=== PATIENT | female | born 1950 | race Caucasian/White ===

== ENCOUNTER 2016-09-07 07:38 | Inpatient (IN) | payer MEDICARE ==
[2016-09-07 08:01] LABS: Hematocrit 31 % (35-47); Hemoglobin 9.2 g/dl (12.0-16.0); Mean Corpuscular HGB Conc 30 g/dl (31-36); Mean Corpuscular Hemoglobin 20 pg (27-31); Mean Corpuscular Volume 66 fL (80-97); Mean Platelet Volume 9 um3 (7.4-10.4); Red Blood Count 4.67 10^6/ul (4.0-5.4); Red Cell Distribution Width 21 % (10.5-15); White Blood Count 12.1 10^3/ul (3.5-10.8)
[2016-09-07 08:08] LABS: Add Diff/Slide Review? Slide Review Added; Comments Flag Yes
[2016-09-07] MEDS: nitroGLYCERIN DRIP* 25,000 MCG in PREMIX* 0 ML IV ONE ×3 (08:18→09:23)
[2016-09-07 08:26] LABS: Albumin 3.4 g/dL (3.2-5.2); BUN/Creatinine Ratio 28.9 (8-20); Calcium 9.7 mg/dL (8.6-10.3); EGFR African American 98.5 (>60); EGFR Non-African American 76.6 (>60); Globulin 3.6 g/dL (2-4); Potassium 4.4 mmol/L (3.5-5.0); Total Bilirubin 0.3 mg/dL (0.2-1.0)
[2016-09-07 08:27] LABS: Troponin I 0.01 ng/mL (<0.04)
[2016-09-07 08:39] LABS: Add Path Review? YES
[2016-09-07 08:40] LABS: Hypochromasia 2+; Macrocytosis 1+; Microcytosis 3+; Polychromasia 1+
--- NOTE | 2016-09-07 09:11 | RAD ---
INDICATION: Chest pain COMPARISON: Chest x-ray dated June 14, 2012 TECHNIQUE: Single AP portable view of the chest was obtained. FINDINGS: Image quality is compromised due to the relative inferiority of a portable chest x-ray. There is mild cardiomegaly progressed since the previous chest x-ray. The pulmonary vasculature is indistinct and mildly engorged. There is bibasilar costophrenic angle blunting. A pleural-based horizontal line at the lateral aspect of the right middle lung likely represents fluid in the fissure. There is no definite lobar consolidation of the lung. Visualized bones are normal for the patient's age. IMPRESSION: In the correct clinical setting this constellation of findings are most consistent with cardiogenic pulmonary edema with small bibasilar pleural effusions.
--- NOTE | 2016-09-07 11:58 | ED ---
brando Rodriguez Timothy, scribed for Real Miranda MD on 09/07/16 at 0755 . Influenza-Like Illness - HPI Summary HPI Summary: Isaura Cabrera is a 65 yo female BIBA presenting to [facility] with nausea, vomiting , SOB, fever, and 2/10 epigstric pain beginning 09/05/16. She states when her Sx began she believed they were due to indigestion, and self-medicated with Tums with no relief. In the ambulance she claimed 2/10 CP, but now realizes the pain is more epigastric. The pain has been steadily increasing with time. Her SOB is a new Sx as of this morning. She denies any urinary Sx. Her Hx includes CAD, angina, PVD, cardiac catheterization, hypercholesterolemia, HTN, and DM. She also has a Hx of tobacco use for the past 47 years. Her PCP is Dr. Myrick. - History of Current Complaint Time Seen by Provider: 09/07/16 07:51 Hx Obtained From: Patient Onset/Duration: Gradual Onset, Lasting Days, Still Present, Worse Since - now Severity: Moderate Associated Signs & Symptoms: Fever, Vomiting - Allergy/Home Medications Allergies/Adverse Reactions: Allergies Allergy/AdvReac Type Severity Reaction Status Date / Time Perfume AdvReac Severe Sneezing Verified 01/11/15 10:06 Home Medications: Home Medications Amlodipine Besylate [Norvasc-] 10 mg PO DAILY 09/07/16 [History Confirmed ] Aspirin [Tomeka Advanced Aspirin Re] 325 mg PO QAM 09/07/16 [History Confirmed ] Bumetanide [Bumex] 3 mg PO BID 09/07/16 [History Confirmed 09/07/16] Gabapentin CAP(*) [Neurontin 300 CAP(*)] 300 mg PO TID 09/07/16 [History Confirmed 09/07/16] Glipizide [Glucotrol] 10 mg PO BID 09/07/16 [History Confirmed 09/07/16] Lancets [Lancets 26G Twist Top] 1 box .ROUTE BID 09/07/16 [History Confirmed 07/12] Lisinopril [Lisinopril 40 MG-] 40 mg PO DAILY 09/07/16 [History Confirmed ] Nitroglycerin TAB 0.4 MG* 0.4 mg SL Q5M PRN 09/07/16 [History Confirmed 09/07/16 ] PMH/Surg Hx/FS Hx/Imm Hx Endocrine/Hematology History: Reports: Hx Diabetes, Hx Thyroid Disease - thyroiditis Cardiovascular History: Reports: Hx Angina, Hx Coronary Artery Disease, Hx Hypercholesterolemia, Hx Hypertension - ON MEDICATION FOR, Hx Myocardial Infarction, Hx Peripheral Vascular Disease, Other Cardiovascular Problems/ Disorders - HX DVT'S-ON COUMADIN FOR-LAST TIME 2009 Respiratory History: Denies: Hx Asthma, Hx Chronic Obstructive Pulmonary Disease (COPD) Musculoskeletal History: Reports: Hx Tendonitis Denies: Hx Arthritis Sensory History: Reports: Hx Contacts or Glasses Denies: Hx Hearing Aid Opthamlomology History: Reports: Hx Contacts or Glasses Neurological History: Denies: Hx Seizures, Hx Transient Ischemic Attacks (TIA) - Surgical History Surgery Procedure, Year, and Place: 1998-SURGERY FOR BLOOD CLOT IN THE LEFT LEG Hx Anesthesia Reactions: No - Family History Known Family History: Positive: Cardiac Disease - unsure, Hypertension, Diabetes - Social History Alcohol Use: None Substance Use Type: Reports: None Smoking Status (MU): Current Every Day Smoker Type: Cigarettes Amount Used/How Often: 1 PACK PER WEEK X 45 YEARS Have You Smoked in the Last Year: Yes Review of Systems Positive: Fever Eyes: Negative ENT: Negative Positive: Chest Pain - later stated epigastric pain Positive: Abdominal Pain, Vomiting, Nausea Genitourinary: Negative Musculoskeletal: Negative Skin: Negative Neurological: Negative Psychological: Normal All Other Systems Reviewed And Are Negative: Yes Physical Exam Triage Information Reviewed: Yes Vital Signs On Initial Exam: Initial Vital Signs Temp 97.9 F 09/07/16 07:50 Pulse 85 09/07/16 07:50 Resp 18 09/07/16 07:50 BP 177/70 09/07/16 07:50 Pulse Ox 93 09/07/16 07:50 Vital Signs Reviewed: Yes Appearance: Positive: No Pain Distress, Well-Nourished, Ill-Appearing Skin: Positive: Warm, Skin Color Reflects Adequate Perfusion, Dry Head/Face: Positive: Normal Head/Face Inspection Eyes: Positive: Normal ENT: Positive: Normal ENT inspection Neck: Positive: Supple, Nontender, Other: - JVD, HJI Respiratory/Lung Sounds: Positive: Clear to Auscultation, Breath Sounds Present , Other - crackles intermediate up bilaterally Cardiovascular: Negative: RRR - tachypnic on arrival Abdomen Description: Positive: Nontender, Soft Bowel Sounds: Positive: Present Musculoskeletal: Positive: Normal, Other - peripheral edema +/++, left leg has been amputated. Neurological: Positive: Normal Psychiatric: Positive: Normal Diagnostics - Vital Signs Vital Signs Temp Pulse Resp BP Pulse Ox 09/07/16 11:30 92 19 172/64 94 09/07/16 11:20 85 21 156/92 94 09/07/16 11:18 87 21 184/65 90 09/07/16 11:10 86 20 69/51 93 09/07/16 11:00 77 26 149/67 92 09/07/16 10:50 71 24 168/74 91 09/07/16 10:40 80 22 174/61 92 09/07/16 10:30 81 21 161/59 93 09/07/16 10:20 72 16 137/65 92 09/07/16 10:10 85 22 156/52 92 09/07/16 10:00 87 24 185/58 94 09/07/16 09:50 70 23 177/92 92 09/07/16 09:40 75 16 166/113 93 09/07/16 09:30 70 18 190/68 92 09/07/16 09:20 76 19 202/80 91 09/07/16 09:10 78 22 190/70 93 09/07/16 09:00 80 21 185/69 92 09/07/16 08:50 86 28 175/105 93 09/07/16 08:40 78 24 161/123 97 09/07/16 08:30 77 24 184/70 95 09/07/16 08:24 77 20 190/68 93 09/07/16 08:22 79 20 189/68 94 09/07/16 08:16 79 23 97 09/07/16 08:14 186/90 09/07/16 07:50 97.9 F 85 18 177/70 93 - Laboratory Lab Results: Lab Results 09/07/16 09/07/16 09/07/16 Range/Units 07:50 07:50 07:50 WBC 12.1 H (3.5-10.8) 10^3/ul RBC 4.67 (4.0-5.4) 10^6/ul Hgb 9.2 L (12.0-16.0) g/dl Hct 31 L (35-47) % MCV 66 L (80-97) fL MCH 20 L (27-31) pg MCHC 30 L (31-36) g/dl RDW 21 H (10.5-15) % Plt Count 425 (150-450) 10^3/ul MPV 9 (7.4-10.4) um3 Neut % (Auto) 76.3 (38-83) % Lymph % (Auto) 14.3 L (25-47) % [place] % (Auto) 7.3 (1-9) % Eos % (Auto) 1.3 (0-6) % Baso % (Auto) 0.8 (0-2) % Absolute Neuts (auto) 9.3 H (1.5-7.7) 10^3/ul Absolute Lymphs (auto) 1.7 (1.0-4.8) 10^3/ul Absolute Monos (auto) 0.9 H (0-0.8) 10^3/ul Absolute Eos (auto) 0.2 (0-0.6) 10^3/ul Absolute Basos (auto) 0.1 (0-0.2) 10^3/ul Absolute Nucleated RBC 0 10^3/ul Nucleated RBC % 0 Normal RBC Morphology Not Reportable Polychromasia 1+ Hypochromasia 2+ Microcytosis 3+ Macrocytosis 1+ Hem Pathologist Commnt Pending Sodium 135 (133-145) mmol/L Potassium 4.4 (3.5-5.0) mmol/L Chloride 104 (101-111) mmol/L Carbon Dioxide 24 (22-32) mmol/L Anion Gap 7 (2-11) mmol/L BUN 22 (6-24) mg/dL Creatinine 0.76 (0.51-0.95) mg/dL Est GFR ( Amer) 98.5 (>60) Est GFR (Non-Af Amer) 76.6 (>60) BUN/Creatinine Ratio 28.9 H (8-20) Glucose 358 H (70-100) mg/dL Lactic Acid 1.4 (0.5-2.0) mmol/L Calcium 9.7 (8.6-10.3) mg/dL Total Bilirubin 0.30 (0.2-1.0) mg/dL AST 9 L (13-39) U/L ALT 10 (7-52) U/L Alkaline Phosphatase 130 H (34-104) U/L Troponin I 0.01 (<0.04) ng/mL B-Natriuretic Peptide ( - 100) pg/mL Total Protein 7.0 (6.4-8.9) g/dL Albumin 3.4 (3.2-5.2) g/dL Globulin 3.6 (2-4) g/dL Albumin/Globulin Ratio 0.9 L (1-3) 09/07/16 09/07/16 Range/Units 07:50 11:10 WBC (3.5-10.8) 10^3/ul RBC (4.0-5.4) 10^6/ul Hgb (12.0-16.0) g/dl Hct (35-47) % MCV (80-97) fL MCH (27-31) pg MCHC (31-36) g/dl RDW (10.5-15) % Plt Count (150-450) 10^3/ul MPV (7.4-10.4) um3 Neut % (Auto) (38-83) % Lymph % (Auto) (25-47) % [place] % (Auto) (1-9) % Eos % (Auto) (0-6) % Baso % (Auto) (0-2) % Absolute Neuts (auto) (1.5-7.7) 10^3/ul Absolute Lymphs (auto) (1.0-4.8) 10^3/ul Absolute Monos (auto) (0-0.8) 10^3/ul Absolute Eos (auto) (0-0.6) 10^3/ul Absolute Basos (auto) (0-0.2) 10^3/ul Absolute Nucleated RBC 10^3/ul Nucleated RBC % Normal RBC Morphology Polychromasia Hypochromasia Microcytosis Macrocytosis Hem Pathologist Commnt Sodium (133-145) mmol/L Potassium (3.5-5.0) mmol/L Chloride (101-111) mmol/L Carbon Dioxide (22-32) mmol/L Anion Gap (2-11) mmol/L BUN (6-24) mg/dL Creatinine (0.51-0.95) mg/dL Est GFR ( Amer) (>60) Est GFR (Non-Af Amer) (>60) BUN/Creatinine Ratio (8-20) Glucose (70-100) mg/dL Lactic Acid (0.5-2.0) mmol/L Calcium (8.6-10.3) mg/dL Total Bilirubin (0.2-1.0) mg/dL AST (13-39) U/L ALT (7-52) U/L Alkaline Phosphatase (34-104) U/L Troponin I 0.01 (<0.04) ng/mL B-Natriuretic Peptide 788 H ( - 100) pg/mL Total Protein (6.4-8.9) g/dL Albumin (3.2-5.2) g/dL Globulin (2-4) g/dL Albumin/Globulin Ratio (1-3) Result Diagrams: 09/07/16 07:50 09/07/16 07:50 Lab Statement: Any lab studies that have been ordered have been reviewed, and results considered in the medical decision making process. - Radiology CXR Xray Interpretation: Positive (See Comments) - IMPRESSION: In the correct clinical setting this constellation of findings are most consistent with cardiogenic pulmonary edema with small bibasilar pleural effusions. Radiology Interpretation Completed By: Radiologist - EKG 0737 Cardiac Rate: NL - 85 BPM EKG Rhythm: Sinus Rhythm EKG Interpretation: NSR@85BPM, nonspeciic ST,T wave changes intralaterally, PVC' s. same 02/09/14 EKG Comparison: No Significant Change Re-Evaluation - Re-Evaluation First Eval Re-Evaluation Time: 08:37 Change: Improved Comment: Pt conition has improved slightly, will increase nitro drip Flu Symptom Course/Dx - Course Assessment/Plan: Isauar Cabrera is a 65 yo female presenting to [facility] with N/V, fevr, and SOB. Clinically, she appeared to be in CHF and she was treated with a NTG drip to decrease both pre and afterload and subjectively improved significantly. After review of her Hx, CXR, lab studies, and discussion with Dr. Peralta, she will be admitted to [facility]. - Diagnoses Provider Diagnoses: CHF (congestive heart failure) - Physician Notifications Discussed Care Of Patient With: 0847 - Dr. Peralta (hospitalist) - Discussed Pt condition, will admit Pt. Critical Care Time: 30-74 min Discharge - Discharge Plan Condition: Stable Disposition: ADMITTED TO [facility] Referrals: Dylon Myrick MD [Primary Care Provider] - The documentation as recorded by the brando be Timothy accurately reflects the service I personally performed and the decisions made by me, Real Miranda MD.
[2016-09-07] MEDS ORDERED: Furosemide IV* 10 MG/ML 10 ML VIAL (100 MG) IV ONE (12:29)
[2016-09-07] MEDS ORDERED: Morphine INJ* 2 MG/ML 1 ML CARPUJECT IV PRN (13:08)
[2016-09-07] MEDS: Enoxaparin(*) 40 MG/0.4 ML SYR SUBCUT SCH (13:49)
[2016-09-07] MEDS: Lisinopril TAB* 10 MG PO SCH (13:50)
[2016-09-07] MEDS: Atorvastatin* 40 MG TAB PO SCH (13:50)
[2016-09-07] MEDS: Clopidogrel TAB* 75 MG PO SCH (13:50)
[2016-09-07] MEDS: amLODIPine TAB* 5 MG PO SCH (13:50)
[2016-09-07] MEDS: Gabapentin CAP(*) 300 MG PO SCH ×2 (13:50→21:38)
[2016-09-07] MEDS: Metoprolol Tartrate TAB* 50 mg PO SCH ×2 (13:50→21:38)
[2016-09-07] MEDS ORDERED: nitroGLYCERIN DRIP* 25,000 MCG in PREMIX* 0 ML IV SCH (14:00)
[2016-09-07 14:12] LABS: Ferritin 10.6 ng/mL (11-307)
[2016-09-07 14:15] LABS: Folate 18.05 ng/mL (>3.99)
[2016-09-07] MEDS ORDERED: Furosemide IV* 10 MG/ML 10 ML VIAL (100 MG) IV SCH (17:00)
--- NOTE | 2016-09-07 17:11 | PN ---
Hospitalist Progress Note HOSPITALIST ADDENDUM Case reviewed and d/w Benjamin ALVARES. Mrs. Cabrera is a 65yo F with PMH of CAD who presented to ED with c/o recurrent chest pain, requiring NTG drip. Labs and EKG reviewed. Agree with current management.
[2016-09-07] MEDS ORDERED: Dextrose 50% Syringe 50 ML* 25 GM/50 ML SYRINGE IV PUSH PRN (19:15)
[2016-09-07] MEDS ORDERED: Insulin LISPRO* 1 UNITS UNIT SUBCUT ONE (19:46)
[2016-09-07] MEDS: Insulin LISPRO* 1 UNITS UNIT SUBCUT SCH (19:48)
--- NOTE | 2016-09-07 19:59 | HP ---
ADMISSION HISTORY AND PHYSICAL: DATE OF ADMISSION: 09/07/16 PRIMARY CARE PROVIDER: Dr. Myrick. ADMITTING PROVIDER: DIA Sullivan. SUPERVISING PHYSICIAN: Lily Torres MD. * (DICTATED BY DIA SULLIVAN) CHIEF COMPLAINT: Severe epigastric and chest pain. HISTORY OF PRESENT ILLNESS: This is a 65-year-old female with a history of poorly controlled wti-ysriqsi-[id number] diabetes, history of significant peripheral vascular disease and coronary artery disease, status post inferior wall KS in 2013 and additional PPI in 2014 as well as hyperlipidemia and hypertension. The patient has been having intermittent symptoms of what she calls "indigestion" which she describes as epigastric discomfort over the last few days. She has been using Tums quite frequently with some improvement but this morning, she began to have severe epigastric discomfort that radiated into her chest. EMS was called. The patient received nitroglycerin and aspirin with EMS. Some improvement in her chest pain with that. The patient denied associated shortness of breath or nausea. No recent diarrhea. When the patient reached the emergency department, she was noted to be severely hypertensive with a blood pressure of greater than 200 systolic and nitro drip was initiated for blood pressure control. When the patient is evaluated now, she states that her abdominal pain and chest pain have resolved and she is otherwise asymptomatic. She and her have significant social disadvantages and has been having difficulty affording her medications. She reports that her diabetes is poorly controlled with her current oral regimen of metformin and glipizide, but they are unable to afford insulin therapy. She missed a few days of some of her medications last week including her Bumex. She was waiting for her next check to arrive in the mail. She has since resumed all of her typical medications including her Bumex for the last 4 days. The patient is unable to comment on any significant weight gain over the last several days. She denies any increase in lower extremity edema. No increased shortness of breath. No recent illness or other acute symptoms apart from this feeling of indigestion. In regards to the patient's cardiac history, the patient had an inferior wall KS in 2013, at which point she received 5 drug-eluting stents to the RCA. The patient is under the care of Dr. Cason since that time. She developed symptoms consistent with unstable angina about a year after her KS and underwent repeat catheterization with Dr. Cason. She had evidence of restenosis of one of her RCA stents as well as severe stenosis of the distal LAD as well as the circumflex. The patient was subsequently transferred for CABG, but the patient states that the director of sustainability that she saw at [facility] did not feel that a bypass was necessary and instead placed new stents. She believes that two were placed at that time. That report is not available for review. Her last echocardiogram was completed, January 2014, and at that time , she had normal EF without significant valvular disease. Also, of note, in addition to having difficulty filling her prescriptions, the patient has also been having difficulty making her various medical appointments. She unfortunately required an above-knee amputation in March of this last year and since then, transportation has become a major barrier and she has not made several of her appointments including Cardiology and primary care followup. PAST MEDICAL HISTORY: 1. Coronary artery disease, status post inferior wall KS in 2013 and additional PCI in 2014. 2. Hyperlipidemia. 3. Peripheral vascular disease, status post above-knee amputation. 4. Poorly controlled vkx-uxwfuhu-kxqvvziql diabetes. 5. Hypertension. 6. PCI in 2013 and 2014. 7. Above-knee amputation, March 2016. HOME MEDICATIONS: 1. Amlodipine 10 mg p.o. daily. 2. Aspirin 325 mg p.o. daily. 3. Lipitor 40 mg p.o. daily. 4. Bumex 3 mg p.o. b.i.d. 5. Plavix 75 mg p.o. daily. 6. Neurontin 300 mg p.o. t.i.d. 7. Glipizide 10 mg p.o. b.i.d. 8. Lisinopril 40 mg p.o. daily. 9. Metoprolol tartrate 50 mg p.o. b.i.d. 10. Nitroglycerin 0.4 mg sublingual q.5 minutes as needed for chest pain. 11. Metformin 1000 mg p.o. b.i.d. SOCIAL HISTORY: The patient lives at home with her . She has a greater than 09-ppay-gnui smoking history and is working to quit and just occasionally uses cigarettes during times of anxiety per her report. She denies any regular alcohol consumption. REVIEW OF SYSTEMS: As noted above in the HPI. PHYSICAL EXAMINATION GENERAL: This is a pleasant 65-year-old female who appears older than her stated age and accompanied by her , in no acute distress. INITIAL VITAL SIGNS: Temperature 97.9 degrees Fahrenheit, pulse 85 beats per minute, respiratory rate 18 per minute, oxygen saturation 93% on a nonrebreather , and blood pressure 177/70 mmHg. HEENT: Head is normocephalic, atraumatic. Mucous membranes are pink and moist. RESPIRATORY: Few crackles appreciated. Otherwise, clear to auscultation without rhonchi or wheezing. CARDIOVASCULAR: Heart has a regular rate and rhythm without murmurs, rubs, or gallops. ABDOMEN: Slightly distended but soft and nontender to palpation. EXTREMITIES: The patient has a left above-knee amputation. Right lower extremity shows trace edema. SKIN: Limited exam shows no concerning rashes or lesions. PSYCH: The patient is alert and appropriately oriented. LABORATORY EVALUATION: CBC shows a white blood cell count of 12,100, hemoglobin 9.2 g/dL with rather significant microcytosis with an MCV of 66. Platelet count is normal at 425,000. Comprehensive metabolic panel is essentially normal apart from her glucose. She has a sodium of 135 mmol/L, potassium 4.4 mmol/L, serum bicarb of 24, BUN of 22, creatinine 0.76, estimated GFR of 76. Random glucose is 358 mg/dL. Lactic acid normal at 1.4. Transaminases and total bilirubin are within normal limits. Troponin x2 is 0.01. BNP is mildly elevated at 788. IMAGING: EKG shows a sinus rhythm with inverted T waves and mild depression in 2, 3, and aVF. When compared to old EKG, this appears to be improved. Chest x-ray shows cardiomegaly and pulmonary edema with small bilateral effusions. ASSESSMENT AND PLAN: This is a 65-year-old female with extensive vascular history including inferior wall myocardial infarction, above-knee amputation for severe peripheral vascular disease and poorly controlled diabetes along with hypertension and hyperlipidemia who presents with a history painting a picture of unstable angina. No EKG changes or elevated troponin at this time. 1. Unstable angina - the patient does not demonstrate any EKG changes or elevated troponin. Additional troponin is pending at this time. She is chest pain free at the moment on a nitro drip mostly for blood pressure control. Contacted director of sustainability on-call, Dr. Causey, who will refer this consult to Dr. Cason tomorrow as he is quite familiar with her. Discussed whether repeat Lexiscan versus cardiac catheterization would be appropriate to Dr. Causey, I will leave this determination up to Dr. Cason. We will leave her n.p.o. after midnight for either procedure. We will not plan to anticoagulate her at this time, but continue her home cardiac medications including her statin, dual antiplatelet therapy, and beta maureen. 2. Hypertension - the patient is now asymptomatic on a nitroglycerin drip. Last blood pressure showed systolic pressures still about 170 to 180 mmHg. She is no longer having chest pain; however, and she has not taken her home antihypertensives this morning. We will continue her nitroglycerin drip, but give her typical home medications including amlodipine, lisinopril, and metoprolol. Hopefully with these medications, her nitroglycerin drip can be titrated off. 3. Acute congestive heart failure - chest x-ray and exam findings are consistent with acute heart failure, perhaps secondary to severe hypertension. She is now chest pain free on the nitro drip. We will diurese her with IV Lasix. She gives a history that she missed several doses of her diuretic last week, but has since resumed. We will plan to repeat an echocardiogram as her last one from 3 years ago showed normal left ventricular function. 4. Microcytic anemia - we will check iron studies and a stool for occult blood. She is on dual antiplatelet therapy and there would be a concern for an occult GI bleed. 5. Poorly controlled diabetes - we will check hemoglobin A1c. We will monitor glucose during her hospital stay. We will initiate Lantus just to 10 units daily and sliding scale with meals and titrate up as necessary. 6. Peripheral vascular disease, status post above-knee amputation - we will continue antiplatelet therapy and statin. 7. Hyperlipidemia - continue statin. 8. Social concerns - asked for a social work consult as there seems to be significant difficulty with transportation and payment for medications that are certainly interfering with her medical care at this time. 9. Code status - the patient is full code. 10. Healthcare proxy is her . 11. DVT prophylaxis - we will start Lovenox at 40 mg subcu daily. DISPOSITION: The patient is being admitted to inpatient currently to the ICU. Anticipated length of stay approximately 3 days. Pending consultation with Dr. Cason for tomorrow morning. DIA SULLIVAN CC: Dr. Myrick; Dr. Cason* [id number]/CPS #: [id number] MTDD
[2016-09-07] MEDS: Insulin GLARGINE(*) 1 UNITS UNIT SUBCUT SCH (21:37)
--- NOTE | 2016-09-07 22:03 | PN ---
Hospitalist Progress Note Patient remains hypertensive sBP ~140-160 throughout the day. Remains CP free. Nitro drip still running at a rate of 40, will plan to continue at this time. Glucose noted to be >350mg/dl this evening. Initiated Lantus, HgbA1c pending. No additional coverage orders given as she is not eating at this time , symptomatic or acidotic. Continue with meal time glucose checks and SS Lispro coverage, can titrate up.
[2016-09-08 06:07] LABS: Hematocrit 25 % (35-47); Hemoglobin 7.7 g/dl (12.0-16.0); Mean Corpuscular HGB Conc 31 g/dl (31-36); Mean Corpuscular Hemoglobin 20 pg (27-31); Mean Platelet Volume 9 um3 (7.4-10.4); Red Blood Count 3.84 10^6/ul (4.0-5.4); Red Cell Distribution Width 21 % (10.5-15)
[2016-09-08 06:12] LABS: Comments Flag Yes; Mean Corpuscular Volume 65 fL (80-97)
[2016-09-08 06:20] LABS: BUN/Creatinine Ratio 29.2 (8-20); Calcium 8.8 mg/dL (8.6-10.3); EGFR African American 82.1 (>60); EGFR Non-African American 63.9 (>60); HDL Cholesterol 28.4 mg/dL; Potassium 4.2 mmol/L (3.5-5.0)
--- NOTE | 2016-09-08 08:15 | PN ---
Subjective Date of Service: 09/08/16 Interval History: No more chest pain. No SOB, cough. Patient states her says she snores at home. Objective Active Medications: Amlodipine Besylate (Norvasc Tab*) 10 mg PO DAILY [facility] Last Admin: 09/07/16 13:50 Dose: 10 mg Aspirin (Aspirin Tab*) 325 mg PO QAM [facility] Atorvastatin Calcium (Lipitor*) 40 mg PO DAILY [facility] Last Admin: 09/07/16 13:50 Dose: 40 mg Bumetanide (Bumex Tab*) 3 mg PO BID [facility] Clopidogrel Bisulfate (Plavix Tab*) 75 mg PO DAILY [facility] Last Admin: 09/07/16 13:50 Dose: 75 mg Dextrose (D50w Syringe 50 Ml*) 12.5 gm IV PUSH .FOR FS < 60 - SS PRN PRN Reason: FS < 60 Enoxaparin Sodium (Lovenox(*)) 40 mg SUBCUT Q24H [facility] Last Admin: 09/07/16 13:49 Dose: 40 mg Ferrous Sulfate (Ferrous Sulfate Tab*) 325 mg PO DAILY [facility] Gabapentin (Neurontin Cap(*)) 300 mg PO TID [facility] Last Admin: 09/07/16 21:38 Dose: 300 mg Glipizide (Glucotrol Tab*) 10 mg PO 0800,1700 [facility] Insulin Glargine (Lantus(*)) 20 units SUBCUT BEDTIME [facility] Last Admin: 09/07/16 21:37 Dose: 20 unit Insulin Human Lispro (Humalog*) 0 - 15 units SUBCUT AC [facility] PRN Reason: Protocol Last Admin: 09/07/16 19:48 Dose: 15 units Isosorbide Mononitrate (Imdur Er Tab*) 30 mg PO DAILY [facility] Lisinopril (Prinivil Tab*) 40 mg PO DAILY [facility] Last Admin: 09/07/16 13:50 Dose: 40 mg Metoprolol Tartrate (Lopressor Tab*) 50 mg PO BID [facility] Last Admin: 09/07/16 21:38 Dose: 50 mg Morphine Sulfate (Morphine Inj (Syringe)*) 2 mg IV Q4H PRN PRN Reason: PAIN Last Admin: 09/07/16 21:49 Dose: 2 mg Vital Signs 09/07/16 09/07/16 09/07/16 09:00 09:10 09:20 Temperature Pulse Rate 80 78 76 Respiratory 21 22 19 Rate Blood Pressure 185/69 190/70 202/80 (mmHg) O2 Sat by Pulse 92 93 91 Oximetry 09/07/16 09/07/16 09/07/16 09:30 09:40 09:50 Temperature Pulse Rate 70 75 70 Respiratory 18 16 23 Rate Blood Pressure 190/68 166/113 177/92 (mmHg) O2 Sat by Pulse 92 93 92 Oximetry 09/07/16 09/07/16 09/07/16 10:00 10:10 10:20 Temperature Pulse Rate 87 85 72 Respiratory 24 22 16 Rate Blood Pressure 185/58 156/52 137/65 (mmHg) O2 Sat by Pulse 94 92 92 Oximetry 09/07/16 09/07/16 09/07/16 10:30 10:40 10:50 Temperature Pulse Rate 81 80 71 Respiratory 21 22 24 Rate Blood Pressure 161/59 174/61 168/74 (mmHg) O2 Sat by Pulse 93 92 91 Oximetry 09/07/16 09/07/16 09/07/16 11:00 11:10 11:18 Temperature Pulse Rate 77 86 87 Respiratory 26 20 21 Rate Blood Pressure 149/67 69/51 184/65 (mmHg) O2 Sat by Pulse 92 93 90 Oximetry 09/07/16 09/07/16 09/07/16 11:20 11:30 12:30 Temperature Pulse Rate 85 92 87 Respiratory 21 19 27 Rate Blood Pressure 156/92 172/64 166/85 (mmHg) O2 Sat by Pulse 94 94 95 Oximetry 09/07/16 09/07/16 09/07/16 12:50 13:00 13:10 Temperature Pulse Rate 88 89 80 Respiratory Rate Blood Pressure 182/78 185/66 179/71 (mmHg) O2 Sat by Pulse 97 94 94 Oximetry 09/07/16 09/07/16 09/07/16 13:20 13:30 13:40 Temperature Pulse Rate 79 87 77 Respiratory Rate Blood Pressure 175/63 166/60 160/65 (mmHg) O2 Sat by Pulse 90 94 94 Oximetry 09/07/16 09/07/16 09/07/16 13:50 14:00 14:35 Temperature 98.9 F Pulse Rate 77 74 Respiratory 23 Rate Blood Pressure 172/72 170/59 154/54 (mmHg) O2 Sat by Pulse 93 93 Oximetry 09/07/16 09/07/16 09/07/16 14:50 15:04 15:15 Temperature 98.9 F Pulse Rate 72 79 Respiratory 24 13 21 Rate Blood Pressure 169/59 154/54 161/58 (mmHg) O2 Sat by Pulse 95 94 Oximetry 09/07/16 09/07/16 09/07/16 15:30 15:45 16:00 Temperature 98.9 F 98.9 F 99.1 F Pulse Rate 78 78 79 Respiratory 21 18 19 Rate Blood Pressure 152/127 142/55 139/39 (mmHg) O2 Sat by Pulse 94 97 98 Oximetry 09/07/16 09/07/16 09/07/16 16:15 16:30 16:45 Temperature 99.2 F 99.1 F 99.0 F Pulse Rate 80 72 73 Respiratory 22 18 21 Rate Blood Pressure 144/60 145/48 149/61 (mmHg) O2 Sat by Pulse 96 95 92 Oximetry 09/07/16 09/07/16 09/07/16 17:00 17:15 17:30 Temperature 99.0 F 99.0 F 99.1 F Pulse Rate 75 74 74 Respiratory 20 21 21 Rate Blood Pressure 155/63 141/37 142/58 (mmHg) O2 Sat by Pulse 94 93 93 Oximetry 09/07/16 09/07/16 09/07/16 17:45 18:00 18:15 Temperature 99.1 F 99.1 F 99.3 F Pulse Rate 77 87 84 Respiratory 17 21 21 Rate Blood Pressure 118/77 134/72 140/75 (mmHg) O2 Sat by Pulse 92 91 94 Oximetry 09/07/16 09/07/16 09/07/16 18:30 18:45 19:00 Temperature 99.3 F 99.2 F 99.2 F Pulse Rate 84 86 80 Respiratory 22 25 25 Rate Blood Pressure 150/107 140/112 145/90 (mmHg) O2 Sat by Pulse 96 93 94 Oximetry 09/07/16 09/07/16 09/07/16 19:15 19:30 19:45 Temperature 99.0 F 98.9 F 98.9 F Pulse Rate 69 68 83 Respiratory 19 22 20 Rate Blood Pressure 150/64 158/57 135/46 (mmHg) O2 Sat by Pulse 93 94 93 Oximetry 09/07/16 09/07/16 09/07/16 20:00 20:15 20:30 Temperature 98.9 F 98.8 F 98.7 F Pulse Rate 72 76 87 Respiratory 18 17 20 Rate Blood Pressure 131/51 136/49 137/46 (mmHg) O2 Sat by Pulse 91 91 92 Oximetry 09/07/16 09/07/16 09/07/16 20:45 21:00 21:15 Temperature 98.8 F 98.8 F 98.9 F Pulse Rate 78 79 83 Respiratory 20 20 20 Rate Blood Pressure 140/49 139/55 155/52 (mmHg) O2 Sat by Pulse 92 93 93 Oximetry 09/07/16 09/07/16 09/07/16 21:30 21:45 21:49 Temperature 99.0 F 99.1 F Pulse Rate 82 86 Respiratory 21 20 18 Rate Blood Pressure 153/49 171/80 (mmHg) O2 Sat by Pulse 95 92 Oximetry 09/07/16 09/07/16 09/07/16 21:59 22:00 22:15 Temperature 99.2 F 99.2 F 99.1 F Pulse Rate 77 79 74 Respiratory 20 21 20 Rate Blood Pressure 153/52 141/63 127/48 (mmHg) O2 Sat by Pulse 94 93 92 Oximetry 09/07/16 09/07/16 09/07/16 22:30 22:45 23:00 Temperature 99.1 F 99.1 F 99.1 F Pulse Rate 77 78 80 Respiratory 21 22 22 Rate Blood Pressure 143/52 137/57 140/61 (mmHg) O2 Sat by Pulse 92 91 93 Oximetry 09/07/16 09/07/16 09/07/16 23:15 23:30 23:45 Temperature 99.1 F 99.2 F 99.2 F Pulse Rate 80 81 77 Respiratory 23 19 19 Rate Blood Pressure 111/90 132/50 (mmHg) O2 Sat by Pulse 92 95 95 Oximetry 09/07/16 09/07/16 09/08/16 23:51 23:57 00:00 Temperature 99.2 F 99.2 F Pulse Rate 75 70 Respiratory 18 19 21 Rate Blood Pressure (mmHg) O2 Sat by Pulse 95 89 Oximetry 09/08/16 09/08/16 09/08/16 00:01 00:15 00:30 Temperature 99.2 F 99.1 F 98.9 F Pulse Rate 80 65 70 Respiratory 23 21 20 Rate Blood Pressure 124/44 130/46 130/37 (mmHg) O2 Sat by Pulse 91 93 93 Oximetry 09/08/16 09/08/16 09/08/16 00:45 01:00 01:15 Temperature 98.8 F 98.8 F 98.7 F Pulse Rate 69 72 65 Respiratory 21 19 17 Rate Blood Pressure 113/51 110/36 139/57 (mmHg) O2 Sat by Pulse 94 94 93 Oximetry 09/08/16 09/08/16 09/08/16 01:30 01:45 02:00 Temperature 98.6 F 98.5 F 98.5 F Pulse Rate 65 57 65 Respiratory 25 20 18 Rate Blood Pressure 146/54 131/41 144/49 (mmHg) O2 Sat by Pulse 93 91 91 Oximetry 09/08/16 09/08/16 09/08/16 02:15 02:25 02:30 Temperature 98.5 F 98.5 F Pulse Rate 70 69 Respiratory 20 22 21 Rate Blood Pressure 151/57 160/55 (mmHg) O2 Sat by Pulse 92 92 Oximetry 09/08/16 09/08/16 09/08/16 02:45 03:00 03:15 Temperature 98.4 F 98.3 F 98.3 F Pulse Rate 77 76 72 Respiratory 17 17 18 Rate Blood Pressure 157/96 142/68 147/50 (mmHg) O2 Sat by Pulse 92 92 94 Oximetry 09/08/16 09/08/16 09/08/16 03:30 03:45 04:00 Temperature 98.2 F 98.2 F 98.3 F Pulse Rate 73 72 67 Respiratory 18 18 20 Rate Blood Pressure 147/76 157/84 152/58 (mmHg) O2 Sat by Pulse 94 92 92 Oximetry 09/08/16 09/08/16 09/08/16 04:15 04:30 04:45 Temperature 98.4 F 98.4 F Pulse Rate 67 71 Respiratory 20 18 Rate Blood Pressure 161/54 142/53 150/56 (mmHg) O2 Sat by Pulse 94 90 Oximetry 09/08/16 09/08/16 09/08/16 05:00 05:15 05:42 Temperature 98.2 F Pulse Rate 66 Respiratory 24 17 Rate Blood Pressure 148/57 125/48 (mmHg) O2 Sat by Pulse 91 Oximetry 09/08/16 09/08/16 09/08/16 05:46 06:00 06:15 Temperature 98.1 F 98.2 F 98.2 F Pulse Rate 58 65 80 Respiratory 16 19 18 Rate Blood Pressure 142/47 151/60 138/53 (mmHg) O2 Sat by Pulse 95 90 91 Oximetry 09/08/16 06:27 Temperature Pulse Rate Respiratory 17 Rate Blood Pressure (mmHg) O2 Sat by Pulse Oximetry Oxygen Devices in Use Now: Nasal Cannula Appearance: Alert supine in bed. In good spirits. Looks comfortable. Eyes: No Scleral Icterus Ears/Nose/Mouth/Throat: Clear Oropharnyx, Mucous Membranes Moist Neck: NL Appearance and Movements; NL JVP, No Thyroid Enlargement, Masses Respiratory: Symmetrical Chest Expansion and Respiratory Effort, Clear to Auscultation, Clear to Percussion Cardiovascular: NL Sounds; No Murmurs; No JVD, RRR, No Edema, - Extremities: No Edema, No Clubbing, Cyanosis, - - L AKA Skin: No Rash or Ulcers, No Nodules or Sclerosis, - - Pallor. Neurological: Alert and Oriented x 3, NL Sensation Result Diagrams: 09/08/16 05:55 09/08/16 05:55 Additional Lab and Data: Lab Results 09/07/16 09/07/16 09/07/16 Range/Units 07:50 07:50 07:50 WBC 12.1 H (3.5-10.8) 10^3/ul RBC 4.67 (4.0-5.4) 10^6/ul Hgb 9.2 L (12.0-16.0) g/dl Hct 31 L (35-47) % MCV 66 L (80-97) fL MCH 20 L (27-31) pg MCHC 30 L (31-36) g/dl RDW 21 H (10.5-15) % Plt Count 425 (150-450) 10^3/ul MPV 9 (7.4-10.4) um3 Neut % (Auto) 76.3 (38-83) % Lymph % (Auto) 14.3 L (25-47) % [place] % (Auto) 7.3 (1-9) % Eos % (Auto) 1.3 (0-6) % Baso % (Auto) 0.8 (0-2) % Absolute Neuts (auto) 9.3 H (1.5-7.7) 10^3/ul Absolute Lymphs (auto) 1.7 (1.0-4.8) 10^3/ul Absolute Monos (auto) 0.9 H (0-0.8) 10^3/ul Absolute Eos (auto) 0.2 (0-0.6) 10^3/ul Absolute Basos (auto) 0.1 (0-0.2) 10^3/ul Absolute Nucleated RBC 0 10^3/ul Nucleated RBC % 0 Normal RBC Morphology Not Reportable Polychromasia 1+ Hypochromasia 2+ Microcytosis 3+ Macrocytosis 1+ Hem Pathologist Commnt Pending Sodium 135 (133-145) mmol/L Potassium 4.4 (3.5-5.0) mmol/L Chloride 104 (101-111) mmol/L Carbon Dioxide 24 (22-32) mmol/L Anion Gap 7 (2-11) mmol/L BUN 22 (6-24) mg/dL Creatinine 0.76 (0.51-0.95) mg/dL Est GFR ( Amer) 98.5 (>60) Est GFR (Non-Af Amer) 76.6 (>60) BUN/Creatinine Ratio 28.9 H (8-20) Glucose 358 H (70-100) mg/dL Lactic Acid 1.4 (0.5-2.0) mmol/L Calcium 9.7 (8.6-10.3) mg/dL Total Bilirubin 0.30 (0.2-1.0) mg/dL AST 9 L (13-39) U/L ALT 10 (7-52) U/L Alkaline Phosphatase 130 H (34-104) U/L Troponin I 0.01 (<0.04) ng/mL B-Natriuretic Peptide ( - 100) pg/mL Total Protein 7.0 (6.4-8.9) g/dL Albumin 3.4 (3.2-5.2) g/dL Globulin 3.6 (2-4) g/dL Albumin/Globulin Ratio 0.9 L (1-3) 09/07/16 09/07/16 Range/Units 07:50 11:10 WBC (3.5-10.8) 10^3/ul RBC (4.0-5.4) 10^6/ul Hgb (12.0-16.0) g/dl Hct (35-47) % MCV (80-97) fL MCH (27-31) pg MCHC (31-36) g/dl RDW (10.5-15) % Plt Count (150-450) 10^3/ul MPV (7.4-10.4) um3 Neut % (Auto) (38-83) % Lymph % (Auto) (25-47) % [place] % (Auto) (1-9) % Eos % (Auto) (0-6) % Baso % (Auto) (0-2) % Absolute Neuts (auto) (1.5-7.7) 10^3/ul Absolute Lymphs (auto) (1.0-4.8) 10^3/ul Absolute Monos (auto) (0-0.8) 10^3/ul Absolute Eos (auto) (0-0.6) 10^3/ul Absolute Basos (auto) (0-0.2) 10^3/ul Absolute Nucleated RBC 10^3/ul Nucleated RBC % Normal RBC Morphology Polychromasia Hypochromasia Microcytosis Macrocytosis Hem Pathologist Commnt Sodium (133-145) mmol/L Potassium (3.5-5.0) mmol/L Chloride (101-111) mmol/L Carbon Dioxide (22-32) mmol/L Anion Gap (2-11) mmol/L BUN (6-24) mg/dL Creatinine (0.51-0.95) mg/dL Est GFR ( Amer) (>60) Est GFR (Non-Af Amer) (>60) BUN/Creatinine Ratio (8-20) Glucose (70-100) mg/dL Lactic Acid (0.5-2.0) mmol/L Calcium (8.6-10.3) mg/dL Total Bilirubin (0.2-1.0) mg/dL AST (13-39) U/L ALT (7-52) U/L Alkaline Phosphatase (34-104) U/L Troponin I 0.01 (<0.04) ng/mL B-Natriuretic Peptide 788 H ( - 100) pg/mL Total Protein (6.4-8.9) g/dL Albumin (3.2-5.2) g/dL Globulin (2-4) g/dL Albumin/Globulin Ratio (1-3) Microbiology and Other Data: Microbiology 09/08/16 06:00 Nasal Screen MRSA (PCR)(EBONY) - Final Nasal Mrsa Negative Assess/Plan/Problems-Billing Assessment: - Patient Problems (1) Chest pain Current Visit: Yes Status: Acute Code(s): R07.9 - CHEST PAIN, UNSPECIFIED SNOMED Code(s): 57531228 Comment: Patient has no NTG at home, is not sure if this was indigestion. Sedentary, uses a WC. Stress test ordered. Isosorbide mononitrate ordered. Note high BNP and also urine output 3000 ml yesterday. Chest pain may have been precipitated by her anemia. 2 U PRBC ordered. H&H 4 PM. (2) Iron (Fe) deficiency anemia Current Visit: Yes Status: Acute Code(s): D50.9 - IRON DEFICIENCY ANEMIA, UNSPECIFIED SNOMED Code(s): 31218986 Comment: Pantoprazole drip ordered. Dr. Morelos to consult. 2 U PRBC's ordered. H&H 1600 hrs today, CBC 09/09. Stop clopidogrel; discussed with Dr. Cason. (3) Diabetes Current Visit: Yes Status: Acute Code(s): E11.9 - TYPE 2 DIABETES MELLITUS WITHOUT COMPLICATIONS SNOMED Code(s): 38041156 Comment: Patient states the copay for insulin makes it unaffordable for her. She states her FS is often over 200 at home. She checks it twice daily. Resume glipizide, hold metoformin, continue Lantus and Lispro by SS. (4) Bradycardia Current Visit: Yes Status: Acute Code(s): R00.1 - BRADYCARDIA, UNSPECIFIED SNOMED Code(s): 06025376 Comment: Pause about 2.6 sec at 1:30 AM 09/08, HR 37 around that time briefly. I recommended to her that she get a sleep lab study as an outpt. She has never had one. (5) CHF (congestive heart failure) Current Visit: Yes Status: Acute Code(s): I50.9 - HEART FAILURE, UNSPECIFIED SNOMED Code(s): 52617516 Comment: Suspect acute diastolic CHF. Echo pending. Clinically resolved after diuresis 09/07. Resume her usual (large) dose of oral bumetanide bid. (6) PVD (peripheral vascular disease) Current Visit: Yes Status: Acute Code(s): I73.9 - PERIPHERAL VASCULAR DISEASE, UNSPECIFIED SNOMED Code(s): 622298491 Comment: I will ask SW to look into her getting both a prosthesis and a ramp.
[2016-09-08] MEDS ORDERED: Pantoprazole IV* 40 MG IV ONE (08:21)
[2016-09-08] MEDS: Insulin LISPRO* 1 UNITS UNIT SUBCUT SCH ×3 (08:41→18:33)
[2016-09-08] MEDS: Clopidogrel TAB* 75 MG PO SCH (08:42)
[2016-09-08] MEDS: Aspirin TAB* 325 MG PO SCH (08:42)
[2016-09-08] MEDS: Atorvastatin* 40 MG TAB PO SCH (08:42)
[2016-09-08] MEDS: Isosorbide Mononitrate ER TAB* 30 MG PO SCH (08:42)
[2016-09-08] MEDS: amLODIPine TAB* 5 MG PO SCH (08:43)
[2016-09-08] MEDS: glipiZIDE TAB* 5 MG PO SCH ×2 (08:43→18:34)
[2016-09-08] MEDS: Gabapentin CAP(*) 300 MG PO SCH ×3 (08:44→22:35)
[2016-09-08] MEDS: Lisinopril TAB* 10 MG PO SCH (08:44)
[2016-09-08] MEDS: Bumetanide TAB* 2 MG PO SCH ×2 (08:44→22:34)
[2016-09-08] MEDS: Metoprolol Tartrate TAB* 50 mg PO SCH ×2 (08:45→22:36)
[2016-09-08] MEDS ORDERED: Ferrous Sulfate TAB* 325 MG PO SCH (09:00)
[2016-09-08] MEDS: Pantoprazole IV* 80 MG in NS 0.9% 250 ML* 250 ML IVPB SCH ×2 (09:12→20:19)
--- NOTE | 2016-09-08 11:25 | ECHO ---
Patient: TRISHA PROCTOR [facility] Rec#: [id number] : 1950 Date: 09/08/2016 Age: 65y Height: 160.02 cm / 63.0 in Weight: 96.16 kg / 211.9 lbs Sex: F BSA: 1.98 Room#: [facility] Admit Date#: 09/07/2016 Type: Inpatient Referring: Lily Rincon MD Reading: Marty Berry MD Revenue Stamp Cutter: Jacquelyn Carroll KWAN Revenue Stamp Cutter: Catrina Simmons CC: Dylon Myrick MD Transthoracic Echocardiogram Indication: Chest Pain, CHF BP: 138/53 HR: 77 Rhythm: NSR Findings History: HTN, HLD, DM, PVD, CAD, PCI, IWMI 2013. Technical Comments: The study is technically limited due to patient body habitus. Completed at 1048. Left Ventricle: The left ventricular chamber size is normal. Severe concentric left ventricular hypertrophy is observed. Global left ventricular wall motion and contractility are within normal limits. The left ventricle appears hyperdynamic. The estimated ejection fraction is 55-60%. Abnormal left ventricular diastolic function is observed. Left Atrium: The left atrium is moderately dilated. Right Ventricle: The right ventricular cavity size is normal. The right ventricular global systolic function is normal. Right Atrium: The right atrial cavity size is normal. Aortic Valve: The aortic valve is trileaflet. The aortic valve leaflets are mildly thickened. There is no evidence of aortic regurgitation. There is no evidence of aortic stenosis. Mitral Valve: The mitral valve leaflets are moderately thickened. There is mild to moderate mitral regurgitation. There is no evidence of mitral stenosis. Tricuspid Valve: The tricuspid valve leaflets are normal. There is trace to mild tricuspid regurgitation. Unable to estimate the right ventricular systolic pressure. There is no tricuspid stenosis. Pulmonic Valve: The pulmonic valve appears normal. There is a trace pulmonic regurgitation. There is no pulmonic stenosis. Pericardium: A trivial pericardial effusion is visualized. There are no signs of significant hemodynamic compromise. Aorta: There is no dilatation of the ascending aorta. There is no dilatation of the aortic arch. There is no dilation of the aortic root. Pulmonary Artery: The main pulmonary artery appears normal. Venous: The inferior vena cava appears normal in size. There is an approximate 50% respiratory change in the inferior vena cava dimension. Summary: There are no significant changes when compared to the previous study done on 02/21/14 Conclusions Severe concentric left ventricular hypertrophy is observed. The estimated ejection fraction is 55-60%. Global left ventricular wall motion and contractility are within normal limits. The left atrium is moderately dilated. The right ventricular cavity size is normal. The aortic valve leaflets are mildly thickened. There is no evidence of aortic regurgitation. There is mild to moderate mitral regurgitation. There is trace to mild tricuspid regurgitation. Unable to estimate the right ventricular systolic pressure. There is no dilatation of the ascending aorta. There are no significant changes when compared to the previous study done on 02/21/14 Measurements Name Value Normal Range RVIDd (AP) 2D 2.9 cm (0.9 - 2.6) RVDdMajor (2D) 4.1 cm (2.2 - 4.4) RAd ISD 4CH 4.7 cm (3.4 - 4.9) RA (A4C)W 4 cm (2.9 - 4.6) IVSd (2D) 1.8 cm (0.6 - 1) LVPWd (2D) 1.8 cm (0.6 - 1) LVIDd (2D) 4.3 cm (3.6 - 5.4) LVIDs (2D) 3.3 cm - LV FS (2D) 23 % (25 - 45) Aortic Annulus 1.9 cm (1.4 - 2.6) Ao root diameter (2D) 2.8 cm (2.1 - 3.5) Ascending Ao 3.2 cm (2.1 - 3.4) Aortic arch 1.9 cm (1.8 - 3.4) LA dimension (AP) 2D 4.9 cm (2.3 - 3.8) LAd ISD 4CH 5.9 cm (2.9 - 5.3) LA ISD 4CH W 4.8 cm (2.5 - 4.5) Name Value Normal Range LA ESV SP 4CH (A/L) 78 ml - LA ESV SP 2CH (A/L) 68 ml - LA ESV BP (A/L) 75 ml - LA ESV BP (A/L) index 37.85 ml/m2 - LA ESV SP 4CH (MOD) 73 ml - LA ESV SP 2CH (MOD) 67 ml - Name Value Normal Range MV E-wave Vmax 1.5 m/sec - MV deceleration time 170 msec - MV A-wave Vmax 0.8 m/sec - MV E:A ratio 1.78 ratio - LV septal e' Vmax 0.03 m/sec - LV lateral e' Vmax 0.06 m/sec - LV E:e' septal ratio 50 ratio - LV E:e' lateral ratio 25 ratio - Name Value Normal Range AV Vmax 1.3 m/sec - AV VTI 31.9 cm - AV peak gradient 7.05 mmHg - AV mean gradient 3.85 mmHg - LVOT Vmax 1 m/sec - LVOT VTI 21.2 cm - LVOT peak gradient 3.94 mmHg - LVOT mean gradient 2 mmHg - Name Value Normal Range TR Vmax 1.9 m/sec - TR peak gradient 15 mmHg - RAP 8 mmHg - RVSP 23 mmHg - IVC diameter 1.6 cm - Name Value Normal Range PV Vmax 1 m/sec - PV peak gradient 4 mmHg -
[2016-09-08 11:43] LABS: Hematocrit 26 % (35-47); Hemoglobin 7.9 g/dl (12.0-16.0)
[2016-09-08 11:48] LABS: Comments Flag Yes
[2016-09-08] MEDS: Enoxaparin(*) 40 MG/0.4 ML SYR SUBCUT SCH (14:50)
[2016-09-08] MEDS ORDERED: Furosemide IV* 10 MG/ML VIAL (40 MG) IV ONE (17:10)
--- NOTE | 2016-09-08 19:01 | CONS ---
CARDIOLOGY CONSULTATION: DATE OF CONSULT: 09/07/16 REASON FOR CONSULT: The patient presents with epigastric discomfort with a known history of coronary artery disease to assess cardiac status for possible unstable angina. HISTORY OF PRESENT ILLNESS: The patient is a pleasant 65-year-old female known to me from her extensive prior cardiac history. She now states that she was in her usual state of health without significant symptoms until Thursday morning, while lying in bed she developed a mid epigastric toward upper epigastric discomfort that felt like an indigestion. She thought if she sat up, it felt a little better. She got up and walked around, had the symptom on and off. It was still present, but not as severe. At lunch she had a bowl of soup and a peanut butter sandwich. Late afternoon while sitting and watching TV, she again got it in the mid abdominal area to the upper abdomen area. On neither one of these times was there any radiation into the chest or up toward the throat. There was no jaw or arm radiation. These symptoms were not accompanied by nausea, vomiting, diaphoresis, or shortness of breath. She felt in the afternoon that the symptoms were constantly there for a couple of hours. She would take Tums and sometimes she would get some more relief, but it did not really go away. She went to bed and woke up at 2 in the morning and went to the bathroom and did not notice any symptoms at that time. She did have trouble when she was lying down, turning in bed and trying to get comfortable before she had fallen asleep. On Thursday, she woke up at 7 a.m. and noted having this symptom present, she got up and was walking around somewhat and she did not think walking made this symptom worse. Because of the symptom becoming more prominent, her called the ambulance and they presented to the emergency room at 7:38 a.m. While en route, EKGs were performed by the [facility] ambulance they revealed there was motion artifact, but there appeared to be mild downsloping ST segments in the inferior leads and subtly in V5 and V6. There was minimal ST segment depression in lead 1. She stated that when they laid her flat in the ambulance, she then noticed a sharp discomfort to go up to her upper chest area not into the throat or jaw or the arms, it lasted for a little over a minute. They had given her a nitroglycerin at that time. She stated that it was gone within 2 minutes. In the emergency room, the patient had an EKG reportedly timed at 7:37 on 09/07/16 showed T-wave inversion in III, downsloping and T wave inversion in aVF, mild ST segment depression in II, also aVL and V1, mildly in V5 and V6. At that time in the emergency room, she was found to be hypertensive at 177/70 and 186/90. Over the course of sequential blood tests q.3 hours, her troponins have been negative x3 with values of 0.01. Her B-natriuretic peptide was 788. Her glucose was 358. She had a chest x-ray that suggested mild cardiomegaly and the pulmonary vasculature was indistinct with mild gorging suggesting perhaps mild pulmonary congestion with pulmonary edema. She has not had any more symptoms since being in the hospital. Her laboratory results revealed normal BUN and creatinine, but interestingly her hemoglobin on admission was 9.2 and 31 and decreased to 7.7 and 25. She was diuresed extensively and last night put out 2.5 L. When I see her, she denies any specific symptomatology. Her cardiac history is extensive in nature. She presented with an acute ST segment elevation inferior wall myocardial infarction on 02/09/14, she was noted and underwent cardiac catheterization and had a 99 plus % proximal right coronary artery with a 100% PDA, 75% to 80% mid right coronary artery lesion, and 75% to 80% proximal to mid LAD followed by 65% to 70% mid LAD. She underwent extensive placement with essentially lining the right coronary artery with a 2.25 x 24 mm Promus PREMIER drug-eluting stent in the posterior descending artery proximally, she had a 3.0 x 16 mm long Promus PREMIER in the mid right coronary artery, a 3.5 x 38 and a 3.5 x 16 mm Promus PREMIER drug- eluting stent in the mid to ostial right coronary artery. Echocardiogram done the next day had shown preserved LV function at 55% to 60%. She presented in the office in December 2014 with unstable symptoms and a diagnostic cardiac catheterization was performed by Dr. Lopez from the right radial artery and it revealed severe triple vessel disease with in-stent restenosis critically in the proximal to ostial right coronary artery as well as with progression of disease in the circumflex and in the LAD. She was sent to [facility] for a recommendation of open heart surgery, but the surgeons felt she was too high risk for open heart with her vascular disease and she underwent stenting of the right coronary artery and also stenting of the LAD. She did not have stents placed into her circumflex artery, which had diffuse disease as well but was also small in caliber. Since that time to now, she has had no significant recurrence of symptoms. PAST MEDICAL HISTORY: Significant for: 1. Coronary artery disease as mentioned. 2. Hyperlipidemia. 3. Peripheral vascular disease, she has bilateral carotid bruits as well. 4. Status post left [id number] amputation by Dr. Negrete. 5. She has poorly controlled diabetes. 6. Essential hypertension. PAST SURGICAL HISTORY: Includes all of the percutaneous coronary interventions and the [id number] amputation in March 2016, which she apparently tolerated without significant problems. CURRENT MEDICATIONS: At home included: 1. Amlodipine 10 mg once a day. 2. Aspirin 325 a day. 3. Lipitor 40 mg a day. 4. Bumex 3 mg twice a day. 5. Plavix 75 mg a day. 6. Neurontin 300 mg t.i.d. 7. Glipizide 10 mg b.i.d. 8. Lisinopril 40 mg a day. 9. Metoprolol tartrate 50 mg twice a day. 10. Sublingual nitroglycerin. 11. Metformin 1000 mg twice a day. Medications now in the hospital include: 1. Amlodipine 10 mg a day. 2. Aspirin 325 a day. 3. Lipitor 40 mg a day. 4. Bumex tabs 3 mg twice a day. 5. Lovenox 40 mg subcu daily. 6. Ferrous sulfate 325 mg daily. 7. Gabapentin 300 mg t.i.d. 8. Glipizide 10 mg twice a day. 9. Insulin Lantus subcu as 20 units at bedtime and Humalog subcu a.c. by schedule. 10. Imdur 30 mg once a day. 11. Lisinopril 40 mg a day. 12. Metoprolol tartrate 50 mg twice a day. 13. Pantoprazole intravenously. SOCIAL HISTORY: She lives at home with her . She has not stopped smoking and has a greater than 45-[id number]-bjdi smoking history. She is trying to quit and is down to using it occasionally during times of anxiety. She denies any alcohol abuse or illicit drug usage. REVIEW OF SYSTEMS: As per the H and P with no additional changes. PHYSICAL EXAM: When I see her now reveals blood pressure 161/65 with a pulse of 60, O2 saturation 96%, respirations 18. Neck is supple. I cannot appreciate significant increased JVP. Carotids have mild decreased upstroke and volume. I appreciate bilateral bruits. Conjunctivae are pale. Sclerae clear. Lungs reveal no accessory muscle usage. There is poor to fair excursion. There are marked decreased breath sounds bilaterally with minimal crackles at the left base. Heart reveals a regular rate and rhythm. There is S4 gallop. There is no significant systolic or diastolic murmur appreciated. Abdomen is obese, soft and nontender. Extremities: Reveal a left above-the- knee amputation. The right lower extremity has poor distal pulses. The right femoral pulse is present. There appears to be a bruit. Left femoral pulse is not palpable to my exam. Neuro: The patient is alert and oriented with normal mentation. Musculoskeletal: The patient moves all extremities appropriate. Psychological: The patient with normal affect. DIAGNOSTIC STUDIES/LAB DATA: Laboratory results revealed on admission, hemoglobin and hematocrit of 9.2 and 31, on repeat this morning 7.7 and 25, repeat is pending as well. Platelet count 425,000 yesterday, 361,000 today. White count was 12,100 yesterday and 12,000 today. Yesterday BUN and creatinine 22 and 0.7, lactic acid 1.4, sodium 135, potassium 4.4, chloride 104 , bicarb 24, iron is 19, TIBC is 451, percent saturation is 4, ferritin is 10, SGOT 9, SGPT 10, alk phos 130. BNP is 788. Troponin as mentioned earlier was 0.1 x3 samples. Repeat BUN and creatinine this morning is 26 and 0.8 and potassium is 4.2, triglycerides 164, total cholesterol 133, LDL 72, HDL 28. OVERALL ASSESSMENT: Isaura presents now with symptoms that are difficult to tease out in that lot of it sounds very atypical, almost GI and that she focused all of her symptoms from Thursday and even into Thursday to the mid abdominal area to the upper abdominal area with nothing in the chest occurring till she laid flat in the ambulance and that lasted only some 2 minutes. The cardiac enzymes despite all of these symptoms the day before and on Thursday did not reveal any abnormality on 3 separate sets. Her EKG does have subtle ST segment changes that may speak; however, for ischemia and we know her to have significant multivessel disease. She does have significant anemia on the most recent blood test and that is being repeated to corroborate that. If it is indeed present, I believe the starting point would be to control her blood pressure and get blood on board to get her hemoglobin to at least 10. We will then have to decide whether or not we would first do a Lexiscan stress test to look for ischemia and the extent of it before subjecting her to an increased risk of cardiac catheterization given her vascular disease. We will get the echocardiogram to look at her LV function and this will be helpful in trying to evaluate her as far as whether or not she has new wall motion abnormalities. Of note, the last time she had LV function analysis was on Dr. Lopez' catheterization back in December 2014 and at that time her left ventriculogram showed inferobasilar hypokinesis. Overall EF was still preserved at about 50% with 2+ mitral regurgitation. Thank you very much as always for allowing me to participate in your care. With regard to blood pressure control, most likely advancing her Imdur as tolerated would be helpful. CC: Dylon Myrick MD; Dr. Julian Negrete, [facility], [place]* [id number]/[facility] #: [id number] MTDRandy
[2016-09-08] MEDS ORDERED: Furosemide IV* 10 MG/ML VIAL (40 MG) ONE (22:23)
[2016-09-08] MEDS: Insulin GLARGINE(*) 1 UNITS UNIT SUBCUT SCH (22:39)
[2016-09-08 23:39] LABS: Hematocrit 35 % (35-47); Hemoglobin 10.7 g/dl (12.0-16.0)
[2016-09-08 23:46] LABS: Comments Flag Yes
[2016-09-09 05:11] LABS: Hematocrit 33 % (35-47); Hemoglobin 10.2 g/dl (12.0-16.0); Mean Corpuscular HGB Conc 31 g/dl (31-36); Mean Corpuscular Hemoglobin 22 pg (27-31); Mean Corpuscular Volume 69 fL (80-97); Mean Platelet Volume 9 um3 (7.4-10.4); Red Blood Count 4.72 10^6/ul (4.0-5.4); Red Cell Distribution Width 24 % (10.5-15); White Blood Count 10.3 10^3/ul (3.5-10.8)
[2016-09-09 05:12] LABS: Comments Flag Yes
[2016-09-09 05:13] LABS: Add Diff/Slide Review? Slide Review Added
[2016-09-09 05:22] LABS: BUN/Creatinine Ratio 23.5 (8-20); Calcium 9.1 mg/dL (8.6-10.3); EGFR African American 91.6 (>60); EGFR Non-African American 71.2 (>60); Potassium 3.7 mmol/L (3.5-5.0)
[2016-09-09 05:37] LABS: Add Path Review? YES; Microcytosis 2+; Polychromasia 1+; RBC Morphology Normal (Normal)
[2016-09-09] MEDS: Pantoprazole IV* 80 MG in NS 0.9% 250 ML* 250 ML IVPB SCH ×2 (07:25→16:40)
[2016-09-09] MEDS: Insulin LISPRO* 1 UNITS UNIT SUBCUT SCH ×3 (07:29→17:25)
--- NOTE | 2016-09-09 07:36 | PN ---
Subjective Date of Service: 09/09/16 Interval History: No cough, SOB, chest pain. No BM yet. No nausea. No new c/o. Objective Active Medications: Amlodipine Besylate (Norvasc Tab*) 10 mg PO DAILY [facility] Last Admin: 09/08/16 08:43 Dose: 10 mg Aspirin (Aspirin Tab*) 325 mg PO QAM [facility] Last Admin: 09/08/16 08:42 Dose: 325 mg Atorvastatin Calcium (Lipitor*) 40 mg PO DAILY [facility] Last Admin: 09/08/16 08:42 Dose: 40 mg Bumetanide (Bumex Tab*) 3 mg PO BID [facility] Last Admin: 09/08/16 22:34 Dose: 3 mg Dextrose (D50w Syringe 50 Ml*) 12.5 gm IV PUSH .FOR FS < 60 - SS PRN PRN Reason: FS < 60 Enoxaparin Sodium (Lovenox(*)) 40 mg SUBCUT Q24H [facility] Last Admin: 09/08/16 14:50 Dose: 40 mg Ferrous Sulfate (Ferrous Sulfate Tab*) 325 mg PO DAILY [facility] Last Admin: 09/08/16 08:44 Dose: 325 mg Gabapentin (Neurontin Cap(*)) 300 mg PO TID [facility] Last Admin: 09/08/16 22:35 Dose: 300 mg Glipizide (Glucotrol Tab*) 10 mg PO 0800,1700 [facility] Last Admin: 09/08/16 18:34 Dose: 10 mg Pantoprazole Sodium 80 mg/ (Sodium Chloride) 250 mls @ 25 mls/hr IVPB Q10H [facility] Last Admin: 09/08/16 20:19 Dose: 25 mls/hr Influenza Virus Vaccine (Fluarix *Quad* 2015-*) 0.5 ml IM .ONCE ONE Stop: 09/09/16 09:01 Insulin Glargine (Lantus(*)) 20 units SUBCUT BEDTIME [facility] Last Admin: 09/08/16 22:39 Dose: 20 unit Insulin Human Lispro (Humalog*) 0 - 15 units SUBCUT AC [facility] PRN Reason: Protocol Last Admin: 09/08/16 18:33 Dose: 3 units Isosorbide Mononitrate (Imdur Er Tab*) 30 mg PO DAILY [facility] Last Admin: 09/08/16 08:42 Dose: 30 mg Lisinopril (Prinivil Tab*) 40 mg PO DAILY [facility] Last Admin: 09/08/16 08:44 Dose: 40 mg Metoprolol Tartrate (Lopressor Tab*) 50 mg PO BID [facility] Last Admin: 09/08/16 22:36 Dose: 50 mg Morphine Sulfate (Morphine Inj (Syringe)*) 2 mg IV Q4H PRN PRN Reason: PAIN Last Admin: 09/07/16 21:49 Dose: 2 mg Vital Signs 09/08/16 09/08/16 09/08/16 07:30 08:00 08:30 Temperature 98.0 F 98.0 F 98.2 F Pulse Rate 76 66 71 Respiratory 17 16 24 Rate Blood Pressure 147/62 165/57 170/52 (mmHg) O2 Sat by Pulse 91 92 92 Oximetry 09/08/16 09/08/16 09/08/16 09:00 09:30 10:00 Temperature 98.2 F 98.4 F 98.3 F Pulse Rate 61 71 60 Respiratory 18 19 18 Rate Blood Pressure 173/59 164/57 157/59 (mmHg) O2 Sat by Pulse 90 91 93 Oximetry 09/08/16 09/08/16 09/08/16 11:00 12:00 13:00 Temperature 98.5 F 98.5 F Pulse Rate 65 69 67 Respiratory 22 15 16 Rate Blood Pressure 161/65 160/67 154/51 (mmHg) O2 Sat by Pulse 93 97 88 Oximetry 09/08/16 09/08/16 09/08/16 14:00 14:22 15:00 Temperature Pulse Rate 66 63 65 Respiratory 18 16 12 Rate Blood Pressure 151/54 154/44 (mmHg) O2 Sat by Pulse 91 91 89 Oximetry 09/08/16 09/08/16 09/08/16 15:06 17:45 20:00 Temperature 99.5 F Pulse Rate 65 72 Respiratory 20 20 20 Rate Blood Pressure 164/55 173/62 (mmHg) O2 Sat by Pulse 89 92 Oximetry 09/08/16 09/08/16 09/09/16 22:35 23:37 00:35 Temperature 97.7 F Pulse Rate 65 Respiratory 20 20 20 Rate Blood Pressure 183/74 (mmHg) O2 Sat by Pulse 96 Oximetry 09/09/16 03:22 Temperature 97.2 F Pulse Rate 58 Respiratory 16 Rate Blood Pressure 130/47 (mmHg) O2 Sat by Pulse 92 Oximetry Oxygen Devices in Use Now: Nasal Cannula Appearance: Alert, supine in bed. In good spirits. Looks comfortable. Eyes: No Scleral Icterus Ears/Nose/Mouth/Throat: Clear Oropharnyx, Mucous Membranes Moist Neck: NL Appearance and Movements; NL JVP, No Thyroid Enlargement, Masses Respiratory: Symmetrical Chest Expansion and Respiratory Effort, Clear to Auscultation, Clear to Percussion Cardiovascular: NL Sounds; No Murmurs; No JVD, RRR, No Edema, - Extremities: No Edema, No Clubbing, Cyanosis, - - L AKA Skin: No Rash or Ulcers, No Nodules or Sclerosis, - Neurological: Alert and Oriented x 3, NL Sensation Result Diagrams: 09/09/16 04:27 09/09/16 04:27 Additional Lab and Data: Lab Results 09/07/16 09/07/16 09/07/16 Range/Units 07:50 07:50 07:50 WBC 12.1 H (3.5-10.8) 10^3/ul RBC 4.67 (4.0-5.4) 10^6/ul Hgb 9.2 L (12.0-16.0) g/dl Hct 31 L (35-47) % MCV 66 L (80-97) fL MCH 20 L (27-31) pg MCHC 30 L (31-36) g/dl RDW 21 H (10.5-15) % Plt Count 425 (150-450) 10^3/ul MPV 9 (7.4-10.4) um3 Neut % (Auto) 76.3 (38-83) % Lymph % (Auto) 14.3 L (25-47) % [place] % (Auto) 7.3 (1-9) % Eos % (Auto) 1.3 (0-6) % Baso % (Auto) 0.8 (0-2) % Absolute Neuts (auto) 9.3 H (1.5-7.7) 10^3/ul Absolute Lymphs (auto) 1.7 (1.0-4.8) 10^3/ul Absolute Monos (auto) 0.9 H (0-0.8) 10^3/ul Absolute Eos (auto) 0.2 (0-0.6) 10^3/ul Absolute Basos (auto) 0.1 (0-0.2) 10^3/ul Absolute Nucleated RBC 0 10^3/ul Nucleated RBC % 0 Normal RBC Morphology Not Reportable Polychromasia 1+ Hypochromasia 2+ Microcytosis 3+ Macrocytosis 1+ Hem Pathologist Commnt Pending Sodium 135 (133-145) mmol/L Potassium 4.4 (3.5-5.0) mmol/L Chloride 104 (101-111) mmol/L Carbon Dioxide 24 (22-32) mmol/L Anion Gap 7 (2-11) mmol/L BUN 22 (6-24) mg/dL Creatinine 0.76 (0.51-0.95) mg/dL Est GFR ( Amer) 98.5 (>60) Est GFR (Non-Af Amer) 76.6 (>60) BUN/Creatinine Ratio 28.9 H (8-20) Glucose 358 H (70-100) mg/dL Lactic Acid 1.4 (0.5-2.0) mmol/L Calcium 9.7 (8.6-10.3) mg/dL Total Bilirubin 0.30 (0.2-1.0) mg/dL AST 9 L (13-39) U/L ALT 10 (7-52) U/L Alkaline Phosphatase 130 H (34-104) U/L Troponin I 0.01 (<0.04) ng/mL B-Natriuretic Peptide ( - 100) pg/mL Total Protein 7.0 (6.4-8.9) g/dL Albumin 3.4 (3.2-5.2) g/dL Globulin 3.6 (2-4) g/dL Albumin/Globulin Ratio 0.9 L (1-3) 09/07/16 09/07/16 Range/Units 07:50 11:10 WBC (3.5-10.8) 10^3/ul RBC (4.0-5.4) 10^6/ul Hgb (12.0-16.0) g/dl Hct (35-47) % MCV (80-97) fL MCH (27-31) pg MCHC (31-36) g/dl RDW (10.5-15) % Plt Count (150-450) 10^3/ul MPV (7.4-10.4) um3 Neut % (Auto) (38-83) % Lymph % (Auto) (25-47) % [place] % (Auto) (1-9) % Eos % (Auto) (0-6) % Baso % (Auto) (0-2) % Absolute Neuts (auto) (1.5-7.7) 10^3/ul Absolute Lymphs (auto) (1.0-4.8) 10^3/ul Absolute Monos (auto) (0-0.8) 10^3/ul Absolute Eos (auto) (0-0.6) 10^3/ul Absolute Basos (auto) (0-0.2) 10^3/ul Absolute Nucleated RBC 10^3/ul Nucleated RBC % Normal RBC Morphology Polychromasia Hypochromasia Microcytosis Macrocytosis Hem Pathologist Commnt Sodium (133-145) mmol/L Potassium (3.5-5.0) mmol/L Chloride (101-111) mmol/L Carbon Dioxide (22-32) mmol/L Anion Gap (2-11) mmol/L BUN (6-24) mg/dL Creatinine (0.51-0.95) mg/dL Est GFR ( Amer) (>60) Est GFR (Non-Af Amer) (>60) BUN/Creatinine Ratio (8-20) Glucose (70-100) mg/dL Lactic Acid (0.5-2.0) mmol/L Calcium (8.6-10.3) mg/dL Total Bilirubin (0.2-1.0) mg/dL AST (13-39) U/L ALT (7-52) U/L Alkaline Phosphatase (34-104) U/L Troponin I 0.01 (<0.04) ng/mL B-Natriuretic Peptide 788 H ( - 100) pg/mL Total Protein (6.4-8.9) g/dL Albumin (3.2-5.2) g/dL Globulin (2-4) g/dL Albumin/Globulin Ratio (1-3) Microbiology and Other Data: Microbiology 09/08/16 06:00 Nasal Screen MRSA (PCR)(EBONY) - Final Nasal Mrsa Negative Assess/Plan/Problems-Billing Assessment: - Patient Problems (1) Chest pain Current Visit: Yes Status: Acute Code(s): R07.9 - CHEST PAIN, UNSPECIFIED SNOMED Code(s): 33948673 Comment: Patient has no NTG at home, is not sure if this was indigestion. Sedentary, uses a WC. Isosorbide mononitrate started. Urine output 2280 ml 09/08. Chest pain may have been precipitated by her anemia. 2 U PRBC given. (2) Iron (Fe) deficiency anemia Current Visit: Yes Status: Acute Code(s): D50.9 - IRON DEFICIENCY ANEMIA, UNSPECIFIED SNOMED Code(s): 37830180 Comment: Pantoprazole drip ordered. Discussed with Dr. Morelos 09/08. 2 U PRBC's given. Stop Clopidogrel on hold. (3) Diabetes Current Visit: Yes Status: Acute Code(s): E11.9 - TYPE 2 DIABETES MELLITUS WITHOUT COMPLICATIONS SNOMED Code(s): 73074040 Comment: Patient states the copay for insulin makes it unaffordable for her. She states her FS is often over 200 at home. She checks it twice daily. Resume glipizide, hold metoformin, continue Lantus and Lispro by SS. (4) Bradycardia Current Visit: Yes Status: Acute Code(s): R00.1 - BRADYCARDIA, UNSPECIFIED SNOMED Code(s): 45525600 Comment: Pause about 2.6 sec at 1:30 AM 09/08, HR 37 around that time briefly. I recommended to her that she get a sleep lab study as an outpt. She has never had one. (5) CHF (congestive heart failure) Current Visit: Yes Status: Acute Code(s): I50.9 - HEART FAILURE, UNSPECIFIED SNOMED Code(s): 98504779 Comment: Suspect acute diastolic CHF. Echo pending. Clinically resolved after diuresis 09/07. Resume her usual (large) dose of oral bumetanide bid. (6) PVD (peripheral vascular disease) Current Visit: Yes Status: Acute Code(s): I73.9 - PERIPHERAL VASCULAR DISEASE, UNSPECIFIED SNOMED Code(s): 564503596 Comment: I will ask SW to look into her getting both a prosthesis and a ramp.
[2016-09-09] MEDS ORDERED: Influenza VAC *QUAD* 2016-17* 0.5 ML SYRINGE IM ONE (09:00)
[2016-09-09] MEDS: glipiZIDE TAB* 5 MG PO SCH ×2 (10:18→17:26)
[2016-09-09] MEDS: Aspirin TAB* 325 MG PO SCH (10:19)
[2016-09-09] MEDS: Atorvastatin* 40 MG TAB PO SCH (10:19)
[2016-09-09] MEDS: amLODIPine TAB* 5 MG PO SCH (10:19)
[2016-09-09] MEDS: Bumetanide TAB* 2 MG PO SCH ×2 (10:20→21:42)
[2016-09-09] MEDS: Gabapentin CAP(*) 300 MG PO SCH ×3 (10:21→21:43)
[2016-09-09] MEDS: Isosorbide Mononitrate ER TAB* 30 MG PO SCH (10:22)
[2016-09-09] MEDS: Metoprolol Tartrate TAB* 50 mg PO SCH ×2 (10:23→21:43)
[2016-09-09] MEDS: Lisinopril TAB* 10 MG PO SCH (10:23)
[2016-09-09] MEDS ORDERED: Midazolam* 1 MG/ML 10 ML VIAL (10 MG) ONE (14:44)
[2016-09-09] MEDS: Enoxaparin(*) 40 MG/0.4 ML SYR SUBCUT SCH (16:58)
[2016-09-09 20:27] LABS: BUN/Creatinine Ratio 17.5 (8-20); EGFR African American 61.7 (>60); Magnesium 1.9 mg/dL (1.9-2.7); Potassium 4.7 mmol/L (3.5-5.0)
[2016-09-09] MEDS ORDERED: Atorvastatin* 40 MG TAB PO SCH (21:00)
[2016-09-09] MEDS ORDERED: Magnesium Sulfate 2 GM IV* 2 GM/50 ML BAG IVPB ONE (21:20)
[2016-09-09] MEDS: Insulin GLARGINE(*) 1 UNITS UNIT SUBCUT SCH (21:43)
[2016-09-10 08:49] LABS: Hematocrit 34 % (35-47); Hemoglobin 10.8 g/dl (12.0-16.0); Mean Corpuscular HGB Conc 31 g/dl (31-36); Mean Corpuscular Hemoglobin 22 pg (27-31); Mean Platelet Volume 9 um3 (7.4-10.4); Red Blood Count 4.95 10^6/ul (4.0-5.4); White Blood Count 8.9 10^3/ul (3.5-10.8)
[2016-09-10 08:50] LABS: Comments Flag Yes; Mean Corpuscular Volume 69 fL (80-97)
[2016-09-10 08:51] LABS: Red Cell Distribution Width 24 % (10.5-15)
[2016-09-10] MEDS: Insulin LISPRO* 1 UNITS UNIT SUBCUT SCH ×2 (08:53→13:01)
[2016-09-10] MEDS: Bumetanide TAB* 2 MG PO SCH (08:54)
[2016-09-10] MEDS: Gabapentin CAP(*) 300 MG PO SCH ×2 (08:54→13:00)
[2016-09-10] MEDS: amLODIPine TAB* 5 MG PO SCH (08:54)
[2016-09-10] MEDS: glipiZIDE TAB* 5 MG PO SCH (08:54)
[2016-09-10] MEDS: Lisinopril TAB* 10 MG PO SCH (08:55)
[2016-09-10] MEDS: Aspirin TAB* 325 MG PO SCH (08:56)
[2016-09-10] MEDS: Metoprolol Tartrate TAB* 50 mg PO SCH (08:56)
[2016-09-10] MEDS ORDERED: Isosorbide Mononitrate ER TAB* 30 MG PO SCH (09:00)
[2016-09-10 09:05] LABS: BUN/Creatinine Ratio 22.5 (8-20); EGFR African American 70.2 (>60); EGFR Non-African American 54.6 (>60); Potassium 4.3 mmol/L (3.5-5.0)
--- NOTE | 2016-09-10 11:34 | DCNOTE ---
Subjective Date of Service: 09/10/16 Interval History: No chest pain even while using WC around the block. No SOB No new c/o. Anxiouxs to go home. Objective Active Medications: Amlodipine Besylate (Norvasc Tab*) 10 mg PO DAILY [facility] Last Admin: 09/10/16 08:54 Dose: 10 mg Aspirin (Aspirin Tab*) 325 mg PO QAM [facility] Last Admin: 09/10/16 08:56 Dose: 325 mg Atorvastatin Calcium (Lipitor*) 40 mg PO BEDTIME [facility] Last Admin: 09/09/16 21:43 Dose: 40 mg Bumetanide (Bumex Tab*) 3 mg PO BID [facility] Last Admin: 09/10/16 08:54 Dose: 3 mg Dextrose (D50w Syringe 50 Ml*) 12.5 gm IV PUSH .FOR FS < 60 - SS PRN PRN Reason: FS < 60 Enoxaparin Sodium (Lovenox(*)) 40 mg SUBCUT Q24H [facility] Last Admin: 09/09/16 16:58 Dose: 40 mg Gabapentin (Neurontin Cap(*)) 300 mg PO TID [facility] Last Admin: 09/10/16 08:54 Dose: 300 mg Glipizide (Glucotrol Tab*) 10 mg PO 0800,1700 [facility] Last Admin: 09/10/16 08:54 Dose: 10 mg Insulin Glargine (Lantus(*)) 20 units SUBCUT BEDTIME [facility] Last Admin: 09/09/16 21:43 Dose: 20 unit Insulin Human Lispro (Humalog*) 0 - 15 units SUBCUT AC [facility] PRN Reason: Protocol Last Admin: 09/10/16 08:53 Dose: 6 units Isosorbide Mononitrate (Imdur Er Tab*) 60 mg PO DAILY [facility] Last Admin: 09/10/16 08:55 Dose: 60 mg Lisinopril (Prinivil Tab*) 40 mg PO DAILY [facility] Last Admin: 09/10/16 08:55 Dose: 40 mg Metoprolol Tartrate (Lopressor Tab*) 50 mg PO BID [facility] Last Admin: 09/10/16 08:56 Dose: 50 mg Morphine Sulfate (Morphine Inj (Syringe)*) 2 mg IV Q4H PRN PRN Reason: PAIN Last Admin: 09/07/16 21:49 Dose: 2 mg Vital Signs 09/09/16 09/09/16 09/09/16 15:56 16:57 19:36 Temperature 97.2 F 97.8 F Pulse Rate 59 58 Respiratory 20 20 17 Rate Blood Pressure 142/50 137/47 (mmHg) O2 Sat by Pulse 99 98 Oximetry 09/09/16 09/09/16 09/09/16 20:00 21:43 23:26 Temperature 98.5 F Pulse Rate 56 Respiratory 16 18 16 Rate Blood Pressure 119/37 (mmHg) O2 Sat by Pulse 99 Oximetry 09/09/16 09/10/16 09/10/16 23:31 03:40 07:28 Temperature 98.5 F 98.3 F Pulse Rate 66 65 Respiratory 16 20 20 Rate Blood Pressure 152/54 151/51 (mmHg) O2 Sat by Pulse 92 95 Oximetry 09/10/16 09/10/16 07:51 08:54 Temperature Pulse Rate Respiratory 20 16 Rate Blood Pressure (mmHg) O2 Sat by Pulse Oximetry Oxygen Devices in Use Now: None Appearance: Alert, partly up in bed. In good spirits, looks comfortable. Eyes: No Scleral Icterus Neck: NL Appearance and Movements; NL JVP, No Thyroid Enlargement, Masses Respiratory: Symmetrical Chest Expansion and Respiratory Effort, Clear to Auscultation, Clear to Percussion Cardiovascular: NL Sounds; No Murmurs; No JVD, RRR, No Edema, - Extremities: No Edema, No Clubbing, Cyanosis, - Skin: No Rash or Ulcers, No Nodules or Sclerosis, - Neurological: Alert and Oriented x 3, NL Sensation Result Diagrams: 09/10/16 08:38 09/10/16 08:38 Additional Lab and Data: Lab Results 09/07/16 09/07/16 09/07/16 Range/Units 07:50 07:50 07:50 WBC 12.1 H (3.5-10.8) 10^3/ul RBC 4.67 (4.0-5.4) 10^6/ul Hgb 9.2 L (12.0-16.0) g/dl Hct 31 L (35-47) % MCV 66 L (80-97) fL MCH 20 L (27-31) pg MCHC 30 L (31-36) g/dl RDW 21 H (10.5-15) % Plt Count 425 (150-450) 10^3/ul MPV 9 (7.4-10.4) um3 Neut % (Auto) 76.3 (38-83) % Lymph % (Auto) 14.3 L (25-47) % [place] % (Auto) 7.3 (1-9) % Eos % (Auto) 1.3 (0-6) % Baso % (Auto) 0.8 (0-2) % Absolute Neuts (auto) 9.3 H (1.5-7.7) 10^3/ul Absolute Lymphs (auto) 1.7 (1.0-4.8) 10^3/ul Absolute Monos (auto) 0.9 H (0-0.8) 10^3/ul Absolute Eos (auto) 0.2 (0-0.6) 10^3/ul Absolute Basos (auto) 0.1 (0-0.2) 10^3/ul Absolute Nucleated RBC 0 10^3/ul Nucleated RBC % 0 Normal RBC Morphology Not Reportable Polychromasia 1+ Hypochromasia 2+ Microcytosis 3+ Macrocytosis 1+ Hem Pathologist Commnt Pending Sodium 135 (133-145) mmol/L Potassium 4.4 (3.5-5.0) mmol/L Chloride 104 (101-111) mmol/L Carbon Dioxide 24 (22-32) mmol/L Anion Gap 7 (2-11) mmol/L BUN 22 (6-24) mg/dL Creatinine 0.76 (0.51-0.95) mg/dL Est GFR ( Amer) 98.5 (>60) Est GFR (Non-Af Amer) 76.6 (>60) BUN/Creatinine Ratio 28.9 H (8-20) Glucose 358 H (70-100) mg/dL Lactic Acid 1.4 (0.5-2.0) mmol/L Calcium 9.7 (8.6-10.3) mg/dL Total Bilirubin 0.30 (0.2-1.0) mg/dL AST 9 L (13-39) U/L ALT 10 (7-52) U/L Alkaline Phosphatase 130 H (34-104) U/L Troponin I 0.01 (<0.04) ng/mL B-Natriuretic Peptide ( - 100) pg/mL Total Protein 7.0 (6.4-8.9) g/dL Albumin 3.4 (3.2-5.2) g/dL Globulin 3.6 (2-4) g/dL Albumin/Globulin Ratio 0.9 L (1-3) 09/07/16 09/07/16 Range/Units 07:50 11:10 WBC (3.5-10.8) 10^3/ul RBC (4.0-5.4) 10^6/ul Hgb (12.0-16.0) g/dl Hct (35-47) % MCV (80-97) fL MCH (27-31) pg MCHC (31-36) g/dl RDW (10.5-15) % Plt Count (150-450) 10^3/ul MPV (7.4-10.4) um3 Neut % (Auto) (38-83) % Lymph % (Auto) (25-47) % [place] % (Auto) (1-9) % Eos % (Auto) (0-6) % Baso % (Auto) (0-2) % Absolute Neuts (auto) (1.5-7.7) 10^3/ul Absolute Lymphs (auto) (1.0-4.8) 10^3/ul Absolute Monos (auto) (0-0.8) 10^3/ul Absolute Eos (auto) (0-0.6) 10^3/ul Absolute Basos (auto) (0-0.2) 10^3/ul Absolute Nucleated RBC 10^3/ul Nucleated RBC % Normal RBC Morphology Polychromasia Hypochromasia Microcytosis Macrocytosis Hem Pathologist Commnt Sodium (133-145) mmol/L Potassium (3.5-5.0) mmol/L Chloride (101-111) mmol/L Carbon Dioxide (22-32) mmol/L Anion Gap (2-11) mmol/L BUN (6-24) mg/dL Creatinine (0.51-0.95) mg/dL Est GFR ( Amer) (>60) Est GFR (Non-Af Amer) (>60) BUN/Creatinine Ratio (8-20) Glucose (70-100) mg/dL Lactic Acid (0.5-2.0) mmol/L Calcium (8.6-10.3) mg/dL Total Bilirubin (0.2-1.0) mg/dL AST (13-39) U/L ALT (7-52) U/L Alkaline Phosphatase (34-104) U/L Troponin I 0.01 (<0.04) ng/mL B-Natriuretic Peptide 788 H ( - 100) pg/mL Total Protein (6.4-8.9) g/dL Albumin (3.2-5.2) g/dL Globulin (2-4) g/dL Albumin/Globulin Ratio (1-3) Microbiology and Other Data: Microbiology 09/08/16 06:00 Nasal Screen MRSA (PCR)(EBONY) - Final Nasal Mrsa Negative Assess/Plan/Problems-Billing Assessment: - Patient Problems (1) Chest pain Current Visit: Yes Status: Acute Code(s): R07.9 - CHEST PAIN, UNSPECIFIED SNOMED Code(s): 02417816 Comment: Patient has no NTG at home, is not sure if this was indigestion. Sedentary, uses a WC. Isosorbide mononitrate increased to 60 mg daily. Urine output 2280 ml 09/08. Chest pain may have been precipitated by her anemia. 2 U PRBC given. (2) Iron (Fe) deficiency anemia Current Visit: Yes Status: Acute Code(s): D50.9 - IRON DEFICIENCY ANEMIA, UNSPECIFIED SNOMED Code(s): 91853256 Comment: Discussed with Dr. Kerr 09/10--he will arrange outpt capsule study , probably next week. 2 U PRBC's given. Clopidogrel on hold until question of GI bleeding resolved. (3) Diabetes Current Visit: Yes Status: Acute Code(s): E11.9 - TYPE 2 DIABETES MELLITUS WITHOUT COMPLICATIONS SNOMED Code(s): 97033313 Comment: Patient states the copay for insulin makes it unaffordable for her. She states her FS is often over 200 at home. She checks it twice daily. Resume glipizide, metoformin at her usual home doses. (4) Bradycardia Current Visit: Yes Status: Acute Code(s): R00.1 - BRADYCARDIA, UNSPECIFIED SNOMED Code(s): 49616675 Comment: Pause about 2.6 sec at 1:30 AM 09/08, HR 37 around that time briefly. I recommended to her that she get a sleep lab study as an outpt. She has never had one. (5) CHF (congestive heart failure) Current Visit: Yes Status: Acute Code(s): I50.9 - HEART FAILURE, UNSPECIFIED SNOMED Code(s): 07323267 Comment: Suspect acute diastolic CHF. Echo pending. Clinically resolved after diuresis 09/07. Resume her usual (large) dose of oral bumetanide bid. (6) PVD (peripheral vascular disease) Current Visit: Yes Status: Acute Code(s): I73.9 - PERIPHERAL VASCULAR DISEASE, UNSPECIFIED SNOMED Code(s): 296368051 Comment: I will ask SW to look into her getting both a prosthesis and a ramp. Status and Disposition: Discharge now. Fup Ramez Hunt, Jethro.
--- NOTE | 2016-09-10 11:59 | PN ---
Progress Note - Progress Note Note: Time spent ondischarge 55 minutes.
[2016-09-10 12:08] VITALS: BP 150/53
--- NOTE | 2016-09-10 21:20 | CONS ---
CONSULTATION REPORT: DATE OF CONSULTATION: 09/08/16 REQUESTING PHYSICIAN: DIA Whaley INDICATION: Anemia. NARRATIVE: Ms. Cabrera is a 65-year-old female with a history of severe peripheral vascular disease resulting in [id number] amputation, coronary artery disease, hypertension, hyperlipidemia, and severe diabetes who presents to the emergency room with chest pain and indigestion. In the emergency room, she was found to have an iron-deficiency anemia. She was admitted to the hospital with numerous complaints including chest pain. The patient states that she routinely has substernal chest pain with nausea. No vomiting. No change in her bowel habits. She denies any blood in her stool. She does have burning in the middle of her chest. She had a colonoscopy in December of 2013, which revealed severe hemorrhoids. No other abnormalities were seen. She was recommended to have a followup colonoscopy in 2023. PAST MEDICAL HISTORY: Significant for coronary artery disease, hyperlipidemia, peripheral vascular disease, and diabetes. PAST SURGICAL HISTORY: Include pihhx-[id number]-[id number] amputation in March 2016, numerous cardiac stents. MEDICATIONS: At home include: 1. Metformin. 2. Metoprolol. 3. Glipizide. 4. Lisinopril. 5. Neurontin. 6. Bumex. 7. Plavix. 8. Lipitor. 9. Aspirin. 10. Amlodipine. SOCIAL HISTORY: She lives at home. She continues to smoke. No alcohol use. REVIEW OF SYSTEMS: 12 systems were reviewed, other than mentioned in the HPI were unremarkable. PHYSICAL EXAMINATION: Temperature is 99.5, blood pressure is 173/62, pulse is 72. General: Chronically ill-appearing female, in no apparent distress. Alert , oriented, pleasant, fluent, lying flat in bed. HEENT: Dentition is poor. Mucous membranes are moist. Heart: Regular rate and rhythm. Lungs: Diffuse breath sounds bilaterally. Abdomen: Obese, positive bowel sounds, soft, nontender, and nondistended. No hepatosplenomegaly, masses, rebound, or guarding. Skin: Warm and dry. Esigc-qzx-lmdi amputation for lower extremities. LABORATORY DATA: Of note, white count is 12, hemoglobin went from 9.2 to 7.7, platelets of 361. Her BUN is 19 with a creatinine of 0.81. ASSESSMENT AND PLAN: Mrs. Cabrera is a pleasant female with an iron-deficiency anemia. She had a colonoscopy in December [address] Kerr that was unremarkable. She is on aspirin and Plavix. She likely wound benefit from an upper endoscopy to evaluate for any peptic ulcer disease. I will make arrangements for tomorrow. She should continue on her PPI. If the EGD is unremarkable, likely she would benefit from a small bowel capsular endoscopy. CC: Dr. Myrick* [id number]/[facility] #: [id number] MTDD
--- NOTE | 2016-09-10 21:28 | PRO ---
DATE OF PROCEDURE: 09/09/16 - ROOM #433 REFERRING PHYSICIAN: Lily Torres MD PROCEDURE: EGD. INDICATION: Anemia. MEDICATIONS GIVEN: No Demerol, 3 mg of IV Versed. DESCRIPTION OF PROCEDURE: After the EGD procedure including the risks, benefits , and alternatives not limited to perforation, surgery and/or were explained to Ms. Cabrera, written consent was then obtained, IV medication was given and a bite block was placed between the teeth. An Olympus gastroscope was then inserted into the patient's mouth, advanced down the esophagus, into the stomach, and into the distal duodenum. I did use the pediatric gastroscope. In the esophagus at the GE junction, Z-line was intact. No erosive esophagitis, stricture or ring was seen. The scope was advanced through a widely patent GE junction into the body of the stomach. Retroflex view was unremarkable. Forward view also was unremarkable. H. pylori biopsy was obtained. The scope was advanced through a widely patent pylorus into the duodenal bulb, into the jejunum. No abnormalities were seen. No blood was seen. She had bile throughout. A very careful and thorough evaluation of both the entirety of the duodenum and stomach did not reveal any potential causes for her anemia. The scope was then withdrawn from the patient. She tolerated the procedure well and was returned to the recovery room in stable condition. IMPRESSION: 1. Complete upper endoscopy into the jejunum with biopsies. 2. Biopsy for H. pylori. 3. No etiology was seen for her anemia. She did have a normal colonoscopy in [address] Kerr[address] I would recommend outpatient followup with him to discuss the capsule endoscopy. CC: Lily Torres MD; Jame Kerr MD * [id number]/[facility] #: [id number] [facility]
--- NOTE | 2016-09-11 09:16 | DS ---
DISCHARGE SUMMARY: DATE OF ADMISSION: 09/07/16 DATE OF DISCHARGE: 09/10/16 HISTORY OF PRESENT ILLNESS: This 65-year-old woman presented with epigastric and chest pain. History is detailed in the admission note. She has known coronary artery disease and had had a stenting, but has some residual stenosis in small vessels that could not be stented during her last intervention. The patient was admitted to the intensive care unit. She was found to have severe iron-deficiency anemia. She was given two units of packed cells. She was seen in consultation by Dr. Cason and Dr. Morelos. She had three troponin levels, all of which were within normal limits. Her pain resolved. She was in good clinical condition. In part for blood pressure control and for anginal control, Dr. Cason started her on isosorbide mononitrate. She did well, moving around the unit in a wheelchair without any discomfort, chest pain or shortness of breath. She underwent an endoscopy, which did not show any lesions. She has had a colonoscopy in 2013, it was felt that this is not to be repeated. Dr. Morelos recommended an outpatient capsule study. Dr. Kerr is going to schedule that probably next week. In the meantime she should not take iron supplements for one week before the capsule study, but they could certainly be started immediately after the capsule study. Her clopidogrel was stopped on admission and she was advised not to take it until further notice. She will continue on her aspirin therapy. DISCHARGE DIAGNOSES: 1. Chest pain, unclear whether cardiac, gastrointestinal or other. 2. Coronary artery disease. 3. Acute diastolic heart failure. 4. Iron-deficiency anemia. 5. Diabetes. 6. Bradycardia, sleep study might be indicated. 7. Peripheral vascular disease. DISCHARGE MEDICATIONS: 1. Isosorbide mononitrate 60 mg daily. 2. Metformin 2 tablets b.i.d. 3. Metoprolol 1 tablet b.i.d. 4. Atorvastatin 40 mg daily. 5. Nitroglycerin 0.4 mg every 5 minutes sublingual p.r.n. 6. Bumetanide 3 mg b.i.d. 7. Aspirin 325 mg daily. 8. Amlodipine 10 mg daily. 9. Lisinopril 40 mg daily. 10. Gabapentin 300 mg t.i.d. 11. Glipizide 10 mg b.i.d. CC: Dr. Myrick; Dr. Cason; Dr. Morelos. * [id number]/[facility] #: [id number] [facility]
== END 2016-09-10 15:37 | disposition home or self-care (01) | DRG 313 ==
LOC: ED 07:38 → ICU 08:54 → MEDTELE 09-08 17:30
PROVIDERS: ADMIT Internal Medicine; ATTEND Internal Medicine
PROC: 30233N1 Transfusion of Nonautologous Red Blood Cells into Peripheral Vein, Percutaneous Approach (ICD-10-PCS; 2016-09-08)
PROC: 0DB68ZX Excision of Stomach, Via Natural or Artificial Opening Endoscopic, Diagnostic (ICD-10-PCS; principal; 2016-09-09)
DX: R07.89 Other chest pain (principal); I25.10 Atherosclerotic heart disease of native coronary artery without angina pectoris; I50.31 Acute diastolic (congestive) heart failure; E11.51 Type 2 diabetes mellitus with diabetic peripheral angiopathy without gangrene; I49.5 Sick sinus syndrome; E11.65 Type 2 diabetes mellitus with hyperglycemia; F17.210 Nicotine dependence, cigarettes, uncomplicated; D50.9 Iron deficiency anemia, unspecified; Z89.612 Acquired absence of left leg above knee; R07.2 Precordial pain; I34.0 Nonrheumatic mitral (valve) insufficiency; I11.0 Hypertensive heart disease with heart failure; Z79.82 Long term (current) use of aspirin; E78.5 Hyperlipidemia, unspecified; Z86.718 Personal history of other venous thrombosis and embolism; Z83.3 Family history of diabetes mellitus; Z82.49 Family history of ischemic heart disease and other diseases of the circulatory system; Z95.5 Presence of coronary angioplasty implant and graft
CPT/HCPCS: 36415; 71010; 80048; 80053; 80061; 82607; 82728; 82746; 82947; 83036; 83540; 83550; 83605; 83735; 83880; 84484; 85014; 85018; 85025; 85060; 86850; 86870; 86880; 86900; 86901; 86922; 87077; 87641; 90686; 93005; 93306; 94760; A9270-GY; J1650; J1940; J2250; J2270; J3475; P9016; P9040

== ENCOUNTER 2018-10-21 23:16 | Inpatient (IN) | payer MEDICARE ==
[2018-10-21] MEDS ORDERED: Diltiazem IV* 5 MG/ML 5 ML VIAL (for loading dose/IV Push) (25 MG) IV SLOW PU ONE (23:39)
[2018-10-21] MEDS ORDERED: Diltiazem IV VIAL* 125 MG in NS 0.9% 100 ML* 100 ML IVPB ONE (23:40)
[2018-10-21] MEDS ORDERED: NS 0.9% 1000 ML** 1,000 ML IV ONE (23:48)
[2018-10-21] MEDS ORDERED: Ondansetron INJ* 2 MG/ML VIAL IV ONE (23:48)
[2018-10-21] MEDS ORDERED: Morphine 10 MG/ML VIAL (1 ml) IV ONE (23:48)
--- NOTE | 2018-10-21 23:54 | ED ---
Abdominal Pain/Female - HPI Summary HPI Summary: Patient complains of abdominal pain with diarrhea 3 days. Per EMS patient also has O2 sats in the 80s, SBP ranging from 85-120, new onset A. fib per EKG, and a "high" BGL reading. Patient states abdominal pain is 10/10, upper abdomen bilaterally, intermittent, random onset.. Denies fever, cough, sore throat, CP, SOB, N/V, change in urine, vaginal symptoms. Medical history is DM , HTN, CHF, NE 2, stents 5, left leg BTK amputation, unofficial diagnosis of COPD, hypothyroid. No anti-coag. No home O2. - History of Current Complaint Chief Complaint: EDAbdPain Stated Complaint: ABD PAIN PER EMS Time Seen by Provider: 10/21/18 23:22 Hx Obtained From: Patient, Family/[employer] Onset/Duration: Gradual Onset, Lasting Days Timing: Intermittent Episode Lasting Severity Initially: Severe Severity Currently: Severe Pain Intensity: 10 Pain Scale Used: 0-10 Numeric Location: Discrete At: RUQ, Discrete At: LUQ, Epigastric Radiates: No Character: Sharp Aggravating Factor(s): Nothing Alleviating Factor(s): Nothing Associated Signs and Symptoms: Positive: Decreased Appetite, Diarrhea Allergies/Adverse Reactions: Allergies Allergy/AdvReac Type Severity Reaction Status Date / Time Perfume AdvReac Severe Sneezing Verified 10/19/18 13:52 PMH/Surg Hx/FS Hx/Imm Hx Endocrine/Hematology History: Reports: Hx Diabetes, Hx Thyroid Disease - thyroiditis Denies: Hx Anemia Cardiovascular History: Reports: Hx Angina, Hx Angioplasty, Hx Congestive Heart Failure, Hx Coronary Artery Disease, Hx Hypercholesterolemia, Hx Hypertension - ON MEDICATION FOR, Hx Myocardial Infarction, Hx Peripheral Vascular Disease, Other Cardiovascular Problems/Disorders - HX DVT'S-ON COUMADIN FOR-LAST TIME 2009 Denies: Hx Aneurysm Respiratory History: Denies: Hx Asthma, Hx Chronic Obstructive Pulmonary Disease (COPD) History: Denies: Hx Dialysis Musculoskeletal History: Reports: Hx Tendonitis Denies: Hx Arthritis Sensory History: Reports: Hx Contacts or Glasses Denies: Hx Hearing Aid Opthamlomology History: Reports: Hx Contacts or Glasses EENT History: Denies: Hx Deafness Neurological History: Denies: Hx Seizures, Hx Transient Ischemic Attacks (TIA) Psychiatric History: Denies: Hx Autism - Surgical History Surgery Procedure, Year, and Place: 1998-SURGERY FOR BLOOD CLOT IN THE LEFT LEG Hx Anesthesia Reactions: No Infectious Disease History: No Infectious Disease History: Denies: Hx of Known/Suspected MRSA, Traveled Outside the [place] in Last 30 Days - Family History Known Family History: Positive: Cardiac Disease - unsure, Hypertension, Diabetes - Social History Alcohol Use: Occasionally Hx Substance Use: No Substance Use Type: Reports: None Smoking Status (MU): Current Every Day Smoker Type: Cigarettes Amount Used/How Often: 1 PACK PER WEEK X 45 YEARS Have You Smoked in the Last Year: Yes Review of Systems Constitutional: Negative Eyes: Negative ENT: Negative Cardiovascular: Negative Respiratory: Negative Positive: Abdominal Pain, Diarrhea Genitourinary: Negative Musculoskeletal: Negative Skin: Negative Neurological: Negative Psychological: Normal All Other Systems Reviewed And Are Negative: Yes Physical Exam - Summary Physical Exam Summary: Patient tender to palpation abdomen diffusely, worse in left upper quadrant, epigastrium and right upper quadrant. BTK amputation left leg. Lung sounds clear to auscultation bilaterally. Irregular cardiac rate and rhythm. Triage Information Reviewed: Yes Vital Signs On Initial Exam: Initial Vitals Temp Pulse Resp BP Pulse Ox 97.5 F 128 26 139/104 0 10/21/18 23:20 10/21/18 23:20 10/21/18 23:20 10/21/18 23:20 10/21/18 23:20 Vital Signs Reviewed: Yes Appearance: Positive: Well-Appearing Skin: Positive: Warm Head/Face: Positive: Normal Head/Face Inspection Eyes: Positive: Normal Neck: Positive: Supple Respiratory/Lung Sounds: Positive: Clear to Auscultation Cardiovascular: Positive: IRR, Tachycardia Abdomen Description: Positive: Other: - Patient tender to palpation abdomen diffusely, worse in left upper quadrant, epigastrium and right upper quadrant. Musculoskeletal: Positive: Normal Neurological: Positive: Normal Psychiatric: Positive: Normal AVPU Assessment: Alert - [place] Coma Scale Best Eye Response: 4 - Spontaneous Best Motor Response: 6 - Obeys Commands Best Verbal Response: 5 - Oriented Coma Scale Total: 15 Diagnostics - Vital Signs Vital Signs Temp Pulse Resp BP Pulse Ox 10/21/18 23:20 97.5 F 128 26 139/104 0 - Laboratory Result Diagrams: 10/22/18 00:32 10/22/18 00:32 Lab Statement: Any lab studies that have been ordered have been reviewed, and results considered in the medical decision making process. Abdominal Pain Fem Course/Dx - Course Course Of Treatment: Patient complains of abdominal pain with diarrhea 3 days. Per EMS patient also has O2 sats in the 80s, SBP ranging from 85-120, new onset A. fib per EKG, and a "high" BGL reading. Patient states abdominal pain is 10/10, upper abdomen bilaterally, intermittent, random onset.. Denies fever , cough, sore throat, CP, SOB, N/V, change in urine, vaginal symptoms. Medical history is DM, HTN, CHF, NE 2, stents 5, left leg BTK amputation, unofficial diagnosis of COPD, hypothyroid. No anti-coag. No home O2. Patient tender to palpation abdomen diffusely, worse in left upper quadrant, epigastrium and right upper quadrant. Physcial exam: BTK amputation left leg. Lung sounds clear to auscultation bilaterally. Irregular cardiac rate and rhythm. Heart rate 90-140 with irregular rhythm of A. fib. EKG A. fib. O2 sats continue to drop into the 80s intermittently when off oxygen. Stable on 3 L. Afebrile. WBC 33.3. Hgb 6.9. PH 7.28. BGL 605. Lactic 6.5. CRP 49.9. BNP greater than 1300. CR 1.3. CT chest positive for emphysema, bilateral atelectasis, cardiomegaly with coronary artery calcification, small hiatal hernia. CT abdomen positive for 1.9 cm solid mass in the lower pole of the right kidney, mucosal thickening of the stomach and small bowel which is nonspecific and may be seen gastroenteritis. Will be admitted to hospitalist. Patient started on levophed 8 mcg/min per request of the hospitalist Dr. Peralta as indicated by lactic of 6.9. Patient signed out to Dr. Thorpe. - Diagnoses Provider Diagnoses: Atrial fibrillation with RVR, DKA (diabetic ketoacidoses), Anemia, Pulmonary edema - Critical Care Time Critical Care Time: 30-74 min Discharge - Sign-Out/Discharge Documenting (check all that apply): Sign-Out Patient Signing out patient TO: Real Roman Patient Received Moderate/Deep Sedation with Procedure: No - Discharge Plan Condition: Fair Disposition: ADMITTED TO [facility] Referrals: Dylon Myrick MD [Primary Care Provider] - - Billing Disposition and Condition Condition: FAIR Disposition: Admitted to [facility]
[2018-10-22 01:15] LABS: ALT 8 U/L (7-52); AST 7 U/L (13-39); Albumin 3.2 g/dL (3.2-5.2); Albumin/Globulin Ratio 1.1 (1-3); Alkaline Phosphatase 114 U/L (34-104); Anion Gap 15 mmol/L (2-11); BUN/Creatinine Ratio 27.7 (8-20); Blood Urea Nitrogen 36 mg/dL (6-24); CO2 Carbon Dioxide 20 mmol/L (22-32); Calcium 8.8 mg/dL (8.6-10.3); Chloride 99 mmol/L (101-111); EGFR African American 49.6 (>60); Potassium 3.9 mmol/L (3.5-5.0); Sodium 134 mmol/L (135-145); Total Protein 6.2 g/dL (6.4-8.9)
[2018-10-22 01:16] LABS: Hematocrit 25 % (33-41); Hemoglobin 6.9 g/dL (12.0-16.0); Mean Corpuscular HGB Conc 27 g/dL (31-36); Mean Corpuscular Hemoglobin 16 pg (27-31); Mean Corpuscular Volume 60 fL (80-97); Mean Platelet Volume 9.6 fL (7.4-10.4); Platelet Count 624 10^3/uL (150-450); Red Blood Count 4.19 10^6 /uL (3.70-4.87); Red Cell Distribution Width 20 % (10.5-15); White Blood Count 33.3 10^3/uL (3.5-10.8)
[2018-10-22 01:17] LABS: Glucose 605 mg/dL (70-100)
[2018-10-22] MEDS ORDERED: Insulin REGULAR(*) 1 UNITS UNIT IV PUSH ONE (01:25)
[2018-10-22] MEDS ORDERED: Insulin IVPB 100 units/100 ml 100 UNITS/100 ML UNIT IVPB ONE ×2 (01:25→04:06)
[2018-10-22 01:47] LABS: ABS Basophils 0.1 10^3/ul (0-0.2); ABS Eosinophils 0 10^3/ul (0-0.6); ABS Lymphocytes 0.4 10^3/ul (1.0-4.8); ABS Monocytes 1.2 10^3/ul (0-0.8); ABS Neutrophils 31.6 10^3/ul (1.5-7.7); ABS Nucleated RBC 0 10^3/ul; Eosinophil % 0.1 %; Lymphocyte % 1.2 %; Microcytosis 2+; Nucleated Red Blood Cells % 0.1
[2018-10-22] MEDS ORDERED: Iodixanol* (CONTRAST) 320 MG/ML 100 ML SDV IV ONE (01:49)
[2018-10-22] MEDS ORDERED: Piperacillin/Tazobac ADVAN(*) 3.375 GM in NS 0.9% 100 ML* 100 ML IVPB ONE ×2 (02:25→04:04)
[2018-10-22] MEDS ORDERED: NS 0.9% 1000 ML** 2,000 ML IV ONE (03:51)
[2018-10-22] MEDS ORDERED: Norepinephrine 16MCG/ML IVPRE* 4,000 MCG/250 ML BAG IV SCH (04:00)
[2018-10-22] MEDS ORDERED: Nitroglycerin TAB 0.4 MG* 0.4 MG TAB SL PRN (04:02)
[2018-10-22] MEDS ORDERED: Lactated Ringers 1000 ML Bag* 1,000 ML IV.FLUID IV ONE (04:04)
[2018-10-22 04:27] LABS: Phosphorus 4.4 mg/dL (2.5-5.0)
[2018-10-22 04:42] LABS: Troponin I 0.07 ng/mL (<0.04)
[2018-10-22] MEDS ORDERED: Zosyn per Pharmacy* NOTE FOLLOW UP SCH (05:00)
[2018-10-22 05:16] LABS: ALT 9 U/L (7-52); AST 13 U/L (13-39); Albumin 3.2 g/dL (3.2-5.2); Albumin/Globulin Ratio 1.1 (1-3); Alkaline Phosphatase 107 U/L (34-104); Anion Gap 15 mmol/L (2-11); BUN/Creatinine Ratio 29.8 (8-20); Blood Urea Nitrogen 37 mg/dL (6-24); CO2 Carbon Dioxide 19 mmol/L (22-32); Calcium 8.1 mg/dL (8.6-10.3); Chloride 102 mmol/L (101-111); EGFR African American 52.4 (>60); EGFR Non-African American 43.3 (>60); Globulin 2.8 g/dL (2-4); Potassium 3.5 mmol/L (3.5-5.0); Sodium 136 mmol/L (135-145)
[2018-10-22 05:21] LABS: Glucose 578 mg/dL (70-100); Troponin I 0.11 ng/mL (<0.04)
[2018-10-22 05:47] LABS: Urine Appearance Clear; Urine Bacteria Absent (Absent); Urine Bilirubin Negative (Negative); Urine Blood 1+ (Negative); Urine Color Yellow; Urine Glucose 3+(>=500 mg/dL) (Negative); Urine Ketones Negative (Negative); Urine Nitrite Negative (Negative); Urine Protein Negative (Negative); Urine Red Blood Cell Trace(0-2/hpf) (Absent); Urine Specific Gravity 1.016 (1.010-1.030); Urine Squamous Epithelial Cell Present (Absent); Urine Urobilinogen Negative (Negative); Urine White Blood Cell Absent (Absent)
[2018-10-22] MEDS: Pantoprazole IV* 40 MG IV SCH ×2 (06:25→17:43)
[2018-10-22] MEDS ORDERED: Lactated Ringers 1000 ML Bag* 1,000 ML IV SCH (07:00)
--- NOTE | 2018-10-22 07:06 | PN ---
Hospitalist Progress Note Date of Service: 10/22/18 HOSPITALIST ADDENDUM Case discussed and s/o to Dr Montano. Awaiting repeat labs, including repeat LA. Selected Entries 10/22/18 06:31 Temperature 99.3 F Heart Rate 91 Respiratory 23 Rate Blood Pressure 107/66 (mmHg) O2 Sat by Pulse 92 Oximetry BP is 107/66 off Levophed. Surgery consult requested with Dr Guzman. Continue current management.
[2018-10-22] MEDS: Acyclovir* 200 MG CAP PO SCH ×4 (07:53→17:44)
--- NOTE | 2018-10-22 08:24 | HP ---
CC: Dr. Myrick* HISTORY AND PHYSICAL: DATE OF ADMISSION: 10/22/18 TIME OF EVALUATION: 03:30 a.m. PRIMARY CARE PROVIDER: Dr. Myrick. CHIEF COMPLAINT: Abdominal pain. HISTORY OF PRESENT ILLNESS: Mrs. Cabrera is a 67-year-old female with a past medical history of coronary artery disease, hyperlipidemia, peripheral vascular disease, status post left AKA, type 2 diabetes, hypertension, who presented to the emergency room with complaints of abdominal pain. Most of the history is obtained from her daughter at bedside. About a week ago, the patient started to complain of sore throat and malaise. She was seen by her primary care provider and was told that her symptoms were secondary to the "virus that is going around." She went home but her symptoms persisted and were followed by nausea and diarrhea. At that point, she went to [facility] on 10/20/18 and was started on acyclovir for possible oral herpes. The patient states that her symptoms persisted with more abdominal pain that she describes as epigastric in nature and the diarrhea also continued , reason why she came to the emergency room today. She had no fever, but complained of some chills. She denies vomiting, fever, shortness of breath, or urinary complaints. PAST MEDICAL HISTORY: 1. Coronary artery disease, status post inferior wall AK in 2013 with additional PCI in 2014. 2. Hyperlipidemia. 3. Peripheral vascular disease, status post left lower extremity amputation. 4. Type 2 diabetes. 5. Hypertension. MEDICATIONS: 1. Acyclovir 200 mg p.o. 5 times a day. 2. Amlodipine 10 mg p.o. daily. 3. Aspirin 325 mg p.o. daily. 4. Atorvastatin 40 mg p.o. daily. 5. Furosemide 80 mg p.o. b.i.d. 6. Glipizide 10 mg p.o. b.i.d. 7. Imdur 60 mg p.o. daily. 8. Levocetirizine 5 mg p.o. daily as needed for allergies. 9. Lisinopril 40 mg p.o. daily. 10. Magic mouthwash 5 mL swish and spit q.i.d. 11. Metformin 1000 mg p.o. b.i.d. 12. Metoprolol tartrate 75 mg p.o. daily. 13. Nitroglycerin 0.4 mg sublingual q.5 minutes p.r.n. chest pain. ALLERGIES: No drug allergy. FAMILY HISTORY: Positive for hypertension and diabetes. SOCIAL HISTORY: She is a smoker, greater than 40-pack year smoking. No history of alcohol abuse or drug use. Surrogate decision maker is her , Duane Cabrera, phone number is [phone]. REVIEW OF SYSTEMS: A 14-point review of systems was performed. All the pertinent negative and positive findings are in the HPI. PHYSICAL EXAMINATION GENERAL: The patient is an elderly lady who appears older than her stated age, lying in the ED stretcher, in no acute distress. VITAL SIGNS: Temperature 97.5, heart rate is 90, respiratory rate is 25, oxygen saturation is 100% on 2 L of nasal canula, blood pressure is 142/53. HEENT: Pupils are equal. Pale dry mucous membranes. CHEST: Breath sounds are bilaterally diminished with no added sounds. CVS: Normal S1 and S2. Irregularly irregular. ABDOMEN: Obese, soft with epigastric tenderness. No guarding, no rebound. Bowel sounds are present. EXTREMITIES: There is no edema. The patient is status post left lower extremity amputation. NEUROLOGIC: She is alert and oriented x3. Able to move all 4 extremities. PERIANAL AREA: The patient has external hemorrhoids but not actively bleeding, and there is significant erythema in the perianal area. LABORATORY AND IMAGING DATA: The patient had a CBC that showed WBC of 33.3, hemoglobin of 6.9, hematocrit of 25, platelets of 624 with 95% neutrophils. Her VBG showed a pH of 7.2, pCO2 of 39, pO2 of 29, bicarb of 17. Chemistry showed a sodium of 134, potassium of 3.9, chloride of 99, bicarb of 20, anion gap of 15, BUN of 36, creatinine of 1.3, glucose of 605, lactic acid of 6.9, calcium of 8.8. LFTs were normal except for alk phos of 114. CRP is 49.9. BNP is greater than 1300. Stool for occult blood was positive. Gallbladder ultrasound shows no evidence of cholelithiasis or acute cholecystitis. There is hepatomegaly with hepatic steatosis and incidental finding of a 2.7 x 1.9 x 2.6 cm soft tissue mass superior to the right kidney, which may be adrenal in origin. CT of the chest, abdomen, and pelvis showed mild centrilobular and paraseptal emphysema with bilateral dependent atelectasis, cardiomegaly with coronary artery classification, and a small hiatal hernia. Small right kidney with surgical clips in the upper pole, 1.9 cm solid mass in the lower pole of the right kidney. Further evaluation with dedicated renal imaging is recommended. 0.6 cm hypodense lesions in the medial aspect of the right kidney as well as midpole of the left kidney. Multiple small calcific densities in the bilateral kidneys, which may represent vascular calcification versus nonobstructing stones , no hydronephrosis. Mild right perinephric stranding which is nonspecific; however, may be seen infectious versus inflammatory process. Small hiatal hernia, mucosal thickening of the stomach and small bowel which is nonspecific; however, may be seen in gastroenteritis. No evidence of high-grade bowel obstruction. There is hepatomegaly. A 2.1 x 3.3 right adrenal mass and a 1.1 x 1.3 cm left adrenal nodule. Further evaluation with dedicated renal imaging is recommended. Chest x-ray was not yet officially read, but to my reading it shows no acute pulmonary disease. EKG done on 10/21/18 at 11:33 p.m. shows atrial fibrillation at 136 beats per minute and this is new when compared to her prior EKG from August 2016. ASSESSMENT AND PLAN: Mrs. Cabrera is a 67-year-old lady with a past medical history of coronary artery disease, hyperlipidemia, peripheral vascular disease , type 2 diabetes, hypertension, who presented to the emergency room with complaints of abdominal pain, found to have severe sepsis likely secondary to gastroenteritis and also diabetic ketoacidosis. 1. Severe sepsis. The patient meets sepsis criteria with tachycardia and leukocytosis. She has had nausea and diarrhea for about a week and her CT suggests gastroenteritis. So, I believe this is the source of her sepsis. She will receive IV fluids and should be started empirically on Zosyn at this time. 2. Lactic acidosis secondary to diabetic ketoacidosis and severe sepsis. The patient is responding to IV fluids. She received Levophed briefly in the emergency room, but her blood pressure is improved and this was discontinued. We are going to trend her lactic acid. 3. Diabetic ketoacidosis. The patient was started on an insulin drip and we are going to follow her glucose, anion gap, CO2, and adjust her drip accordingly. 4. Anemia. The patient has a hemoglobin of 6.9 from a hemoglobin of 10.8 in 2017 with significant macrocytosis and hypochromia. Her stool is positive for blood. At this point, I am going to change the dose of her aspirin to 81 mg p.o. daily, but with her history of coronary artery disease and peripheral vascular disease, I am hesitant about stopping aspirin completely. She is not actively bleeding at this time, but I believe she probably has had slow ooze for some time. She will receive 1 PRBC and we are going to send anemia workup. She will receive 1 PRBC and we will try to maintain her hemoglobin closer to 8 , but as described above, I believe this is a very chronic anemia as she has hypochromasia, anisocytosis, microcytosis, stomatocytes, and elliptocytes on her smear. It is possible that she may have an upper gastrointestinal bleed as her BUN is elevated, so I am going to start her on a PPI IV twice a day and we will consult GI. 5. Atrial fibrillation. The patient received Cardizem in the emergency room and she seems to be back in sinus at this time. The atrial fibrillation is likely associated with her severe sepsis. She has a CHADS2-VASc score of 5, but at this point with her anemia and possible bleed, anticoagulation is contraindicated. I will repeat her EKG to confirm that she is back in sinus rhythm and take it from there. 6. DVT prophylaxis: The patient has a score of 3 on the DVT prophylaxis risk assessment guide and pharmacological prophylaxis contraindicated in the setting of possible gastrointestinal bleed. We will have SCD to her right lower extremity. 7. Code status is full. TIME SPENT: Approximately 60 minutes of critical care time was spent to complete this admission. [id number]/[facility] #: [id number] JOON
[2018-10-22] MEDS ORDERED: Aspirin TAB* 325 MG PO SCH ×2 (09:00)
[2018-10-22 09:25] LABS: Troponin I 0.18 ng/mL (<0.04)
--- NOTE | 2018-10-22 09:33 | PN ---
Date of Service: 10/22/18 Critical Care Services: 67 y/o female admitted with DKA - also has a high lactate (higher than expected with DKA, and I am concerned about bowel ischemia (has abdominal pain and bloody stools). Has been covered for sepsis of bowel origin with zosyn. Most current blood glucose is 219 and repeat lactate is pending - has received abut 4 liters of fluid so far, and is not on pressors. Vital Signs: Temp Pulse Resp BP SpO2 FiO2 97.3 F 121 23 114/51 97 Physical Exam: Gen:Awake and oriented HEENT:No facial asymmetry Lungs:Clear Cardiac: Reg rhythm Abdomen:Mild tenderness to palpation throughout, without guarding or rebound. Extremities:No cyanosis or edema. Limbs cool. Fluid Balance (Past 24 Hours): 10/22/18 06:59 Intake Total 582.4 Output Total 400 Balance 182.4 Weight 175 lb 4.28 oz Intake: IV Fluids 574 LR 574 Medicated IV 8.4 CC - Insulin 8.4 Output: Landis 400 Other: Date of Last Bowel Movement # Bowel Movements Estimated Stool Amount NOTE: Has received about 4 liters of fluid since presenting to ED. Labs: Laboratory Results - last 24 hr 10/22/18 10/22/18 10/22/18 00:31 00:32 00:32 WBC 33.3 H RBC 4.19 Hgb 6.9 L Hct 25 L MCV 60 L MCH 16 L MCHC 27 L RDW 20 H Plt Count 624 H MPV 9.6 Neut % (Auto) 95.0 Lymph % (Auto) 1.2 Ponce % (Auto) 3.5 Eos % (Auto) 0.1 Baso % (Auto) 0.2 Absolute Neuts (auto) 31.6 H Absolute Lymphs (auto) 0.4 L Absolute Monos (auto) 1.2 H Absolute Eos (auto) 0 Absolute Basos (auto) 0.1 Absolute Nucleated RBC 0 Nucleated RBC % 0.1 Hypochromasia 2+ Anisocytosis 2+ Microcytosis 2+ Stomatocytes 1+ Elliptocytes 1+ VBG pH VBG pCO2 VBG pO2 VBG HCO3 VBG O2 Saturation VBG Base Excess Sodium 134 L Potassium 3.9 Chloride 99 L Carbon Dioxide 20 L Anion Gap 15 H BUN 36 H Creatinine 1.30 H Est GFR ( Amer) 49.6 Est GFR (Non-Af Amer) 41.0 BUN/Creatinine Ratio 27.7 H Glucose 605 H* POC Glucose (mg/dL) Glucose Meter Confirm Lactic Acid Calcium 8.8 Phosphorus 4.4 Total Bilirubin 0.60 AST 7 L ALT 8 Alkaline Phosphatase 114 H Troponin I 0.07 H* C-Reactive Protein 49.90 H B-Natriuretic Peptide Total Protein 6.2 L Albumin 3.2 Globulin 3.0 Albumin/Globulin Ratio 1.1 Lipase 50 Urine Color Urine Appearance Urine pH Ur Specific [place] Urine Protein Urine Ketones Urine Blood Urine Nitrate Urine Bilirubin Urine Urobilinogen Ur Leukocyte Esterase Urine WBC (Auto) Urine RBC (Auto) Ur Squamous Epith Cells Urine Bacteria Urine Glucose Blood Type A Positive Antibody Screen Negative Crossmatch See Detail 10/22/18 10/22/18 10/22/18 00:32 00:33 00:33 WBC RBC Hgb Hct MCV MCH MCHC RDW Plt Count MPV Neut % (Auto) Lymph % (Auto) Ponce % (Auto) Eos % (Auto) Baso % (Auto) Absolute Neuts (auto) Absolute Lymphs (auto) Absolute Monos (auto) Absolute Eos (auto) Absolute Basos (auto) Absolute Nucleated RBC Nucleated RBC % Hypochromasia Anisocytosis Microcytosis Stomatocytes Elliptocytes VBG pH 7.28 L VBG pCO2 39 L VBG pO2 29.0 L VBG HCO3 17.2 L VBG O2 Saturation 42.8 L VBG Base Excess -7.9 L Sodium Potassium Chloride Carbon Dioxide Anion Gap BUN Creatinine Est GFR ( Amer) Est GFR (Non-Af Amer) BUN/Creatinine Ratio Glucose POC Glucose (mg/dL) Glucose Meter Confirm Lactic Acid 6.9 H* Calcium Phosphorus Total Bilirubin AST ALT Alkaline Phosphatase Troponin I C-Reactive Protein B-Natriuretic Peptide > 1300 H Total Protein Albumin Globulin Albumin/Globulin Ratio Lipase Urine Color Urine Appearance Urine pH Ur Specific [place] Urine Protein Urine Ketones Urine Blood Urine Nitrate Urine Bilirubin Urine Urobilinogen Ur Leukocyte Esterase Urine WBC (Auto) Urine RBC (Auto) Ur Squamous Epith Cells Urine Bacteria Urine Glucose Blood Type Antibody Screen Crossmatch 10/22/18 10/22/18 10/22/18 04:40 04:41 05:30 WBC RBC Hgb Hct MCV MCH MCHC RDW Plt Count MPV Neut % (Auto) Lymph % (Auto) Ponce % (Auto) Eos % (Auto) Baso % (Auto) Absolute Neuts (auto) Absolute Lymphs (auto) Absolute Monos (auto) Absolute Eos (auto) Absolute Basos (auto) Absolute Nucleated RBC Nucleated RBC % Hypochromasia Anisocytosis Microcytosis Stomatocytes Elliptocytes VBG pH VBG pCO2 VBG pO2 VBG HCO3 VBG O2 Saturation VBG Base Excess Sodium 136 Potassium 3.5 Chloride 102 Carbon Dioxide 19 L Anion Gap 15 H BUN 37 H Creatinine 1.24 H Est GFR ( Amer) 52.4 Est GFR (Non-Af Amer) 43.3 BUN/Creatinine Ratio 29.8 H Glucose 578 H* POC Glucose (mg/dL) > 444 H* Glucose Meter Confirm Lactic Acid Calcium 8.1 L Phosphorus Total Bilirubin 0.60 AST 13 ALT 9 Alkaline Phosphatase 107 H Troponin I 0.11 H* C-Reactive Protein B-Natriuretic Peptide Total Protein 6.0 L Albumin 3.2 Globulin 2.8 Albumin/Globulin Ratio 1.1 Lipase Urine Color Yellow Urine Appearance Clear Urine pH 5.0 Ur Specific [place] 1.016 Urine Protein Negative Urine Ketones Negative Urine Blood 1+ A Urine Nitrate Negative Urine Bilirubin Negative Urine Urobilinogen Negative Ur Leukocyte Esterase Negative Urine WBC (Auto) Absent Urine RBC (Auto) Trace(0-2/hpf) Ur Squamous Epith Cells Present A Urine Bacteria Absent Urine Glucose 3+(>=500 mg/dl) A Blood Type Antibody Screen Crossmatch 10/22/18 10/22/18 10/22/18 06:12 06:30 08:12 WBC RBC Hgb Hct MCV MCH MCHC RDW Plt Count MPV Neut % (Auto) Lymph % (Auto) Ponce % (Auto) Eos % (Auto) Baso % (Auto) Absolute Neuts (auto) Absolute Lymphs (auto) Absolute Monos (auto) Absolute Eos (auto) Absolute Basos (auto) Absolute Nucleated RBC Nucleated RBC % Hypochromasia Anisocytosis Microcytosis Stomatocytes Elliptocytes VBG pH VBG pCO2 VBG pO2 VBG HCO3 VBG O2 Saturation VBG Base Excess Sodium Potassium Chloride Carbon Dioxide Anion Gap BUN Creatinine Est GFR ( Amer) Est GFR (Non-Af Amer) BUN/Creatinine Ratio Glucose POC Glucose (mg/dL) > 444 H* 269 H Glucose Meter Confirm 388 H Lactic Acid Calcium Phosphorus Total Bilirubin AST ALT Alkaline Phosphatase Troponin I C-Reactive Protein B-Natriuretic Peptide Total Protein Albumin Globulin Albumin/Globulin Ratio Lipase Urine Color Urine Appearance Urine pH Ur Specific [place] Urine Protein Urine Ketones Urine Blood Urine Nitrate Urine Bilirubin Urine Urobilinogen Ur Leukocyte Esterase Urine WBC (Auto) Urine RBC (Auto) Ur Squamous Epith Cells Urine Bacteria Urine Glucose Blood Type Antibody Screen Crossmatch 10/22/18 08:59 WBC RBC Hgb Hct MCV MCH MCHC RDW Plt Count MPV Neut % (Auto) Lymph % (Auto) Ponce % (Auto) Eos % (Auto) Baso % (Auto) Absolute Neuts (auto) Absolute Lymphs (auto) Absolute Monos (auto) Absolute Eos (auto) Absolute Basos (auto) Absolute Nucleated RBC Nucleated RBC % Hypochromasia Anisocytosis Microcytosis Stomatocytes Elliptocytes VBG pH VBG pCO2 VBG pO2 VBG HCO3 VBG O2 Saturation VBG Base Excess Sodium Potassium Chloride Carbon Dioxide Anion Gap BUN Creatinine Est GFR ( Amer) Est GFR (Non-Af Amer) BUN/Creatinine Ratio Glucose POC Glucose (mg/dL) 219 H Glucose Meter Confirm Lactic Acid Calcium Phosphorus Total Bilirubin AST ALT Alkaline Phosphatase Troponin I C-Reactive Protein B-Natriuretic Peptide Total Protein Albumin Globulin Albumin/Globulin Ratio Lipase Urine Color Urine Appearance Urine pH Ur Specific [place] Urine Protein Urine Ketones Urine Blood Urine Nitrate Urine Bilirubin Urine Urobilinogen Ur Leukocyte Esterase Urine WBC (Auto) Urine RBC (Auto) Ur Squamous Epith Cells Urine Bacteria Urine Glucose Blood Type Antibody Screen Crossmatch Studies: Stool is grossly bloody Nutrition: NPO for now Impression: 1. DKA 2. Lactic acidosis - may be unrelated to DKA 3. GI bleeding with microcytic anemia (probably chronic blood loss) 4. ? sepsis of bowel origin Is hemodynamically stable at the present time. Plan: 1. Insulin and fluids for DKA 2. Blood as needed (to keep Hb > 7 g/dL), and check ferritin levels (for probable iron-deficiency anemia) 3. Surgery consult to evaluate for bowel ischemia 4. GI consult to evaluate GO bleeding 5. Zosyn for empiric coverage of possible abdominal sepsis 6. Monitor serum lactate, and try to achieve normal levels within 6-24 hours. Critical Care Time: 45 minutes
[2018-10-22 09:39] LABS: Total Iron Binding Capacity 381 mcg/dL (250-450); Transferrin 272 mg/dL (203-362)
[2018-10-22 09:43] LABS: % Iron Saturation 4 % (15-55); Iron < 17 ug/dL (50-212)
[2018-10-22] MEDS: Isosorbide Mononitrate ER TAB* 60 MG PO SCH (09:55)
[2018-10-22] MEDS: Metoprolol Tartrate TAB* 50 mg PO SCH (09:55)
[2018-10-22 09:57] LABS: Ferritin 18.2 ng/mL (11-307)
[2018-10-22] MEDS ORDERED: D5LR 1000 ML BAG* 1,000 ML IV SCH (10:00)
[2018-10-22 10:03] LABS: Folate 8.18 ng/mL (>3.99)
[2018-10-22] MEDS: Atorvastatin* 40 MG TAB PO SCH (10:20)
[2018-10-22] MEDS: ZOSYN 3.375 GM Q8H per EXTENDED INFUSION IVPB SCH ×4 (10:21→17:43)
[2018-10-22] MEDS: Insulin LISPRO* 1 UNITS UNIT SUBCUT SCH ×3 (10:21→21:32)
[2018-10-22] MEDS ORDERED: Ondansetron INJ* 2 MG/ML VIAL ONE (10:37)
[2018-10-22] MEDS ORDERED: Ondansetron INJ* 2 MG/ML VIAL IV ONE (11:00)
--- NOTE | 2018-10-22 11:22 | CONS ---
CC: [facility]; Dr. Dylon Myrick* CONSULTATION REPORT: DATE OF CONSULT: 10/22/18 REFERRING PROVIDER: Dr. Lily Torres, hospitalist as well as Dr. Sai Montano , feather duster winder. REASON FOR CONSULTATION: Abdominal pain with diarrhea. HISTORY OF PRESENT ILLNESS: Ms. Isaura Cabrera is a 67-year-old woman with a history of coronary artery disease, hyperlipidemia, type 2 diabetes, hypertension, and obesity, who presents to the emergency room in the middle of the night with complaints of 3 to 4 days of diarrhea with upper abdominal discomfort. She states about a week ago that she started complaining of some sore throat and a slight cough and malaise. She was seen by her primary care provider and was felt that she had a viral-type illness and was given some respiratory medications. This was followed by further nausea and subsequent development of diarrhea. She was seen in the [facility] on 10/20/18, was started on acyclovir for possible oral herpes. Her symptoms persisted with more abdominal pain. She said she had some small amount of blood in her bowel movements. She felt this was secondary to hemorrhoids. She has had no fever. She has complained of some chills, but she has not had any rigors. She complains of no productive cough. She has had no back or lower back discomfort. She has complained of no shortness of breath and she has had no urinary complaints. In the emergency room, she was noted to be afebrile, and mildly tachycardia initially with a heart rate in the 120s, which with fluid resuscitation dropped down into the 80s and 90s. She was somewhat hypotensive prior to fluid resuscitation. She was noted to have a white blood cell count of 30,000. Also, noted was a hemoglobin of 6.9 with an MCV of 60, platelet count of 624,000. Her initial electrolyte panel showed a minimally elevated BUN and creatinine of 37 and 1.24 with a glucose of 578. Also noted was a lactic acid of 6.9; a repeat of this is pending. Her BNP was greater than 1300 with a lipase of 50. She underwent a CT scan of the abdomen and pelvis. I did review these images. This was done with IV contrast only. This shows some chronic change in the kidney, most likely cysts and some mild right perinephric stranding. There was a mucosal thickening in the stomach and small bowel, which was nonspecific but may be consistent with enteritis, but there was no evidence of free abdominal fluid, free air, or obstructive pattern. Gallbladder appeared to be unremarkable. An ultrasound of her gallbladder also was performed, which was unremarkable. She has been admitted to the intensive care unit and surgical consultation was obtained. PAST MEDICAL HISTORY: 1. Coronary artery disease with history of inferior wall [place] in 2013 with stent intervention in 2015. 2. Hyperlipidemia. 3. Obesity. 4. Peripheral vascular disease, status post left lower extremity amputation. 5. Type 2 diabetes. 6. Hypertension. PAST SURGICAL HISTORY: 1. She has had no abdominal surgery before. 2. She has had a left AKA. MEDICATIONS: Medicines include: 1. Acyclovir. 2. Amlodipine. 3. Aspirin. 4. Atorvastatin. 5. Lasix. 6. Glipizide. 7. Imdur. 8. Lisinopril. 9. Metformin. 10. Metoprolol. 11. Nitroglycerin p.r.n. ALLERGIES: She has no known drug allergies. SOCIAL HISTORY: She is a smoker, greater than 40-year pack history of smoking. She has been trying to quit recently. She does not use alcohol or illicit drugs. Surrogate decision maker is her who she lives with, Duane Cabrera. REVIEW OF SYSTEMS: A 14-point review of systems was performed as per above. PHYSICAL EXAM: Temperature 99.1, pulse of 105, blood pressure 114/51. In general, she is an elderly pale-appearing woman, who is awake, alert; however, she appears to be somewhat weak. She is very pleasant, appears to be in no apparent distress. Her oral mucosa is quite dry. Her trachea was midline. Her lungs were clear to auscultation with diminished breath sounds at the bases, but no rhonchi or wheezes. Heart was regular rate and rhythm. Her abdomen is soft and nondistended. She had diminished bowel sounds throughout. There were no prior surgical incisions or hernias. She has some mild tenderness in the upper quadrants of the abdomen on deeper palpation, but nowhere does she have peritoneal irritation, rebound, guarding, or rigidity. Psychiatric: She is awake, alert, and oriented x3. She appears to have normal judgment and insight. IMPRESSION: Sepsis with significant leukocytosis and what appears to be a chronic anemia. She has had diarrhea for the last 3 to 4 days with some nausea , but no fevers. She has an elevated lactic acid, which is quite concerning. Her blood sugars are also markedly elevated consistent with diabetic ketoacidosis. She has some upper abdominal discomfort, but no physical signs of an acute abdomen with peritonitis. CT scan as per above and I did review these images. PLAN: At this point, I recommend we continue with the fluid resuscitation and management of her sepsis as well as her elevated blood sugars. She will be kept n.p.o. She has been started on antibiotics including piperacillin empirically. Her blood sugars will be controlled. I do not believe that she has an acute surgical abdomen which prompts emergent trip to the operating room. At this point, however, we will follow her very closely and watch for correction of the lactic acidosis as well as the tachycardia. She may need a blood transfusion as this appears to be somewhat chronic and the source or the reason for her more chronic-appearing anemia at present is unknown. She has only been on antibiotics recently in the past week or so and no longer-term use of antibiotics to suggest Clostridium difficile colitis; however, this should be included in the differential diagnosis and stool culture should be sent. I discussed the above care with Dr. Montano. For now, we will watch her closely and if there is worsening of the lactic acidosis and persistent or worsening abdominal pain, she will require a diagnostic laparoscopy, possible exploratory laparotomy today. I discussed all of this with her as well at the bedside. Thank you very much for the consultation. [id number]/[facility] #: [id number] JOON
--- NOTE | 2018-10-22 14:21 | PN ---
Progress Note - Progress Note Date of Service: 10/22/18 SOAP: Subjective: Pt initially seen at 0815-see dictated consultation Follow up visit now She is on her left side resting comfortably She has had several loose BM's Abdominal discomfort mainly upper abdomen, no different from this morning Objective: Temp Pulse Resp BP Pulse Ox 99.9 F 100 25 118/49 97 10/22/18 13:15 10/22/18 13:15 10/22/18 13:15 10/22/18 13:15 10/22/18 13:15 PEX: Comfortable, awake and alert Abd is soft and non-distended. Few bowel sounds present, not high pitched or tinkling. There is tenderness in the upper quadrants without rebound or guarding, no peritoneal irritation. She has no tenderness in the lower quadrants. labs noted--Lactic acid decreasing, blood sugars improved and she is off insulin drip Plan: Sepsis with diarrhea and abdominal pain. Significant elevated WBC and lactic acid that is improving. Exam shows no peritoneal irritation or rigidity and is not distended. I recommend continued present care-she seems to be improving and her exam is rather benign and I would not recommend proceeding to OR for laparoscopy/ laparotomy at this time. Will continue to follow. Above all discussed with Dr. Montano
[2018-10-22 14:33] LABS: Hematocrit 25 % (33-41); Hemoglobin 7.2 g/dL (12.0-16.0); Mean Corpuscular HGB Conc 29 g/dL (31-36); Mean Corpuscular Hemoglobin 18 pg (27-31); Mean Corpuscular Volume 62 fL (80-97); Platelet Count 465 10^3/uL (150-450); Red Blood Count 4.03 10^6 /uL (3.70-4.87); Red Cell Distribution Width 24 % (10.5-15)
--- NOTE | 2018-10-22 15:25 | CONS ---
CONSULTATION REPORT: DATE OF CONSULT: 10/22/18 REQUESTING PHYSICIAN: Dr. Montano. INDICATION: Hemorrhage of rectum and anus. NARRATIVE: Ms. Cabrera is a very pleasant 67-year-old female who has multiple medical issues. She has coronary artery disease, peripheral vascular disease, diabetes, she is status post left-sided ohczk-[id number]-[id number] amputation, hyperlipidemia, hypertension, who presented to the emergency room approximately 12 hours ago with abdominal pain. The patient states that her pain began about a week ago, it was located all throughout her abdomen, it seems to be worse now in her upper abdomen. She does take aspirin every day; however, she denies any other nonsteroidals. She had nausea throughout the past week and then developed diarrhea. She was having bright red blood in her stools; however, she states she normally has this as she has a history of hemorrhoids and she thought it was secondary to her hemorrhoids. The patient was admitted overnight for her abdominal pain. She did have the surgical team see her. This morning, she developed more bright red blood per rectum. She states that she is not having any rectal pain. She denies any current vomiting. She denies any fevers or chest pain. Of note, I did perform an upper endoscopy on her back in August 2016. At that time, the endoscopy was unremarkable. I was able to get down into her jejunum. Additionally in 2013, she had a colonoscopy with Dr. Kerr that was normal, no diverticulosis was seen. Early this morning, she did have a CT of her chest, abdomen and pelvis, which revealed small hiatal hernia and mucosal thickening of the stomach and small bowel, which is nonspecific, however, may be seen in gastroenteritis. MEDICATIONS: Medications upon admission include: 1. Lasix. 2. Atorvastatin. 3. Aspirin. 4. Amlodipine. 5. Acyclovir. 6. Glipizide. 7. Imdur. 8. Lisinopril. 9. Metformin. 10. Metoprolol. 11. Nitroglycerin. ALLERGIES: None. FAMILY HISTORY: Hypertension and diabetes. SOCIAL HISTORY: She continues to smoke. No alcohol use. REVIEW OF SYSTEMS: Twelve systems were reviewed, other than that mentioned in the HPI were unremarkable. PHYSICAL EXAMINATION: Blood pressure is 134/58, pulse is of 105, O2 sat is 96% , temperature is 99.9 with a T-max of 100. General: Chronically ill-appearing female, lying flat in bed. Alert, oriented, pleasant, fluent. HEENT: Mucous membranes are dry without lesions, ulcers, or exudate. Neck is supple. Trachea is midline. Heart: Regular rate and rhythm, tachy. Lungs: Distant breath sounds bilaterally. No wheezes, rales, or rhonchi. Abdomen is obese. Positive bowel sounds. Soft, tender to palpation throughout. No rebound, no guarding. Skin is warm and dry. DIAGNOSTIC STUDIES/LAB DATA: Labs of note, her white count is 33.3, hemoglobin is 6.9, platelet count of 624. Sodium is 134. Her BUN is 37, creatinine is 1.24. Glucose is 578. Lactic acid down to 3.1. Troponin is 0.18. Radiology data: Please see the HPI. ASSESSMENT AND PLAN: This is a pleasant 67-year-old female admitted with diarrhea, abdominal pain and now bright red blood per rectum. She does have a history of known internal and external hemorrhoids. Given her generalized abdominal pain and elevated white count, I do wonder if she could have an infectious colitis; this also could be ischemic colitis given her peripheral vascular disease. Additionally, given the high white count of 33, I do wonder about Clostridium difficile. I would recommend that we check her for Clostridium difficile. Her vital signs are stable right now, thus I do not think that this is an upper gastrointestinal bleed; this appears to be more of a lower gastrointestinal source. If she continues to pass a large amount of blood or becomes hypotensive, likely the next step would be to get a tagged RBC scan. If she develops any vomiting of blood, we will need to perform an upper endoscopy. She already is on IV Protonix. She is on antibiotics. We will continue to follow along very closely. [id number]/[facility] #: [id number] JOON
[2018-10-22 15:39] LABS: Microcytosis 3+; Polychromasia 1+
[2018-10-22 15:41] LABS: ABS Basophils 0 10^3/ul (0-0.2); ABS Eosinophils 0 10^3/ul (0-0.6); ABS Lymphocytes 0.6 10^3/ul (1.0-4.8); ABS Monocytes 3.1 10^3/ul (0-0.8); ABS Neutrophils 35.4 10^3/ul (1.5-7.7); ABS Nucleated RBC 0 10^3/ul; Eosinophil % 0 %; Lymphocyte % 1.4 %; Nucleated Red Blood Cells % 0
[2018-10-22] MEDS: Lactated Ringers 1000 ML Bag* 1,000 ML IV SCH (17:18)
[2018-10-22] MEDS ORDERED: cefTRIAXone(*) 1 GM in NS 0.9% 50 ML* 50 ML IVPB SCH (18:00)
[2018-10-22 18:16] LABS: Hematocrit 29 % (33-41); Hemoglobin 8.7 g/dL (12.0-16.0); Mean Corpuscular HGB Conc 30 g/dL (31-36); Mean Corpuscular Hemoglobin 19 pg (27-31); Mean Corpuscular Volume 64 fL (80-97); Mean Platelet Volume 8.7 fL (7.4-10.4); Platelet Count 474 10^3/uL (150-450); Red Blood Count 4.48 10^6 /uL (3.70-4.87); Red Cell Distribution Width 28 % (10.5-15); White Blood Count 35.4 10^3/uL (3.5-10.8)
[2018-10-22 18:32] LABS: Anion Gap 11 mmol/L (2-11); BUN/Creatinine Ratio 27.7 (8-20); Blood Urea Nitrogen 28 mg/dL (6-24); CO2 Carbon Dioxide 21 mmol/L (22-32); Calcium 8.2 mg/dL (8.6-10.3); Chloride 111 mmol/L (101-111); EGFR African American 66.4 (>60); EGFR Non-African American 54.8 (>60); Glucose 209 mg/dL (70-100); Potassium 2.8 mmol/L (3.5-5.0); Sodium 143 mmol/L (135-145)
[2018-10-22 18:33] LABS: Troponin I 0.27 ng/mL (<0.04)
[2018-10-22 18:53] LABS: ABS Basophils 0 10^3/ul (0-0.2); ABS Eosinophils 0 10^3/ul (0-0.6); ABS Lymphocytes 0.4 10^3/ul (1.0-4.8); ABS Monocytes 2.9 10^3/ul (0-0.8); ABS Neutrophils 31.9 10^3/ul (1.5-7.7); ABS Nucleated RBC 0 10^3/ul; Immature Granulocytes 18 % (0-9); Lymphocytes % 1 %; Microcytosis 1+; Monocytes % 5 %; Neutrophil % 76 %; Nucleated Red Blood Cells % 0
[2018-10-22 18:56] LABS: ABS Neutrophils 33.2 10^3/ul (1.5-7.7)
[2018-10-22 19:19] LABS: Eosinophil % 0 %; Lymphocyte % 1.2 %
[2018-10-22] MEDS ORDERED: Diltiazem IV VIAL* 125 MG in NS 0.9% 100 ML* 100 ML IVPB ONE (20:30)
[2018-10-22] MEDS ORDERED: Digoxin IV* 0.5 MG/2 ML AMP (0.25 MG/ML) IV SLOW PU ONE ×2 (21:07→23:58)
[2018-10-22 21:30] LABS: Magnesium 1.6 mg/dL (1.9-2.7)
[2018-10-22] MEDS: KCL 20 MEQ/100 ML IVPREMIX* 20 MEQ/100 ML BAG IV SCH (21:33)
[2018-10-22] MEDS ORDERED: Amiodarone 360 MG IVPREMIX* 360 MG/200 ML BAG IV ONE (23:48)
[2018-10-22] MEDS ORDERED: Amiodarone 150 MG IVPREMIX* 150 MG/100 ML BAG IV ONE (23:48)
--- NOTE | 2018-10-22 23:52 | PN ---
Hospitalist Progress Note Date of Service: 10/22/18 HOSPITALIST ADDENDUM Patient in Afib RVR, did not respond to Cardizem drip and Digoxin IV. Received potassium repletion. As BP is on the lower side, will start Amiodarone and monitor.
[2018-10-22] MEDS ORDERED: Acetaminophen SUPP* 650 MG SUPP PR PRN (23:59)
[2018-10-23] MEDS: KCL 20 MEQ/100 ML IVPREMIX* 20 MEQ/100 ML BAG IV SCH (00:27)
[2018-10-23] MEDS ORDERED: Acetaminophen ADULT LIQ* 650 MG/20.3 ML UDC PO PRN (00:33)
[2018-10-23] MEDS: Acyclovir* 200 MG CAP PO SCH ×6 (00:52→21:53)
[2018-10-23] MEDS: Insulin LISPRO* 1 UNITS UNIT SUBCUT SCH ×6 (01:25→19:05)
[2018-10-23] MEDS ORDERED: Amiodarone 150 MG IVPREMIX* 150 MG/100 ML BAG IV ONE (02:13)
[2018-10-23] MEDS ORDERED: Amiodarone 360 MG IVPREMIX* 360 MG/200 ML BAG IV ONE (02:13)
[2018-10-23] MEDS: ZOSYN 3.375 GM Q8H per EXTENDED INFUSION IVPB SCH ×6 (05:01→19:04)
[2018-10-23] MEDS: Pantoprazole IV* 40 MG IV SCH ×2 (05:09→15:21)
[2018-10-23 05:10] LABS: Hematocrit 27 % (33-41); Hemoglobin 8.2 g/dL (12.0-16.0); Mean Corpuscular HGB Conc 30 g/dL (31-36); Mean Corpuscular Hemoglobin 19 pg (27-31); Mean Corpuscular Volume 64 fL (80-97); Platelet Count 398 10^3/uL (150-450); Red Blood Count 4.25 10^6 /uL (3.70-4.87); Red Cell Distribution Width 27 % (10.5-15); White Blood Count 30.1 10^3/uL (3.5-10.8)
[2018-10-23 05:22] LABS: Troponin I 0.32 ng/mL (<0.04)
[2018-10-23] MEDS ORDERED: Amiodarone 360 MG IVPREMIX* 360 MG/200 ML BAG IV SCH (06:00)
[2018-10-23 07:12] LABS: BUN/Creatinine Ratio 24.8 (8-20); Blood Urea Nitrogen 28 mg/dL (6-24); CO2 Carbon Dioxide 20 mmol/L (22-32); Calcium 8.2 mg/dL (8.6-10.3); EGFR African American 58.3 (>60); EGFR Non-African American 48.2 (>60); Glucose 178 mg/dL (70-100); Potassium 3.4 mmol/L (3.5-5.0); Sodium 142 mmol/L (135-145)
[2018-10-23 07:13] LABS: Anion Gap 10 mmol/L (2-11); Chloride 112 mmol/L (101-111)
[2018-10-23] MEDS: Metoprolol Tartrate TAB* 50 mg PO SCH (09:56)
[2018-10-23] MEDS: Lactated Ringers 1000 ML Bag* 1,000 ML IV SCH (09:57)
[2018-10-23] MEDS: Isosorbide Mononitrate ER TAB* 60 MG PO SCH (09:57)
--- NOTE | 2018-10-23 09:58 | PN ---
Progress Note - Progress Note Date of Service: 10/23/18 SOAP: Subjective: Having large amounts of watery green diarrhea, no blood or melena Her abdomen feels better-no pain and she would like something to drink. Main complaint is humberto-anal irritation from diarrhea Objective: Temp Pulse Resp BP Pulse Ox 100.6 F 127 26 109/68 83 10/23/18 06:46 10/23/18 06:46 10/23/18 06:46 10/23/18 06:46 10/23/18 06:46 Intake & Output 10/21/18 10/22/18 10/23/18 10/24/18 06:59 06:59 06:59 06:59 Intake Total 582.4 4635 Output Total 400 1075 50 Balance 182.4 3560 -50 Weight 175 lb 4.28 oz 189 lb 9.561 oz Intake: IV Fluids 574 4140 D5LR 439 LR 574 3426 PRBC 275 IVPB 181 Zosyn 181 Medicated IV 8.4 14 CC - Insulin 8.4 14 Oral 300 Output: Landis 400 1075 50 Other: Date of Last Bowel 10/22/18 Movement # Bowel Movements 1 Estimated Stool Amount Large PEX: Awake and alert-oriented Abd is soft and non-distended. Bowel sounds are present but are hypoactive. Mild tenderness lower quadrants-no rebound, guarding, or peritoneal signs. Laboratory Results - last 24 hr 10/22/18 10/22/18 10/22/18 00:31 08:50 10:12 WBC RBC Hgb Hct MCV MCH MCHC RDW Plt Count MPV Neut % (Auto) Lymph % (Auto) Grayson % (Auto) Eos % (Auto) Baso % (Auto) Absolute Neuts (auto) Absolute Lymphs (auto) Absolute Monos (auto) Absolute Eos (auto) Absolute Basos (auto) Absolute Nucleated RBC Immature Gran % Neutrophils % Band Neutrophils % Lymphocytes % Monocytes % Nucleated RBC % Abs Neuts (Manual) Abs Lymphs (Manual) Abs Monocytes (Manual) Normal RBC Morphology Polychromasia Hypochromasia Anisocytosis Microcytosis Macrocytosis Sodium Potassium Chloride Carbon Dioxide Anion Gap BUN Creatinine Est GFR ( Amer) Est GFR (Non-Af Amer) BUN/Creatinine Ratio Glucose POC Glucose (mg/dL) 206 H Lactic Acid Calcium Magnesium Ferritin 18.2 Troponin I Vitamin B12 247 Folate 8.18 Blood Type A Positive Antibody Screen Negative Crossmatch See Detail 10/22/18 10/22/18 10/22/18 13:42 13:42 13:58 WBC 39.0 H RBC 4.03 Hgb 7.2 L Hct 25 L MCV 62 L MCH 18 L MCHC 29 L RDW 24 H Plt Count 465 H D MPV 9.0 Neut % (Auto) 90.8 Lymph % (Auto) 1.4 Grayson % (Auto) 7.8 Eos % (Auto) 0 Baso % (Auto) 0 Absolute Neuts (auto) 35.4 H Absolute Lymphs (auto) 0.6 L Absolute Monos (auto) 3.1 H Absolute Eos (auto) 0 Absolute Basos (auto) 0 Absolute Nucleated RBC 0 Immature Gran % Neutrophils % Band Neutrophils % Lymphocytes % Monocytes % Nucleated RBC % 0 Abs Neuts (Manual) Abs Lymphs (Manual) Abs Monocytes (Manual) Normal RBC Morphology Polychromasia 1+ Hypochromasia Anisocytosis 2+ Microcytosis 3+ Macrocytosis Sodium Potassium Chloride Carbon Dioxide Anion Gap BUN Creatinine Est GFR ( Amer) Est GFR (Non-Af Amer) BUN/Creatinine Ratio Glucose POC Glucose (mg/dL) 307 H Lactic Acid 2.5 H* Calcium Magnesium Ferritin Troponin I Vitamin B12 Folate Blood Type Antibody Screen Crossmatch 10/22/18 10/22/18 10/22/18 17:55 17:55 20:23 WBC 35.4 H RBC 4.48 Hgb 8.7 L Hct 29 L MCV 64 L MCH 19 L MCHC 30 L RDW 28 H Plt Count 474 H MPV 8.7 Neut % (Auto) 90.4 Lymph % (Auto) 1.2 Grayson % (Auto) 8.3 Eos % (Auto) 0 Baso % (Auto) 0.1 Absolute Neuts (auto) 31.9 H Absolute Lymphs (auto) 0.4 L Absolute Monos (auto) 2.9 H Absolute Eos (auto) 0 Absolute Basos (auto) 0 Absolute Nucleated RBC 0 Immature Gran % 18 H Neutrophils % 76 Band Neutrophils % 18 H Lymphocytes % 1 Monocytes % 5 Nucleated RBC % 0 Abs Neuts (Manual) 33.2 H Abs Lymphs (Manual) 0.4 L Abs Monocytes (Manual) 1.8 H Normal RBC Morphology Not Reportable Polychromasia Hypochromasia 1+ Anisocytosis Microcytosis 1+ Macrocytosis 1+ Sodium 143 Potassium 2.8 L Chloride 111 Carbon Dioxide 21 L Anion Gap 11 BUN 28 H Creatinine 1.01 H Est GFR ( Amer) 66.4 Est GFR (Non-Af Amer) 54.8 BUN/Creatinine Ratio 27.7 H Glucose 209 H POC Glucose (mg/dL) 212 H Lactic Acid Calcium 8.2 L Magnesium 1.6 L Ferritin Troponin I 0.27 H* Vitamin B12 Folate Blood Type Antibody Screen Crossmatch 10/23/18 10/23/18 10/23/18 01:24 04:40 04:50 WBC RBC Hgb Hct MCV MCH MCHC RDW Plt Count MPV Neut % (Auto) Lymph % (Auto) Grayson % (Auto) Eos % (Auto) Baso % (Auto) Absolute Neuts (auto) Absolute Lymphs (auto) Absolute Monos (auto) Absolute Eos (auto) Absolute Basos (auto) Absolute Nucleated RBC Immature Gran % Neutrophils % Band Neutrophils % Lymphocytes % Monocytes % Nucleated RBC % Abs Neuts (Manual) Abs Lymphs (Manual) Abs Monocytes (Manual) Normal RBC Morphology Polychromasia Hypochromasia Anisocytosis Microcytosis Macrocytosis Sodium 142 Potassium 3.4 L Chloride 112 H Carbon Dioxide 20 L Anion Gap 10 BUN 28 H Creatinine 1.13 H Est GFR ( Amer) 58.3 Est GFR (Non-Af Amer) 48.2 BUN/Creatinine Ratio 24.8 H Glucose 178 H POC Glucose (mg/dL) 208 H 203 H Lactic Acid Calcium 8.2 L Magnesium Ferritin Troponin I 0.32 H* Vitamin B12 Folate Blood Type Antibody Screen Crossmatch 10/23/18 10/23/18 04:50 07:49 WBC 30.1 H RBC 4.25 Hgb 8.2 L Hct 27 L MCV 64 L MCH 19 L MCHC 30 L RDW 27 H Plt Count 398 MPV 9.0 Neut % (Auto) Not Reportable Lymph % (Auto) Not Reportable Grayson % (Auto) Not Reportable Eos % (Auto) Not Reportable Baso % (Auto) Not Reportable Absolute Neuts (auto) Not Reportable Absolute Lymphs (auto) Not Reportable Absolute Monos (auto) Not Reportable Absolute Eos (auto) Not Reportable Absolute Basos (auto) Not Reportable Absolute Nucleated RBC Not Reportable Immature Gran % Neutrophils % Band Neutrophils % Lymphocytes % Monocytes % Nucleated RBC % Not Reportable Abs Neuts (Manual) Abs Lymphs (Manual) Abs Monocytes (Manual) Normal RBC Morphology Polychromasia Hypochromasia Anisocytosis Microcytosis Macrocytosis Sodium Potassium Chloride Carbon Dioxide Anion Gap BUN Creatinine Est GFR ( Amer) Est GFR (Non-Af Amer) BUN/Creatinine Ratio Glucose POC Glucose (mg/dL) 193 H Lactic Acid Calcium Magnesium Ferritin Troponin I Vitamin B12 Folate Blood Type Antibody Screen Crossmatch Assessment: Sepsis/diarrhea--now watery green, WBC decreased, fever overnight Abdominal exam improved from yesterday-no pain or tenderness on exam, no peritonitis. I do not believe she has acute surgical abdomen (ischemia/necrosis, perforation ) with clinical course and exam as present. Diarrhea has now turned bilious and is copius. Suspect infectious etiology. C. Diff negative, remaining stool cultures pending. Plan: Contine IV Zosyn Await stool cultures Clear liquids po Follow exam Discussed with Dr. Montano-if worsens consider laparoscopy.
[2018-10-23] MEDS: Atorvastatin* 40 MG TAB PO SCH (10:05)
[2018-10-23] MEDS: Amiodarone 360 MG IVPREMIX* 360 MG/200 ML BAG IV SCH ×2 (10:08→20:52)
[2018-10-23] MEDS ORDERED: LORazepam INJ* 2 MG/ML 1 ML VIAL ONE (11:22)
[2018-10-23] MEDS ORDERED: Nystatin CREAM* 15 GM TUBE TOPICAL ONE (11:30)
[2018-10-23] MEDS: LORazepam INJ* 2 MG/ML 1 ML VIAL IV PUSH PRN (11:53)
[2018-10-23] MEDS: Metoprolol Tartrate IV* 1 MG/ML 5 ML VIAL IV PRN ×3 (13:10→23:41)
[2018-10-23] MEDS: Hemorrhoidal OINT TOPICAL PRN (13:10)
[2018-10-23] MEDS: Hydrocortisone 1% CREAM* 30 GM TUBE TOPICAL PRN (13:10)
--- NOTE | 2018-10-23 18:39 | PN ---
Date of Service: 10/23/18 Critical Care Services: Continues with diarrhea but it is no longer bloody. Having one liquid BM per hour and stool appears bilious.. Also has developed AFib with rapid ventricuar response, Rx with amiodarone and beta blockers. Vital Signs: Temp Pulse Resp BP SpO2 FiO2 99.9 F 135 28 109/55 90 Physical Exam: Gen:Awake but agitated. HEENT:No JVD Lungs:Clear Cardiac: Irreg rhythm Abdomen:Not distended. No tenderness. Extremities:Cool. No cyanosis or edema. Fluid Balance (Past 24 Hours): 10/23/18 06:59 Intake Total 4635 Output Total 1075 Balance 3560 Weight 189 lb Intake: IV Fluids 4140 D5LR 439 LR 3426 PRBC 275 kvo IVPB 181 Zosyn 181 Medicated IV 14 Amiodarone CC - Insulin 14 Oral 300 Output: Landis 1075 Liquid Stool Other: Date of Last Bowel 10/22/18 Movement # Bowel Movements 1 Estimated Stool Amount Large Labs: Laboratory Results - last 24 hr 10/22/18 10/22/18 10/22/18 00:31 17:55 17:55 WBC 35.4 H RBC 4.48 Hgb 8.7 L Hct 29 L MCV 64 L MCH 19 L MCHC 30 L RDW 28 H Immature Gran % 18 H Band Neutrophils % 18 H Sodium 143 Potassium 2.8 L Chloride 111 Carbon Dioxide 21 L Anion Gap 11 BUN 28 H Creatinine 1.01 H Est GFR ( Amer) 66.4 Est GFR (Non-Af Amer) 54.8 BUN/Creatinine Ratio 27.7 H Glucose 209 H POC Glucose (mg/dL) Glucose Meter Confirm Calcium 8.2 L Magnesium 1.6 L Troponin I 0.27 H* Crossmatch See Detail 10/23/18 10/23/18 10/23/18 04:50 04:50 07:49 WBC 30.1 H RBC 4.25 Hgb 8.2 L Hct 27 L MCV 64 L MCH 19 L MCHC 30 L RDW 27 H Plt Count 398 MPV 9.0 Immature Gran % Neutrophils % Band Neutrophils % Lymphocytes % Monocytes % Nucleated RBC % Not Reportable Abs Neuts (Manual) Abs Lymphs (Manual) Abs Monocytes (Manual) Normal RBC Morphology Hypochromasia Microcytosis Macrocytosis Sodium 142 Potassium 3.4 L Chloride 112 H Carbon Dioxide 20 L Anion Gap 10 BUN 28 H Creatinine 1.13 H Est GFR ( Amer) 58.3 Est GFR (Non-Af Amer) 48.2 BUN/Creatinine Ratio 24.8 H Glucose 178 H POC Glucose (mg/dL) 193 H Glucose Meter Confirm Calcium 8.2 L Magnesium Troponin I 0.32 H* Crossmatch Studies: None today Nutrition: Patient has been NPO Impression: 1. Clinical course most consistent with an infectious enteritis. We have sent cultures for Salmonella, Shigella, etc., and Rx with PIP/TAZO should cover most of the treatable pathogens. Plan: I will try cholestyramine to bind bile acids in an attempt to resolve the diarrhea. Treatment of AFib will continue to be amiodarone and beta blockers ( digitalis should not be used with amiodarone). Critical Care Time: 50 minutes
[2018-10-23] MEDS ORDERED: Magnesium Sulfate 2 GM IV* 2 GM/50 ML BAG IVPB ONE (18:52)
[2018-10-23] MEDS: Cholestyramine Resin* 4 GM POWDER PO SCH (21:54)
[2018-10-24] MEDS: Insulin LISPRO* 1 UNITS UNIT SUBCUT SCH ×6 (00:01→20:45)
[2018-10-24] MEDS: Lactated Ringers 1000 ML Bag* 1,000 ML IV SCH (01:44)
[2018-10-24] MEDS: ZOSYN 3.375 GM Q8H per EXTENDED INFUSION IVPB SCH ×6 (02:38→17:27)
[2018-10-24] MEDS ORDERED: Furosemide IV* 10 MG/ML VIAL (40 MG) IV ONE (03:19)
[2018-10-24] MEDS ORDERED: Furosemide IV* 10 MG/ML 2 ML VIAL (20 MG) ONE (03:19)
[2018-10-24] MEDS: Albuterol/Ipratropium NEB.SOL* Albuterol 2.5 MG/Ipratropium 0.5 MG 3 ML INH SCH ×4 (03:45→19:34)
[2018-10-24] MEDS ORDERED: Succinylcholine* 20 MG/ML 10 ML VIAL ONE (03:57)
[2018-10-24] MEDS ORDERED: Propofol* 100 ML ONE (04:02)
[2018-10-24] MEDS ORDERED: Etomidate* 2 MG/ML 20 ML VIAL (40 MG) ONE (04:06)
[2018-10-24 05:18] LABS: Hematocrit 26 % (33-41); Hemoglobin 7.8 g/dL (12.0-16.0); Mean Corpuscular HGB Conc 30 g/dL (31-36); Mean Corpuscular Hemoglobin 19 pg (27-31); Mean Corpuscular Volume 65 fL (80-97); Mean Platelet Volume 8.8 fL (7.4-10.4); Platelet Count 390 10^3/uL (150-450); Red Cell Distribution Width 26 % (10.5-15); White Blood Count 25.9 10^3/uL (3.5-10.8)
[2018-10-24] MEDS: Pantoprazole IV* 40 MG IV SCH ×2 (05:22→17:02)
[2018-10-24 05:33] LABS: BUN/Creatinine Ratio 23.2 (8-20); Calcium 7.9 mg/dL (8.6-10.3); EGFR African American 51.9 (>60); EGFR Non-African American 42.9 (>60); Magnesium 2.1 mg/dL (1.9-2.7)
[2018-10-24] MEDS: Metoprolol Tartrate IV* 1 MG/ML 5 ML VIAL IV PRN ×3 (05:54→19:40)
[2018-10-24] MEDS: Chlorhexidine MOUTHWASH 0.12%* 15 ML UDC TOPICAL SCH ×5 (05:54→20:36)
[2018-10-24] MEDS ORDERED: Norepinephrine 16MCG/ML IVPRE* 4,000 MCG/250 ML BAG IV SCH (06:00)
[2018-10-24] MEDS: Acyclovir* 200 MG CAP PO SCH (06:48)
--- NOTE | 2018-10-24 07:23 | PN ---
Hospitalist Progress Note Date of Service: 10/24/18 67 yo F with PMH CAD, HLD, PVD, s/p L AKA, T2DM, HTN who presented on 10/22/18 to the ER for abdominal pain and diarrhea found to have severe sepsis with CTAP showing gastroenteritis along with incidental R adrenal mass, L adrenal nodule. Also with DKA, A fib in RVR, anemia, admitted to the ICU Plan included: Cards: --AFib-Loaded on Amio, and on gtt, pressures didn't tolerate rate control --CAD: Remains on Nitro home med GI: --Concern for infectious gastroenteritis, placed on bile acids for diarrhea, on Zosyn for intrabdominal path, placed on LR for volume repletion --Concern for GIB, on PPI Endo --DKA: Gap closed with tx Heme: --Anemia: No need for transfusion, appeared acute on chronic with possible acute GI contribution Overnight pt increasingly hypoxic, needing max nasal flow, then graduating to High Flow nasal cannula eventually at 100% and 40L. Pt remained hypoxic at 85-88 % Pt examined, sleepy woman who can follow commands but otherwise not interactive, PEERLA, rhonchourus breath sounds blt, mild E wheeze, diminshed at bases, poor effort, irreg/irreg, belly soft non distended. CXR reviewed: patchy opacity to L lung base (new) and opacity to R hilar area- ? aspiration pneumonitis vs new opacity Fluids stopped, 40mg IV Lasix given to try to optimize HFNC, only mild improvement to 88-90% AB.42/30/58/89 Most c/w hypoxemic resp failure, can't r/o ARDS given acute onset, blt lung findings P/F ratio low. decision to intubate was made and pt and family agree with this plan. Propofol started for sedation and low dose norepi given for pressure support as titrating to RASS goal pLan now Neuro: --Propofol gtt PRN for sedation RASS -1-0 Cards: --AFib-Amio gtt --Hypotension: Now on norepi gtt --CAD: d/c imdur and statin for now Pulm --Hypoxemic Resp failure: Intubated 450/14/5/100%, titrate as able --Concern for blt opacities, repeat CXR s/p intubation GI --Gastroenteritis: Zosyn, diarrhea mgmt, consider restarting Lactated ringers now that pulm more stable --GIB? Continue PPI, trend CBC Renal: No active, watch UOP Endo: as above Heme: as above Lines: PICC, x2 PIV
[2018-10-24] MEDS ORDERED: Potassium Chlor TAB* 20 MEQ TAB.ER PO ONE (07:27)
[2018-10-24] MEDS: Propofol* 100 ML IV SCH ×5 (08:04→23:40)
[2018-10-24] MEDS ORDERED: Potassium Chloride LIQUID* 20 MEQ PACKET G TUBE ONE (08:30)
[2018-10-24] MEDS: Cholestyramine Resin* 4 GM POWDER PO SCH ×2 (09:44→20:36)
[2018-10-24] MEDS: Acyclovir SUSP(*) ORALSYR 40 MG/ML (200 MG/5 ML) PO SCH ×5 (09:50→20:46)
[2018-10-24] MEDS: Amiodarone TAB* 200 MG PO SCH (13:41)
--- NOTE | 2018-10-24 13:42 | PN ---
Date of Service: 10/24/18 Critical Care Services: Major problem include the followin. Severe diarrhea - bloody at first, but now is bilious - Cdif neg and stool cultures pending. Has been on Zosyn 2. Hypoxic respiratory failure - last night required intubation - cxr this AM shows NO infiltrates!! 3. Afib with rapid ventricular response - Rx amiodarone and beta blockers 4. Fever today despite broad-spectrum antibiotic coverage for bowel sepsis ( with zosyn) Vital Signs: Temp Pulse Resp BP SpO2 FiO2 101.1 F 131 25 145/72 98 70 Physical Exam: Gen:Intubated ond sedated with propofol Lungs:Few inspiratory crackles on right Cardiac: Irreg rhythm Abdomen:Not distended Extremities:Ny cyanosis or edema Fluid Balance (Past 24 Hours): 10/23/18 10/24/18 06:59 06:59 Intake Total 4635 3754.0 Output Total 1075 1050 Balance 3560 2704.0 Weight 189 lb Intake: IV Fluids 4140 2596.9 D5LR 439 LR 3426 2461 PRBC 275 kvo 135.9 IVPB 181 800 Mag 60 Zosyn 181 740 Medicated IV 14 357.1 Amiodarone 325 CC - Insulin 14 Levophed 9.8 Propofol 22.3 Oral 300 Output: Landis 1075 425 Liquid Stool 625 Other: Date of Last Bowel 10/22/18 Movement # Bowel Movements 1 Estimated Stool Amount Large Labs: Laboratory Results - last 24 hr 10/23/18 10/23/18 10/23/18 14:22 14:25 14:33 WBC RBC Hgb Hct MCV MCH MCHC RDW Plt Count MPV Patient Temperature ABG pH ABG pH (Temp Correct) ABG pCO2 ABG pCO2 (Temp Corrct ABG pO2 ABG pO2 (Temp Correct ABG HCO3 ABG O2 Saturation ABG Base Excess Respiration Rate O2 Delivery Device Ventilator Type Vent Mode FiO2 Inspiratory Time PEEP Pressure Support Pressure Control EPAP IPAP BiPAP Sodium Potassium Chloride Carbon Dioxide Anion Gap BUN Creatinine Est GFR ( Amer) Est GFR (Non-Af Amer) BUN/Creatinine Ratio Glucose POC Glucose (mg/dL) 354 H 287 H Glucose Meter Confirm 237 H Calcium Magnesium 10/23/18 10/23/18 10/24/18 18:23 23:53 03:30 WBC RBC Hgb Hct MCV MCH MCHC RDW Plt Count MPV ABG pH 7.42 ABG pCO2 30 L ABG pO2 58 L* ABG HCO3 21.7 ABG O2 Saturation 90.9 L ABG Base Excess -3.9 L O2 Delivery Device vapo Sodium Potassium Chloride Carbon Dioxide Anion Gap BUN Creatinine Est GFR ( Amer) Est GFR (Non-Af Amer) BUN/Creatinine Ratio Glucose POC Glucose (mg/dL) 224 H 185 H Glucose Meter Confirm Calcium Magnesium 10/24/18 10/24/18 10/24/18 05:00 05:00 05:05 WBC 25.9 RBC 4.00 Hgb 7.8 L Hct 26 L MCV 65 L MCH 19 L MCHC 30 L RDW 26 H Plt Count 390 MPV 8.8 ABG pH 7.40 ABG pCO2 30 ABG pO2 121 H ABG HCO3 21.0 ABG O2 Saturation 99.5 H ABG Base Excess -5.0 L Respiration Rate 14 O2 Delivery Device vent Ventilator Type 450 Vent Mode Cmv FiO2 80 Inspiratory Time 1.0 PEEP 8 Sodium 139 Potassium 3.0 L Chloride 110 Carbon Dioxide 18 Anion Gap 11 BUN 29 H Creatinine 1.25 Glucose 205 H POC Glucose (mg/dL) Glucose Meter Confirm Calcium 7.9 L Magnesium 2.1 Studies: CXR:Cardiomegaly without infiltrates. Nutrition: NPO since intubation Impression: 1. Still no etiology for the diarrhea in this case. The new fever could represent translocation of microbes and/or cytokines across the GI mucosa. 2. Hypoxic respiratory failure could represent early ARDS, although no xray evidence of this today (can take 48 hrs to appear). 3. New fever is disturbing, considering that the patient is already on zosyn. An acute pulmonary embolism would explain the hypoxic respiratory failure and the new fever. 4. Afib with RVR - poorpy controlled with amiodarone and beta blockers - the driving force here may be systemic inflammation. Plan: 1. Add anidulafungin for ever coverage. 2. Ultrasound of leg veins for DVT 3. Adjust amiodarone and beta maureen dosing for rapid Afib 4. Continue colestyramine for control of diarrhea, and await stool culture results. 5. Follow CXRs and wean when feasible. Critical Care Time: 90 minutes
[2018-10-24] MEDS ORDERED: Anidulafungin* 200 MG in NS 0.9% 250 ML* 200 ML IVPB ONE (14:00)
[2018-10-24] MEDS: Metoprolol Tartrate TAB* 25 MG PO SCH (20:36)
[2018-10-24] MEDS ORDERED: Iodixanol* (CONTRAST) 320 MG/ML 100 ML SDV IV ONE (21:45)
[2018-10-24] MEDS ORDERED: NS 0.9% 500 ML* @ Wide Open(Bolus) 500ml IV ONE (22:00)
[2018-10-25] MEDS: Albuterol/Ipratropium NEB.SOL* Albuterol 2.5 MG/Ipratropium 0.5 MG 3 ML INH SCH ×4 (00:41→19:19)
[2018-10-25] MEDS: Insulin LISPRO* 1 UNITS UNIT SUBCUT SCH ×6 (01:09→21:23)
[2018-10-25] MEDS: Chlorhexidine MOUTHWASH 0.12%* 15 ML UDC TOPICAL SCH ×6 (01:10→21:24)
[2018-10-25] MEDS: Propofol* 100 ML IV SCH ×3 (02:00→18:00)
[2018-10-25] MEDS: Metoprolol Tartrate IV* 1 MG/ML 5 ML VIAL IV PRN ×3 (02:11→21:29)
[2018-10-25] MEDS: ZOSYN 3.375 GM Q8H per EXTENDED INFUSION IVPB SCH ×6 (02:11→18:00)
[2018-10-25] MEDS: Pantoprazole IV* 40 MG IV SCH ×2 (05:21→16:58)
[2018-10-25] MEDS: Acyclovir SUSP(*) ORALSYR 40 MG/ML (200 MG/5 ML) PO SCH ×5 (05:22→21:36)
[2018-10-25 05:33] LABS: Hematocrit 30 % (33-41); Hemoglobin 8.8 g/dL (12.0-16.0); Mean Corpuscular HGB Conc 30 g/dL (31-36); Mean Corpuscular Hemoglobin 19 pg (27-31); Mean Corpuscular Volume 66 fL (80-97); Mean Platelet Volume 8.8 fL (7.4-10.4); Platelet Count 384 10^3/uL (150-450); Red Blood Count 4.52 10^6 /uL (3.70-4.87); Red Cell Distribution Width 28 % (10.5-15); White Blood Count 27.2 10^3/uL (3.5-10.8)
[2018-10-25 06:00] LABS: Albumin 2.6 g/dL (3.2-5.2); BUN/Creatinine Ratio 20.4 (8-20); EGFR African American 41.4 (>60); EGFR Non-African American 34.2 (>60); Globulin 2.7 g/dL (2-4); Potassium 3.2 mmol/L (3.5-5.0); Total Bilirubin 0.4 mg/dL (0.2-1.0); Total Protein 5.3 g/dL (6.4-8.9)
[2018-10-25] MEDS: Amiodarone TAB* 200 MG PO SCH (08:40)
[2018-10-25] MEDS: Metoprolol Tartrate TAB* 25 MG PO SCH ×2 (08:40→21:24)
[2018-10-25] MEDS: Cholestyramine Resin* 4 GM POWDER PO SCH ×2 (08:40→21:24)
--- NOTE | 2018-10-25 08:55 | PN ---
Date of Service: 10/25/18 - 5 Critical Care Services: 67 yo F with PMH including prior STEMI (02/09/2014), anemia, diabetes, PVD, CHF and bradycardia. She presented to the ED on 10/21 with abdominal pain and diarrhea x 3 days. Also noted to be hypoxic, hyperglycemic and in new onset atrial fibrillation. History of DVT, last on Coumadin in 2009. On evaluation found to have WBC 33.3, tender abdomen, lactic acid 6.9. CT abdomen positive for 1.9 cm solid mass in the lower pole of the right kidney, mucosal thickening of the stomach and small bowel; likely gastroenteritis. Admitted to hospitalist. Patient started on levophed 8 mcg/min. 10/22: ICU, GI and surgery consulted. Noted to be in DKA; on insulin and fluids. Off vasopressors. Concern for bowel ischemia given high lactic acid and bloody stools. On Zosyn for empiric coverage of possible abdominal sepsis. Seen by surgery in afternoon, no peritoneal signs and lactic acid improving, no need for OR. 10/23: Abdominal pain resolved. GI bleed resolved. CDiff negative. Stool cultures sent. Recurrent afib, started on amiodarone and beta blockers. 10/24: requiring high flow nasal cannula overnight for hypoxia. Fluids HL and Lasix x 1 given. No improvement and subsequently intubated. AM CXR with NO infiltrates. New onset fever despite broadspectrum abx. Antifungal coverage added. US ordered. 10/25: US legs re-read by radiology and now positive for DVT of LLE Vital Signs: Temp Pulse Resp BP SpO2 FiO2 100.0 F 102 27 135/64 97 50 10/25/18 08:00 10/25/18 08:00 10/25/18 08:00 10/25/18 08:00 10/25/18 08:00 10/25 07:54 Physical Exam: Gen: intubated, sedated HEENT: ETT in place Lungs: CTAB Cardiac: irregularly irregular Abdomen: soft, nondistended. No rebound or involuntary guarding Extremities: warm, dry Neuro: sedated. Fluid Balance (Past 24 Hours): I= O= Net Intake & Output 10/23/18 10/24/18 10/25/18 10/26/18 06:59 06:59 06:59 06:59 Intake Total 4635 3754.0 2502 Output Total 1075 1050 2735 28 Balance 3560 2704.0 -233 -28 Weight 189 lb 9.561 oz 183 lb 10.321 oz Intake: IV Fluids 4140 2596.9 986 D5LR 439 LR 3426 2461 500 Mag 0 PRBC 275 0 Zosyn 183 kvo 135.9 303 IVPB 181 800 230 Mag 60 Zosyn 181 740 kvo 230 Medicated IV 14 357.1 1006 Amiodarone 325 CC - Insulin 14 Levophed 9.8 427 Propofol 22.3 579 Oral 300 0 NG Tube Irrigate Amount 280 Output: Landis 1075 425 410 28 Liquid Stool 625 2325 Other: Date of Last Bowel 10/22/18 Movement # Bowel Movements 1 Estimated Stool Amount Large Labs: Laboratory Results - last 24 hr 10/24/18 10/24/18 10/24/18 12:17 15:51 20:34 WBC RBC Hgb Hct MCV MCH MCHC RDW Plt Count MPV Sodium Potassium Chloride Carbon Dioxide Anion Gap BUN Creatinine Est GFR ( Amer) Est GFR (Non-Af Amer) BUN/Creatinine Ratio Glucose POC Glucose (mg/dL) 162 H 163 H 140 H Calcium Total Bilirubin AST ALT Alkaline Phosphatase Total Protein Albumin Globulin Albumin/Globulin Ratio 10/25/18 10/25/18 10/25/18 00:29 04:50 04:50 WBC 27.2 H RBC 4.52 Hgb 8.8 L Hct 30 L MCV 66 L MCH 19 L MCHC 30 L RDW 28 H Plt Count 384 MPV 8.8 Sodium 138 Potassium 3.2 L Chloride 111 Carbon Dioxide 15 L Anion Gap 12 H BUN 31 H Creatinine 1.52 H Est GFR ( Amer) 41.4 Est GFR (Non-Af Amer) 34.2 BUN/Creatinine Ratio 20.4 H Glucose 167 H POC Glucose (mg/dL) 164 H Calcium 8.0 L Total Bilirubin 0.40 AST 10 L ALT 10 Alkaline Phosphatase 123 H Total Protein 5.3 L Albumin 2.6 L Globulin 2.7 Albumin/Globulin Ratio 1.0 10/25/18 10/25/18 04:53 07:42 WBC RBC Hgb Hct MCV MCH MCHC RDW Plt Count MPV Sodium Potassium Chloride Carbon Dioxide Anion Gap BUN Creatinine Est GFR ( Amer) Est GFR (Non-Af Amer) BUN/Creatinine Ratio Glucose POC Glucose (mg/dL) 201 H 173 H Calcium Total Bilirubin AST ALT Alkaline Phosphatase Total Protein Albumin Globulin Albumin/Globulin Ratio Studies: 10/25 CXR - pulmonary edema. increased left lung base effusion vs consolidation. 10/24 CTA chest - new small bilateral pleural effusions. stable empysema. No PE. 10/24 US BLE - Initially read as negative, now positive for LLE DVT 10/24 CXR - interval improvement in bilateral pulmonary opacities favoring resolution of atelectasis 10/23 CXR - concerning for probable aspiration pneumonitits 10/22 CT chest - mild centrilobular and paraseptal emphysema. Bilateral atelectasis. Cardiomegaly. Small hiatal hernia. 10/22 CT abd,pelvis - small right kidney with surgical clips in upper pole. 1.9 cm solid mass in lower pole of right kidney. 0.6 cm hypodense lesions in medial right kidney and midpole of left kidney. Multiple small calcific densities in bilateral kidneys. Mild right perinephric stranding. mucosal thickening of stomach and small bowel. Hepatomegaly. 2.1 x 3.3 cm right adrenal mas and 1.1 x 1.3 cm left adrenal nodule. 10/21 CXR - cardiomegaly 10/21 - US GB - no cholelithiasis or cholecystitis. Hepatomegaly with hepatic steatosis. Nutrition: NPO Impression: 67 yo F admitted with abdominal pain and bloody diarrhea. GI bleed resolved, now with profuse watery bilious/green diarrhea. Stool cultures negative. Abdominal pain resolved by 10/24. Overnight developed hypoxic respiratory failure requiring intubation and vasopressor requirement. Antifungal coverage started. Plan: Cardiovascular:(1) New onset atrial fibrillation; (2) Chronic CHF; (3) Chronic HTN; (4) hx of bradycardia; (5) Chronic PVD; (6) prior STEMI, 02/09/2014 -- HR 90-163 -- SBP 79-145 -- Telemetry -- Vasopressors Levophed @ 2 mcg/min, titrate to MAP > 60 -- Check TTE given new Afib and question of ischemia -- Amiodarone -- Metoprolol Home meds: Isosorbide mononitrate, Lisinopril, Amlodipine, Atorvastatin, ASA, Metoprolol, Lasix, Nitro Pulmonary: (1) Acute hypoxic respiratory failure; (2) suspected COPD, not on home O2 -- RR 15-30 -- sats 95-100 -- vent wean as able -- CXR: increased LLL consolidation -- Duonebs Home meds: Levocetirizine Gastrointestinal: (1) Gastroenteritis; (2) acute GI bleed, resolved; (3) Hepatic steatosis -- LFTs Tbili 0.40 ALK 123 from 107 from 114, follow trend AST 10 ALT 10 -- diet: NPO. start TF tomorrow if tolerated heparin gtt -- bowel regimen: None -- ulcer prophylaxis: Protonix BID -- Cholestyramine Home meds: None Endocrine: (1) DKA, resolved; (2) Diabetes mellitus; (3) Chronic hypothyroidism ;(4) Bilateral adrenal nodules -- monitor BGs -- SSI -- Adrenal nodule workup when more stable -- check AM cortisol Home meds: Metformin, Glucotrol Renal:(1) Oliguria; (2) Bilateral renal masses, greatest on right -- UOP: 17 ml/hr -- I/O:3754 ml in / 1050 ml out -- Cr 1.52 from 1.25, follow trend -- Lytes Na 138 K 3.2, replaced Ca 8.0, replaced -- IVF: HL -- Renal mass workup when more stable Home meds: Lasix Infectious disease: (1) Sepsis; (2) Gastroenteritis;(3) Possible pneumonia -- Tmax 101.5 -- WBC 27.2 from 25.9 -- Micro 10/23 Sputum Yeast 10/22 Fecal lactoferr Positive Enteric pathog Negative Shiga Pending Cdiff Negative MRSA screen negative blood NGTD -- ABX Acyclovir Anidulafungin Zosyn Home meds: Acyclovir Neurologic: No acute issues -- Propofol gtt for sedation -- PRN Ativan for agitation Home meds: None Hematological: (1) Chronic iron deficiency anemia; (2) New LLE DVT; (3) hx of DVT, last on coumadin 2009 -- Hgb 8.8 from 7.8 -- Plt 384 from 390 -- DVT prophylaxis: starting heparin gtt -- outpatient hematology consult, prior to stopping anticoagulation -- will need 3 mo of anticoagulation for this DVT per curbside discussion with heme Home meds: ASA Metabolic: (1) Lactic acidosis -- Lactate 2.6 on 10/24 down from 9.0. Check repeat. Home meds: None Deep vein thrombosis prophylaxis:starting heparin gtt. Dietary: Protonix BID Condition: critical Prognosis: guarded Code status: full Disposition: continue ICU Care Family not currently at bedside Cumulative time spent in the care of this patient (excluding any procedure time) : at least 65 minutes. Patient care included clinical interview (with patient and/or family), bedside exam of the patient, review of labs, x-rays, and other ancillary data, coordination of (respiratory, nursing care, review of patient's records, discussion regarding patients management with involved consultants, primary physician, pharmacists, and other healthcare personnel (dietary, case management , physical/occupational therapy etc.) Critical Care Time: 65 min
[2018-10-25] MEDS ORDERED: Calcium Gluconate INJ* 1 GM in NS 0.9% 50 ML* 50 ML IVPB ONE (11:20)
[2018-10-25] MEDS ORDERED: Perflutren Lipid Microsphere* 3 ML VIAL ONE (11:58)
[2018-10-25] MEDS: Heparin DRIP 25,000 UNITS(*) 25,000 UNITS/500 ML BAG IV SCH (12:11)
[2018-10-25 12:29] LABS: Hematocrit 27 % (33-41); Mean Corpuscular HGB Conc 30 g/dL (31-36); Mean Corpuscular Hemoglobin 19 pg (27-31); Mean Corpuscular Volume 65 fL (80-97); Mean Platelet Volume 8.5 fL (7.4-10.4); Platelet Count 321 10^3/uL (150-450); Red Blood Count 4.13 10^6 /uL (3.70-4.87); Red Cell Distribution Width 27 % (10.5-15); White Blood Count 24.5 10^3/uL (3.5-10.8)
[2018-10-25 12:31] LABS: EGFR African American 38.2 (>60); EGFR Non-African American 31.6 (>60)
[2018-10-25 13:14] LABS: ABS Basophils 0 10^3/ul (0-0.2); ABS Eosinophils 0.1 10^3/ul (0-0.6); ABS Lymphocytes 1.4 10^3/ul (1.0-4.8); ABS Monocytes 2.1 10^3/ul (0-0.8); ABS Neutrophils 20.9 10^3/ul (1.5-7.7); ABS Nucleated RBC 0.1 10^3/ul; Eosinophil % 0.4 %; Lymphocyte % 5.7 %; Nucleated Red Blood Cells % 0.4
[2018-10-25 13:15] LABS: Microcytosis 2+
--- NOTE | 2018-10-25 13:34 | ECHO ---
Patient: TRISHA PROCTOR [facility] Rec#: [id number] : 1950 Date: 10/25/2018 Age: 67y Height: 160 cm / 63.0 in Weight: 83 kg / 182.9 lbs Sex: F BSA: 1.86 Room#: ICU 7 Admit Date#: 10/22/2018 Type: Inpatient Referring: Marcia Mehta Reading: Marty Berry MD Pharmacy Technician Instructor: Jacquelyn Almendarez,KENNACS,RDMS CC: Dylon Myrick MD Transthoracic Echocardiogram Indication: AFIB, RESPIRATORY FAILURE BP: 122/60 HR: 97 Rhythm: A-Fib Findings History: CAD, MT, PCI, HLD, HTN, DM, PVD, smoker. Technical Comments: The study is technically limited due to the patient's smoking history. The study is technically limited due to patient being intubated and on a ventilator. Left Ventricle: The left ventricular chamber size is normal. Mild concentric left ventricular hypertrophy is observed. There is global hypokinesis of the left ventricle with minor regional variation. There is severely decreased left ventricular systolic function. The estimated ejection fraction is 25-30%. There is a left ventricular septal wall motion abnormality observed, possibly due to the presence of a left bundle branch block. The assessment of diastolic function is non-diagnostic. Left Atrium: The left atrium is severely dilated. Right Ventricle: The right ventricular chamber size and systolic function are within normal limits. The right ventricular global systolic function is mildly reduced. Right Atrium: The right atrium is mildly dilated. Aortic Valve: The aortic valve is trileaflet. The aortic valve leaflets are mildly thickened. There is no evidence of aortic regurgitation. There is no evidence of aortic stenosis. Mitral Valve: Moderate mitral annular calcification present. Moderate mitral leaflet calcification is visualized. There is trace to mild mitral regurgitation. There is mild mitral stenosis. Tricuspid Valve: The tricuspid valve leaflets are mildly thickened. There is trace tricuspid regurgitation. Unable to estimate the right ventricular systolic pressure. Pulmonic Valve: The pulmonic valve appears normal. There is no evidence of pulmonic regurgitation. Pericardium: There is no significant pericardial effusion. Aorta: The ascending aorta is not well visualized. The aortic arch is not well visualized. The aortic root is normal in size. Pulmonary Artery: The main pulmonary artery is not well visualized. Venous: Unable to accurately comment on the size collapsibility of the IVC as the patient in known to be on mechanical ventilation. Contrast: Definity was used to optimize study. A total of 5 ml was given by patient's RN. 3 ml were lost to an infiltrated IV. 2 ml were successfully used for imaging. Conclusions Mild concentric left ventricular hypertrophy is observed. There is severely decreased left ventricular systolic function. The estimated ejection fraction is 25-30%. There is a left ventricular septal wall motion abnormality observed, possibly due to the presence of a left bundle branch block. The right ventricular global systolic function is mildly reduced. There is no evidence of aortic stenosis. Moderate mitral leaflet calcification is visualized. There is trace to mild mitral regurgitation. There is mild mitral stenosis. There is trace tricuspid regurgitation. Unable to estimate the right ventricular systolic pressure. There is no significant pericardial effusion. Compared to study of 09/08/16, the LV function is much worse. The valve issues are the same Measurements Name Value Normal Range RVIDd (AP) 2D 2.8 cm (0.9 - 2.6) RAd ISD 4CH 5.4 cm (3.4 - 4.9) RA (A4C)W 4.1 cm (2.9 - 4.6) IVSd (2D) 1.4 cm (0.6 - 1) LVPWd (2D) 1 cm (0.6 - 1) LVIDd (2D) 5 cm (3.6 - 5.4) LVIDs (2D) 4.2 cm - LV FS (2D) 18 % (25 - 45) Aortic Annulus 1.9 cm (1.4 - 2.6) Ao root diameter (2D) 2.9 cm (2.1 - 3.5) LA dimension (AP) 2D 4.3 cm (2.3 - 3.8) LAd ISD 4CH 6.3 cm (2.9 - 5.3) LA ISD 4CH W 5.3 cm (2.5 - 4.5) Name Value Normal Range LA ESV BP (A/L) index 52 ml/m2 - Name Value Normal Range MV E-wave Vmax 1.4 m/sec - MV deceleration time 145 msec - LV lateral e' Vmax 0.05 m/sec - LV E:e' septal ratio 25 ratio - Name Value Normal Range AV Vmax 1.2 m/sec - AV peak gradient 6 mmHg - LVOT Vmax 0.9 m/sec - LVOT peak gradient 3.2 mmHg - Name Value Normal Range MV Vmax 1.6 m/sec - MV VTI 27 cm - MV peak gradient 10 mmHg - MV mean gradient 4 mmHg - MV PHT 67 msec - MVA (PHT) 3.3 cm2 - Name Value Normal Range IVC diameter 2.5 cm - Name Value Normal Range PV Vmax 1.1 m/sec - PV peak gradient 5 mmHg -
[2018-10-25] MEDS: Anidulafungin* 100 MG in NS 0.9% 100 ML* 100 ML IVPB SCH (14:23)
[2018-10-25] MEDS ORDERED: Chlorhexidine MOUTHWASH 0.12%* 15 ML UDC TOPICAL SCH (17:00)
[2018-10-25] MEDS ORDERED: NS 0.9% 1000 ML** 1,000 ML IV ONE (21:22)
[2018-10-25] MEDS ORDERED: NS 0.9% 1000 ML** 1,000 ML IV SCH (21:30)
[2018-10-26] MEDS: Chlorhexidine MOUTHWASH 0.12%* 15 ML UDC TOPICAL SCH ×6 (00:03→21:01)
[2018-10-26] MEDS: Albuterol/Ipratropium NEB.SOL* Albuterol 2.5 MG/Ipratropium 0.5 MG 3 ML INH SCH ×4 (00:13→19:02)
[2018-10-26] MEDS: Propofol* 100 ML IV SCH ×4 (00:30→19:00)
[2018-10-26] MEDS: ZOSYN 3.375 GM Q8H per EXTENDED INFUSION IVPB SCH ×6 (02:37→18:06)
[2018-10-26] MEDS: Pantoprazole IV* 40 MG IV SCH ×2 (04:15→17:13)
[2018-10-26 04:51] LABS: Albumin 2.4 g/dL (3.2-5.2); Albumin/Globulin Ratio 0.9 (1-3); BUN/Creatinine Ratio 18.8 (8-20); Calcium 7.6 mg/dL (8.6-10.3); EGFR African American 33.8 (>60); Globulin 2.6 g/dL (2-4); Phosphorus 4.4 mg/dL (2.5-5.0); Potassium 2.8 mmol/L (3.5-5.0); Total Bilirubin 0.5 mg/dL (0.2-1.0)
[2018-10-26 04:52] LABS: Hematocrit 27 % (33-41); Hemoglobin 7.9 g/dL (12.0-16.0); Mean Corpuscular HGB Conc 30 g/dL (31-36); Mean Corpuscular Hemoglobin 19 pg (27-31); Mean Corpuscular Volume 65 fL (80-97); Mean Platelet Volume 8.8 fL (7.4-10.4); Platelet Count 279 10^3/uL (150-450); Red Blood Count 4.07 10^6 /uL (3.70-4.87); Red Cell Distribution Width 27 % (10.5-15)
[2018-10-26] MEDS ORDERED: Lactated Ringers 1000 ML Bag* 1,000 ML IV ONE (05:02)
[2018-10-26] MEDS: Acyclovir SUSP(*) ORALSYR 40 MG/ML (200 MG/5 ML) PO SCH ×5 (05:27→23:09)
[2018-10-26] MEDS: Insulin LISPRO* 1 UNITS UNIT SUBCUT SCH ×6 (05:27→20:13)
[2018-10-26] MEDS: KCL 20 MEQ/100 ML IVPREMIX* 20 MEQ/100 ML BAG IV SCH ×3 (05:28→08:36)
[2018-10-26] MEDS: Heparin DRIP 25,000 UNITS(*) 25,000 UNITS/500 ML BAG IV SCH ×2 (05:31→21:00)
[2018-10-26] MEDS ORDERED: Calcium Gluconate INJ* 1 GM in NS 0.9% 50 ML* 50 ML IV ONE (06:00)
[2018-10-26] MEDS: Metoprolol Tartrate IV* 1 MG/ML 5 ML VIAL IV PRN ×2 (06:22→20:58)
[2018-10-26] MEDS: Amiodarone TAB* 200 MG PO SCH (08:36)
[2018-10-26] MEDS: Metoprolol Tartrate TAB* 25 MG PO SCH ×2 (08:36→20:16)
[2018-10-26] MEDS: Cholestyramine Resin* 4 GM POWDER PO SCH ×2 (08:55→20:16)
[2018-10-26] MEDS ORDERED: Furosemide IV* 10 MG/ML VIAL (40 MG) IV SLOW PU ONE (09:09)
[2018-10-26] MEDS ORDERED: NS 0.9% 1000 ML** 1,000 ML IV SCH (09:13)
--- NOTE | 2018-10-26 09:14 | PN ---
Date of Service: 10/26/18 - HD 6 Critical Care Services: 67 yo F with PMH including prior STEMI (02/09/2014), anemia, diabetes, PVD, CHF and bradycardia. She presented to the ED on 10/21 with abdominal pain and diarrhea x 3 days. Also noted to be hypoxic, hyperglycemic and in new onset atrial fibrillation. History of DVT, last on Coumadin in 2009. On evaluation found to have WBC 33.3, tender abdomen, lactic acid 6.9. CT abdomen positive for 1.9 cm solid mass in the lower pole of the right kidney, mucosal thickening of the stomach and small bowel; likely gastroenteritis. Admitted to hospitalist. Patient started on levophed 8 mcg/min. 10/22: ICU, GI and surgery consulted. Noted to be in DKA; on insulin and fluids. Off vasopressors. Concern for bowel ischemia given high lactic acid and bloody stools. On Zosyn for empiric coverage of possible abdominal sepsis. Seen by surgery in afternoon, no peritoneal signs and lactic acid improving, no need for OR. 10/23: Abdominal pain resolved. GI bleed resolved. CDiff negative. Stool cultures sent. Recurrent afib, started on amiodarone and beta blockers. 10/24: requiring high flow nasal cannula overnight for hypoxia. Fluids HL and Lasix x 1 given. No improvement and subsequently intubated. AM CXR with NO infiltrates. New onset fever despite broadspectrum abx. Antifungal coverage added. US ordered. 10/25: US legs re-read by radiology and now positive for DVT of LLE. Started on heparin gtt Vital Signs: Temp Pulse Resp BP SpO2 FiO2 98.8 F 112 26 99/77 95 50 10/26/18 07:30 10/26/18 07:30 10/26/18 07:00 10/26/18 07:29 10/26/18 07:30 10/26 07:38 Physical Exam: Gen: resting comfortably HEENT: ETT in place Lungs: CTAB Cardiac: irregularly irregular Abdomen: soft, nondistended. No involuntary guarding Extremities: warm, dry Neuro: sedated Fluid Balance (Past 24 Hours): I= O= Net Intake & Output 10/24/18 10/25/18 10/26/18 10/27/18 06:59 06:59 06:59 06:59 Intake Total 3754.0 2502 4580.5 Output Total 1050 2735 2596 Balance 2704.0 -233 1984.5 Weight 183 lb 10.321 oz 184 lb 4.903 oz Intake: IV Fluids 2596.9 986 3167 Calcium Gluconate 4 LR 2461 500 1000 Mag 0 NS (0.9%) 1661 PRBC 0 Zosyn 183 290 kvo 135.9 303 212 IVPB 800 230 312 Calcium Gluconate 71 Mag 60 Zosyn 740 100 kvo 230 141 Medicated IV 357.1 1006 381.5 Amiodarone 325 Levophed 9.8 427 39.5 Propofol 22.3 579 342 Heparin 210 Oral 0 0 Tube Feeding Flush Amount 400 NG Tube Irrigate Amount 280 110 Output: Landis 425 410 396 Liquid Stool 625 2325 1000 Colostomy 1200 Labs: Laboratory Results - last 24 hr 10/22/18 10/25/18 10/25/18 13:42 11:45 11:45 WBC RBC Hgb Hct MCV MCH MCHC RDW Plt Count MPV Neut % (Auto) Lymph % (Auto) [place]ibley % (Auto) Eos % (Auto) Baso % (Auto) Absolute Neuts (auto) Absolute Lymphs (auto) Absolute Monos (auto) Absolute Eos (auto) Absolute Basos (auto) Absolute Nucleated RBC Nucleated RBC % Hypochromasia Microcytosis Macrocytosis Hem Pathologist Commnt APTT 24.2 L Patient Temperature ABG pH ABG pH (Temp Correct) ABG pCO2 ABG pCO2 (Temp Corrct ABG pO2 ABG pO2 (Temp Correct ABG HCO3 ABG O2 Saturation ABG Base Excess Respiration Rate O2 Delivery Device Ventilator Type Vent Mode FiO2 Inspiratory Time PEEP Pressure Support Pressure Control EPAP IPAP BiPAP Sodium Potassium Chloride Carbon Dioxide Anion Gap BUN 32 H Creatinine 1.63 H Est GFR ( Amer) 38.2 Est GFR (Non-Af Amer) 31.6 BUN/Creatinine Ratio Glucose 110 H POC Glucose (mg/dL) Lactic Acid Calcium Ionized Calcium Phosphorus Magnesium Total Bilirubin AST ALT Alkaline Phosphatase Total Protein Albumin Globulin Albumin/Globulin Ratio 10/25/18 10/25/18 10/25/18 11:45 16:40 18:15 WBC 24.5 H RBC 4.13 Hgb 8.0 L Hct 27 L MCV 65 L MCH 19 L MCHC 30 L RDW 27 H Plt Count 321 MPV 8.5 Neut % (Auto) 85.4 Lymph % (Auto) 5.7 Sibley % (Auto) 8.5 Eos % (Auto) 0.4 Baso % (Auto) 0 Absolute Neuts (auto) 20.9 H Absolute Lymphs (auto) 1.4 Absolute Monos (auto) 2.1 H Absolute Eos (auto) 0.1 Absolute Basos (auto) 0 Absolute Nucleated RBC 0.1 Nucleated RBC % 0.4 Hypochromasia 2+ Microcytosis 2+ Macrocytosis 2+ Hem Pathologist Commnt APTT 35.0 Patient Temperature ABG pH ABG pH (Temp Correct) ABG pCO2 ABG pCO2 (Temp Corrct ABG pO2 ABG pO2 (Temp Correct ABG HCO3 ABG O2 Saturation ABG Base Excess Respiration Rate O2 Delivery Device Ventilator Type Vent Mode FiO2 Inspiratory Time PEEP Pressure Support Pressure Control EPAP IPAP BiPAP Sodium Potassium Chloride Carbon Dioxide Anion Gap BUN Creatinine Est GFR ( Amer) Est GFR (Non-Af Amer) BUN/Creatinine Ratio Glucose POC Glucose (mg/dL) 167 H Lactic Acid Calcium Ionized Calcium Phosphorus Magnesium Total Bilirubin AST ALT Alkaline Phosphatase Total Protein Albumin Globulin Albumin/Globulin Ratio 10/25/18 10/25/18 10/26/18 19:56 23:49 00:58 WBC RBC Hgb Hct MCV MCH MCHC RDW Plt Count MPV Neut % (Auto) Lymph % (Auto) Sible[place] % (Auto) Eos % (Auto) Baso % (Auto) Absolute Neuts (auto) Absolute Lymphs (auto) Absolute Monos (auto) Absolute Eos (auto) Absolute Basos (auto) Absolute Nucleated RBC Nucleated RBC % Hypochromasia Microcytosis Macrocytosis Hem Pathologist Commnt APTT 54.4 H Patient Temperature ABG pH ABG pH (Temp Correct) ABG pCO2 ABG pCO2 (Temp Corrct ABG pO2 ABG pO2 (Temp Correct ABG HCO3 ABG O2 Saturation ABG Base Excess Respiration Rate O2 Delivery Device Ventilator Type Vent Mode FiO2 Inspiratory Time PEEP Pressure Support Pressure Control EPAP IPAP BiPAP Sodium Potassium Chloride Carbon Dioxide Anion Gap BUN Creatinine Est GFR ( Amer) Est GFR (Non-Af Amer) BUN/Creatinine Ratio Glucose POC Glucose (mg/dL) 163 H 148 H Lactic Acid Calcium Ionized Calcium Phosphorus Magnesium Total Bilirubin AST ALT Alkaline Phosphatase Total Protein Albumin Globulin Albumin/Globulin Ratio 10/26/18 10/26/18 10/26/18 04:24 04:24 04:24 WBC 22.0 H RBC 4.07 Hgb 7.9 L Hct 27 L MCV 65 L MCH 19 L MCHC 30 L RDW 27 H Plt Count 279 MPV 8.8 Neut % (Auto) Lymph % (Auto) Sible[place] % (Auto) Eos % (Auto) Baso % (Auto) Absolute Neuts (auto) Absolute Lymphs (auto) Absolute Monos (auto) Absolute Eos (auto) Absolute Basos (auto) Absolute Nucleated RBC Nucleated RBC % Hypochromasia Microcytosis Macrocytosis Hem Pathologist Commnt APTT Patient Temperature ABG pH ABG pH (Temp Correct) ABG pCO2 ABG pCO2 (Temp Corrct ABG pO2 ABG pO2 (Temp Correct ABG HCO3 ABG O2 Saturation ABG Base Excess Respiration Rate O2 Delivery Device Ventilator Type Vent Mode FiO2 Inspiratory Time PEEP Pressure Support Pressure Control EPAP IPAP BiPAP Sodium Potassium Chloride Carbon Dioxide Anion Gap BUN Creatinine Est GFR ( Amer) Est GFR (Non-Af Amer) BUN/Creatinine Ratio Glucose POC Glucose (mg/dL) Lactic Acid 0.9 Calcium Ionized Calcium 1.04 L Phosphorus Magnesium Total Bilirubin AST ALT Alkaline Phosphatase Total Protein Albumin Globulin Albumin/Globulin Ratio 10/26/18 10/26/18 10/26/18 04:24 05:30 07:33 WBC RBC Hgb Hct MCV MCH MCHC RDW Plt Count MPV Neut % (Auto) Lymph % (Auto) Sible[place] % (Auto) Eos % (Auto) Baso % (Auto) Absolute Neuts (auto) Absolute Lymphs (auto) Absolute Monos (auto) Absolute Eos (auto) Absolute Basos (auto) Absolute Nucleated RBC Nucleated RBC % Hypochromasia Microcytosis Macrocytosis Hem Pathologist Commnt APTT 42.5 H Patient Temperature Not Reportable ABG pH 7.32 L ABG pH (Temp Correct) Not Reportable ABG pCO2 27 L ABG pCO2 (Temp Corrct Not Reportable ABG pO2 77 L ABG pO2 (Temp Correct Not Reportable ABG HCO3 16.6 L ABG O2 Saturation 96.9 ABG Base Excess -10.6 L Respiration Rate 14 O2 Delivery Device Vent Ventilator Type 450 Vent Mode Cmv FiO2 50 Inspiratory Time Not Reportable PEEP 5 Pressure Support Not Reportable Pressure Control Not Reportable EPAP Not Reportable IPAP Not Reportable BiPAP Not Reportable Sodium 138 Potassium 2.8 L Chloride 113 H Carbon Dioxide 14 L* Anion Gap 11 BUN 34 H Creatinine 1.81 H Est GFR ( Amer) 33.8 Est GFR (Non-Af Amer) 28.0 BUN/Creatinine Ratio 18.8 Glucose 158 H POC Glucose (mg/dL) Lactic Acid Calcium 7.6 L Ionized Calcium Phosphorus 4.4 Magnesium 2.0 Total Bilirubin 0.50 AST 6 L ALT 8 Alkaline Phosphatase 105 H Total Protein 5.0 L Albumin 2.4 L Globulin 2.6 Albumin/Globulin Ratio 0.9 L 10/26/18 08:24 WBC RBC Hgb Hct MCV MCH MCHC RDW Plt Count MPV Neut % (Auto) Lymph % (Auto) [place] % (Auto) Eos % (Auto) Baso % (Auto) Absolute Neuts (auto) Absolute Lymphs (auto) Absolute Monos (auto) Absolute Eos (auto) Absolute Basos (auto) Absolute Nucleated RBC Nucleated RBC % Hypochromasia Microcytosis Macrocytosis Hem Pathologist Commnt APTT Patient Temperature ABG pH ABG pH (Temp Correct) ABG pCO2 ABG pCO2 (Temp Corrct ABG pO2 ABG pO2 (Temp Correct ABG HCO3 ABG O2 Saturation ABG Base Excess Respiration Rate O2 Delivery Device Ventilator Type Vent Mode FiO2 Inspiratory Time PEEP Pressure Support Pressure Control EPAP IPAP BiPAP Sodium Potassium Chloride Carbon Dioxide Anion Gap BUN Creatinine Est GFR ( Amer) Est GFR (Non-Af Amer) BUN/Creatinine Ratio Glucose POC Glucose (mg/dL) 162 H Lactic Acid Calcium Ionized Calcium Phosphorus Magnesium Total Bilirubin AST ALT Alkaline Phosphatase Total Protein Albumin Globulin Albumin/Globulin Ratio Studies: 10/25 US LUE - no DVT 10/25 TTE - mild concentric left ventricular hypertrophy, severely decreased LVEF (25-30%), LV septal wall motion abnormality, RV global systolic function mildly reduced. Trace mitral regurgitation, mild mitral stenosis. Compared to 2016 LVEF is signficantly worse. 10/25 CXR - pulmonary edema. increased left lung base effusion vs consolidation. 10/24 CTA chest - new small bilateral pleural effusions. stable empysema. No PE. 10/24 US BLE - Initially read as negative, now positive for LLE DVT 10/24 CXR - interval improvement in bilateral pulmonary opacities favoring resolution of atelectasis 10/23 CXR - concerning for probable aspiration pneumonitits 10/22 CT chest - mild centrilobular and paraseptal emphysema. Bilateral atelectasis. Cardiomegaly. Small hiatal hernia. 10/22 CT abd,pelvis - small right kidney with surgical clips in upper pole. 1.9 cm solid mass in lower pole of right kidney. 0.6 cm hypodense lesions in medial right kidney and midpole of left kidney. Multiple small calcific densities in bilateral kidneys. Mild right perinephric stranding. mucosal thickening of stomach and small bowel. Hepatomegaly. 2.1 x 3.3 cm right adrenal mas and 1.1 x 1.3 cm left adrenal nodule. 10/21 CXR - cardiomegaly 10/21 - US GB - no cholelithiasis or cholecystitis. Hepatomegaly with hepatic steatosis. Nutrition: Start TF Impression: 67 yo F admitted with abdominal pain and bloody diarrhea. GI bleed resolved, now with profuse watery bilious/green diarrhea. Stool cultures negative. Abdominal pain resolved by 10/24. Overnight developed hypoxic respiratory failure requiring intubation and vasopressor requirement. Antifungal coverage started. Plan: Cardiovascular:(1) New onset atrial fibrillation; (2) Acute on chronic systolic CHF; (3) Chronic HTN; (4) hx of bradycardia; (5) Chronic PVD; (6) prior STEMI, 02/09/2014 -- HR 86-138 -- SBP 88-146 -- Telemetry -- Vasopressors Levophed now off -- 10/25 TTE - mild concentric left ventricular hypertrophy, severely decreased LVEF (25-30%), LV septal wall motion abnormality, RV global systolic function mildly reduced. Trace mitral regurgitation, mild mitral stenosis. Compared to LVEF is signficantly worse. -- Amiodarone -- Metoprolol -- Lasix x 1 Home meds: Isosorbide mononitrate, Lisinopril, Amlodipine, Atorvastatin, ASA, Metoprolol, Lasix, Nitro Pulmonary: (1) Acute hypoxic respiratory failure; (2) LLL pneumonia; (3) suspected COPD, not on home O2 -- RR 14-30 -- sats 93-98 on FiO2 50% -- vent wean as able -- CXR: increased LLL consolidation -- ABG: pH 7.32 / pCO2 27 / pO2 77 / HCO3 16.6 / BE -10.6 -- Duonebs -- daily SBT Home meds: Levocetirizine Gastrointestinal: (1) Gastroenteritis; (2) acute GI bleed, resolved; (3) Hepatic steatosis -- LFTs Tbili 0.5 ALK 105 from 123 AST 6 ALT 8 -- diet: start TF -- bowel regimen: None -- ulcer prophylaxis: Protonix BID -- Cholestyramine Home meds: None Endocrine: (1) DKA, resolved; (2) Diabetes mellitus; (3) Chronic hypothyroidism ;(4) Bilateral adrenal nodules -- monitor BGs -- SSI -- Adrenal nodule workup when more stable -- check AM cortisol Home meds: Metformin, Glucotrol Renal:(1) Oliguria; (2) Bilateral renal masses, greatest on right -- UOP: 17 ml/hr -- I/O:4580 ml in / 2596 ml out [Net (+) approx 8L from admission] -- Cr 1.81 from 1.52 from 1.25, follow trend -- Lytes Na 138 from 138 K 2.8, replaced Ca 7.6, replaced -- IVF: NS @ 40 ml/hr -- Renal mass workup when more stable -- Lasix x 1 Home meds: Lasix Infectious disease: (1) Sepsis; (2) Gastroenteritis;(3) LLL pneumonia -- Tmax 100.6 -- WBC 22.0 form 27.2 -- Micro 10/23 Sputum Yeast 10/22 Fecal lactoferr Positive Enteric pathog Negative Shiga Negative Cdiff Negative MRSA screen negative blood NGTD -- ABX Acyclovir Anidulafungin Zosyn Home meds: Acyclovir Neurologic: No acute issues -- Propofol gtt for sedation -- PRN Ativan for agitation Home meds: None Hematological: (1) Chronic iron deficiency anemia; (2) New LLE DVT; (3) hx of DVT, last on coumadin 2009 -- Hgb 7.9 from 8.8 -- Plt 279 from 384 -- DVT prophylaxis: heparin gtt -- outpatient hematology consult, prior to stopping anticoagulation -- will need 3 mo of anticoagulation for this DVT per curbside discussion with heme Home meds: ASA Metabolic: (1) Lactic acidosis, resolved -- Lactate 0.9 from 2.6 Home meds: None Deep vein thrombosis prophylaxis:heparin gtt. Dietary: Protonix BID Condition: critical Prognosis: guarded Code status: full Disposition: continue ICU Care Family not currently at bedside Cumulative time spent in the care of this patient (excluding any procedure time) : at least 40 minutes. Patient care included clinical interview (with patient and/or family), bedside exam of the patient, review of labs, x-rays, and other ancillary data, coordination of (respiratory, nursing care, review of patient's records, discussion regarding patients management with involved consultants, primary physician, pharmacists, and other healthcare personnel (dietary, case management , physical/occupational therapy etc.) Critical Care Time: 40 min Critical Care Time:
--- NOTE | 2018-10-26 09:36 | PN ---
Progress Note - Progress Note Date of Service: 10/26/18 - update Note: Spoke with cardiology regarding new onset Afib and findings of reduced LEVF on TTE. Plan for cards consult once patient more stable and extubated. Continue current management at this time.
[2018-10-26 11:31] LABS: Albumin 2.2 g/dL (3.2-5.2); Calcium 7.7 mg/dL (8.6-10.3); Sodium 140 mmol/L (135-145)
[2018-10-26 11:36] LABS: Anion Gap 15 mmol/L (2-11); CO2 Carbon Dioxide 12 mmol/L (22-32); Chloride 113 mmol/L (101-111)
[2018-10-26 11:37] LABS: ALT 11 U/L (7-52); Albumin/Globulin Ratio 0.9 (1-3); Alkaline Phosphatase 283 U/L (34-104); Blood Urea Nitrogen 33 mg/dL (6-24); EGFR African American 35.4 (>60); EGFR Non-African American 29.3 (>60); Globulin 2.5 g/dL (2-4); Glucose 121 mg/dL (70-100); Total Protein 4.7 g/dL (6.4-8.9)
[2018-10-26] MEDS: Furosemide IV* 10 MG/ML VIAL (40 MG) IV SCH ×2 (13:55→20:14)
[2018-10-26] MEDS: Anidulafungin* 100 MG in NS 0.9% 100 ML* 100 ML IVPB SCH (15:09)
[2018-10-26 15:37] LABS: Potassium Redraw 3.5 mmol/L (3.5-5.0)
--- NOTE | 2018-10-26 18:47 | OP ---
Operative Report - Blank - Operative Report Date of Operation: 10/26/18 Note: PROCEDURE NOTE Procedure: Bronchoscopy with BAL Consent obtained: Verbal, from daughter Time out performed: Yes Indications: Left lower lobe atelectasis Anesthesia: on Propofol gtt, continued at current rate Findings: several thick mucus plugs identified and suctioned from left lower lobe bronchus Specimen: BAL Complications: None Description of procedure: The patient was positioned with right side down. She is already intubated and sedated secondary to her acute respiratory failure. The AMBU bronchoscope was advanced via the ETT and a bronchoscopy was performed with the following findings: Trachea: no secretions, no inflammation or other lesion identified Right main bronchus:no secretions, no inflammation or other lesion identified Right upper lobe bronchus:no secretions, no inflammation or other lesion identified Right middle lobe bronchus:no secretions, no inflammation or other lesion identified Right lower lobe bronchus:no secretions, no inflammation or other lesion identified Left main bronchus:no secretions, no inflammation or other lesion identified Left upper lobe bronchus:no secretions, no inflammation or other lesion identified Left lower lobe bronchus: thick tenacious secretions, mostly clear in color. Suctioned successfully with visible expansion of lower lobe airways afterward. After secrections were suctioned a BAL was performed with 50 ml of sterile saline from LLL. Returned fluid send for culture The patient tolerated the procedure well without immediate complications
[2018-10-26] MEDS: Hemorrhoidal OINT TOPICAL PRN (23:08)
[2018-10-27] MEDS: Albuterol/Ipratropium NEB.SOL* Albuterol 2.5 MG/Ipratropium 0.5 MG 3 ML INH SCH ×4 (00:18→19:10)
[2018-10-27] MEDS: Insulin LISPRO* 1 UNITS UNIT SUBCUT SCH ×6 (01:21→20:22)
[2018-10-27] MEDS: Chlorhexidine MOUTHWASH 0.12%* 15 ML UDC TOPICAL SCH ×6 (01:22→20:22)
[2018-10-27] MEDS: Propofol* 100 ML IV SCH ×3 (02:21→18:04)
[2018-10-27] MEDS: ZOSYN 3.375 GM Q8H per EXTENDED INFUSION IVPB SCH ×6 (02:21→18:01)
[2018-10-27] MEDS: Pantoprazole IV* 40 MG IV SCH ×2 (04:33→16:47)
[2018-10-27 05:18] LABS: Hematocrit 28 % (33-41); Hemoglobin 8.1 g/dL (12.0-16.0); Mean Corpuscular HGB Conc 29 g/dL (31-36); Mean Corpuscular Hemoglobin 19 pg (27-31); Mean Corpuscular Volume 64 fL (80-97); Platelet Count 259 10^3/uL (150-450); Red Cell Distribution Width 27 % (10.5-15); White Blood Count 20.1 10^3/uL (3.5-10.8)
[2018-10-27] MEDS: Acyclovir SUSP(*) ORALSYR 40 MG/ML (200 MG/5 ML) PO SCH ×5 (05:37→21:31)
[2018-10-27 05:40] LABS: Albumin 2.4 g/dL (3.2-5.2); Albumin/Globulin Ratio 0.9 (1-3); BUN/Creatinine Ratio 16.2 (8-20); EGFR African American 28.5 (>60); EGFR Non-African American 23.6 (>60); Globulin 2.8 g/dL (2-4); Magnesium 1.9 mg/dL (1.9-2.7); Phosphorus 5.3 mg/dL (2.5-5.0); Potassium 3.2 mmol/L (3.5-5.0); Total Bilirubin 0.5 mg/dL (0.2-1.0); Total Protein 5.2 g/dL (6.4-8.9)
[2018-10-27] MEDS ORDERED: Potassium Chloride LIQUID* 20 MEQ PACKET PO ONE (07:53)
[2018-10-27] MEDS ORDERED: Calcium Gluconate INJ* 1 GM in NS 0.9% 50 ML* 50 ML IVPB ONE (08:02)
--- NOTE | 2018-10-27 08:08 | PN ---
Date of Service: 10/27/18 - HD 7 Critical Care Services: 67 yo F with PMH including prior STEMI (02/09/2014), anemia, diabetes, PVD, CHF and bradycardia. She presented to the ED on 10/21 with abdominal pain and diarrhea x 3 days. Also noted to be hypoxic, hyperglycemic and in new onset atrial fibrillation. History of DVT, last on Coumadin in 2009. On evaluation found to have WBC 33.3, tender abdomen, lactic acid 6.9. CT abdomen positive for 1.9 cm solid mass in the lower pole of the right kidney, mucosal thickening of the stomach and small bowel; likely gastroenteritis. Admitted to hospitalist. Patient started on levophed 8 mcg/min. 10/22: ICU, GI and surgery consulted. Noted to be in DKA; on insulin and fluids. Off vasopressors. Concern for bowel ischemia given high lactic acid and bloody stools. On Zosyn for empiric coverage of possible abdominal sepsis. Seen by surgery in afternoon, no peritoneal signs and lactic acid improving, no need for OR. 10/23: Abdominal pain resolved. GI bleed resolved. CDiff negative. Stool cultures sent. Recurrent afib, started on amiodarone and beta blockers. 10/24: requiring high flow nasal cannula overnight for hypoxia. Fluids HL and Lasix x 1 given. No improvement and subsequently intubated. AM CXR with NO infiltrates. New onset fever despite broadspectrum abx. Antifungal coverage added. US ordered. 10/25: US legs re-read by radiology and now positive for DVT of LLE. Started on heparin gtt 10/26: Bronch with BAL for LLL atelectasis and mucus plugging Vital Signs: Temp Pulse Resp BP SpO2 FiO2 98.4 F 120 28 120/72 100 50 10/27/18 06:00 10/27/18 07:20 10/27/18 07:20 10/27/18 06:00 10/27/18 07:20 10/27 07:20 Physical Exam: Gen: resting comfortably HEENT: ETT in place Lungs: coarse bilaterally, expiratory crackles in left lung base Cardiac: irregularly irregular Abdomen: soft, nondistended Extremities: warm, dry Neuro: sedated Fluid Balance (Past 24 Hours): I= O= Net Intake & Output 10/25/18 10/26/18 10/27/18 10/28/18 06:59 06:59 06:59 06:59 Intake Total 2502 4580.5 2409 Output Total 2735 2596 2409 Balance -233 1984.5 0 Weight 183 lb 10.321 oz 184 lb 4.903 oz 187 lb 1.745 oz Intake: IV Fluids 986 3167 664 Calcium Gluconate 4 LR 500 1000 Mag 0 NS (0.9%) 1661 547 PRBC 0 Zosyn 183 290 117 kvo 303 212 IVPB 230 312 820 Calcium Gluconate 71 68 KCl 322 NS (0.9%) 223 Zosyn 100 207 kvo 230 141 Medicated IV 1006 381.5 293 Levophed 427 39.5 Propofol 579 342 293 Heparin 210 Oral 0 0 Tube Feeding 212 Tube Feeding Flush Amount 400 NG Tube Irrigate Amount 280 110 300 Landis Irrigate Amount 120 Output: Landis 410 396 559 Liquid Stool 2325 1000 1850 Colostomy 1200 Labs: Laboratory Results - last 24 hr 10/25/18 10/26/18 10/26/18 11:45 07:28 07:33 WBC RBC Hgb Hct MCV MCH MCHC RDW Plt Count MPV APTT 42.5 H Sodium 140 Potassium TNP Chloride 113 H Carbon Dioxide 12 L* Anion Gap 15 H BUN 33 H Creatinine 1.74 H Est GFR ( Amer) 35.4 Est GFR (Non-Af Amer) 29.3 BUN/Creatinine Ratio 19.0 Glucose 121 H POC Glucose (mg/dL) Calcium 7.7 L Ionized Calcium Phosphorus Magnesium Total Bilirubin 0.50 AST TNP ALT 11 Alkaline Phosphatase 283 H Total Protein 4.7 L Albumin 2.2 L Globulin 2.5 Albumin/Globulin Ratio 0.9 L Procalcitonin 0.94 H 10/26/18 10/26/18 10/26/18 08:24 12:02 12:10 WBC RBC Hgb Hct MCV MCH MCHC RDW Plt Count MPV APTT Sodium Potassium TNP Chloride Carbon Dioxide Anion Gap BUN Creatinine Est GFR ( Amer) Est GFR (Non-Af Amer) BUN/Creatinine Ratio Glucose POC Glucose (mg/dL) 162 H 159 H Calcium Ionized Calcium Phosphorus Magnesium Total Bilirubin AST TNP ALT Alkaline Phosphatase Total Protein Albumin Globulin Albumin/Globulin Ratio Procalcitonin 10/26/18 10/26/18 10/26/18 15:05 15:05 17:01 WBC RBC Hgb Hct MCV MCH MCHC RDW Plt Count MPV APTT 53.0 H Sodium Potassium 3.5 Chloride Carbon Dioxide Anion Gap BUN Creatinine Est GFR ( Amer) Est GFR (Non-Af Amer) BUN/Creatinine Ratio Glucose POC Glucose (mg/dL) 158 H Calcium Ionized Calcium Phosphorus Magnesium Total Bilirubin AST 12 L ALT Alkaline Phosphatase Total Protein Albumin Globulin Albumin/Globulin Ratio Procalcitonin 10/26/18 10/26/18 10/27/18 19:52 22:04 01:17 WBC RBC Hgb Hct MCV MCH MCHC RDW Plt Count MPV APTT 59.5 H Sodium Potassium Chloride Carbon Dioxide Anion Gap BUN Creatinine Est GFR ( Amer) Est GFR (Non-Af Amer) BUN/Creatinine Ratio Glucose POC Glucose (mg/dL) 161 H 153 H Calcium Ionized Calcium Phosphorus Magnesium Total Bilirubin AST ALT Alkaline Phosphatase Total Protein Albumin Globulin Albumin/Globulin Ratio Procalcitonin 10/27/18 10/27/18 10/27/18 04:16 05:04 05:04 WBC 20.1 H RBC 4.30 Hgb 8.1 L Hct 28 L MCV 64 L MCH 19 L MCHC 29 L RDW 27 H Plt Count 259 MPV 9.0 APTT Sodium Potassium Chloride Carbon Dioxide Anion Gap BUN Creatinine Est GFR ( Amer) Est GFR (Non-Af Amer) BUN/Creatinine Ratio Glucose POC Glucose (mg/dL) 198 H Calcium Ionized Calcium 1.14 L Phosphorus Magnesium Total Bilirubin AST ALT Alkaline Phosphatase Total Protein Albumin Globulin Albumin/Globulin Ratio Procalcitonin 10/27/18 05:04 WBC RBC Hgb Hct MCV MCH MCHC RDW Plt Count MPV APTT Sodium 136 Potassium 3.2 L Chloride 111 Carbon Dioxide 14 L* Anion Gap 11 BUN 34 H Creatinine 2.10 H Est GFR ( Amer) 28.5 Est GFR (Non-Af Amer) 23.6 BUN/Creatinine Ratio 16.2 Glucose 196 H POC Glucose (mg/dL) Calcium 8.0 L Ionized Calcium Phosphorus 5.3 H Magnesium 1.9 Total Bilirubin 0.50 AST 8 L ALT 11 Alkaline Phosphatase 105 H Total Protein 5.2 L Albumin 2.4 L Globulin 2.8 Albumin/Globulin Ratio 0.9 L Procalcitonin Studies: 10/25 US LUE - no DVT 4/1 TTE - mild concentric left ventricular hypertrophy, severely decreased LVEF (25-30%), LV septal wall motion abnormality, RV global systolic function mildly reduced. Trace mitral regurgitation, mild mitral stenosis. Compared to 2016 LVEF is signficantly worse. 10/25 CXR - pulmonary edema. increased left lung base effusion vs consolidation. 10/24 CTA chest - new small bilateral pleural effusions. stable empysema. No PE. 10/24 US BLE - Initially read as negative, now positive for LLE DVT 10/24 CXR - interval improvement in bilateral pulmonary opacities favoring resolution of atelectasis 10/23 CXR - concerning for probable aspiration pneumonitits 10/22 CT chest - mild centrilobular and paraseptal emphysema. Bilateral atelectasis. Cardiomegaly. Small hiatal hernia. 10/22 CT abd,pelvis - small right kidney with surgical clips in upper pole. 1.9 cm solid mass in lower pole of right kidney. 0.6 cm hypodense lesions in medial right kidney and midpole of left kidney. Multiple small calcific densities in bilateral kidneys. Mild right perinephric stranding. mucosal thickening of stomach and small bowel. Hepatomegaly. 2.1 x 3.3 cm right adrenal mas and 1.1 x 1.3 cm left adrenal nodule. 10/21 CXR - cardiomegaly 10/21 - US GB - no cholelithiasis or cholecystitis. Hepatomegaly with hepatic steatosis. Nutrition: TF Impression: 67 yo F admitted with abdominal pain and bloody diarrhea. GI bleed resolved, now with profuse watery bilious/green diarrhea. Stool cultures negative. Abdominal pain resolved by 10/24. Developed hypoxic respiratory failure requiring intubation and vasopressor requirement. Antifungal coverage started. Bronchoscopy for mucus plugging. Plan: Cardiovascular:(1) New onset atrial fibrillation; (2) Acute on chronic systolic CHF; (3) Chronic HTN; (4) hx of bradycardia; (5) Chronic PVD; (6) prior STEMI, 02/09/2014 -- HR 92-138 -- SBP 80-139 -- Telemetry -- 10/25 TTE - mild concentric left ventricular hypertrophy, severely decreased LVEF (25-30%), LV septal wall motion abnormality, RV global systolic function mildly reduced. Trace mitral regurgitation, mild mitral stenosis. Compared to LVEF is signficantly worse. -- Amiodarone -- Metoprolol -- Lasix TID, increased to 60 mg Home meds: Isosorbide mononitrate, Lisinopril, Amlodipine, Atorvastatin, ASA, Metoprolol, Lasix, Nitro Pulmonary: (1) Acute hypoxic respiratory failure; (2) LLL pneumonia; (3) suspected COPD, not on home O2 -- RR 20-31 -- sats 92-100 on FiO2 50%. Desaturated overnight requiring increase in FiO2 to 100%, but now back to baseline -- vent wean as able -- CXR: pending -- ABG: pending -- Duonebs -- daily SBT Home meds: Levocetirizine Gastrointestinal: (1) Gastroenteritis; (2) acute GI bleed, resolved; (3) Hepatic steatosis -- LFTs Tbili 0.5 ALK 105 from 105 AST 8 ALT 11 -- diet: start TF -- bowel regimen: None -- ulcer prophylaxis: Protonix BID -- Cholestyramine to bind bile acids Home meds: None Endocrine: (1) DKA, resolved; (2) Diabetes mellitus; (3) Chronic hypothyroidism ;(4) Bilateral adrenal nodules -- monitor BGs -- SSI -- Adrenal nodule workup when more stable -- AM cortisol ordered Home meds: Metformin, Glucotrol Renal:(1) Oliguria, resolved; (2) Bilateral renal masses, greatest on right; (3 ) Hypokalemia; (4) Hypocalcemia; (5) Hyperphosphatemia -- UOP: 100 ml/hr -- I/O:2409 ml in / 2409 ml out [Net (+) approx 8L from admission] -- Cr 1.81 from 1.52 from 1.25, follow trend -- Lytes Na 136 from 138 K 3.2, replaced Ca 8.0, inoized 1.14, replaced Phos 5.3, follow trend Mag 1.9 -- IVF: HLIVF -- Renal mass workup when more stable -- Lasix TID Home meds: Lasix Infectious disease: (1) Sepsis; (2) Gastroenteritis;(3) LLL pneumonia -- Tmax 100.0 -- WBC 20.1 from 22.0 -- Procalcitonin 0.94 -- Micro 4/2 BAL in progress 10/23 Sputum Yeast 10/22 Fecal lactoferr Positive Enteric pathog Negative Shiga Negative Cdiff Negative MRSA screen negative blood NGTD -- ABX Acyclovir Anidulafungin Zosyn Home meds: Acyclovir Neurologic: No acute issues -- Propofol gtt for sedation -- PRN Ativan for agitation Home meds: None Hematological: (1) Chronic iron deficiency anemia; (2) New LLE DVT; (3) hx of DVT, last on coumadin 2009 -- Hgb 8.1 from 7.9 -- Plt 259 from 279 -- DVT prophylaxis: heparin gtt -- outpatient hematology consult, prior to stopping anticoagulation -- will need 3 mo of anticoagulation for this DVT per curbside discussion with heme Home meds: ASA Metabolic: (1) Lactic acidosis, resolved -- Lactate 0.9 from 2.6 Home meds: None Deep vein thrombosis prophylaxis:heparin gtt. Dietary: Protonix BID Condition: critical Prognosis: guarded Code status: full Disposition: continue ICU Care Family not currently at bedside Cumulative time spent in the care of this patient (excluding any procedure time) : at least 40 minutes. Patient care included clinical interview (with patient and/or family), bedside exam of the patient, review of labs, x-rays, and other ancillary data, coordination of (respiratory, nursing care, review of patient's records, discussion regarding patients management with involved consultants, primary physician, pharmacists, and other healthcare personnel (dietary, case management , physical/occupational therapy etc.) Critical Care Time: 40 min
[2018-10-27] MEDS: Furosemide IV* 10 MG/ML VIAL (40 MG) IV SCH ×3 (08:30→20:23)
[2018-10-27] MEDS: Amiodarone TAB* 200 MG PO SCH (08:30)
[2018-10-27] MEDS: Metoprolol Tartrate TAB* 25 MG PO SCH ×2 (08:30→20:23)
[2018-10-27] MEDS: Cholestyramine Resin* 4 GM POWDER PO SCH ×2 (08:31→20:23)
[2018-10-27] MEDS: KCL 10 MEQ/50 ML IVPREMIX* 10 MEQ/50 ML BAG IV SCH ×4 (08:32→12:37)
[2018-10-27] MEDS: Metoprolol Tartrate IV* 1 MG/ML 5 ML VIAL IV PRN (09:28)
[2018-10-27] MEDS: Sodium Bicarbonate (ANTACID)* 650 MG TAB PO SCH ×2 (13:25→16:47)
[2018-10-27] MEDS: Heparin DRIP 25,000 UNITS(*) 25,000 UNITS/500 ML BAG IV SCH (13:47)
[2018-10-27] MEDS: Hemorrhoidal OINT TOPICAL PRN (14:29)
[2018-10-27] MEDS: Anidulafungin* 100 MG in NS 0.9% 100 ML* 100 ML IVPB SCH (15:40)
[2018-10-27 15:42] LABS: BUN/Creatinine Ratio 15.9 (8-20); Calcium 8.4 mg/dL (8.6-10.3); EGFR African American 26.2 (>60); EGFR Non-African American 21.6 (>60); Potassium 4.2 mmol/L (3.5-5.0)
[2018-10-27] MEDS ORDERED: Albumin Human 25%* 25 GM/100 ML BTL IV ONE (16:30)
--- NOTE | 2018-10-27 19:40 | CONSULT ---
Subjective Date of Service: 10/27/18 Interval History: Ms. Cabrera is a 67 yo female with PMH significant for CAD s/p [place], HLD, PVD, s/p left AKA, DM2, hx DVT, anemia, CHF and HTN who presented to the emergency room with complaints of abdominal pain and diarrhea. She has been having loose stools and has a flexiseal in place. She was felt to have sepsis secondary to gastroenteritis. She was also found to have DKA on admission. She was found to have paroxysmal a fib. She developed hypoxic respiratory failure and is s/p brochoscopy and found to have atelectasis and mucus plugging and is currently mechanically ventilated. She was found to have a left LE DVT on 10/25 and started on a heparin gtt. Patient seen and examined at bedside. Family History: Unchanged from Admission Social History: Unchanged from Admission Past Medical History: Unchanged from Admission Review of Systems - Measurements Intake and Output: Intake and Output Last 24 Hours 10/25/18 10/26/18 10/27/18 10/28/18 06:59 06:59 06:59 06:59 Intake Total 2502 4580.5 2409 1275.8 Output Total 2735 2596 2409 1581 Balance -233 1984.5 0 -305.2 Weight 183 lb 10.321 oz 184 lb 4.903 oz 187 lb 1.745 oz Intake: IV Fluids 986 3167 664 164 Calcium Gluconate 4 LR 500 1000 Mag 0 NS (0.9%) 1661 547 164 PRBC 0 Zosyn 183 290 117 kvo 303 212 IVPB 230 312 820 426 Calcium Gluconate 71 68 65 KCl 322 249 NS (0.9%) 223 Zosyn 100 207 112 kvo 230 141 Medicated IV 1006 381.5 293 97.8 Levophed 427 39.5 Propofol 579 342 293 97.8 Heparin 210 Oral 0 0 Tube Feeding 212 538 Tube Feeding Flush Amount 400 50 NG Tube Irrigate Amount 280 110 300 Landis Irrigate Amount 120 Output: Landis 410 396 559 326 Liquid Stool 2325 1000 1850 1100 Colostomy 1200 Tube Feeding Residual 155 Amount Wasted - Review of Systems General Comments: Unable to obtain a ROS as patient is intubated and sedated. Objective Active Medications: Acyclovir (Zovirax Oral Suspension(*)) 200 mg PO FIVE TIMES DAILY [facility] Stop: 10/29/18 05:59 Albuterol/Ipratropium (Duoneb (Albuterol 2.5 Mg/Ipratropium 0.5 Mg)) 1 neb INH Q6H [facility] Amiodarone HCl (Cordarone Tab*) 200 mg PO DAILY [facility] Chlorhexidine Gluconate (Peridex Mouth Wash 0.12%*) 15 ml TOPICAL Q4H [facility] Cholestyramine Resin (Questran*) 4 gm PO BID [facility] Furosemide (Lasix Iv*) 60 mg IV TID [facility] Heparin Sodium (Porcine) (Heparin Vial(*)) 0 units IV .PER PROTOCOL [facility] Hydrocortisone (Hytone Cream 1%*) 1 applic TOPICAL TID PRN Reason: RECTAL PAIN Piperacillin Sod/Tazobactam (Sod 3.375 gm/ Sodium Chloride) 100 mls @ 25 mls/ hr IVPB Q8H [facility] Propofol (Diprivan*) 100 mls @ 0 mls/hr IV .(Initial Rate) [facility]; Protocol Anidulafungin 100 mg/ Sodium (Chloride) 130 mls @ 65 mls/hr IVPB Q24H [facility] Heparin Sodium/Dextrose (Heparin Drip 25,000 Units(*)) 25,000 units in 500 mls @ 0 mls/hr IV PER RATE [facility]; Protocol Insulin Human Lispro (Humalog*) 0 units SUBCUT Q4H [facility]; Protocol Lorazepam (Ativan Inj*) 2 mg IV PUSH Q2H PRN Metoprolol Tartrate (Lopressor Iv*) 5 mg IV Q4H PRN Reason: HR>120 Metoprolol Tartrate (Lopressor Tab*) 25 mg PO BID [facility] Pantoprazole Sodium (Protonix Iv*) 40 mg IV Q12H [facility] Pharmacy Consult (Zosyn Per Pharmacy*) 1 note FOLLOW UP .ZOSYN PER PHARMACY [facility] Phenyleph/Shark Oil/Min Oil/Petrol (Preparation H*) 1 applic TOPICAL TID PRN Reason: PAIN Sodium Bicarbonate (Sodium Bicarbonate (Antacid)*) 650 mg PO Q6HR [facility] Vital Signs 10/27/18 10/27/18 10/27/18 16:30 16:31 16:46 Temperature 99.1 F 99.0 F 99.0 F Pulse Rate 128 125 122 Respiratory Rate Blood Pressure 99/82 (mmHg) O2 Sat by Pulse 94 94 94 Oximetry Oxygen Devices in Use Now: Mechanical Ventilator Appearance: NAD, laying in bed Ears/Nose/Mouth/Throat: Mucous Membranes Moist Skin: - - See skin note below Neurological: - - Unresponsive Result Diagrams: 10/30/18 00:45 10/30/18 00:45 Microbiology and Other Data: Microbiology 10/26/18 16:10 Gram Stain - Final Sputum Sputum Culture - Preliminary No Growth Day 1 10/25/18 09:52 Escherichia coli 0157 Culture - Final Stool 10/22/18 04:33 Aerobic Blood Culture - Final Blood Venous No Growth Day 5 Anaerobic Blood Culture - Final No Growth Day 5 10/22/18 00:47 Aerobic Blood Culture - Final Blood Venous No Growth Day 5 Anaerobic Blood Culture - Final No Growth Day 5 10/22/18 17:45 Stool Culture - Final Stool Stool Gross Appearance - Final Shiga Toxin I & II - Final Negative Shiga Toxin 1 & 2 10/23/18 14:13 Gram Stain - Final Sputum Sputum Culture - Final YEAST 10/22/18 17:45 Stool Gross Appearance - Final Stool Stool Lactoferrin - Final 10/22/18 15:16 Stool Gross Appearance - Final Stool C. difficile DNA Amplification - Final 027 Presumptive NEGATIVE Toxigenic C.diff NEGATIVE 10/22/18 13:43 Gram Stain - Final Sputum 10/22/18 06:00 Nasal Screen MRSA (PCR) - Final Nasal Mrsa Not Detected 10/22/18 01:52 Stool Occult Blood (EBONY) - Final Stool Skin Deviation Note - Skin Deviation Findings Buttocks and lower back - The perineum and buttocks is excoriated. There are also a few abrasions to the lower back/sacrum, total area measuring 6.5 cm x 5.5 cm x 0.1 cm. Assessment/Plan: Ms. Cabrera is a 67 yo female with PMH significant for CAD, HLD, PVD, s/p left AKA, DM2, and HTN who presented to the emergency room with complaints of abdominal pain. She has had frequent loose stools and is noted to have an excoriated perineum. 1. Excoriated skin. Secondary to frequent loose stools. Recommend applying barrier cream and continue flexiseal. 2. Peripheral vascular disease. 3. Diabetes Mellitus, Type 2. HgA1C not checked since 2017, >11 at that time. Maintain good glycemic control to allow wound healing. 4. Diet. Tube feeding. 5. Code Status. Full Code 6. Disposition. Inpatient. Disposition per primary medicine team. TIME SPENT: Time spent for this wound consultation was 25 and 15 minutes was spent with the patient assessing, measuring and photographing the wound. Wound Problem/Plan Is Patient a Wound Clinic Patient: No Attending: Prabha Sauceda
[2018-10-28] MEDS: Insulin LISPRO* 1 UNITS UNIT SUBCUT SCH ×6 (00:12→19:59)
[2018-10-28] MEDS: Sodium Bicarbonate (ANTACID)* 650 MG TAB PO SCH ×4 (00:13→17:17)
[2018-10-28] MEDS: Albuterol/Ipratropium NEB.SOL* Albuterol 2.5 MG/Ipratropium 0.5 MG 3 ML INH SCH ×2 (00:35→08:43)
[2018-10-28] MEDS: Metoprolol Tartrate IV* 1 MG/ML 5 ML VIAL IV PRN ×5 (01:20→21:49)
[2018-10-28] MEDS: Chlorhexidine MOUTHWASH 0.12%* 15 ML UDC TOPICAL SCH ×6 (01:22→21:17)
[2018-10-28] MEDS: ZOSYN 3.375 GM Q8H per EXTENDED INFUSION IVPB SCH ×4 (02:25→10:10)
[2018-10-28] MEDS: Propofol* 100 ML IV SCH (02:26)
[2018-10-28 05:27] LABS: Hematocrit 28 % (33-41); Hemoglobin 8.3 g/dL (12.0-16.0); Mean Corpuscular HGB Conc 29 g/dL (31-36); Mean Corpuscular Hemoglobin 19 pg (27-31); Mean Corpuscular Volume 66 fL (80-97); Mean Platelet Volume 8.9 fL (7.4-10.4); Platelet Count 279 10^3/uL (150-450); Red Blood Count 4.33 10^6 /uL (3.70-4.87); Red Cell Distribution Width 28 % (10.5-15); White Blood Count 21.5 10^3/uL (3.5-10.8)
[2018-10-28] MEDS: Pantoprazole IV* 40 MG IV SCH ×2 (05:38→17:17)
[2018-10-28] MEDS: Acyclovir SUSP(*) ORALSYR 40 MG/ML (200 MG/5 ML) PO SCH ×5 (05:38→21:17)
[2018-10-28 05:43] LABS: Albumin 2.5 g/dL (3.2-5.2); Albumin/Globulin Ratio 0.8 (1-3); BUN/Creatinine Ratio 15.1 (8-20); Calcium 8.2 mg/dL (8.6-10.3); EGFR African American 23.2 (>60); EGFR Non-African American 19.2 (>60); Magnesium 1.9 mg/dL (1.9-2.7); Phosphorus 6.1 mg/dL (2.5-5.0); Total Bilirubin 0.4 mg/dL (0.2-1.0); Total Protein 5.5 g/dL (6.4-8.9)
[2018-10-28] MEDS: Heparin DRIP 25,000 UNITS(*) 25,000 UNITS/500 ML BAG IV SCH ×2 (06:15→22:05)
[2018-10-28] MEDS: Cholestyramine Resin* 4 GM POWDER PO SCH ×2 (07:42→21:16)
[2018-10-28] MEDS: Metoprolol Tartrate TAB* 25 MG PO SCH ×2 (07:42→21:16)
[2018-10-28] MEDS: Amiodarone TAB* 200 MG PO SCH (07:42)
[2018-10-28] MEDS: Furosemide IV* 10 MG/ML VIAL (40 MG) IV SCH ×2 (08:15→13:39)
[2018-10-28] MEDS ORDERED: Albuterol/Ipratropium NEB.SOL* Albuterol 2.5 MG/Ipratropium 0.5 MG 3 ML INH PRN (08:47)
[2018-10-28] MEDS: LORazepam INJ* 2 MG/ML 1 ML VIAL IV PUSH PRN (10:25)
--- NOTE | 2018-10-28 13:11 | CONS ---
NEPHROLOGY CONSULTATION: DATE OF CONSULT: 10/28/18. HISTORY OF PRESENT ILLNESS: Ms. Cabrera is a 67-year-old female with a history of diabetes mellitus type 2 and hypertension and a known history of coronary artery disease. She apparently was feeling poorly approximately a week prior to admission. She had a sore throat and malaise. She presented to the [facility]. She was felt to have possible oral herpes. She had some abdominal pain. She developed significant diarrhea and she presented to the emergency room. While here in the hospital, she has developed an anal and rectal gastrointestinal bleed. She is felt to have infectious gastroenteritis. She has had a significant decline in her respiratory status and became quite hypoxic and required intubation. She has been noted to have worsening renal function with development of a progressive metabolic acidosis precipitating this consultation. PAST MEDICAL HISTORY: Her previous medical history is significant in that she had a deep venous thrombosis in 2009. She has been on warfarin. She has a history of atrial fibrillation. She is status post a left AKA. She has a history of coronary artery disease and is status post PCI in 2014. She has a history of hypertension and peripheral vascular disease. MEDICATIONS: Her medications at the time of admission included: 1. Acyclovir 200 mg 5 times a day. 2. Amlodipine 10 mg daily. 3. Aspirin 325 mg daily. 4. Atorvastatin 40 mg daily. 5. Furosemide 80 mg b.i.d. 6. Glipizide 10 mg b.i.d. 7. Imdur 60 mg daily. 8. Levocetirizine 5 mg p.r.n. for allergies. 9. Lisinopril 40 mg daily. 10. Magic mouthwash 5 mL swish and spit 4 times a day. 11. Metformin 1000 mg b.i.d. 12. Metoprolol tartrate 75 mg daily. 13. Nitroglycerin 0.4 mg sublingually. ALLERGIES: There are no medical allergies. FAMILY HISTORY: Significant for hypertension and diabetes. SOCIAL HISTORY: She is a smoker with greater than a 54-jahi-iram smoking history. REVIEW OF SYSTEMS: She is intubated and sedated, and as a result, is unable to give a review of systems. The history is taken from the record. PHYSICAL EXAMINATION: Her blood pressure is 131/50, she has a temperature of 99.9, heart rate is 122. She is anicteric. Her mucous membranes are moist. Her neck is thick and I cannot see any neck veins. There is upper airway noise to the chest. The heart revealed a regular rhythm. I did not hear any murmurs. The abdomen is obese. I could not feel any organomegaly. Bowel sounds were positive. She is status post her left AKA. DIAGNOSTIC STUDIES/LAB DATA: Review of her laboratory studies reveals a white count of 21.5, hemoglobin of 8.3, hematocrit of 28, platelet count of 279,000. Sodium 135, potassium 4.0, total CO2 of 12, chloride 111, anion gap of 12, BUN 38, creatinine of 2.51, glucose 175, calcium of 8.2 with an albumin of 2.5, phosphorus 6.1. Her iron studies are quite low. She had some fungus on Gram stain of her sputum. Her lactoferrin in the stool was positive. Urinalysis revealed 1+ blood, there were squamous epithelial cells, no other evidence of infection. IMPRESSION: Acute renal injury. I noticed her creatinine rate of rise changed around the time that she had [address] scans at the end of September, so there probably is a component of x-ray contrast nephropathy. She was felt to be dehydrated at the time of admission, that could create a prerenal state, which will produce renal insufficiency and magnify the toxicity of the x-ray contrast agent. She was also felt to be septic, although it is not clear to me what her source of sepsis is at the present time. There was a question of viral enteritis of some form. I think it would be reasonable to go ahead and discontinue her antifungal and the piperacillin-tazobactam since there is no clear indication at the present time of the need for either and the piperacillin -tazobactam could precipitate acute interstitial nephritis. I will be sending down a urine for eosinophils, which if positive, will establish that diagnosis, but if negative does not exclude it. I would buffer her metabolic acidosis, and at some point, she probably should receive replacement of her significant iron deficiency. I have discussed the case at length with Dr. Mehta. [id number]/[facility] #: [id number] [facility]andy
[2018-10-28] MEDS: Anidulafungin* 100 MG in NS 0.9% 100 ML* 100 ML IVPB SCH (14:38)
--- NOTE | 2018-10-28 18:53 | PN ---
Date of Service: 10/28/18 - HD 8 Critical Care Services: 67 yo F with PMH including prior STEMI (02/09/2014), anemia, diabetes, PVD, CHF and bradycardia. She presented to the ED on 10/21 with abdominal pain and diarrhea x 3 days. Also noted to be hypoxic, hyperglycemic and in new onset atrial fibrillation. History of DVT, last on Coumadin in 2009. On evaluation found to have WBC 33.3, tender abdomen, lactic acid 6.9. CT abdomen positive for 1.9 cm solid mass in the lower pole of the right kidney, mucosal thickening of the stomach and small bowel; likely gastroenteritis. Admitted to hospitalist. Patient started on levophed 8 mcg/min. 10/22: ICU, GI and surgery consulted. Noted to be in DKA; on insulin and fluids. Off vasopressors. Concern for bowel ischemia given high lactic acid and bloody stools. On Zosyn for empiric coverage of possible abdominal sepsis. Seen by surgery in afternoon, no peritoneal signs and lactic acid improving, no need for OR. 10/23: Abdominal pain resolved. GI bleed resolved. CDiff negative. Stool cultures sent. Recurrent afib, started on amiodarone and beta blockers. 10/24: requiring high flow nasal cannula overnight for hypoxia. Fluids HL and Lasix x 1 given. No improvement and subsequently intubated. AM CXR with NO infiltrates. New onset fever despite broadspectrum abx. Antifungal coverage added. US ordered. 10/25: US legs re-read by radiology and now positive for DVT of LLE. Started on heparin gtt 10/26: Bronch with BAL for LLL atelectasis and mucus plugging 10/27: Episode of hypoxia overnight which spontaneously resolved - atelectasis or repeat mucus plugging?. Rested on vent during day 10/28: Tolerated PS all day. Nephrology consulted for metabolic acidosis and rising creatinine. Vital Signs: Temp Pulse Resp BP SpO2 FiO2 100.0 F 117 28 102/64 95 30 10/28/18 18:01 10/28/18 18:01 10/28/18 18:00 10/28/18 18:01 10/28/18 18:01 10/28 17:51 Physical Exam: Gen:resting comfortably HEENT: ETT in place Lungs: coarse bilaterally Cardiac: RRR Abdomen: soft Extremities: warm, dry Neuro: sedated. Fluid Balance (Past 24 Hours): I= O= Net Intake & Output 10/26/18 10/27/18 10/28/18 10/29/18 06:59 06:59 06:59 06:59 Intake Total 4580.5 2409 3646.8 2340.2 Output Total 2596 2409 3281 1725 Balance 1984.5 0 365.8 615.2 Weight 184 lb 4.903 oz 187 lb 1.745 oz 197 lb 8.547 oz Intake: IV Fluids 3167 664 1038 460 Albumin 156 Calcium Gluconate 4 LR 1000 NS (0.9%) 1661 547 281 243 Zosyn 290 117 601 217 kvo 212 IVPB 312 820 857 135 Albumin 99 Calcium Gluconate 71 68 65 KCl 322 249 NS (0.9%) 223 140 Zosyn 100 207 304 135 kvo 141 Medicated IV 381.5 293 238.8 1745.2 Heparin 1722 Levophed 39.5 Propofol 342 293 238.8 23.2 Heparin 210 Oral 0 Tube Feeding 212 863 Tube Feeding Flush Amount 400 50 NG Tube Irrigate Amount 110 300 600 Landis Irrigate Amount 120 Output: Landis 396 559 526 205 Liquid Stool 1000 1850 2600 1500 Colostomy 1200 Tube Feeding Residual 155 20 Amount Wasted Labs: Laboratory Results - last 24 hr 10/27/18 10/27/18 10/28/18 20:11 22:36 00:09 WBC RBC Hgb Hct MCV MCH MCHC RDW Plt Count MPV APTT 61.7 H Sodium Potassium Chloride Carbon Dioxide Anion Gap BUN Creatinine Est GFR ( Amer) Est GFR (Non-Af Amer) BUN/Creatinine Ratio Glucose POC Glucose (mg/dL) 199 H 223 H Calcium Ionized Calcium Phosphorus Magnesium Total Bilirubin AST ALT Alkaline Phosphatase Total Protein Albumin Globulin Albumin/Globulin Ratio 10/28/18 10/28/18 10/28/18 03:58 05:13 05:13 WBC 21.5 H RBC 4.33 Hgb 8.3 L Hct 28 L MCV 66 L MCH 19 L MCHC 29 L RDW 28 H Plt Count 279 MPV 8.9 APTT Sodium Potassium Chloride Carbon Dioxide Anion Gap BUN Creatinine Est GFR ( Amer) Est GFR (Non-Af Amer) BUN/Creatinine Ratio Glucose POC Glucose (mg/dL) 183 H Calcium Ionized Calcium 1.11 L Phosphorus Magnesium Total Bilirubin AST ALT Alkaline Phosphatase Total Protein Albumin Globulin Albumin/Globulin Ratio 10/28/18 10/28/18 10/28/18 05:13 07:41 11:54 WBC RBC Hgb Hct MCV MCH MCHC RDW Plt Count MPV APTT Sodium 135 Potassium 4.0 Chloride 111 Carbon Dioxide 12 L* Anion Gap 12 H BUN 38 H Creatinine 2.51 H Est GFR ( Amer) 23.2 Est GFR (Non-Af Amer) 19.2 BUN/Creatinine Ratio 15.1 Glucose 175 H POC Glucose (mg/dL) 208 H 183 H Calcium 8.2 L Ionized Calcium Phosphorus 6.1 H Magnesium 1.9 Total Bilirubin 0.40 AST 8 L ALT 11 Alkaline Phosphatase 110 H Total Protein 5.5 L Albumin 2.5 L Globulin 3.0 Albumin/Globulin Ratio 0.8 L 10/28/18 17:16 WBC RBC Hgb Hct MCV MCH MCHC RDW Plt Count MPV APTT Sodium Potassium Chloride Carbon Dioxide Anion Gap BUN Creatinine Est GFR ( Amer) Est GFR (Non-Af Amer) BUN/Creatinine Ratio Glucose POC Glucose (mg/dL) 173 H Calcium Ionized Calcium Phosphorus Magnesium Total Bilirubin AST ALT Alkaline Phosphatase Total Protein Albumin Globulin Albumin/Globulin Ratio Studies: 10/27 CXR - intersitial edema consistent with CHF 10/25 US LUE - no DVT 10/25 TTE - mild concentric left ventricular hypertrophy, severely decreased LVEF (25-30%), LV septal wall motion abnormality, RV global systolic function mildly reduced. Trace mitral regurgitation, mild mitral stenosis. Compared to 2016 LVEF is signficantly worse. 10/25 CXR - pulmonary edema. increased left lung base effusion vs consolidation. 10/24 CTA chest - new small bilateral pleural effusions. stable empysema. No PE. 10/24 US BLE - Initially read as negative, now positive for LLE DVT 10/24 CXR - interval improvement in bilateral pulmonary opacities favoring resolution of atelectasis 10/23 CXR - concerning for probable aspiration pneumonitits 10/22 CT chest - mild centrilobular and paraseptal emphysema. Bilateral atelectasis. Cardiomegaly. Small hiatal hernia. 10/22 CT abd,pelvis - small right kidney with surgical clips in upper pole. 1.9 cm solid mass in lower pole of right kidney. 0.6 cm hypodense lesions in medial right kidney and midpole of left kidney. Multiple small calcific densities in bilateral kidneys. Mild right perinephric stranding. mucosal thickening of stomach and small bowel. Hepatomegaly. 2.1 x 3.3 cm right adrenal mas and 1.1 x 1.3 cm left adrenal nodule. 10/21 CXR - cardiomegaly 10/21 - US GB - no cholelithiasis or cholecystitis. Hepatomegaly with hepatic steatosis. Nutrition: TF Impression: 67 yo F admitted with abdominal pain and bloody diarrhea. GI bleed resolved, now with profuse watery bilious/green diarrhea. Stool cultures negative. Abdominal pain resolved by 10/24. Developed hypoxic respiratory failure requiring intubation and vasopressor requirement secondary to mucus plugging, now starting ventilator weaning. Nephrology consulted for rising creatinine and persistent metabolic acidosis. Plan: Cardiovascular:(1) New onset atrial fibrillation; (2) Acute on chronic systolic CHF; (3) Chronic HTN; (4) hx of bradycardia; (5) Chronic PVD; (6) prior STEMI, 02/09/2014 -- HR 95-135 -- SBP 72-136 -- Telemetry -- 10/25 TTE - mild concentric left ventricular hypertrophy, severely decreased LVEF (25-30%), LV septal wall motion abnormality, RV global systolic function mildly reduced. Trace mitral regurgitation, mild mitral stenosis. Compared to LVEF is signficantly worse. -- Amiodarone -- Metoprolol Home meds: Isosorbide mononitrate, Lisinopril, Amlodipine, Atorvastatin, ASA, Metoprolol, Lasix, Nitro Pulmonary: (1) Acute hypoxic respiratory failure; (2) question of LLL pneumonia vs atelectasis; (3) suspected COPD, not on home O2 -- RR 20-31 -- sats 91-100 on FiO2 50%. -- vent wean as able, tolerated PS trial throughout day -- Duonebs -- daily SBT Home meds: Levocetirizine Gastrointestinal: (1) Acute Gastroenteritis; (2) acute GI bleed, resolved; (3) Hepatic steatosis -- diet: start TF -- bowel regimen: None -- ulcer prophylaxis: Protonix BID -- Cholestyramine to bind bile acids Home meds: None Endocrine: (1) DKA, resolved; (2) Diabetes mellitus; (3) Chronic hypothyroidism ;(4) Bilateral adrenal nodules -- monitor BGs -- SSI -- Adrenal nodule workup when more stable -- AM cortisol in process Home meds: Metformin, Glucotrol Renal:(1) Acute kidney injury; (2) Bilateral renal masses, greatest on right; ( 3) Hypokalemia, resolved; (4) Hypocalcemia; (5) Hyperphosphatemia -- UOP: 22 ml/hr -- I/O:3646 ml in / 3281 ml out [Net (+) approx 8L from admission] -- Cr 2.51 from 2.26 -- Lytes Na 135 from 137 K 4.0 Ca 8.2, inoized 1.11, replaced Phos 6.0 from 5.3, follow trend Mag 1.9 -- IVF: HLIVF -- Renal mass workup when more stable -- Lasix TID; discontinue as not responding -- Nephrology consulted MICHAEL may be secondary to contrast induce nephropathy with possible contribution from zosyn. Will trial discontinuation of abx given significant progress on vent weaning and lack of infiltrate on CXR Home meds: Lasix Infectious disease: (1) Sepsis, possible; (2) Gastroenteritis;(3) possible LLL pneumonia -- Tmax 100.2 -- WBC 21.5 from 20.1 -- Micro 10/26 BAL Normal dandre 10/25 Ecoli 0571 Negative 10/23 Sputum Yeast 10/22 Fecal lactoferr Positive Enteric pathog Negative Shiga Negative Cdiff Negative MRSA screen negative blood NGTD -- ABX Acyclovir Anidulafungin - discontinue as no ongoing evidence for pneumonia and may be contributing to renal issues Zosyn - discontinue as no ongoing evidence for pneumonia and may be contributing to renal issues Home meds: Acyclovir Neurologic: No acute issues -- Propofol gtt for sedation -- PRN Ativan for agitation Home meds: None Hematological: (1) Chronic iron deficiency anemia; (2) New LLE DVT; (3) hx of DVT, last on coumadin 2009 -- Hgb 8.3 from 8.1 -- Plt 279 from 259 -- DVT prophylaxis: heparin gtt -- outpatient hematology consult, prior to stopping anticoagulation -- will need 3 mo of anticoagulation for this DVT per curbside discussion with heme -- Venofer Home meds: ASA Metabolic: (1) Lactic acidosis, resolved Home meds: None Deep vein thrombosis prophylaxis:heparin gtt. Dietary: Protonix BID Condition: critical Prognosis: guarded Code status: full Disposition: continue ICU Care Family not currently at bedside Cumulative time spent in the care of this patient (excluding any procedure time) : at least 40 minutes. Patient care included clinical interview (with patient and/or family), bedside exam of the patient, review of labs, x-rays, and other ancillary data, coordination of (respiratory, nursing care, review of patient's records, discussion regarding patients management with involved consultants, primary physician, pharmacists, and other healthcare personnel (dietary, case management , physical/occupational therapy etc.)
[2018-10-28] MEDS ORDERED: Iron Sucrose* 200 MG in NS 0.9% 100 ML* 100 ML IVPB ONE (19:30)
[2018-10-28] MEDS ORDERED: Calcium Gluconate INJ* 1 GM in NS 0.9% 50 ML* 50 ML IVPB ONE (19:30)
[2018-10-29] MEDS: Insulin LISPRO* 1 UNITS UNIT SUBCUT SCH ×7 (01:19→23:40)
[2018-10-29] MEDS: LORazepam INJ* 2 MG/ML 1 ML VIAL IV PUSH PRN (02:29)
[2018-10-29] MEDS: Chlorhexidine MOUTHWASH 0.12%* 15 ML UDC TOPICAL SCH ×6 (02:30→20:28)
[2018-10-29] MEDS: Sodium Bicarbonate (ANTACID)* 650 MG TAB PO SCH (03:18)
[2018-10-29] MEDS: Pantoprazole IV* 40 MG IV SCH ×2 (05:49→16:30)
[2018-10-29 06:22] LABS: Hematocrit 29 % (33-41); Hemoglobin 8.2 g/dL (12.0-16.0); Mean Corpuscular HGB Conc 28 g/dL (31-36); Mean Corpuscular Hemoglobin 19 pg (27-31); Mean Corpuscular Volume 67 fL (80-97); Mean Platelet Volume 8.8 fL (7.4-10.4); Platelet Count 257 10^3/uL (150-450); Red Blood Count 4.34 10^6 /uL (3.70-4.87); Red Cell Distribution Width 29 % (10.5-15); White Blood Count 28.2 10^3/uL (3.5-10.8)
[2018-10-29 06:55] LABS: Albumin 2.5 g/dL (3.2-5.2); Albumin/Globulin Ratio 0.8 (1-3); BUN/Creatinine Ratio 13.8 (8-20); Calcium 8.4 mg/dL (8.6-10.3); EGFR African American 17.7 (>60); EGFR Non-African American 14.6 (>60); Phosphorus 7.7 mg/dL (2.5-5.0); Total Bilirubin 0.4 mg/dL (0.2-1.0); Total Protein 5.5 g/dL (6.4-8.9)
[2018-10-29] MEDS: Cholestyramine Resin* 4 GM POWDER PO SCH ×2 (08:04→20:28)
[2018-10-29] MEDS: Amiodarone TAB* 200 MG PO SCH (08:04)
[2018-10-29] MEDS: Metoprolol Tartrate TAB* 25 MG PO SCH ×3 (08:04→22:45)
[2018-10-29] MEDS ORDERED: Sodium Bicarbonate (ANTACID)* 650 MG TAB PO SCH (09:00)
--- NOTE | 2018-10-29 09:48 | PN ---
Date of Service: 10/29/18 - HD 9 Critical Care Services: 67 yo F with PMH including prior STEMI (02/09/2014), anemia, diabetes, PVD, CHF and bradycardia. She presented to the ED on 10/21 with abdominal pain and diarrhea x 3 days. Also noted to be hypoxic, hyperglycemic and in new onset atrial fibrillation. History of DVT, last on Coumadin in 2009. On evaluation found to have WBC 33.3, tender abdomen, lactic acid 6.9. CT abdomen positive for 1.9 cm solid mass in the lower pole of the right kidney, mucosal thickening of the stomach and small bowel; likely gastroenteritis. Admitted to hospitalist. Patient started on levophed 8 mcg/min. 10/22: ICU, GI and surgery consulted. Noted to be in DKA; on insulin and fluids. Off vasopressors. Concern for bowel ischemia given high lactic acid and bloody stools. On Zosyn for empiric coverage of possible abdominal sepsis. Seen by surgery in afternoon, no peritoneal signs and lactic acid improving, no need for OR. 10/23: Abdominal pain resolved. GI bleed resolved. CDiff negative. Stool cultures sent. Recurrent afib, started on amiodarone and beta blockers. 10/24: requiring high flow nasal cannula overnight for hypoxia. Fluids HL and Lasix x 1 given. No improvement and subsequently intubated. AM CXR with NO infiltrates. New onset fever despite broadspectrum abx. Antifungal coverage added. US ordered. 10/25: US legs re-read by radiology and now positive for DVT of LLE. Started on heparin gtt 10/26: Bronch with BAL for LLL atelectasis and mucus plugging 10/27: Episode of hypoxia overnight which spontaneously resolved - atelectasis or repeat mucus plugging?. Rested on vent during day 10/28: Tolerated PS all day. Nephrology consulted for metabolic acidosis and rising creatinine. Vital Signs: Temp Pulse Resp BP SpO2 FiO2 98.4 F 115 22 106/72 95 50 10/29/18 09:00 10/29/18 09:00 10/29/18 08:00 10/29/18 09:00 10/29/18 09:00 10/29 04:11 Physical Exam: Gen: resting comfortably HEENT: ETT in place Lungs: nonlabored Cardiac: irregularly irregular Abdomen: non distended Extremities: warm, dry Neuro: sedated Fluid Balance (Past 24 Hours): I= O= Net Intake & Output 10/27/18 10/28/18 10/29/18 10/30/18 06:59 06:59 06:59 06:59 Intake Total 2409 3646.8 4162.2 Output Total 2409 3281 1940 Balance 0 365.8 2222.2 Weight 187 lb 1.745 oz 197 lb 8.547 oz 193 lb 12.581 oz Intake: IV Fluids 664 1038 896 Albumin 156 Calcium Gluconate 135 NS (0.9%) 547 281 463 Zosyn 117 601 298 IVPB 820 857 456 Albumin 99 Calcium Gluconate 68 65 60 Eraxis 132 KCl 322 249 NS (0.9%) 223 140 110 Zosyn 207 304 154 Medicated IV 293 238.8 1745.2 Heparin 1722 Propofol 293 238.8 23.2 Tube Feeding 212 863 825 Tube Feeding Flush Amount 50 NG Tube Irrigate Amount 300 600 240 Landis Irrigate Amount 120 Output: Landis 559 526 345 Liquid Stool 1850 2600 1500 Tube Feeding Residual 155 95 Amount Wasted Labs: Laboratory Results - last 24 hr 10/28/18 10/28/18 10/28/18 11:54 17:16 17:51 WBC RBC Hgb Hct MCV MCH MCHC RDW Plt Count MPV Eosinophil Smear None seen APTT Sodium Potassium Chloride Carbon Dioxide Anion Gap BUN Creatinine Est GFR ( Amer) Est GFR (Non-Af Amer) BUN/Creatinine Ratio Glucose POC Glucose (mg/dL) 183 H 173 H Calcium Ionized Calcium Phosphorus Magnesium Total Bilirubin AST ALT Alkaline Phosphatase Total Protein Albumin Globulin Albumin/Globulin Ratio 10/28/18 10/28/18 10/29/18 19:56 23:15 00:41 WBC RBC Hgb Hct MCV MCH MCHC RDW Plt Count MPV Eosinophil Smear APTT 77.8 H Sodium Potassium Chloride Carbon Dioxide Anion Gap BUN Creatinine Est GFR ( Amer) Est GFR (Non-Af Amer) BUN/Creatinine Ratio Glucose POC Glucose (mg/dL) 206 H 195 H Calcium Ionized Calcium Phosphorus Magnesium Total Bilirubin AST ALT Alkaline Phosphatase Total Protein Albumin Globulin Albumin/Globulin Ratio 10/29/18 10/29/18 10/29/18 03:17 06:00 06:00 WBC 28.2 H RBC 4.34 Hgb 8.2 L Hct 29 L MCV 67 L MCH 19 L MCHC 28 L RDW 29 H Plt Count 257 MPV 8.8 Eosinophil Smear APTT Sodium Potassium Chloride Carbon Dioxide Anion Gap BUN Creatinine Est GFR ( Amer) Est GFR (Non-Af Amer) BUN/Creatinine Ratio Glucose POC Glucose (mg/dL) 190 H Calcium Ionized Calcium 1.14 L Phosphorus Magnesium Total Bilirubin AST ALT Alkaline Phosphatase Total Protein Albumin Globulin Albumin/Globulin Ratio 10/29/18 10/29/18 10/29/18 06:00 06:00 07:47 WBC RBC Hgb Hct MCV MCH MCHC RDW Plt Count MPV Eosinophil Smear APTT TNP Sodium 134 L Potassium 4.0 Chloride 109 Carbon Dioxide 11 L* Anion Gap 14 H BUN 44 H Creatinine 3.18 H Est GFR ( Amer) 17.7 Est GFR (Non-Af Amer) 14.6 BUN/Creatinine Ratio 13.8 Glucose 159 H POC Glucose (mg/dL) 171 H Calcium 8.4 L Ionized Calcium Phosphorus 7.7 H Magnesium 2.0 Total Bilirubin 0.40 AST 8 L ALT 10 Alkaline Phosphatase 97 Total Protein 5.5 L Albumin 2.5 L Globulin 3.0 Albumin/Globulin Ratio 0.8 L Studies: 10/29 CXR - NAD 10/27 CXR - intersitial edema consistent with CHF 10/25 US LUE - no DVT 10/25 TTE - mild concentric left ventricular hypertrophy, severely decreased LVEF (25-30%), LV septal wall motion abnormality, RV global systolic function mildly reduced. Trace mitral regurgitation, mild mitral stenosis. Compared to 2016 LVEF is signficantly worse. 10/25 CXR - pulmonary edema. increased left lung base effusion vs consolidation. 10/24 CTA chest - new small bilateral pleural effusions. stable empysema. No PE. 10/24 US BLE - Initially read as negative, now positive for LLE DVT 10/24 CXR - interval improvement in bilateral pulmonary opacities favoring resolution of atelectasis 10/23 CXR - concerning for probable aspiration pneumonitits 10/22 CT chest - mild centrilobular and paraseptal emphysema. Bilateral atelectasis. Cardiomegaly. Small hiatal hernia. 10/22 CT abd,pelvis - small right kidney with surgical clips in upper pole. 1.9 cm solid mass in lower pole of right kidney. 0.6 cm hypodense lesions in medial right kidney and midpole of left kidney. Multiple small calcific densities in bilateral kidneys. Mild right perinephric stranding. mucosal thickening of stomach and small bowel. Hepatomegaly. 2.1 x 3.3 cm right adrenal mas and 1.1 x 1.3 cm left adrenal nodule. 10/21 CXR - cardiomegaly 10/21 - US GB - no cholelithiasis or cholecystitis. Hepatomegaly with hepatic steatosis. Nutrition: TF Impression: 67 yo F admitted with abdominal pain and bloody diarrhea. GI bleed resolved, now with profuse watery bilious/green diarrhea. Stool cultures negative. Abdominal pain resolved by 10/24. Developed hypoxic respiratory failure requiring intubation and vasopressor requirement secondary to mucus plugging, now starting ventilator weaning. Nephrology consulted for rising creatinine and persistent metabolic acidosis. Plan: 67 yo F admitted with abdominal pain and bloody diarrhea. GI bleed resolved, now with profuse watery bilious/green diarrhea. Stool cultures negative. Abdominal pain resolved by 10/24. Developed hypoxic respiratory failure requiring intubation and vasopressor requirement secondary to mucus plugging, now starting ventilator weaning. Nephrology consulted for rising creatinine and persistent metabolic acidosis. Plan: Cardiovascular:(1) New onset atrial fibrillation; (2) Acute on chronic systolic CHF; (3) Chronic HTN; (4) hx of bradycardia; (5) Chronic PVD; (6) prior STEMI, 02/09/2014 -- HR 102-142 -- SBP 72-123 -- Telemetry -- 10/25 TTE - mild concentric left ventricular hypertrophy, severely decreased LVEF (25-30%), LV septal wall motion abnormality, RV global systolic function mildly reduced. Trace mitral regurgitation, mild mitral stenosis. Compared to LVEF is signficantly worse. -- Amiodarone -- Metoprolol, change to TID for better rate control Home meds: Isosorbide mononitrate, Lisinopril, Amlodipine, Atorvastatin, ASA, Metoprolol, Lasix, Nitro Pulmonary: (1) Acute hypoxic respiratory failure; (2) question of LLL pneumonia vs atelectasis; (3) suspected COPD, not on home O2 -- RR 19-31 -- sats 85-97 on FiO2 50%. -- vent wean as able, tolerated PS trial throughout day yesterday, repeat today -- CXR: NAD -- Duonebs -- daily SBT Home meds: Levocetirizine Gastrointestinal: (1) Acute Gastroenteritis; (2) acute GI bleed, resolved; (3) Hepatic steatosis -- diet: TF, having high residuals. change to Promote. Reglan x 1 for gastric promotility -- bowel regimen: None -- ulcer prophylaxis: Protonix BID -- Cholestyramine to bind bile acids Home meds: None Endocrine: (1) DKA, resolved; (2) Diabetes mellitus; (3) Chronic hypothyroidism ;(4) Bilateral adrenal nodules -- monitor BGs -- SSI -- Adrenal nodule workup when more stable -- AM cortisol in process Home meds: Metformin, Glucotrol Renal:(1) Acute kidney injury; (2) Bilateral renal masses, greatest on right; ( 3) Hypokalemia, resolved; (4) Hypocalcemia; (5) Hyperphosphatemia -- UOP: 22 ml/hr -- I/O:4162 ml in / 1940 ml out [Net (+) approx 8L from admission] -- Cr 3.18 from 2.51 -- Lytes Na 134 from 135 K 4.0 Ca 8.4, ionized 1.14, replaced Phos 7.7 from 6.0 from 5.3, follow trend Mag 2.0 -- IVF: HLIVF -- Renal mass workup when more stable -- Lasix TID; discontinue as not responding -- Nephrology consulted MICHAEL may be secondary to contrast induce nephropathy with possible contribution from zosyn. Will trial discontinuation of abx given significant progress on vent weaning and lack of infiltrate on CXR Home meds: Lasix Infectious disease: (1) Sepsis, possible; (2) Gastroenteritis;(3) possible LLL pneumonia -- Tmax 100.6 -- WBC 28.2 from 21.5 -- Micro 10/26 BAL Normal dandre 10/25 Ecoli 0571 Negative 10/23 Sputum Yeast 10/22 Fecal lactoferr Positive Enteric pathog Negative Shiga Negative Cdiff Negative MRSA screen negative blood NGTD -- ABX Acyclovir Anidulafungin - discontinue as no ongoing evidence for pneumonia and may be contributing to renal issues Zosyn - discontinue as no ongoing evidence for pneumonia and may be contributing to renal issues Home meds: Acyclovir Neurologic: No acute issues -- Propofol gtt for sedation, off since yesterday. Becoming more arousable. -- PRN Ativan for agitation Home meds: None Hematological: (1) Chronic iron deficiency anemia; (2) New LLE DVT; (3) hx of DVT, last on coumadin 2009 -- Hgb 8.2 from 8.3 -- Plt 257 from 279 -- DVT prophylaxis: heparin gtt -- outpatient hematology consult, prior to stopping anticoagulation -- will need 3 mo of anticoagulation for this DVT per curbside discussion with heme -- Venofer Home meds: ASA Metabolic: (1) Lactic acidosis, resolved Home meds: None Deep vein thrombosis prophylaxis:heparin gtt. Dietary: Protonix BID Condition: critical Prognosis: guarded Code status: full Disposition: continue ICU Care Discussed patient's progress and goals of care with daughter. The patient was clear with her (health care proxy) that she wanted interventions to save her life unless it meant that she would require strand buncher fine wire life support. She (patient) was amenable to trying CPR if needed unless it was known that she would not be able to recover. I discussed with the daughter that we don't always know this ahead of time and she understands. The patient was clear she didn't want strand buncher fine wire ventilator support. The daughter is not clear what she would have thought of a situation where we think she might need a couple weeks to months on a ventilator but had a reasonable chance of weaning off with rehab. The patient never commented to the daughter if she had any feelings about hemodialysis (in the event that that becomes necessary). We discussed that there are still several days before we would need to consider something like a tracheostomy and her course may become more clear by then. The daughter will begin discussing with the patient's and her siblings what they think her mom might want in case it becomes necessary. Cumulative time spent in the care of this patient (excluding any procedure time) : at least 40 minutes. Patient care included clinical interview (with patient and/or family), bedside exam of the patient, review of labs, x-rays, and other ancillary data, coordination of (respiratory, nursing care, review of patient's records, discussion regarding patients management with involved consultants, primary physician, pharmacists, and other healthcare personnel (dietary, case management , physical/occupational therapy etc.)
[2018-10-29] MEDS ORDERED: SODIUM BICARBONATE IV ONE (12:24)
[2018-10-29] MEDS ORDERED: NS 0.45% IV ONE (12:24)
[2018-10-29] MEDS ORDERED: Sodium Bicarbonate 8.4%* 50 ML SYRINGE IV STA (12:29)
[2018-10-29] MEDS: Sodium Bicarbonate 8.4% IV* 75 MEQ in NS 0.45% 1000 ML BAG* 1,000 ML IV SCH ×2 (12:53→22:45)
[2018-10-29] MEDS ORDERED: Metoclopramide IV* 5 MG/ML 2 ML VIAL IV SLOW PU ONE (15:02)
[2018-10-29] MEDS ORDERED: Calcium Gluconate INJ* 1 GM in NS 0.9% 50 ML* 50 ML IVPB ONE (15:30)
[2018-10-29] MEDS: Heparin VIAL(*) 5000 UNITS/ML VIAL (FIVE THOUSAND) IV SCH (18:46)
[2018-10-29] MEDS: Heparin DRIP 25,000 UNITS(*) 25,000 UNITS/500 ML BAG IV SCH (18:46)
[2018-10-30 01:12] LABS: Hematocrit 33 % (33-41); Hemoglobin 9.8 g/dL (12.0-16.0); Mean Corpuscular HGB Conc 30 g/dL (31-36); Mean Corpuscular Hemoglobin 19 pg (27-31); Mean Corpuscular Volume 65 fL (80-97); Mean Platelet Volume 9.2 fL (7.4-10.4); Platelet Count 214 10^3/uL (150-450); Red Blood Count 5.04 10^6 /uL (3.70-4.87); Red Cell Distribution Width 28 % (10.5-15); White Blood Count 23.2 10^3/uL (3.5-10.8)
[2018-10-30 01:15] LABS: Albumin 2.3 g/dL (3.2-5.2); Albumin/Globulin Ratio 0.8 (1-3); BUN/Creatinine Ratio 15.4 (8-20); EGFR African American 18.5 (>60); EGFR Non-African American 15.3 (>60); Globulin 2.9 g/dL (2-4); Magnesium 1.8 mg/dL (1.9-2.7); Potassium 3.3 mmol/L (3.5-5.0); Total Bilirubin 0.4 mg/dL (0.2-1.0); Total Protein 5.2 g/dL (6.4-8.9)
[2018-10-30] MEDS: Chlorhexidine MOUTHWASH 0.12%* 15 ML UDC TOPICAL SCH ×6 (04:44→22:12)
[2018-10-30] MEDS: Insulin LISPRO* 1 UNITS UNIT SUBCUT SCH ×4 (04:44→16:48)
[2018-10-30] MEDS: Metoprolol Tartrate IV* 1 MG/ML 5 ML VIAL IV PRN ×2 (04:45→12:29)
[2018-10-30] MEDS: Pantoprazole IV* 40 MG IV SCH ×2 (04:45→16:25)
[2018-10-30] MEDS: Metoprolol Tartrate TAB* 25 MG PO SCH ×3 (07:02→22:12)
[2018-10-30] MEDS: Sodium Bicarbonate 8.4% IV* 75 MEQ in NS 0.45% 1000 ML BAG* 1,000 ML IV SCH ×2 (10:08→20:34)
[2018-10-30] MEDS: Amiodarone TAB* 200 MG PO SCH (10:33)
[2018-10-30] MEDS: Cholestyramine Resin* 4 GM POWDER PO SCH ×2 (10:34→22:12)
[2018-10-30] MEDS: Heparin DRIP 25,000 UNITS(*) 25,000 UNITS/500 ML BAG IV SCH (11:32)
[2018-10-30] MEDS ORDERED: KCL 20 MEQ/100 ML IVPREMIX* 20 MEQ/100 ML BAG IV ONE (13:33)
--- NOTE | 2018-10-30 17:32 | PN ---
Progress Note - Progress Note Date of Service: 10/30/18 Note: Progress Note -- Critical Care 24 hour events/significant events: -no sig events overnight -has remained stable -off pressors -remains intubated; off sedation -on heparin IV -on bicarb infusion -tmax 99.7 Tele: afib Vitals: Vital Signs Temp 99.3 F 10/30/18 17:30 Pulse 115 10/30/18 17:30 Resp 23 10/30/18 17:00 BP 112/81 10/30/18 17:01 Pulse Ox 95 10/30/18 17:30 Intake & Output 10/29/18 10/30/18 10/30/18 18:59 06:59 18:59 Intake Total 934 2580 1449 Output Total 1050 490 260 Balance -116 2090 1189 Weight 88.71 kg Intake: IV Fluids 663 1283 800 0.45% NS c Bicarb 800 NS (0.9%) 663 1283 IVPB 70 95 Calcium Gluconate 70 KCl 95 Medicated IV 1087 236 Heparin 1087 236 Oral 0 Tube Feeding 201 120 258 Tube Feeding Flush Amount 60 NG Tube Irrigate Amount 90 Output: Urine 10 Reynolds 70 290 260 Liquid Stool 700 200 Tube Feeding Residual 270 0 Amount Wasted O2/Vent: 14/450/+5/40% AC Infusions: heparin IV, 75meq bicarb in .45% NS at 100cc/hr, propofol Medications: Albuterol/Ipratropium (Duoneb (Albuterol 2.5 Mg/Ipratropium 0.5 Mg)) 1 neb INH Q4H PRN PRN Reason: SOB/WHEEZING Amiodarone HCl (Cordarone Tab*) 200 mg PO DAILY [facility] Last Admin: 10/30/18 10:33 Dose: 200 mg Chlorhexidine Gluconate (Peridex Mouth Wash 0.12%*) 15 ml TOPICAL Q4H [facility] Last Admin: 10/30/18 16:25 Dose: 15 ml Cholestyramine Resin (Questran*) 4 gm PO BID [facility] Last Admin: 10/30/18 10:34 Dose: 4 gm Heparin Sodium (Porcine) (Heparin Vial(*)) 0 units IV .PER PROTOCOL [facility] Last Admin: 10/29/18 18:46 Dose: 2,450 units Hydrocortisone (Hytone Cream 1%*) 1 applic TOPICAL TID PRN PRN Reason: RECTAL PAIN Last Admin: 10/23/18 13:10 Dose: 1 applic Propofol (Diprivan*) 100 mls @ 0 mls/hr IV .(Initial Rate) [facility]; Protocol Last Admin: 10/28/18 02:26 Dose: 5 mls/hr Heparin Sodium/Dextrose (Heparin Drip 25,000 Units(*)) 25,000 units in 500 mls @ 0 mls/hr IV PER RATE [facility]; Protocol Last Admin: 10/30/18 11:32 Dose: 28 mls/hr Sodium Bicarbonate 75 meq/ (Sodium Chloride) 1,075 mls @ 100 mls/hr IV Q10H [facility] Last Admin: 10/30/18 10:08 Dose: 100 mls/hr Insulin Human Lispro (Humalog*) 0 units SUBCUT Q4H [facility]; Protocol Last Admin: 10/30/18 16:48 Dose: 2 unit Metoprolol Tartrate (Lopressor Iv*) 5 mg IV Q4H PRN PRN Reason: HR>120 Last Admin: 10/30/18 12:29 Dose: 5 mg Metoprolol Tartrate (Lopressor Tab*) 25 mg PO Q8H [facility] Last Admin: 10/30/18 16:26 Dose: 25 mg Pantoprazole Sodium (Protonix Iv*) 40 mg IV Q12H [facility] Last Admin: 10/30/18 16:25 Dose: 40 mg Phenyleph/Shark Oil/Min Oil/Petrol (Preparation H*) 1 applic TOPICAL TID PRN PRN Reason: PAIN Last Admin: 10/27/18 14:29 Dose: 1 applic Physical Exam: Constitutional: obese, intubated, sedated; awakens to less sedation; no distress, no diaphoresis Head: normocephalic, atraumatic Eyes: no pallor, no icterus ENT: moist mucous membranes Neck: soft, supple, no jvd CVS: normal rate, irregular, no murmur Resp: bilateral air entry, no RRW, no acc muscle use Abdomen/GI: soft, nontender, nondistended, BS+ Ext/Msk: warm, Left LE AKA+, no edema Skin: intact, warm Neuro: sedated, cough+/gag+, pupils reactive bialterally Labs: Laboratory Results - last 24 hr 10/26/18 10/29/1810/29/19 07:33 17:00 20:20 WBC RBC Hgb Hct MCV MCH MCHC RDW Plt Count MPV APTT 48.3 H Sodium Potassium Chloride Carbon Dioxide Anion Gap BUN Creatinine Est GFR ( Amer) Est GFR (Non-Af Amer) BUN/Creatinine Ratio Glucose POC Glucose (mg/dL) 160 H Calcium Ionized Calcium Phosphorus Magnesium Total Bilirubin AST ALT Alkaline Phosphatase Total Protein Albumin Globulin Albumin/Globulin Ratio Free Cortisol 2.465 H 10/29/18 10/30/18 10/30/18 23:31 00:45 00:45 WBC 23.2 H RBC 5.04 H Hgb 9.8 L Hct 33 MCV 65 L MCH 19 L MCHC 30 L RDW 28 H Plt Count 214 MPV 9.2 APTT Sodium Potassium Chloride Carbon Dioxide Anion Gap BUN Creatinine Est GFR ( Amer) Est GFR (Non-Af Amer) BUN/Creatinine Ratio Glucose POC Glucose (mg/dL) 150 H Calcium Ionized Calcium 1.13 L Phosphorus Magnesium Total Bilirubin AST ALT Alkaline Phosphatase Total Protein Albumin Globulin Albumin/Globulin Ratio Free Cortisol 10/30/18 10/30/18 10/30/18 00:45 01:30 04:15 WBC RBC Hgb Hct MCV MCH MCHC RDW Plt Count MPV APTT 68.6 H Sodium 135 Potassium 3.3 L Chloride 108 Carbon Dioxide 14 L* Anion Gap 13 H BUN 47 H Creatinine 3.06 H Est GFR ( Amer) 18.5 Est GFR (Non-Af Amer) 15.3 BUN/Creatinine Ratio 15.4 Glucose 127 H POC Glucose (mg/dL) 134 H Calcium 8.0 L Ionized Calcium Phosphorus 7.0 H Magnesium 1.8 L Total Bilirubin 0.40 AST 5 L ALT 8 Alkaline Phosphatase 83 Total Protein 5.2 L Albumin 2.3 L Globulin 2.9 Albumin/Globulin Ratio 0.8 L Free Cortisol 10/30/18 10/30/18 10/30/18 08:22 08:24 12:28 WBC RBC Hgb Hct MCV MCH MCHC RDW Plt Count MPV APTT 70.6 H Sodium Potassium Chloride Carbon Dioxide Anion Gap BUN Creatinine Est GFR ( Amer) Est GFR (Non-Af Amer) BUN/Creatinine Ratio Glucose POC Glucose (mg/dL) 153 H 196 H Calcium Ionized Calcium Phosphorus Magnesium Total Bilirubin AST ALT Alkaline Phosphatase Total Protein Albumin Globulin Albumin/Globulin Ratio Free Cortisol 10/30/18 10/30/18 15:12 16:22 WBC RBC Hgb Hct MCV MCH MCHC RDW Plt Count MPV APTT 55.2 H Sodium Potassium Chloride Carbon Dioxide Anion Gap BUN Creatinine Est GFR ( Amer) Est GFR (Non-Af Amer) BUN/Creatinine Ratio Glucose POC Glucose (mg/dL) 165 H Calcium Ionized Calcium Phosphorus Magnesium Total Bilirubin AST ALT Alkaline Phosphatase Total Protein Albumin Globulin Albumin/Globulin Ratio Free Cortisol Imaging: cxr 10/27 - pulm edema on report cxr 10/29 - improved edema Assessment: 67y F w/pmhx of CAD/STEMI, anemia, DM, PVD with Left AKA (old), Chronic LV systolic dysfunction, h/o bradycardia, h/o DVT in past off warfarin now; presented to ER 10/01 with abd pain, diarrhea, noted to be hypoxic, hyperglycemic and in new onset Afib. Initial workup demonstrated thickened stomach and intenstines consistent with possible gastroenteritis. She demonstrated elevated WBC, LA on admission with these findings. She was started on IV pressors. She was also found to have DKA and treated with IV insulin. Suspicion for possible underlying ischemic colitis vs infectious was present. She eventually stabilized. Kept on Amiodarone and BB for Afib rate control. Subsequent hypoxia worsening and intubated 10/24, with new onset fevers. 10/25 with new LLE DVT, started on IV heparin. 10/26 Bronchoscopy for LLL atelectasis and plugging. -Gastroenteritis -GI bleed -DKA? -Shock, mixed hypovolemic / septic; resolved -Acute hypoxic respiratory failure -Pulmonary Edema vs pneumonia -New Onset Afib -MICHAEL -Metabolic acidosis -Bilateral renal masses -New Left LE DVT Plan: Neuro- -awakens on lower sedation -cont propofol today -neurocecks and daily sedation holiday; asp prec CVS- -BP stable, HR stable -Afib, rate controlled; cont amio 200mg po daily, metoprolol 25q8h, lopressor 5mg q4hprn -IV heparin for Afib and new LLE DVT AC -IV lasix as needed for pulm congestion Resp- -remains intubated; on 40% fio2 -CXR 10/29 with improved congestion; repeat CXR tomorrow -minimal secretions noted on suctioned; lung sounds without much wheezing/rhales -plan to decrease sedation and can assess vent weaning status -VAP bundle; asp prec; bronchodilators PRN -wean fio2 to keep sat>92% ID- tmax 997. wbc 28-23. -CXR suspected congestion -sputum cx neg 10/26, blood cx 10/22 neg, stool cultures neg 10/22. c.diff neg -IV abx off GI- -NGT with Promote w/o fiber 55cc/hr; tolerating -rectal tube present; loose stool+ -cont cholestyramine for bile acid binding -no further bleeding noted; unclear source but likely not large; change PPI to IV daily, reassess -GI proph Renal- MICHAEL; may be hypoxia/shock; recent contrast for CTs also given, potential GERTRUDIS also -nonoliguric ATN; Cr peaked, now seems to be declining; BUN still elevated, hopefully may peak -K 3.3, replete K 20meq x1 -Metabolic acidosis+; LA normal likely now; may be from renal insuff/MICHAEL -cont 1/2Ns with 75meq bicarb 100cc/hr; noted bicarb trend slightly up toda -check BMP now -check urine Na and Cr to drawing instructor if any pre-renal depletion -reynolds+ Heme- anemia; hg 8-9; no further bleeding noted; cont to monitor -plt okay -noted new Left LE DVT; on IV heparin -Afib; on IV heparin -DVT porph with SCD and Heparin Endo-Maintain BG<200, insulin protocol as needed Musculsk- pressure ulcer prophylaxis. Bedrest. Wounds- none; noted older Left AKA site Nutrition- Promote NGT feeds ongoing DVT prophylaxis: SCD and Heparin GI prophylaxis: PPI Central Line: Right PICC Arterial Line: no Reynolds Cathetor: yes Disposition: Patient requires Critical Care/ICU for acute hypoxic respiratory failure, shock, MICHAEL Patient clinical status: guarded, critical Code Status: full code Total Critical Care time is 50 minutes, excluding procedures/teaching Stephon Quijano MD Para Operator (Electronically Signed)
[2018-10-30 22:33] LABS: BUN/Creatinine Ratio 20.3 (8-20); EGFR African American 25.5 (>60); EGFR Non-African American 21.1 (>60); Potassium 3.1 mmol/L (3.5-5.0); Urine Creatinine Concentration 132.81 mg/dL; Urine Sodium Concentration < 18 mmol/L
[2018-10-31] MEDS: Heparin VIAL(*) 5000 UNITS/ML VIAL (FIVE THOUSAND) IV SCH ×3 (00:30→22:20)
[2018-10-31] MEDS: Propofol* 100 ML IV SCH (00:31)
[2018-10-31] MEDS: Insulin LISPRO* 1 UNITS UNIT SUBCUT SCH ×5 (00:42→17:39)
[2018-10-31] MEDS: Chlorhexidine MOUTHWASH 0.12%* 15 ML UDC TOPICAL SCH ×6 (00:43→20:17)
[2018-10-31 06:38] LABS: BUN/Creatinine Ratio 24.5 (8-20); Calcium 8.1 mg/dL (8.6-10.3); EGFR African American 32.4 (>60); EGFR Non-African American 26.8 (>60); Magnesium 1.8 mg/dL (1.9-2.7); Phosphorus 5.4 mg/dL (2.5-5.0)
[2018-10-31 06:44] LABS: Hematocrit 27 % (33-41); Mean Corpuscular HGB Conc 30 g/dL (31-36); Mean Corpuscular Hemoglobin 19 pg (27-31); Mean Corpuscular Volume 66 fL (80-97); Mean Platelet Volume 9.1 fL (7.4-10.4); Platelet Count 275 10^3/uL (150-450); Red Blood Count 4.14 10^6 /uL (3.70-4.87); Red Cell Distribution Width 28 % (10.5-15); White Blood Count 31.1 10^3/uL (3.5-10.8)
[2018-10-31] MEDS: Metoprolol Tartrate TAB* 25 MG PO SCH ×3 (06:47→23:58)
[2018-10-31] MEDS: Metoprolol Tartrate IV* 1 MG/ML 5 ML VIAL IV PRN ×2 (07:14→20:17)
[2018-10-31] MEDS: Sodium Bicarbonate 8.4% IV* 75 MEQ in NS 0.45% 1000 ML BAG* 1,000 ML IV SCH ×2 (07:14→10:30)
[2018-10-31] MEDS ORDERED: Magnesium Sulfate 2 GM IV* 2 GM/50 ML BAG IV ONE (09:42)
[2018-10-31] MEDS: Pantoprazole IV* 40 MG IV SCH (10:28)
[2018-10-31] MEDS: KCL 20 MEQ/100 ML IVPREMIX* 20 MEQ/100 ML BAG IV SCH ×3 (10:28→15:24)
[2018-10-31] MEDS: Amiodarone TAB* 200 MG PO SCH (10:28)
[2018-10-31] MEDS: Cholestyramine Resin* 4 GM POWDER PO SCH ×2 (10:28→20:17)
[2018-10-31] MEDS ORDERED: Furosemide IV* 10 MG/ML VIAL (40 MG) IV ONE (11:36)
--- NOTE | 2018-10-31 11:36 | PN ---
Progress Note - Progress Note Date of Service: 10/31/18 Note: Progress Note -- Critical Care 24 hour events/significant events: -no sig events overnight -has remained stable -off pressors -remains intubated; off sedation; eyes open but doesnt follow commands, doesnt track -on heparin IV -on bicarb infusion -tmax 99.7 Tele: afib Vitals: Vital Signs Temp 99.3 F 10/31/18 07:30 Pulse 121 10/31/18 07:30 Resp 24 10/31/18 07:00 BP 124/64 10/31/18 05:12 Pulse Ox 95 10/31/18 07:42 Intake & Output 10/30/18 10/31/18 10/31/18 18:59 06:59 18:59 Intake Total 1449 2242 Output Total 1550 1415 Balance -101 827 Weight 90.303 kg Intake: IV Fluids 800 1515 0.45% NS c Bicarb 800 1515 IVPB 95 KCl 95 Medicated IV 236 437 Heparin 236 437 Tube Feeding 258 260 Tube Feeding Flush Amount 60 30 Output: Reynolds 350 515 Liquid Stool 1200 900 O2/Vent: 14/450/+5/40% AC Infusions: heparin IV, 75meq bicarb in .45% NS at 75cc/hr Medications: Albuterol/Ipratropium (Duoneb (Albuterol 2.5 Mg/Ipratropium 0.5 Mg)) 1 neb INH Q4H PRN PRN Reason: SOB/WHEEZING Amiodarone HCl (Cordarone Tab*) 200 mg PO DAILY [facility] Last Admin: 10/31/18 10:28 Dose: 200 mg Chlorhexidine Gluconate (Peridex Mouth Wash 0.12%*) 15 ml TOPICAL Q4H [facility] Last Admin: 10/31/18 10:28 Dose: 15 ml Cholestyramine Resin (Questran*) 4 gm PO BID [facility] Last Admin: 10/31/18 10:28 Dose: 4 gm Furosemide (Lasix Iv*) 40 mg IV ONCE ONE Stop: 10/31/18 11:37 Heparin Sodium (Porcine) (Heparin Vial(*)) 0 units IV .PER PROTOCOL [facility] Last Admin: 10/31/18 08:04 Dose: 2,450 units Hydrocortisone (Hytone Cream 1%*) 1 applic TOPICAL TID PRN PRN Reason: RECTAL PAIN Last Admin: 10/23/18 13:10 Dose: 1 applic Heparin Sodium/Dextrose (Heparin Drip 25,000 Units(*)) 25,000 units in 500 mls @ 0 mls/hr IV PER RATE [facility]; Protocol Last Admin: 10/30/18 11:32 Dose: 28 mls/hr Potassium Chloride (Potassium Chloride 20 Meq/100 Ml Ivpremix*) 20 meq in 100 mls @ 50 mls/hr IV Q2H [facility] Stop: 10/31/18 15:59 Last Admin: 10/31/18 10:28 Dose: 50 mls/hr Sodium Bicarbonate 75 meq/ (Sodium Chloride) 1,075 mls @ 75 mls/hr IV Q14H [facility] Last Admin: 10/31/18 10:30 Dose: 75 mls/hr Insulin Human Lispro (Humalog*) 0 units SUBCUT FS Q6 [facility]; Protocol Last Admin: 10/31/18 07:21 Dose: 2 units Metoprolol Tartrate (Lopressor Iv*) 5 mg IV Q4H PRN PRN Reason: HR>120 Last Admin: 10/31/18 07:14 Dose: 5 mg Metoprolol Tartrate (Lopressor Tab*) 50 mg PO Q12H [facility] Pantoprazole Sodium (Protonix Iv*) 40 mg IV DAILY [facility] Last Admin: 10/31/18 10:28 Dose: 40 mg Phenyleph/Shark Oil/Min Oil/Petrol (Preparation H*) 1 applic TOPICAL TID PRN PRN Reason: PAIN Last Admin: 10/27/18 14:29 Dose: 1 applic Physical Exam: Constitutional: obese, intubated, awake, doesnt follow commands, no apparent distress, no diaphoresis Head: normocephalic, atraumatic Eyes: no pallor, no icterus ENT: moist mucous membranes Neck: soft, supple, no jvd CVS: normal rate, irregular, no murmur Resp: bilateral air entry, no RRW, no acc muscle use Abdomen/GI: soft, nontender, nondistended, BS+ Ext/Msk: warm, Left LE AKA+, no edema Skin: intact, warm Neuro: cough+/gag+, pupils reactive bialterally, eyes open, doesnt follow commands, not moving extremities Labs: Laboratory Results - last 24 hr 10/30/18 10/30/1819 12:28 15:12 16:22 WBC RBC Hgb Hct MCV MCH MCHC RDW Plt Count MPV APTT 55.2 H Sodium Potassium Chloride Carbon Dioxide Anion Gap BUN Creatinine Est GFR ( Amer) Est GFR (Non-Af Amer) BUN/Creatinine Ratio Glucose POC Glucose (mg/dL) 196 H 165 H Calcium Phosphorus Magnesium Ur Creatinine Concen U Sodium Concentration 10/30/18 10/30/18 10/30/18 22:02 22:02 23:05 WBC RBC Hgb Hct MCV MCH MCHC RDW Plt Count MPV APTT Sodium 134 L Potassium 3.1 L Chloride 106 Carbon Dioxide 16 L Anion Gap 12 H BUN 47 H Creatinine 2.31 H Est GFR ( Amer) 25.5 Est GFR (Non-Af Amer) 21.1 BUN/Creatinine Ratio 20.3 H Glucose 160 H POC Glucose (mg/dL) 164 H Calcium 8.0 L Phosphorus Magnesium Ur Creatinine Concen 132.81 U Sodium Concentration < 18 10/30/18 10/31/18 10/31/18 23:15 05:50 05:50 WBC 31.1 H RBC 4.14 Hgb 8.0 L Hct 27 L MCV 66 L MCH 19 L MCHC 30 L RDW 28 H Plt Count 275 MPV 9.1 APTT 44.9 H Sodium 135 Potassium 3.0 L Chloride 106 Carbon Dioxide 17 L Anion Gap 12 H BUN 46 H Creatinine 1.88 H Est GFR ( Amer) 32.4 Est GFR (Non-Af Amer) 26.8 BUN/Creatinine Ratio 24.5 H Glucose 156 H POC Glucose (mg/dL) Calcium 8.1 L Phosphorus 5.4 H Magnesium 1.8 L Ur Creatinine Concen U Sodium Concentration 10/31/18 05:50 WBC RBC Hgb Hct MCV MCH MCHC RDW Plt Count MPV APTT 44.3 H Sodium Potassium Chloride Carbon Dioxide Anion Gap BUN Creatinine Est GFR ( Amer) Est GFR (Non-Af Amer) BUN/Creatinine Ratio Glucose POC Glucose (mg/dL) Calcium Phosphorus Magnesium Ur Creatinine Concen U Sodium Concentration Imaging: cxr 4/3 - pulm edema on report cxr 5 - improved edema cxr 10/31 - ett above teri; increased Right basal markings; official read with findings of incr congestion Assessment: 67y F w/pmhx of CAD/STEMI, anemia, DM, PVD with Left AKA (old), Chronic LV systolic dysfunction, h/o bradycardia, h/o DVT in past off warfarin now; presented to ER 10/01 with abd pain, diarrhea, noted to be hypoxic, hyperglycemic and in new onset Afib. Initial workup demonstrated thickened stomach and intenstines consistent with possible gastroenteritis. She demonstrated elevated WBC, LA on admission with these findings. She was started on IV pressors. She was also found to have DKA and treated with IV insulin. Suspicion for possible underlying ischemic colitis vs infectious was present. She eventually stabilized. Kept on Amiodarone and BB for Afib rate control. Subsequent hypoxia worsening and intubated 10/24, with new onset fevers. 10/25 with new LLE DVT, started on IV heparin. 10/26 Bronchoscopy for LLL atelectasis and plugging. -Gastroenteritis -GI bleed -DKA? -Shock, mixed hypovolemic / septic; resolved -Acute hypoxic respiratory failure -Pulmonary Edema vs pneumonia -New Onset Afib -MICHAEL -Metabolic acidosis -Bilateral renal masses -New Left LE DVT Plan: Neuro- -awake; but not alert or following any commands; does show response to painful stimuli -has not been on propofol -may need repeat CT brain today ; EEG tomorrow -neurocecks; asp prec CVS- -BP stable, HR stable -Afib, rate controlled; cont amio 200mg po daily; incr metoprolol 50mg q12h; IV lopressor 5mg q4hprn -IV heparin for Afib and new LLE DVT AC -IV lasix 40mg IV x1 now; reassess; start daily if tolerates Resp- -remains intubated; on 40% fio2 -CXR 10/31 with some increase markings; possible pulm congestion -no sig secretions from ETT being suctioned -VAP bundle; asp prec; bronchodilators PRN -wean fio2 to keep sat>92% ID- tmax 997. wbc 28--. -CXR suspected congestion -sputum cx neg 10/26, blood cx 10/22 neg, stool cultures neg 10/22. c.diff neg -IV abx off GI- -NGT with Promote w/o fiber ; on lower dose promote 30cc/hr; increase as tolerated -rectal tube present; loose stool+ -cont cholestyramine for bile acid binding -no further bleeding noted; unclear source but likely not large; PPI IV daily, reassess -GI proph Renal- MICHAEL; may be hypoxia/shock; recent contrast for CTs also given, potential GERTRUDIS also -nonoliguric ATN; Cr decreasing now; good urine output with positive balance -Replete K and Mg IV -IV lasix 40mg x1; cont IV KCL repletion -Metabolic acidosis+; cont IV bicarb infusion -cont 1/2Ns with 75meq bicarb 75cc/hr -reynolds+ Heme- anemia; hg 8-9; no further bleeding noted; cont to monitor -plt okay -noted new Left LE DVT; on IV heparin -Afib; on IV heparin -DVT porph with SCD and Heparin Endo-Maintain BG<200, insulin protocol as needed Musculsk- pressure ulcer prophylaxis. Bedrest. Wounds- none; noted older Left AKA site Nutrition- Promote NGT feeds ongoing DVT prophylaxis: SCD and Heparin GI prophylaxis: PPI Central Line: Right PICC Arterial Line: no Reynolds Cathetor: yes Disposition: Patient requires Critical Care/ICU for acute hypoxic respiratory failure, shock, MICHAEL family awaiting to see if improvement in overall status neurologiclaly for potential weaning ability from vent Patient clinical status: guarded, critical Code Status: full code Total Critical Care time is 45 minutes, excluding procedures/teaching Stephon Quijano MD Singing Teacher (Electronically Signed)
[2018-10-31 17:57] LABS: BUN/Creatinine Ratio 27.3 (8-20); EGFR Non-African American 34.7 (>60); Potassium 3.7 mmol/L (3.5-5.0)
[2018-10-31] MEDS ORDERED: Metoprolol Tartrate TAB* 25 MG PO ONE (23:20)
[2018-11-01] MEDS: Heparin DRIP 25,000 UNITS(*) 25,000 UNITS/500 ML BAG IV SCH ×3 (00:06→15:24)
[2018-11-01] MEDS: Sodium Bicarbonate 8.4% IV* 75 MEQ in NS 0.45% 1000 ML BAG* 1,000 ML IV SCH (00:15)
[2018-11-01] MEDS: Insulin LISPRO* 1 UNITS UNIT SUBCUT SCH ×4 (00:27→17:30)
[2018-11-01] MEDS: Chlorhexidine MOUTHWASH 0.12%* 15 ML UDC TOPICAL SCH ×6 (00:28→21:32)
[2018-11-01 04:15] LABS: Hematocrit 25 % (33-41); Hemoglobin 7.3 g/dL (12.0-16.0); Mean Corpuscular HGB Conc 29 g/dL (31-36); Mean Corpuscular Hemoglobin 19 pg (27-31); Mean Corpuscular Volume 67 fL (80-97); Mean Platelet Volume 9.1 fL (7.4-10.4); Platelet Count 250 10^3/uL (150-450); Red Blood Count 3.77 10^6 /uL (3.70-4.87); Red Cell Distribution Width 29 % (10.5-15); White Blood Count 27.4 10^3/uL (3.5-10.8)
[2018-11-01 04:30] LABS: BUN/Creatinine Ratio 33.3 (8-20); EGFR African American 52.9 (>60); EGFR Non-African American 43.7 (>60); Magnesium 2.1 mg/dL (1.9-2.7); Potassium 3.2 mmol/L (3.5-5.0)
[2018-11-01] MEDS: Pantoprazole IV* 40 MG IV SCH (08:07)
[2018-11-01] MEDS: Cholestyramine Resin* 4 GM POWDER PO SCH ×2 (08:07→21:33)
[2018-11-01] MEDS: Amiodarone TAB* 200 MG PO SCH (08:07)
[2018-11-01] MEDS: Metoprolol Tartrate TAB* 25 MG PO SCH (11:51)
[2018-11-01] MEDS ORDERED: Digoxin IV* 0.5 MG/2 ML AMP (0.25 MG/ML) IV SLOW PU ONE (12:14)
--- NOTE | 2018-11-01 12:19 | PN ---
Progress Note - Progress Note Date of Service: 11/01/18 Note: Progress Note -- Critical Care 24 hour events/significant events: -remains intubated; eyes open, unclear how much she follows; supposedly moved feet to command earlier today -this morning tachy/rapid afib -edema+ -family at bedside -off pressors -on heparin IV -on bicarb infusion -tmax 99.1 Tele: afib Vitals: Vital Signs Temp 99.1 F 11/01/18 12:00 Pulse 145 11/01/18 12:00 Resp 28 11/01/18 12:00 BP 97/63 11/01/18 12:00 Pulse Ox 94 11/01/18 12:00 Intake & Output 10/31/18 11/01/18 11/01/18 18:59 06:59 18:59 Intake Total 1275 1916 0 Output Total 1665 1125 275 Balance -390 791 -275 Weight 91.41 kg Intake: IV Fluids 933 1156 0.45% NS c Bicarb 646 1156 KCl 249 NS (0.9%) 38 Medicated IV 282 400 Heparin 282 400 Oral 0 Tube Feeding 360 Tube Feeding Flush Amount 60 Output: Urine 105 Reynolds 1015 620 275 Liquid Stool 650 400 O2/Vent: 14/450/+5/40% AC Infusions: heparin IV, 75meq bicarb in .45% NS at 75cc/hr Medications: Albuterol/Ipratropium (Duoneb (Albuterol 2.5 Mg/Ipratropium 0.5 Mg)) 1 neb INH Q4H PRN PRN Reason: SOB/WHEEZING Last Admin: 10/31/18 14:29 Dose: 1 neb Amiodarone HCl (Cordarone Tab*) 200 mg PO DAILY [facility] Last Admin: 11/01/18 08:07 Dose: 200 mg Chlorhexidine Gluconate (Peridex Mouth Wash 0.12%*) 15 ml TOPICAL Q4H [facility] Last Admin: 11/01/18 11:51 Dose: 15 ml Cholestyramine Resin (Questran*) 4 gm PO BID [facility] Last Admin: 11/01/18 08:07 Dose: 4 gm Digoxin (Digoxin Iv*) 0.5 mg IV SLOW PU ONCE ONE Stop: 11/01/18 12:15 Heparin Sodium (Porcine) (Heparin Vial(*)) 0 units IV .PER PROTOCOL [facility] Last Admin: 10/31/18 22:20 Dose: 4,900 units Hydrocortisone (Hytone Cream 1%*) 1 applic TOPICAL TID PRN PRN Reason: RECTAL PAIN Last Admin: 10/23/18 13:10 Dose: 1 applic Heparin Sodium/Dextrose (Heparin Drip 25,000 Units(*)) 25,000 units in 500 mls @ 0 mls/hr IV PER RATE [facility]; Protocol Last Admin: 11/01/18 04:53 Dose: 33 mls/hr Insulin Human Lispro (Humalog*) 0 units SUBCUT FS Q6 ICU [facility]; Protocol Last Admin: 11/01/18 11:51 Dose: 8 units Metoprolol Tartrate (Lopressor Iv*) 5 mg IV Q4H PRN PRN Reason: HR>120 Last Admin: 10/31/18 20:17 Dose: 5 mg Metoprolol Tartrate (Lopressor Tab*) 50 mg PO Q12H [facility] Last Admin: 11/01/18 11:51 Dose: 50 mg Pantoprazole Sodium (Protonix Iv*) 40 mg IV DAILY [facility] Last Admin: 11/01/18 08:07 Dose: 40 mg Phenyleph/Shark Oil/Min Oil/Petrol (Preparation H*) 1 applic TOPICAL TID PRN PRN Reason: PAIN Last Admin: 10/27/18 14:29 Dose: 1 applic Physical Exam: Constitutional: obese, intubated, awake, doesnt follow commands, no apparent distress, no diaphoresis Head: normocephalic, atraumatic Eyes: no pallor, no icterus ENT: moist mucous membranes Neck: soft, supple, no jvd CVS: tachy+, irregular, no murmur Resp: bilateral air entry, no RRW, no acc muscle use Abdomen/GI: soft, nontender, nondistended, BS+ Ext/Msk: warm, Left LE AKA+, no edema Skin: intact, warm Neuro: cough+/gag+, pupils reactive bialterally, eyes open, doesnt follow commands, not moving extremities Labs: Imaging: cxr 10/27 - pulm edema on report cxr 10/29 - improved edema cxr 10/31 - ett above teri; increased Right basal markings; official read with findings of incr congestion cxr 11/01 - unchanged, small basal effusion on left Assessment: 67y F w/pmhx of CAD/STEMI, anemia, DM, PVD with Left AKA (old), Chronic LV systolic dysfunction, h/o bradycardia, h/o DVT in past off warfarin now; presented to ER 10/01 with abd pain, diarrhea, noted to be hypoxic, hyperglycemic and in new onset Afib. Initial workup demonstrated thickened stomach and intenstines consistent with possible gastroenteritis. She demonstrated elevated WBC, LA on admission with these findings. She was started on IV pressors. She was also found to have DKA and treated with IV insulin. Suspicion for possible underlying ischemic colitis vs infectious was present. She eventually stabilized. Kept on Amiodarone and BB for Afib rate control. Subsequent hypoxia worsening and intubated 10/24, with new onset fevers. 10/25 with new LLE DVT, started on IV heparin. 10/26 Bronchoscopy for LLL atelectasis and plugging. -Gastroenteritis -GI bleed -DKA? -Shock, mixed hypovolemic / septic; resolved -acute LV systolic dysfxn -Acute hypoxic respiratory failure -Pulmonary Edema vs pneumonia -New Onset Afib -MICHAEL -Metabolic acidosis -Bilateral renal masses -New Left LE DVT -encephalopathy Plan: Neuro- -awake; but not alert or following any commands; does show response to painful stimuli -has not been on propofol -CT brain today -EEG after CT today -neurocecks; asp prec CVS- -BP stable -Rapdi afib; dig 0.5mg IV x1 now -Afib; cont amio 200mg po daily; metoprolol 50mg q12h; IV lopressor 5mg q4hprn -IV heparin for Afib and new LLE DVT AC -trial lasix 60mg IV x1 today to augment output again Resp- -remains intubated; on 40% fio2 -CXR 11/01 with some increase markings; possible pulm congestion (unchanged) -no sig secretions from ETT being suctioned -VAP bundle; asp prec; bronchodilators PRN -wean fio2 to keep sat>92% ID- tmax 99.1. wbc --31- 27 -CXR suspected congestion -sputum cx neg 10/26, blood cx 10/22 neg, stool cultures neg 10/22. c.diff neg -IV abx off GI- -NGT with Promote w/o fiber ; on lower dose promote 30cc/hr; increase as tolerated -rectal tube present; loose stool+ -cont cholestyramine for bile acid binding -no further bleeding noted; unclear source but likely not large; PPI IV daily, reassess -GI proph Renal- MICHAEL; may be hypoxia/shock; recent contrast for CTs also given, potential GERTRUDIS also -nonoliguric ATN; Cr decreasing now; good urine output with positive balance -d/c bicarb; metabolic acidosis improved -lasix 60mg IV x1 today -Replete K and Mg IV; KCL 40meq IV over 4 hours -reynolds+ Heme- anemia; hg 8-9; no further bleeding noted; cont to monitor -plt okay -noted new Left LE DVT; on IV heparin -Afib; on IV heparin -DVT porph with SCD and Heparin Endo-Maintain BG<200, insulin protocol as needed Musculsk- pressure ulcer prophylaxis. Bedrest. Wounds- none; noted older Left AKA site Nutrition- Promote NGT feeds ongoing DVT prophylaxis: SCD and Heparin GI prophylaxis: PPI Central Line: Right PICC Arterial Line: no Reynolds Cathetor: yes Disposition: Patient requires Critical Care/ICU for acute hypoxic respiratory failure, shock, MICHAEL CT brain today; EEG; then ian discuss further plan; family discussing about tracheostomy and PEG Patient clinical status: guarded, critical Code Status: full code Total Critical Care time is 45 minutes, excluding procedures/teaching Stephon Quijano MD Hydraulic Boom Operator (Electronically Signed)
[2018-11-01] MEDS ORDERED: Digoxin IV* 0.5 MG/2 ML AMP (0.25 MG/ML) ONE (12:20)
[2018-11-01] MEDS: KCL 20 MEQ/100 ML IVPREMIX* 20 MEQ/100 ML BAG IV SCH ×2 (13:12→15:23)
[2018-11-01] MEDS ORDERED: Furosemide IV* 10 MG/ML VIAL (40 MG) IV SLOW PU ONE (15:23)
[2018-11-01] MEDS: Metoprolol Tartrate IV* 1 MG/ML 5 ML VIAL IV PRN (21:29)
[2018-11-02] MEDS: Metoprolol Tartrate TAB* 25 MG PO SCH (00:04)
[2018-11-02] MEDS: Insulin LISPRO* 1 UNITS UNIT SUBCUT SCH ×5 (00:20→23:51)
[2018-11-02] MEDS: Chlorhexidine MOUTHWASH 0.12%* 15 ML UDC TOPICAL SCH ×7 (00:20→23:51)
[2018-11-02 05:48] LABS: Hematocrit 25 % (33-41); Hemoglobin 7.4 g/dL (12.0-16.0); Mean Corpuscular HGB Conc 30 g/dL (31-36); Mean Corpuscular Hemoglobin 20 pg (27-31); Mean Corpuscular Volume 68 fL (80-97); Platelet Count 279 10^3/uL (150-450); Red Blood Count 3.68 10^6 /uL (3.70-4.87); Red Cell Distribution Width 30 % (10.5-15); White Blood Count 24.8 10^3/uL (3.5-10.8)
[2018-11-02 06:10] LABS: BUN/Creatinine Ratio 38.1 (8-20); Calcium 8.1 mg/dL (8.6-10.3); EGFR African American 82.1 (>60); EGFR Non-African American 67.8 (>60); Phosphorus 2.7 mg/dL (2.5-5.0); Potassium 3.7 mmol/L (3.5-5.0)
[2018-11-02] MEDS: Cholestyramine Resin* 4 GM POWDER PO SCH ×2 (07:54→20:32)
[2018-11-02] MEDS: Amiodarone TAB* 200 MG PO SCH (07:54)
[2018-11-02] MEDS: Pantoprazole IV* 40 MG IV SCH (07:54)
[2018-11-02] MEDS ORDERED: Digoxin IV* 0.5 MG/2 ML AMP (0.25 MG/ML) IV SLOW PU ONE (09:48)
[2018-11-02] MEDS: Heparin DRIP 25,000 UNITS(*) 25,000 UNITS/500 ML BAG IV SCH (09:52)
[2018-11-02] MEDS ORDERED: Insulin GLARGINE(*) 1 UNITS UNIT SUBCUT SCH (10:00)
[2018-11-02] MEDS ORDERED: Potassium Chloride LIQUID* 20 MEQ PACKET PO ONE (10:05)
--- NOTE | 2018-11-02 10:06 | PN ---
Progress Note - Progress Note Date of Service: 11/02/18 Note: Progress Note -- Critical Care 24 hour events/significant events: -intubated; awake; no distress -knods head to command, closes eyes, poor ability to move all ext; some wiggling of toes on comman -Rapid AFib this morning -edema+ -on heparin IV -tmax 99.1, decreasing Tele: afib Vitals: Vital Signs Temp 98.8 F 11/02/18 09:32 Pulse 137 11/02/18 09:32 Resp 31 11/02/18 09:00 BP 104/73 11/02/18 09:30 Pulse Ox 92 11/02/18 09:32 Intake & Output 11/01/18 11/02/18 11/02/18 18:59 06:59 18:59 Intake Total 955 2360 100 Output Total 785 1300 120 Balance 170 1060 -20 Weight 91.172 kg 91.3 kg Intake: IV Fluids 698 152 0.45% NS c Bicarb 444 KCl 212 NS (0.9%) 42 152 IVPB 140 KCl 140 Medicated IV 257 450 Heparin 257 450 Oral 0 Tube Feeding 1618 Tube Feeding Flush Amount 100 Output: Reynolds 785 1300 120 O2/Vent: 14/450/+5/40% AC Infusions: heparin IV Medications: Albuterol/Ipratropium (Duoneb (Albuterol 2.5 Mg/Ipratropium 0.5 Mg)) 1 neb INH Q4H PRN PRN Reason: SOB/WHEEZING Last Admin: 10/31/18 14:29 Dose: 1 neb Amiodarone HCl (Cordarone Tab*) 200 mg PO DAILY [facility] Last Admin: 11/02/18 07:54 Dose: 200 mg Chlorhexidine Gluconate (Peridex Mouth Wash 0.12%*) 15 ml TOPICAL Q4H [facility] Last Admin: 11/02/18 07:54 Dose: 15 ml Cholestyramine Resin (Questran*) 4 gm PO BID [facility] Last Admin: 11/02/18 07:54 Dose: 4 gm Digoxin (Digoxin Iv*) 0.25 mg IV SLOW PU ONCE ONE Stop: 11/02/18 09:49 Heparin Sodium (Porcine) (Heparin Vial(*)) 0 units IV .PER PROTOCOL [facility] Last Admin: 10/31/18 22:20 Dose: 4,900 units Hydrocortisone (Hytone Cream 1%*) 1 applic TOPICAL TID PRN PRN Reason: RECTAL PAIN Last Admin: 10/23/18 13:10 Dose: 1 applic Heparin Sodium/Dextrose (Heparin Drip 25,000 Units(*)) 25,000 units in 500 mls @ 0 mls/hr IV PER RATE [facility]; Protocol Last Admin: 11/01/18 15:24 Dose: 30 mls/hr Insulin Glargine (Lantus(*)) 6 units SUBCUT Q24H [facility] Insulin Human Lispro (Humalog*) 0 units SUBCUT FS Q6 ICU [facility]; Protocol Last Admin: 11/02/18 06:01 Dose: 4 units Metoprolol Tartrate (Lopressor Iv*) 5 mg IV Q4H PRN PRN Reason: HR>120 Last Admin: 11/01/18 21:29 Dose: 5 mg Metoprolol Tartrate (Lopressor Tab*) 50 mg PO Q8H [facility] Pantoprazole Sodium (Protonix Iv*) 40 mg IV DAILY [facility] Last Admin: 11/02/18 07:54 Dose: 40 mg Phenyleph/Shark Oil/Min Oil/Petrol (Preparation H*) 1 applic TOPICAL TID PRN PRN Reason: PAIN Last Admin: 10/27/18 14:29 Dose: 1 applic Physical Exam: Constitutional: obese, intubated, awake, no apparent distress, no diaphoresis Head: normocephalic, atraumatic Eyes: no pallor, no icterus ENT: moist mucous membranes Neck: soft, supple, no jvd CVS: tachy+, irregular, no murmur Resp: bilateral air entry, no RRW, no acc muscle use Abdomen/GI: soft, nontender, nondistended, BS+ Ext/Msk: warm, Left LE AKA+, no edema Skin: intact, warm Neuro: cough+/gag+, pupils reactive bialterally, eyes open, can knod/close eyes/ wiggle toes slightly; doesnt move upper ext when asked, some sponteous movments Labs: Laboratory Results - last 24 hr 11/01/18 11/01/18 11/01/18 09:51 11:48 16:30 WBC RBC Hgb Hct MCV MCH MCHC RDW Plt Count MPV APTT 73.6 H 53.3 H Sodium Potassium Chloride Carbon Dioxide Anion Gap BUN Creatinine Est GFR ( Amer) Est GFR (Non-Af Amer) BUN/Creatinine Ratio Glucose POC Glucose (mg/dL) 301 H Calcium Phosphorus Magnesium 11/01/18 11/02/18 11/02/18 17:17 00:14 00:15 WBC RBC Hgb Hct MCV MCH MCHC RDW Plt Count MPV APTT 57.2 H Sodium Potassium Chloride Carbon Dioxide Anion Gap BUN Creatinine Est GFR ( Amer) Est GFR (Non-Af Amer) BUN/Creatinine Ratio Glucose POC Glucose (mg/dL) 218 H 222 H Calcium Phosphorus Magnesium 11/02/18 11/02/18 11/02/18 05:28 05:30 05:30 WBC 24.8 H RBC 3.68 L Hgb 7.4 L Hct 25 L MCV 68 L MCH 20 L MCHC 30 L RDW 30 H Plt Count 279 MPV 9.0 APTT Sodium 137 Potassium 3.7 Chloride 109 Carbon Dioxide 22 Anion Gap 6 BUN 32 H Creatinine 0.84 Est GFR ( Amer) 82.1 Est GFR (Non-Af Amer) 67.8 BUN/Creatinine Ratio 38.1 H Glucose 231 H POC Glucose (mg/dL) 232 H Calcium 8.1 L Phosphorus 2.7 Magnesium 2.0 Imaging: cxr 10/27 - pulm edema on report cxr 10/29 - improved edema cxr 10/31 - ett above teri; increased Right basal markings; official read with findings of incr congestion cxr 11/01 - unchanged, small basal effusion on left cxr 11/02 - possible consolidation or effusion or congeestion at bases carotid duplex 11/02 - 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 Initial workup demonstrated thickened stomach and intenstines consistent with possible gastroenteritis. She demonstrated elevated WBC, LA on admission with these findings. She was started on IV pressors. She was also found to have DKA and treated with IV insulin. Suspicion for possible underlying ischemic colitis vs infectious was present. She eventually stabilized. Kept on Amiodarone and BB for Afib rate control. Subsequent hypoxia worsening and intubated 10/24, with new onset fevers. 10/25 with new LLE DVT, started on IV heparin. 10/26 Bronchoscopy for LLL atelectasis and plugging. -Gastroenteritis -GI bleed -DKA? -Shock, mixed hypovolemic / septic; resolved -acute LV systolic dysfxn -Acute hypoxic respiratory failure -Pulmonary Edema vs pneumonia -New Onset Afib -MICHAEL -Metabolic acidosis -Bilateral renal masses -New Left LE DVT -encephalopathy; possible new left parietal subacute/chronic CVA Plan: Neuro- -awake; alert appearing but starting to moving more it appears now; can knod and close eyes and moves upper ext spontaneously only; wiggle right foot -no sedation has been on board in days or narcotics -CT brain reviewed; subacute/chronic left parietal infarct? no prior imaging to compare to -will try to obtain MRI brain today once previous LE op reports obtained -Carotid duplex reviewed as above -will obtain neuro consult -in Afib; possible source of CVA; currently on IV heparin infusion -neurochecks; asp prec CVS- -BP stable -Rapdi afib; dig 0.25mg IV x1 now again -Afib; cont amio 200mg po daily; Incr metoprolol 50mg q8h; IV lopressor 5mg q4hprn -may need to add low dose cardizem infusion also -will restart ACEI tomorrow; cont IV diuretics; off imdur/norvasc -IV heparin for Afib and new LLE DVT AC Resp- -remains intubated; on 40% fio2 -CXR 11/02 with some increase markings; possible pulm congestion (unchanged) -no sig secretions from ETT being suctioned -may have to consider trach if not improving in next 48-72 hours and poor weanign candidate or poor neuro improvement -VAP bundle; asp prec; bronchodilators PRN -wean fio2 to keep sat>92% ID- tmax 99.1-98. wbc 28-23-31- 27-24 -CXR suspected congestion, r/o new infiltrate 11/02 -sputum cx neg 10/26, blood cx 10/22 neg, stool cultures neg 10/22. c.diff neg -IV abx off GI- -NGT with Promote w/o fiber ; tolerating -stool slightly more formed now -rectal tube present -cont cholestyramine for bile acid binding -no further bleeding noted; unclear source but likely not large; PPI IV daily, reassess -GI proph Renal- MICHAEL; may be hypoxia/shock; recent contrast for CTs also given, potential GERTRUDIS also -nonoliguric ATN, improved CR now -making urine; goal neg balance -start bumex 2mg IV BID -Replete K and Mg IV; KCL 40meq via NGT -reynolds+ Heme- anemia; hg7.4; no further bleeding noted; cont to monitor -plt okay -noted new Left LE DVT; on IV heparin -Afib; on IV heparin -DVT porph with SCD and Heparin Endo-Maintain BG<200, insulin protocol as needed Musculsk- pressure ulcer prophylaxis. Bedrest. Wounds- none; noted older Left AKA site Nutrition- Promote NGT feeds ongoing DVT prophylaxis: SCD and Heparin GI prophylaxis: PPI Central Line: Right PICC Arterial Line: no Reynolds Cathetor: yes Disposition: Patient requires Critical Care/ICU for acute hypoxic respiratory failure, shock, MICHAEL neuro eval today; possibel MRI if able; discussion with family about trach in coming days if needed and slow neuro prgress Patient clinical status: guarded, critical Code Status: full code Total Critical Care time is 35 minutes, excluding procedures/teaching Stephon Quijano MD Production Expediter (Electronically Signed)
[2018-11-02] MEDS: Metoprolol Tartrate TAB* 50 mg PO SCH ×2 (10:18→17:31)
[2018-11-02] MEDS: Metoprolol Tartrate IV* 1 MG/ML 5 ML VIAL IV PRN ×2 (10:51→15:45)
[2018-11-02] MEDS ORDERED: Morphine 4 MG/ML VIAL (1 ml) 4 MG/ML VIAL ONE (11:01)
[2018-11-02] MEDS: Morphine 4 MG/ML VIAL (1 ml) 4 MG/ML VIAL IV PRN ×2 (11:03→17:31)
--- NOTE | 2018-11-02 13:32 | CONS ---
CONSULTATION REPORT: DATE OF CONSULT: 11/02/18. PATIENT OF: Dr. Quijano. HISTORY OF PRESENT ILLNESS: This is a 67-year-old woman I am asked to evaluate for her mental status changes as well as new detection of abnormal CT scan, thought to be subacute or chronic stroke. She has multiple medical problems and has had an admission since 10/22/18. She has a history of coronary artery disease, status post DC; hyperlipidemia; peripheral vascular disease, status post left AKA; diabetes type 2; history of DVT; anemia; congestive heart failure; hypertension, who has also had rapid onset of AFib. She has had DKA on admission here and has been having loose stools and has had secondary skin infection. She was intubated because of hypoxic respiratory failure and has been on heparin drip for a left lower extremity DVT. When she initially came in, she was talking and saying every simple things. Since she has come off her propofol drip, she has become alert, but not signs of comprehension. PAST MEDICAL HISTORY: Unchanged since admission other than HPI and she was unable to provide any further details. CURRENT MEDICATIONS: Include: 1. Protonix 40 mg daily. 2. Morphine 2 mg q.3 hours p.r.n. Last dose of morphine was at 11 o'clock. 3. She is on metoprolol 50 mg q.8 hours with a p.r.n. dose as well. 4. She is on insulin with sliding scale. 5. She is on Questran 4 g b.i.d. 6. Bumex. 7. Amiodarone 200 mg daily. 8. Albuterol p.r.n. wheezing. FAMILY HISTORY: Unchanged since admission other than HPI and she was unable to provide any further details. SOCIAL HISTORY: Unchanged since admission other than [facility] and she was unable to provide any further details. PHYSICAL EXAM: Temperature 99, pulse 113 and irregular, respirations 28, blood pressure 145/87. She was alert and when I moved from one side of her bed to the other, she would fix and fall. She did not follow any commands, did not squeeze hands, did not open or close eyes on commands. Cranial nerves II through XII were nonfocal. She had a positive red reflex. I could not see in her eyes well due to lack of cooperation. She did not squeeze fingers on either side and move legs. Reflexes were trace. Chest: Clear. Cardiovascular: Irregular rate and rhythm. Abdomen was soft. She had a left AKA that is chronic. IMPRESSION AND PLAN: I reviewed her CT scan, which did show a left, what was read as a parietal lobe attenuation. There may have been an occipitoparietal attenuation, but it is hard to tell the age. It is also hard to know whether this is a stroke. This could conceivably be a mass, although this is much less likely and I agree with recommendation of a contrast-enhanced MRI scan of the brain. I also think that she has global deficit in terms of her encephalopathy that would not be explained by the finding on CT scan. I am not sure if the hypoxia sustained during this hospitalization is enough to cause an acute encephalopathy. Whether meds such as the morphine the patient is getting could be contributing. She does not seem to have a urinary tract infection on her last check, but her urine should be rechecked. It is possible that she has borderline functioning and the things like chronic infection could be making her worse as well. I would check an ammonia since it looks like it has not been done as well as thyroid and Dr. Quijano is getting an EEG, and we will see if we have any further recommendations once this testing is done. Thank you for sharing her case. [id number]/[facility] #: [id number] JOON
[2018-11-02] MEDS: Bumetanide IV* 0.25 MG/ML 4 ML VIAL SLOW PUSH SCH (20:32)
[2018-11-03] MEDS: Hydrocortisone 1% CREAM* 30 GM TUBE TOPICAL PRN (00:10)
[2018-11-03] MEDS: Heparin VIAL(*) 5000 UNITS/ML VIAL (FIVE THOUSAND) IV SCH ×2 (00:40→15:07)
[2018-11-03] MEDS: Heparin DRIP 25,000 UNITS(*) 25,000 UNITS/500 ML BAG IV SCH ×2 (00:40→16:18)
[2018-11-03] MEDS: Metoprolol Tartrate TAB* 50 mg PO SCH ×3 (02:19→17:37)
[2018-11-03] MEDS: Insulin LISPRO* 1 UNITS UNIT SUBCUT SCH ×4 (06:24→23:57)
[2018-11-03] MEDS: Chlorhexidine MOUTHWASH 0.12%* 15 ML UDC TOPICAL SCH ×6 (06:24→23:57)
[2018-11-03 07:08] LABS: Hematocrit 28 % (33-41); Hemoglobin 8.1 g/dL (12.0-16.0); Mean Corpuscular HGB Conc 29 g/dL (31-36); Mean Corpuscular Hemoglobin 20 pg (27-31); Mean Corpuscular Volume 69 fL (80-97); Mean Platelet Volume 9.3 fL (7.4-10.4); Platelet Count 387 10^3/uL (150-450); Red Blood Count 4.01 10^6 /uL (3.70-4.87); Red Cell Distribution Width 30 % (10.5-15); White Blood Count 28.3 10^3/uL (3.5-10.8)
[2018-11-03 07:14] LABS: BUN/Creatinine Ratio 38.2 (8-20); Calcium 8.3 mg/dL (8.6-10.3); EGFR African American 104.7 (>60); EGFR Non-African American 86.6 (>60); Magnesium 1.9 mg/dL (1.9-2.7); Phosphorus 2.4 mg/dL (2.5-5.0); Potassium 4.1 mmol/L (3.5-5.0)
[2018-11-03] MEDS: Pantoprazole IV* 40 MG IV SCH (07:36)
[2018-11-03] MEDS: Bumetanide IV* 0.25 MG/ML 4 ML VIAL SLOW PUSH SCH ×2 (07:37→21:01)
[2018-11-03] MEDS: Amiodarone TAB* 200 MG PO SCH (07:37)
[2018-11-03] MEDS: Insulin GLARGINE(*) 1 UNITS UNIT SUBCUT SCH (07:37)
[2018-11-03] MEDS: Cholestyramine Resin* 4 GM POWDER PO SCH ×2 (07:37→21:01)
[2018-11-03] MEDS ORDERED: Magnesium Sulfate IV* 2 GM in NS 0.9% 100 ML* 100 ML IV ONE (09:13)
[2018-11-03] MEDS: Morphine 4 MG/ML VIAL (1 ml) 4 MG/ML VIAL IV PRN (15:25)
--- NOTE | 2018-11-03 15:38 | PN ---
Progress Note - Progress Note Date of Service: 11/03/18 Note: Progress Note -- Critical Care 24 hour events/significant events: -intubated; awake; no distress -can close eyes, knods slightly, more following of upper ext commands, wiggles toes -no distress noted; calm -Afib+, more rate controlled -edema+ -on heparin IV -tmax 99.5, decreasing Tele: afib Vitals: Vital Signs Temp 99.1 F 11/03/18 15:01 Pulse 115 11/03/18 15:01 Resp 31 11/03/18 15:25 BP 106/45 11/03/18 15:01 Pulse Ox 97 11/03/18 15:12 Intake & Output 11/02/18 11/03/18 11/03/18 18:59 06:59 18:59 Intake Total 078 825 1981 Output Total 517 1070 890 Balance -69 -419 121 Weight 93.2 kg Intake: IV Fluids 86 151 68 NS (0.9%) 86 151 68 IVPB 104 Mag 104 Medicated IV 262 470 260 Heparin 262 470 260 Oral 0 Tube Feeding 439 Tube Feeding Flush Amount 100 30 140 Output: Reynolds 517 1070 890 O2/Vent: 14/450/+5/40% AC Infusions: heparin IV Medications: Albuterol/Ipratropium (Duoneb (Albuterol 2.5 Mg/Ipratropium 0.5 Mg)) 1 neb INH Q4H PRN PRN Reason: SOB/WHEEZING Last Admin: 10/31/18 14:29 Dose: 1 neb Amiodarone HCl (Cordarone Tab*) 200 mg PO DAILY [facility] Last Admin: 11/03/18 07:37 Dose: 200 mg Bumetanide (Bumex*) 2 mg SLOW PUSH BID [facility] Chlorhexidine Gluconate (Peridex Mouth Wash 0.12%*) 15 ml TOPICAL Q4H [facility] Last Admin: 11/03/18 13:38 Dose: 15 ml Cholestyramine Resin (Questran*) 4 gm PO BID [facility] Last Admin: 11/03/18 07:37 Dose: 4 gm Heparin Sodium (Porcine) (Heparin Vial(*)) 0 units IV .PER PROTOCOL [facility] Last Admin: 11/03/18 15:07 Dose: 2,450 units Hydrocortisone (Hytone Cream 1%*) 1 applic TOPICAL TID PRN PRN Reason: RECTAL PAIN Last Admin: 11/03/18 00:10 Dose: 1 applic Heparin Sodium/Dextrose (Heparin Drip 25,000 Units(*)) 25,000 units in 500 mls @ 0 mls/hr IV PER RATE [facility]; Protocol Last Admin: 11/03/18 00:40 Dose: 33 mls/hr Insulin Glargine (Lantus(*)) 10 units SUBCUT Q24H [facility] Last Admin: 11/03/18 07:37 Dose: 10 units Insulin Human Lispro (Humalog*) 0 units SUBCUT FS Q6 ICU [facility]; Protocol Last Admin: 11/03/18 11:53 Dose: 8 units Metoprolol Tartrate (Lopressor Iv*) 5 mg IV Q4H PRN PRN Reason: HR>120 Last Admin: 11/02/18 15:45 Dose: 5 mg Metoprolol Tartrate (Lopressor Tab*) 50 mg PO Q8H [facility] Last Admin: 11/03/18 09:37 Dose: 50 mg Morphine Sulfate (Morphine 4 Mg/Ml Vial (1 Ml)) 2 mg IV Q8H PRN PRN Reason: abd pain Pantoprazole Sodium (Protonix Iv*) 40 mg IV DAILY [facility] Last Admin: 11/03/18 07:36 Dose: 40 mg Phenyleph/Shark Oil/Min Oil/Petrol (Preparation H*) 1 applic TOPICAL TID PRN PRN Reason: PAIN Last Admin: 10/27/18 14:29 Dose: 1 applic Physical Exam: Constitutional: obese, intubated, awake, no apparent distress, no diaphoresis Head: normocephalic, atraumatic Eyes: no pallor, no icterus ENT: moist mucous membranes Neck: soft, supple, no jvd CVS: tachy+, irregular, no murmur Resp: bilateral air entry, no RRW, no acc muscle use Abdomen/GI: soft, nontender, nondistended, BS+ Ext/Msk: warm, Left LE AKA+, no edema Skin: intact, warm Neuro: cough+/gag+, pupils reactive bialterally, eyes open, can knod/close eyes/ wiggle toes slightly, able to follow more upper ext commands but weak; some sponteous movments Labs: Laboratory Results - last 24 hr 11/02/18 11/02/18 11/02/18 17:23 23:40 23:43 WBC RBC Hgb Hct MCV MCH MCHC RDW Plt Count MPV APTT 47.9 H Sodium Potassium Chloride Carbon Dioxide Anion Gap BUN Creatinine Est GFR ( Amer) Est GFR (Non-Af Amer) BUN/Creatinine Ratio Glucose POC Glucose (mg/dL) 232 H 211 H Calcium Phosphorus Magnesium 11/03/18 11/03/18 11/03/18 06:15 06:15 06:15 WBC 28.3 H RBC 4.01 Hgb 8.1 L Hct 28 L MCV 69 L MCH 20 L MCHC 29 L RDW 30 H Plt Count 387 MPV 9.3 APTT 51.1 H Sodium 138 Potassium 4.1 Chloride 109 Carbon Dioxide 20 L Anion Gap 9 BUN 26 H Creatinine 0.68 Est GFR ( Amer) 104.7 Est GFR (Non-Af Amer) 86.6 BUN/Creatinine Ratio 38.2 H Glucose 223 H POC Glucose (mg/dL) Calcium 8.3 L Phosphorus 2.4 L Magnesium 1.9 11/03/18 11/03/18 11/03/18 06:20 11:49 13:35 WBC RBC Hgb Hct MCV MCH MCHC RDW Plt Count MPV APTT 47.5 H Sodium Potassium Chloride Carbon Dioxide Anion Gap BUN Creatinine Est GFR ( Amer) Est GFR (Non-Af Amer) BUN/Creatinine Ratio Glucose POC Glucose (mg/dL) 245 H 323 H Calcium Phosphorus Magnesium Imaging: cxr 10/27 - pulm edema on report cxr 10/29 - improved edema cxr 10/31 - ett above teri; increased Right basal markings; official read with findings of incr congestion cxr 11/01 - unchanged, small basal effusion on left cxr 11/02 - possible consolidation or effusion or congeestion at bases carotid duplex 11/02 - 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 Initial workup demonstrated thickened stomach and intenstines consistent with possible gastroenteritis. She demonstrated elevated WBC, LA on admission with these findings. She was started on IV pressors. She was also found to have DKA and treated with IV insulin. Suspicion for possible underlying ischemic colitis vs infectious was present. She eventually stabilized. Kept on Amiodarone and BB for Afib rate control. Subsequent hypoxia worsening and intubated 10/24, with new onset fevers. 10/25 with new LLE DVT, started on IV heparin. 10/26 Bronchoscopy for LLL atelectasis and plugging. -Gastroenteritis -GI bleed -DKA? -Shock, mixed hypovolemic / septic; resolved -acute LV systolic dysfxn -Acute hypoxic respiratory failure -Pulmonary Edema vs pneumonia -New Onset Afib -MICHAEL -Metabolic acidosis -Bilateral renal masses -New Left LE DVT -encephalopathy; possible new left parietal subacute/chronic CVA Plan: Neuro- -awake; alert but starting to moving more it appears now; can knod and close eyes and moves upper ext spontaneously only; wiggle right foot -no sedation has been on board in days or narcotics; limited narcotics even further -CT brain reviewed; subacute/chronic left parietal infarct? no prior imaging to compare to -pending vascular device information/stent info before MRI can be done for further evaluation -ammonia 45 -check tsh -Carotid duplex reviewed as above -neuro consult reviewed -in Afib; possible source of CVA; currently on IV heparin infusion -neurochecks; asp prec CVS- -BP stable -Afib; cont amio 200mg po daily; metoprolol 50mg q8h; IV lopressor 5mg q4hprn -if Cr okay tomororw, will start lisinopril 5mg daily; BP 120-130s; off imdur/ norvasc -cont bumex 2mg IV BID; good urine output noted -IV heparin for Afib and new LLE DVT AC Resp- -remains intubated; on 40% fio2 -CXR 11/02 with some increase markings; possible pulm congestion (unchanged) -no sig secretions from ETT being suctioned -discussed with family at bedside today; if by weekends end, no further improvement enough to extubate, then are willing and okay to trach patient and wait out improvmeent in encephalopathy, along with PEG placement -VAP bundle; asp prec; bronchodilators PRN -wean fio2 to keep sat>92% ID- tmax 99.5. wbc --31- 27-24- -CXR suspected congestion, r/o new infiltrate 11/02 -sputum cx neg 10/26, blood cx 10/22 neg, stool cultures neg 10/22. c.diff neg -IV abx off; no clear infectious etiology noted anywhere GI- -NGT with Promote w/o fiber ; tolerating -stool slightly more formed now -rectal tube present -cont cholestyramine for bile acid binding -no further bleeding noted; unclear source but likely not large; PPI IV daily, reassess -GI proph Renal- MICHAEL; may be hypoxia/shock; recent contrast for CTs also given, potential GERTRUDIS also -nonoliguric ATN resolved now -making urine; goal neg balance -cont bumex 2mg IV BID -Replete Mg IV -reynolds+ Heme- anemia; hg 8s; no further bleeding noted; cont to monitor -plt okay -noted new Left LE DVT; on IV heparin -Afib; on IV heparin -restart ASA 81mg daily -DVT porph with SCD and Heparin Endo-Maintain BG<200, insulin protocol as needed Musculsk- pressure ulcer prophylaxis. Bedrest. Wounds- none; noted older Left AKA site Nutrition- Promote NGT feeds ongoing DVT prophylaxis: SCD and Heparin GI prophylaxis: PPI Central Line: Right PICC Arterial Line: no Reynolds Cathetor: yes Disposition: Patient requires Critical Care/ICU for acute hypoxic respiratory failure, shock, MICHAEL neuro eval today; possibel MRI if able; discussion with family about trach had , plan for trach next week if not ipmroved Patient clinical status: guarded, critical Code Status: full code Total Critical Care time is 35 minutes, excluding procedures/teaching Stephon Quijano MD [employer] (Electronically Signed)
[2018-11-03] MEDS: Aspirin 81 mg CHEW TAB* 81 MG TAB.CHEW PO SCH (15:58)
[2018-11-03] MEDS ORDERED: Bumetanide IV* 0.25 MG/ML 4 ML VIAL SLOW PUSH SCH (16:00)
--- NOTE | 2018-11-03 17:43 | PN ---
Subjective Date of Service: 11/03/18 Interval History: Ms. Cabrera is a 67 yo female with PMH significant for CAD s/p MO, HLD, PVD, s/p left AKA, DM2, hx DVT, anemia, CHF and HTN who presented to the emergency room with complaints of abdominal pain and diarrhea. She has been having loose stools and has a flexiseal in place. She was felt to have sepsis secondary to gastroenteritis. She was also found to have DKA on admission and paroxysmal a fib. She developed hypoxic respiratory failure and is s/p brochoscopy and found to have atelectasis and mucus plugging and is currently mechanically ventilated. She was found to have a left LE DVT on 10/25 and started on a heparin gtt. Patient seen and examined at bedside. Family History: Unchanged from Admission Social History: Unchanged from Admission Past Medical History: Unchanged from Admission Objective Active Medications: Albuterol/Ipratropium (Duoneb (Albuterol 2.5 Mg/Ipratropium 0.5 Mg)) 1 neb INH Q4H PRN Reason: SOB/WHEEZING Amiodarone HCl (Cordarone Tab*) 200 mg PO DAILY [facility] Aspirin (Aspirin 81 Mg Chew Tab*) 81 mg PO DAILY [facility] Bumetanide (Bumex*) 2 mg SLOW PUSH BID [facility] Chlorhexidine Gluconate (Peridex Mouth Wash 0.12%*) 15 ml TOPICAL Q4H [facility] Cholestyramine Resin (Questran*) 4 gm PO BID [facility] Heparin Sodium (Porcine) (Heparin Vial(*)) 0 units IV .PER PROTOCOL [facility] Hydrocortisone (Hytone Cream 1%*) 1 applic TOPICAL TID PRN Reason: RECTAL PAIN Heparin Sodium/Dextrose (Heparin Drip 25,000 Units(*)) 25,000 units in 500 mls @ 0 mls/hr IV PER RATE [facility]; Protocol Insulin Glargine (Lantus(*)) 10 units SUBCUT Q24H [facility] Insulin Human Lispro (Humalog*) 0 units SUBCUT FS Q6 ICU [facility]; Protocol Metoprolol Tartrate (Lopressor Iv*) 5 mg IV Q4H PRN Reason: HR>120 Metoprolol Tartrate (Lopressor Tab*) 50 mg PO Q8H [facility] Morphine Sulfate (Morphine 4 Mg/Ml Vial (1 Ml)) 2 mg IV Q8H PRN Reason: abd pain Pantoprazole Sodium (Protonix Iv*) 40 mg IV DAILY [facility] Phenyleph/Shark Oil/Min Oil/Petrol (Preparation H*) 1 applic TOPICAL TID PRN Reason: PAIN Vital Signs 11/03/18 11/03/18 16:45 17:00 Temperature 99.1 F 99.1 F Pulse Rate 113 105 Respiratory 20 Rate Blood Pressure 150/108 (mmHg) O2 Sat by Pulse 95 95 Oximetry Oxygen Devices in Use Now: Mechanical Ventilator Appearance: NAD, laying in bed Ears/Nose/Mouth/Throat: Mucous Membranes Moist Skin: - - See skin documentation below Neurological: - - Sedated Result Diagrams: 11/07/18 15:25 11/07/18 15:25 Microbiology and Other Data: Microbiology 10/26/18 16:10 Gram Stain - Final Sputum Sputum Culture - Preliminary No Growth Day 1 10/25/18 09:52 Escherichia coli 0157 Culture - Final Stool 10/22/18 04:33 Aerobic Blood Culture - Final Blood Venous No Growth Day 5 Anaerobic Blood Culture - Final No Growth Day 5 10/22/18 00:47 Aerobic Blood Culture - Final Blood Venous No Growth Day 5 Anaerobic Blood Culture - Final No Growth Day 5 10/22/18 17:45 Stool Culture - Final Stool Stool Gross Appearance - Final Shiga Toxin I & II - Final Negative Shiga Toxin 1 & 2 10/23/18 14:13 Gram Stain - Final Sputum Sputum Culture - Final YEAST 10/22/18 17:45 Stool Gross Appearance - Final Stool Stool Lactoferrin - Final 10/22/18 15:16 Stool Gross Appearance - Final Stool C. difficile DNA Amplification - Final 027 Presumptive NEGATIVE Toxigenic C.diff NEGATIVE 10/22/18 13:43 Gram Stain - Final Sputum 10/22/18 06:00 Nasal Screen MRSA (PCR) - Final Nasal Mrsa Not Detected 10/22/18 01:52 Stool Occult Blood (EBONY) - Final Stool Skin Deviation Note - Skin Deviation Findings Buttocks/Sacrum - There is excoriated skin and superficial open areas. There is an area at the sacrum with yellow adherent slough. The total open area to the sacrum measures 12 cm x 6.5 cm x 0.1 cm. The surrounding skin is intact at the proximal part of the wound and excoriated at the distal end of the wound Posterior right thigh -There are a few superficial open areas Assessment/Plan: Ms. Cabrera is a 67 yo female with PMH significant for CAD, HLD, PVD, s/p left AKA, DM2, and HTN who presented to the emergency room with complaints of abdominal pain. She has had frequent loose stools and is noted to have an excoriated perineum. 1. Excoriated skin with pressure injury and searing injuries. There is pressure injury at the sacrum that is unstageable. Excoriated skin is secondary to frequent loose stools. Recommend applying barrier cream and continue flexiseal. Frequent turning and repositioning. Consider checking a prealbumin level to evaluate nutritional status. 2. Peripheral vascular disease. 3. Diabetes Mellitus, Type 2. HgA1C not checked since 2017, >11 at that time. Maintain good glycemic control to allow wound healing. 4. Diet. Tube feeding. 5. Code Status. Full Code 6. Disposition. Inpatient. Disposition per primary medicine team. TIME SPENT: Time spent for this wound consultation was 20 and 10 minutes was spent with the patient assessing, measuring and photographing the wound. Wound Problem/Plan Is Patient a Wound Clinic Patient: No Attending: Prabha Sauceda
--- NOTE | 2018-11-03 19:01 | EEG ---
ELECTROENCEPHALOGRAPHY: DATE OF STUDY: 11/02/18 - ROOM #ICU-07 PATIENT OF: Dr. Quijano. CLINICAL PROBLEM: This is a 67-year-old woman, who has been having significant obtundation following sepsis. She also has staring spells. This study was done to evaluate for possible seizures. MEDICATIONS: Include: 1. Humalog. 2. Lopressor. 3. Bumex. 4. Questran. 5. Cordarone. 6. Protonix. 7. Lantus. 8. Morphine. REPORT: With the patient awake, background cerebral activity consists of low-to - moderate amplitude diffuse delta and theta activity. No focal abnormalities, major asymmetries of background, or epileptiform potentials were noted. CLINICAL IMPRESSION: This EEG with the patient obtunded is abnormal because of generalized slowing of background consistent with a significant encephalopathy, but not specific as to etiology. Medications the patient is consuming may contribute to this slowing. [id number]/[facility] #: [id number] MTDD
--- NOTE | 2018-11-04 00:15 | PN ---
NEUROLOGICAL FOLLOWUP: DATE OF SERVICE: 11/03/18 PATIENT OF: Dr. Quijano. HISTORY: She is unable to communicate, but appears more alert than yesterday. There is no worsening since yesterday. CURRENT MEDICATIONS: Include: 1. Aspirin 81 mg daily. 2. Questran 4 g b.i.d. 3. Amiodarone 200 daily. 4. Albuterol p.r.n. 5. Insulin 10 units subcu daily with sliding scale. 6. Metoprolol 50 mg q.8. PHYSICAL EXAMINATION: On exam, temperature 99.1, pulse 109, respirations 21, blood pressure 114/76. She was still intubated, but she was alert and would fix and follow. She squeezed her hand apparently on command strongly on the right side with slightly decreased on the left, but she may have lost interest at that point since she was not focused on my face as much when I was talking to her. LABORATORY DATA: Include a white count of 28,000, hematocrit of 28, platelets of 387. Chemistries showing a blood sugar of 323, BUN of 26, calcium of 8.3. Her EEG showed diffuse slowing, but no focal abnormalities. Isaura has a global encephalopathy, but it seems to be clearly improving from yesterday, this may be secondary to her systemic disease and metabolic factors and it is expected hopefully to continue to improve slowly. I do not have further acute recommendations as far as that goes. Her ammonia level was 45. She did have a stroke and she is on aspirin now, on cholestyramine resin, it would make sense to check fasting lipids. She is on aspirin now. She is not an appropriate candidate for any type of surgery on her left carotid. I do not think it is likely that she will need it, but once she has recovered from her acute critical care issues, I should see her as an inpatient or outpatient to decide whether her left carotid stenosis needs further evaluation with a vascular consult. I think that most likely she does not need surgery for this in that given her overall situation, it would not make sense, but I will discuss with her once the dust settles in this ICU stay, whether it would be reasonable to get vascular surgeon's input as well since she has had carotid stenosis of more than 50% in association with a stroke on that side. Thank you for sharing her case. [id number]/[facility] #: [id number] [facility]ITAL[facility]andy
[2018-11-04] MEDS: Metoprolol Tartrate TAB* 50 mg PO SCH ×3 (02:39→19:27)
[2018-11-04 04:26] LABS: Hematocrit 27 % (33-41); Hemoglobin 7.8 g/dL (12.0-16.0); Mean Corpuscular HGB Conc 29 g/dL (31-36); Mean Corpuscular Hemoglobin 20 pg (27-31); Mean Corpuscular Volume 70 fL (80-97); Mean Platelet Volume 9.1 fL (7.4-10.4); Platelet Count 430 10^3/uL (150-450); Red Blood Count 3.93 10^6 /uL (3.70-4.87); Red Cell Distribution Width 31 % (10.5-15)
[2018-11-04 04:39] LABS: BUN/Creatinine Ratio 34.8 (8-20); Calcium 8.1 mg/dL (8.6-10.3); EGFR African American 108.4 (>60); EGFR Non-African American 89.6 (>60); Phosphorus 2.8 mg/dL (2.5-5.0); Potassium 4.1 mmol/L (3.5-5.0)
[2018-11-04 04:55] LABS: TSH (Thyroid Stimulating Horm) 1.88 mcIU/mL (0.34-5.60)
[2018-11-04] MEDS: Insulin LISPRO* 1 UNITS UNIT SUBCUT SCH ×3 (06:25→18:47)
[2018-11-04] MEDS: Chlorhexidine MOUTHWASH 0.12%* 15 ML UDC TOPICAL SCH ×5 (06:25→23:06)
[2018-11-04] MEDS: Heparin DRIP 25,000 UNITS(*) 25,000 UNITS/500 ML BAG IV SCH ×2 (06:26→20:23)
[2018-11-04] MEDS: Amiodarone TAB* 200 MG PO SCH (08:39)
[2018-11-04] MEDS: Bumetanide IV* 0.25 MG/ML 4 ML VIAL SLOW PUSH SCH ×3 (08:39→23:12)
[2018-11-04] MEDS: Aspirin 81 mg CHEW TAB* 81 MG TAB.CHEW PO SCH (08:39)
[2018-11-04] MEDS: Insulin GLARGINE(*) 1 UNITS UNIT SUBCUT SCH (08:40)
[2018-11-04] MEDS: Cholestyramine Resin* 4 GM POWDER PO SCH ×2 (08:40→23:06)
[2018-11-04] MEDS: Pantoprazole IV* 40 MG IV SCH (08:41)
[2018-11-04] MEDS: Morphine 4 MG/ML VIAL (1 ml) 4 MG/ML VIAL IV PRN (13:41)
[2018-11-04] MEDS ORDERED: Metolazone TAB* 5 MG PO ONE (13:50)
--- NOTE | 2018-11-04 13:57 | PN ---
Progress Note - Progress Note Date of Service: 11/04/18 Note: Progress Note -- Critical Care 24 hour events/significant events: -intubated; awake; no distress -can close eyes, knods slightly, more following of upper ext commands, wiggles toes -no distress noted; calm -Afib+ -edema+ -on heparin IV -afebrile Tele: afib Vitals: Vital Signs Temp 97.6 F 11/04/18 07:56 Pulse 102 11/04/18 06:15 Resp 44 11/04/18 13:41 BP 129/60 11/04/18 06:01 Pulse Ox 96 11/04/18 06:15 Intake & Output 11/03/18 11/04/18 11/04/18 18:59 06:59 18:59 Intake Total 1011 730 Output Total 1000 825 Balance 11 -95 Intake: IV Fluids 68 160 NS (0.9%) 68 160 IVPB 104 Mag 104 Medicated IV 260 570 Heparin 260 570 Tube Feeding 439 Tube Feeding Flush Amount 140 Output: Reynolds 1000 825 O2/Vent: 14/450/+5/40% AC Infusions: heparin IV Medications: Albuterol/Ipratropium (Duoneb (Albuterol 2.5 Mg/Ipratropium 0.5 Mg)) 1 neb INH Q4H PRN PRN Reason: SOB/WHEEZING Last Admin: 10/31/18 14:29 Dose: 1 neb Amiodarone HCl (Cordarone Tab*) 200 mg PO DAILY [facility] Last Admin: 11/04/18 08:39 Dose: 200 mg Aspirin (Aspirin 81 Mg Chew Tab*) 81 mg PO DAILY [facility] Last Admin: 11/04/18 08:39 Dose: 81 mg Bumetanide (Bumex*) 2 mg SLOW PUSH BID [facility] Last Admin: 11/04/18 08:39 Dose: 2 mg Chlorhexidine Gluconate (Peridex Mouth Wash 0.12%*) 15 ml TOPICAL Q4H [facility] Last Admin: 11/04/18 12:50 Dose: 15 ml Cholestyramine Resin (Questran*) 4 gm PO BID [facility] Last Admin: 11/04/18 08:40 Dose: 4 gm Heparin Sodium (Porcine) (Heparin Vial(*)) 0 units IV .PER PROTOCOL [facility] Last Admin: 11/03/18 15:07 Dose: 2,450 units Hydrocortisone (Hytone Cream 1%*) 1 applic TOPICAL TID PRN PRN Reason: RECTAL PAIN Last Admin: 11/03/18 00:10 Dose: 1 applic Heparin Sodium/Dextrose (Heparin Drip 25,000 Units(*)) 25,000 units in 500 mls @ 0 mls/hr IV PER RATE [facility]; Protocol Last Admin: 11/04/18 06:26 Dose: 36 mls/hr Insulin Glargine (Lantus(*)) 10 units SUBCUT Q24H [facility] Last Admin: 11/04/18 08:40 Dose: 10 units Insulin Human Lispro (Humalog*) 0 units SUBCUT FS Q6 ICU [facility]; Protocol Last Admin: 11/04/18 12:49 Dose: 1 units Metoprolol Tartrate (Lopressor Iv*) 5 mg IV Q4H PRN PRN Reason: HR>120 Last Admin: 11/02/18 15:45 Dose: 5 mg Metoprolol Tartrate (Lopressor Tab*) 50 mg PO Q8H [facility] Last Admin: 11/04/18 08:52 Dose: 50 mg Morphine Sulfate (Morphine 4 Mg/Ml Vial (1 Ml)) 2 mg IV Q8H PRN PRN Reason: abd pain Last Admin: 11/04/18 13:41 Dose: 2 mg Pantoprazole Sodium (Protonix Iv*) 40 mg IV DAILY [facility] Last Admin: 11/04/18 08:41 Dose: 40 mg Phenyleph/Shark Oil/Min Oil/Petrol (Preparation H*) 1 applic TOPICAL TID PRN PRN Reason: PAIN Last Admin: 10/27/18 14:29 Dose: 1 applic Physical Exam: Constitutional: obese, intubated, awake, no apparent distress, no diaphoresis Head: normocephalic, atraumatic Eyes: no pallor, no icterus ENT: moist mucous membranes Neck: soft, supple, no jvd CVS: tachy+, irregular, no murmur Resp: bilateral air entry, no RRW, no acc muscle use Abdomen/GI: soft, nontender, nondistended, BS+ Ext/Msk: warm, Left LE AKA+, no edema Skin: intact, warm Neuro: cough+/gag+, pupils reactive bialterally, eyes open, can knod/close eyes/ wiggle toes slightly, able to follow more upper ext commands but weak; some sponteous movments Labs: Laboratory Results - last 24 hr 11/03/18 11/03/18 11/03/18 13:35 17:34 21:05 WBC RBC Hgb Hct MCV MCH MCHC RDW Plt Count MPV APTT 47.5 H 63.6 H Sodium Potassium Chloride Carbon Dioxide Anion Gap BUN Creatinine Est GFR ( Amer) Est GFR (Non-Af Amer) BUN/Creatinine Ratio Glucose POC Glucose (mg/dL) 232 H Calcium Phosphorus Magnesium TSH 11/03/18 11/04/18 11/04/18 23:53 04:10 04:10 WBC RBC Hgb Hct MCV MCH MCHC RDW Plt Count MPV APTT 66.2 H Sodium 136 Potassium 4.1 Chloride 108 Carbon Dioxide 23 Anion Gap 5 BUN 23 Creatinine 0.66 Est GFR ( Amer) 108.4 Est GFR (Non-Af Amer) 89.6 BUN/Creatinine Ratio 34.8 H Glucose 173 H POC Glucose (mg/dL) 259 H Calcium 8.1 L Phosphorus 2.8 Magnesium 2.0 TSH 1.88 11/04/18 11/04/18 04:10 06:20 WBC 24.0 H RBC 3.93 Hgb 7.8 L Hct 27 L MCV 70 L MCH 20 L MCHC 29 L RDW 31 H Plt Count 430 MPV 9.1 APTT Sodium Potassium Chloride Carbon Dioxide Anion Gap BUN Creatinine Est GFR ( Amer) Est GFR (Non-Af Amer) BUN/Creatinine Ratio Glucose POC Glucose (mg/dL) 352 H Calcium Phosphorus Magnesium TSH Imaging: cxr 10/27 - pulm edema on report cxr 10/29 - improved edema cxr 10/31 - ett above teri; increased Right basal markings; official read with findings of incr congestion cxr 11/01 - unchanged, small basal effusion on left cxr 11/02 - possible consolidation or effusion or congeestion at bases carotid duplex 11/02 - 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 Initial workup demonstrated thickened stomach and intenstines consistent with possible gastroenteritis. She demonstrated elevated WBC, LA on admission with these findings. She was started on IV pressors. She was also found to have DKA and treated with IV insulin. Suspicion for possible underlying ischemic colitis vs infectious was present. She eventually stabilized. Kept on Amiodarone and BB for Afib rate control. Subsequent hypoxia worsening and intubated 10/24, with new onset fevers. 10/25 with new LLE DVT, started on IV heparin. 10/26 Bronchoscopy for LLL atelectasis and plugging. -Gastroenteritis -GI bleed -DKA? -Shock, mixed hypovolemic / septic; resolved -acute LV systolic dysfxn -Acute hypoxic respiratory failure -Pulmonary Edema vs pneumonia -New Onset Afib -MICHAEL -Metabolic acidosis -Bilateral renal masses -New Left LE DVT -encephalopathy; possible new left parietal subacute/chronic CVA Plan: Neuro- -awake; alert starting to moving more it appears ; can knod, close eyes and moves upper ext spontaneously only, but does some gripping lightly; wiggle right foot; can lift head slightly but will not lift head off pillow when asked no sedation has been on board in days or narcotics; limited narcotics even further -CT brain reviewed; subacute/chronic left parietal infarct? no prior imaging to compare to -so far unable to obtain infor on stents for MRI, may likely not be able to perform -EEG reviewed; diffuse slowly; multifactorial effect from meds or metabolic -ammonia normal -tsh normal -Carotid duplex reviewed as above -neuro consult reviewed -in Afib; possible source of CVA; currently on IV heparin infusion -neurochecks; asp prec CVS- -BP stable -Afib; cont amio 200mg po daily; metoprolol 50mg q8h; IV lopressor 5mg q4hprn -start lisinopril 5mg daily; BP 120-130s; off imdur/norvasc -Incr bumex 2mg IV TID; good urine output noted -IV heparin for Afib and new LLE DVT AC Resp- -remains intubated; on 40% fio2 -some imrpovement in neuro status but very slow; will trial CPAP today -consideration that if she has improvement but enough to maintain airway and shows strength we may trial extubation and see how she does knowing she is slowly improving -currently on cpap, re-eval in PM, else will consider trial of extubation tomorrow -CXR 11/02 with some increase markings; possible pulm congestion (unchanged) -no sig secretions from ETT being suctioned -discussed with family ; if by weekends end, no further improvement enough to extubate, then are willing and okay to trach patient and wait out improvmeent in encephalopathy, along with PEG placement -VAP bundle; asp prec; bronchodilators PRN -wean fio2 to keep sat>92% ID- afebrile. wbc 28-23-31- 27-24-28-24 -CXR suspected congestion, r/o new infiltrate 11/02 -sputum cx neg 10/26, blood cx 10/22 neg, stool cultures neg 10/22. c.diff neg -IV abx off; no clear infectious etiology noted anywhere GI- -NGT with Promote w/o fiber ; tolerating -stool slightly more formed now -rectal tube present -cont cholestyramine for bile acid binding -no further bleeding noted; unclear source but likely not large; PPI IV daily, reassess -GI proph Renal- MICHAEL; may be hypoxia/shock; recent contrast for CTs also given, potential GERTRUDIS also -nonoliguric ATN resolved -making urine; goal neg balance -Incr bumex 2mg IV TID -metolazone 5mg PO x1 dose -BMP and Mg level tonight repeat at 8pm -reynolds+ Heme- anemia; hg 8s; no further bleeding noted; cont to monitor -plt okay -noted new Left LE DVT; on IV heparin -Afib; on IV heparin - ASA 81mg daily -DVT porph with SCD and Heparin Endo-Maintain BG<200, insulin protocol as needed Musculsk- pressure ulcer prophylaxis. Bedrest. Wounds- none; noted older Left AKA site Nutrition- Promote NGT feeds ongoing DVT prophylaxis: SCD and Heparin GI prophylaxis: PPI Central Line: Right PICC Arterial Line: no Reynolds Cathetor: yes Disposition: Patient requires Critical Care/ICU for acute hypoxic respiratory failure, MICHAEL ?? possibel MRI if able; discussion with family about trach had, plan for trach next week if not ipmroved; CPAP trial and potential extubation trial Patient clinical status: guarded, critical Code Status: full code Total Critical Care time is 35 minutes, excluding procedures/teaching Stephon Quijano MD Last Trimmer (Electronically Signed)
[2018-11-04] MEDS: Lisinopril TAB* 5 MG PO SCH (15:20)
[2018-11-04 23:48] LABS: BUN/Creatinine Ratio 36.4 (8-20); Calcium 8.1 mg/dL (8.6-10.3); EGFR African American 108.4 (>60); EGFR Non-African American 89.6 (>60); Magnesium 1.8 mg/dL (1.9-2.7); Potassium 3.6 mmol/L (3.5-5.0)
[2018-11-05] MEDS: Insulin LISPRO* 1 UNITS UNIT SUBCUT SCH ×4 (00:23→17:57)
[2018-11-05] MEDS: Chlorhexidine MOUTHWASH 0.12%* 15 ML UDC TOPICAL SCH ×6 (00:24→20:18)
[2018-11-05] MEDS ORDERED: Potassium Chloride LIQUID* 20 MEQ PACKET G TUBE ONE (01:00)
[2018-11-05] MEDS ORDERED: KCL 20 MEQ/100 ML IVPREMIX* 20 MEQ/100 ML BAG IV ONE (01:00)
[2018-11-05] MEDS ORDERED: Magnesium Sulfate 2 GM IV (Premix) IVPB ONE (03:00)
[2018-11-05] MEDS: Metoprolol Tartrate TAB* 50 mg PO SCH ×5 (03:03→17:58)
[2018-11-05] MEDS ORDERED: Potassium Chloride LIQUID* 20 MEQ PACKET PO ONE (03:17)
[2018-11-05] MEDS: Heparin DRIP 25,000 UNITS(*) 25,000 UNITS/500 ML BAG IV SCH ×2 (05:48→19:22)
[2018-11-05] MEDS: Bumetanide IV* 0.25 MG/ML 4 ML VIAL SLOW PUSH SCH ×3 (06:19→22:39)
[2018-11-05 06:36] LABS: Hematocrit 27 % (33-41); Hemoglobin 7.9 g/dL (12.0-16.0); Mean Corpuscular HGB Conc 30 g/dL (31-36); Mean Corpuscular Hemoglobin 21 pg (27-31); Mean Corpuscular Volume 70 fL (80-97); Mean Platelet Volume 9.6 fL (7.4-10.4); Platelet Count 487 10^3/uL (150-450); Red Blood Count 3.85 10^6 /uL (3.70-4.87); Red Cell Distribution Width 33 % (10.5-15); White Blood Count 20.3 10^3/uL (3.5-10.8)
[2018-11-05 06:51] LABS: BUN/Creatinine Ratio 35.8 (8-20); Calcium 8.3 mg/dL (8.6-10.3); EGFR African American 106.6 (>60); EGFR Non-African American 88.1 (>60); Potassium 4.5 mmol/L (3.5-5.0)
[2018-11-05] MEDS ORDERED: Midazolam* 1 MG/ML 2 ML VIAL (2 MG) ONE (08:23)
[2018-11-05] MEDS: Insulin GLARGINE(*) 1 UNITS UNIT SUBCUT SCH ×2 (10:28→18:16)
[2018-11-05] MEDS: Lisinopril TAB* 5 MG PO SCH (10:29)
[2018-11-05] MEDS: Aspirin 81 mg CHEW TAB* 81 MG TAB.CHEW PO SCH (10:29)
[2018-11-05] MEDS: Amiodarone TAB* 200 MG PO SCH (10:29)
[2018-11-05] MEDS: Pantoprazole IV* 40 MG IV SCH (10:29)
[2018-11-05] MEDS: Cholestyramine Resin* 4 GM POWDER PO SCH ×2 (10:30→20:18)
[2018-11-05] MEDS: Morphine 4 MG/ML VIAL (1 ml) 4 MG/ML VIAL IV PRN (11:38)
--- NOTE | 2018-11-05 16:30 | PN ---
Date of Service: 11/05/18 - [facility] note Critical Care Services: Pt seen and examined at bedside. Chart reviewed Plan of care discussed with care team Labs, meds, vitals reviewed Active Medications Generic Name Dose Route Start Last Admin Trade Name Freq PRN Reason Stop Dose Admin Albuterol/Ipratropium 1 neb 10/28/18 08:47 10/31/18 14:29 Duoneb (Albuterol 2.5 Mg/Ipratropium 0.5 Mg) INH 1 neb Q4H PRN Administration SOB/WHEEZING Amiodarone HCl 200 mg 10/24/18 14:00 11/05/18 10:29 Cordarone Tab* PO 200 mg DAILY [facility] Administration Aspirin 81 mg 11/03/18 16:00 11/05/18 10:29 Aspirin 81 Mg Chew Tab* PO 81 mg DAILY [facility] Administration Bumetanide 2 mg 11/04/18 14:00 11/05/18 15:24 Bumex* SLOW PUSH 2 mg Q8H [facility] Administration Chlorhexidine Gluconate 15 ml 10/24/18 05:00 11/05/18 15:24 Peridex Mouth Wash 0.12%* TOPICAL 15 ml Q4H [facility] Administration Cholestyramine Resin 4 gm 10/23/18 21:00 11/05/18 10:30 Questran* PO 4 gm BID [facility] Administration Heparin Sodium (Porcine) 0 units 10/25/18 12:00 11/03/18 15:07 Heparin Vial(*) IV 2,450 units .PER PROTOCOL [facility] Administration Hydrocortisone 1 applic 10/23/18 11:28 11/03/18 00:10 Hytone Cream 1%* TOPICAL 1 applic TID PRN Administration RECTAL PAIN Heparin Sodium/Dextrose 25,000 units in 500 mls @ 0 mls/hr 10/25/18 11:15 07/14 05:48 Heparin Drip 25,000 Units(*) IV 36 mls/hr PER RATE [facility] Administration Protocol Per Protocol Insulin Glargine 10 units 11/03/18 09:00 11/05/18 10:28 Lantus(*) SUBCUT 10 units Q24H [facility] Administration Insulin Human Lispro 0 units 10/31/18 06:00 11/05/18 12:33 Humalog* SUBCUT 6 units FS Q6 ICU [facility] Administration Protocol Lisinopril 5 mg 11/04/18 14:00 11/05/18 10:29 Prinivil Tab* PO 5 mg DAILY [facility] Administration Metoprolol Tartrate 5 mg 10/23/18 12:31 11/02/18 15:45 Lopressor Iv* IV 5 mg Q4H PRN Administration HR>120 Metoprolol Tartrate 50 mg 11/02/18 10:00 11/05/18 12:34 Lopressor Tab* PO 50 mg Q8H [facility] Administration Morphine Sulfate 2 mg 11/03/18 15:36 11/05/18 11:38 Morphine 4 Mg/Ml Vial (1 Ml) IV 2 mg Q8H PRN Administration abd pain Pantoprazole Sodium 40 mg 10/31/18 09:00 11/05/18 10:29 Protonix Iv* IV 40 mg DAILY [facility] Administration Phenyleph/Shark Oil/Min Oil/Petrol 1 applic 10/23/18 11:27 10/27/18 14:29 Preparation H* TOPICAL 1 applic TID PRN Administration PAIN Vital Signs: Temp Pulse Resp BP SpO2 FiO2 99.3 F 110 28 106/50 97 40 11/05/18 14:31 11/05/18 14:31 11/05/18 11:38 11/05/18 14:31 11/05/18 14:31 11/05 08:00 Physical Exam: Gen: Pt in NAD HEENT: ETT+ Lungs: Decreased air entry at bases, had air leak this am, ETT was changed Cardiac: S1, S2+ , irregular Abdomen: Soft, BS+ Extremities:Lt AKA+ Neuro: Opens eyes to stimuli, nods head, wiggles toes Skin: Excoriated area near sacrum Fluid Balance (Past 24 Hours): I= 2503 O= 3275 Net -772 Intake & Output 11/03/18 11/04/18 11/05/18 11/06/18 06:59 06:59 06:59 06:59 Intake Total 1099 1741 2503 Output Total 1587 1825 3275 1065 Balance -488 -84 -772 -1065 Weight 205 lb 7.533 oz 205 lb 0.478 oz Intake: IV Fluids 237 228 362 NS (0.9%) 237 228 362 IVPB 104 Mag 104 Medicated IV 732 830 846 Heparin 732 830 846 Heparin 114 Oral 0 0 Tube Feeding 439 1001 Tube Feeding Flush Amount 130 140 180 NG Tube Irrigate Amount 0 Output: Urine 300 Reynolds 1587 1825 2975 1065 Tube Feeding Residual 0 Amount Wasted Other: Date of Last Bowel 11/05/18 Movement Estimated Stool Amount Medium Labs: Laboratory Results - last 24 hr 11/04/18 11/04/18 11/05/18 18:39 23:25 00:13 WBC RBC Hgb Hct MCV MCH MCHC RDW Plt Count MPV APTT Sodium 139 Potassium 3.6 Chloride 108 Carbon Dioxide 25 Anion Gap 6 BUN 24 Creatinine 0.66 Est GFR ( Amer) 108.4 Est GFR (Non-Af Amer) 89.6 BUN/Creatinine Ratio 36.4 H Glucose 235 H POC Glucose (mg/dL) 238 H 275 H Calcium 8.1 L Magnesium 1.8 L 11/05/18 11/05/18 11/05/18 06:00 06:00 06:00 WBC 20.3 H RBC 3.85 Hgb 7.9 L Hct 27 L MCV 70 L MCH 21 L MCHC 30 L RDW 33 H Plt Count 487 H D MPV 9.6 APTT 68.5 H Sodium 139 Potassium 4.5 Chloride 107 Carbon Dioxide 26 Anion Gap 6 BUN 24 Creatinine 0.67 Est GFR ( Amer) 106.6 Est GFR (Non-Af Amer) 88.1 BUN/Creatinine Ratio 35.8 H Glucose 289 H POC Glucose (mg/dL) Calcium 8.3 L Magnesium 11/05/18 06:06 WBC RBC Hgb Hct MCV MCH MCHC RDW Plt Count MPV APTT Sodium Potassium Chloride Carbon Dioxide Anion Gap BUN Creatinine Est GFR ( Amer) Est GFR (Non-Af Amer) BUN/Creatinine Ratio Glucose POC Glucose (mg/dL) 312 H Calcium Magnesium Studies: CXR: ETT above teri, was withdrawn by 2 cm, b/l small effusions Nutrition: Tube feeds Impression: 67y F w/pmhx of CAD/STEMI, anemia, DM, PVD with Left AKA (old), Chronic LV systolic dysfunction, h/o bradycardia, h/o DVT in past off warfarin now; presented to ER 10/01 with abd pain, diarrhea, noted to be hypoxic, hyperglycemic and in new onset Afib. Initial workup demonstrated thickened stomach and intenstines consistent with possible gastroenteritis. She demonstrated elevated WBC, LA on admission with these findings. She was started on IV pressors. She was also found to have DKA and treated with IV insulin. Was on Amiodarone and BB for Afib rate control. Subsequently hypoxia worsened, intubated 10/24, new onset fevers 10/25 with new LLE DVT, started on IV heparin. 10/26 Bronchoscopy for LLL atelectasis and plugging. -Gastroenteritis -GI bleed- Stable -DKA? -Shock, mixed hypovolemic / septic; resolved -acute LV systolic dysfxn -Acute hypoxic respiratory failure -Pulmonary Edema vs pneumonia -New Onset Afib- Rate controlled -MICHAEL- improving -Metabolic acidosis -Bilateral renal masses -New Left LE DVT -encephalopathy; possible new left parietal subacute/chronic CVA- improving Plan: Neuro- -Awake; alert, slightly more responsive no sedation has been on board in days or narcotics; limited narcotics even further -CT brain reviewed; subacute/chronic left parietal infarct -Unable to obtain info on stents, MRI could not be performed -EEG reviewed; diffuse slowly; multifactorial effect from meds or metabolic -ammonia normal -neuro f/u noted - Afib; possible source of CVA; currently on IV heparin infusion -neurochecks; asp prec CVS- -BP stable -Afib; cont amio 200mg po daily; metoprolol 50mg q8h; IV lopressor 5mg q4hprn -c/w lisinopril 5mg daily; off imdur/norvasc -Bumex 2mg IV TID, prn; good urine output noted -IV heparin for Afib and new LLE DVT on anticoagulation Resp- -remains intubated; on 40% fio2 -Changed ETT sec to leak this leak -Might need tracheotomy -CXR 11/05 small effusions b/l; possible pulm congestion (unchanged) -no sig secretions from ETT being suctioned -If no further improvement enough to extubate, then are willing and okay to trach patient -VAP bundle; asp prec; bronchodilators PRN -wean fio2 to keep sat>92% ID- Low grade fever -sputum cx neg 10/26, blood cx 10/22 neg, stool cultures neg 10/22. c.diff neg -IV abx off; no clear infectious etiology noted anywhere -Rpt septic w/u if spikes GI- -NGT with Promote w/o fiber ; tolerating -stool slightly more formed now -rectal tube present -cont cholestyramine for bile acid binding -no further bleeding noted; unclear source but likely not large; PPI IV daily, reassess -GI proph Renal- MICHAEL; may be hypoxia/shock; recent contrast for CTs also given, potential GERTRUDIS also -nonoliguric ATN resolved -making urine; goal neg balance -Incr bumex 2mg IV TID -metolazone 5mg PO x1 dose -BMP and Mg level tonight repeat at 8pm -reynolds+ Heme- anemia; hg 8s; no further bleeding noted; cont to monitor -plt okay -New Left LE DVT; on IV heparin -Afib; on IV heparin - ASA 81mg daily -DVT porph with SCD and Heparin Endo-Maintain BG<200, insulin protocol as needed Musculsk- pressure ulcer prophylaxis. Wound care f/u noted. Bedrest. Wounds- Skin excoriation in sacrum, older Left AKA site Nutrition- Promote NGT feeds ongoing DVT prophylaxis: SCD and Heparin GI prophylaxis: PPI Central Line: Right PICC Arterial Line: no Reynolds Catheter: yes Disposition: Patient requires Critical Care/ICU for acute hypoxic respiratory failure, MICHAEL Updated family about clinical status, trach plan for trach next week if not ipmroved; CPAP trial and potential extubation trial over the weekend Patient clinical status: guarded, critical Code Status: Full code Total Critical Care time is 30 minutes, excluding procedures
[2018-11-06] MEDS: Insulin LISPRO* 1 UNITS UNIT SUBCUT SCH ×4 (00:44→18:30)
[2018-11-06] MEDS: Chlorhexidine MOUTHWASH 0.12%* 15 ML UDC TOPICAL SCH ×6 (00:47→22:44)
[2018-11-06] MEDS: Metoprolol Tartrate TAB* 50 mg PO SCH ×3 (05:12→18:20)
[2018-11-06] MEDS: Morphine 4 MG/ML VIAL (1 ml) 4 MG/ML VIAL IV PRN ×2 (05:13→20:03)
[2018-11-06] MEDS: Bumetanide IV* 0.25 MG/ML 4 ML VIAL SLOW PUSH SCH ×3 (05:59→22:45)
[2018-11-06 07:04] LABS: Hematocrit 27 % (33-41); Hemoglobin 7.9 g/dL (12.0-16.0); Mean Corpuscular HGB Conc 29 g/dL (31-36); Mean Corpuscular Hemoglobin 21 pg (27-31); Mean Corpuscular Volume 70 fL (80-97); Mean Platelet Volume 9.1 fL (7.4-10.4); Platelet Count 470 10^3/uL (150-450); Red Blood Count 3.84 10^6 /uL (3.70-4.87); Red Cell Distribution Width 35 % (10.5-15)
[2018-11-06 07:12] LABS: Calcium 8.2 mg/dL (8.6-10.3); EGFR African American 118.7 (>60); EGFR Non-African American 98.1 (>60); Potassium 3.2 mmol/L (3.5-5.0)
[2018-11-06] MEDS: Amiodarone TAB* 200 MG PO SCH (09:13)
[2018-11-06] MEDS: Lisinopril TAB* 5 MG PO SCH (09:13)
[2018-11-06] MEDS: Aspirin 81 mg CHEW TAB* 81 MG TAB.CHEW PO SCH (09:13)
[2018-11-06] MEDS: Cholestyramine Resin* 4 GM POWDER PO SCH ×2 (09:14→22:44)
[2018-11-06] MEDS: Pantoprazole IV* 40 MG IV SCH (09:14)
[2018-11-06] MEDS: Heparin DRIP 25,000 UNITS(*) 25,000 UNITS/500 ML BAG IV SCH (09:54)
[2018-11-06] MEDS: KCL 20 MEQ/100 ML IVPREMIX* 20 MEQ/100 ML BAG IV SCH ×2 (09:54→13:05)
[2018-11-06 09:56] LABS: Magnesium 1.7 mg/dL (1.9-2.7)
[2018-11-06] MEDS: Silver Sulfadiazine 1%* 85 GM TOPICAL SCH ×3 (10:30→22:45)
--- NOTE | 2018-11-06 10:31 | PN ---
Date of Service: 11/06/18 - [facility] note Critical Care Services: CAROL/ICU admission: 10/22/18 Reason for admission: Severe sepsis sec to GI source, DKA, devp resp failure and new onset A.fib in less than 24 hrs Intubation: 10/24 10/25,new LLE DVT, started on IV heparin. 10/26 Bronchoscopy for LLL atelectasis and plugging. Pt seen and examined at bedside. Chart reviewed Plan of care discussed with care team Labs, meds, vitals reviewed No acute events o/n. Pt more alert and responsive Vital Signs: Temp Pulse Resp BP SpO2 FiO2 98.2 F 100 23 147/75 95 40 11/06/18 06:30 11/06/18 06:30 11/06/18 06:00 11/06/18 06:01 11/06/18 06:30 11/06 08:02 Physical Exam: Gen: Pt in NAD, alert, awake HEENT: ETT+ Lungs: Good a/e b/l, decreasd at bases Cardiac: S1, S2+, irregular Abdomen: Soft, BS+ Extremities: Lt AKA Neuro: Alert, awake, follows simple commands Skin: Excoriated area near sacrum Fluid Balance (Past 24 Hours): I=119 O= 655 Net -536 Intake & Output 11/04/18 11/05/18 11/06/18 11/07/18 06:59 06:59 06:59 06:59 Intake Total 1741 2503 1296 119 Output Total 1825 3275 3610 655 Balance -84 -772 -2314 -536 Weight 205 lb 0.478 oz 202 lb 2.622 oz Intake: IV Fluids 228 362 80 NS (0.9%) 228 362 80 IVPB 104 Mag 104 Medicated IV 830 846 590 Heparin 830 846 590 Heparin 114 186 119 Oral 0 Tube Feeding 439 1001 440 Tube Feeding Flush Amount 140 180 NG Tube Irrigate Amount 0 Output: Urine 300 210 Reynolds 1825 2975 3400 655 Tube Feeding Residual 0 Amount Wasted Other: Date of Last Bowel 11/05/18 Movement Estimated Stool Amount Medium Labs: Laboratory Results - last 24 hr 11/05/18 11/05/18 11/06/18 12:20 17:50 00:22 WBC RBC Hgb Hct MCV MCH MCHC RDW Plt Count MPV APTT Sodium Potassium Chloride Carbon Dioxide Anion Gap BUN Creatinine Est GFR ( Amer) Est GFR (Non-Af Amer) BUN/Creatinine Ratio Glucose POC Glucose (mg/dL) 279 H 215 H 212 H Calcium Magnesium 11/06/18 11/06/18 11/06/18 06:00 06:00 06:00 WBC 20.0 H RBC 3.84 Hgb 7.9 L Hct 27 L MCV 70 L MCH 21 L MCHC 29 L RDW 35 H Plt Count 470 H MPV 9.1 APTT 63.7 H Sodium 139 Potassium 3.2 L Chloride 103 Carbon Dioxide 29 Anion Gap 7 BUN 25 H Creatinine 0.61 Est GFR ( Amer) 118.7 Est GFR (Non-Af Amer) 98.1 BUN/Creatinine Ratio 41.0 H Glucose 193 H POC Glucose (mg/dL) Calcium 8.2 L Magnesium 1.7 L 11/06/18 06:18 WBC RBC Hgb Hct MCV MCH MCHC RDW Plt Count MPV APTT Sodium Potassium Chloride Carbon Dioxide Anion Gap BUN Creatinine Est GFR ( Amer) Est GFR (Non-Af Amer) BUN/Creatinine Ratio Glucose POC Glucose (mg/dL) 218 H Calcium Magnesium Studies: CXR 11/05/18 was reviewed- Small effusions b/l, ETT, OGT in place Nutrition: Tube feeds Impression: 67y F w/pmhx of CAD/STEMI, anemia, DM, PVD with Left AKA (old), Chronic LV systolic dysfunction, h/o bradycardia, h/o DVT in past off warfarin now; admitted with sepsis sec to infectious enteritis with septic shock requiring IV pressors, hypoxic resp failure requiring intubation, hyperglycemia/DKA-resolved , new onset Afib on Heparin 1. Septic shock resolved, off pressors 2. Acute resp failure s/p intubation 3. New onset A.fib 4. LLE DVT 5. Hyperglycemia/DM 6. Metabolic encephalopathy-Improving 7. Systolic CHF- Stable 8. Gastroenteritis-infectious with GI bleed, stable 9. possible new left parietal infarct versus subacute/chronic CVA- improving 10. Leucocytosis 11. Electrolyte abnormalities 12. MICHAEL resolved Plan: Neuro- -Awake; alert, mental status much improved no sedation requirement -CT brain reviewed; subacute/chronic left parietal infarct -Unable to obtain info on stents, MRI could not be performed -EEG- diffuse slowly; multifactorial from med effect or metabolic - Carotid duplex 50% stenosis on left side, for f/u as out pt with neuro regarding any need for intervention -neurochecks; asp prec -c/w ASA CVS- -BP stable -Afib; cont amio 200mg po daily; metoprolol 50mg q8h; IV Lopressor 5mg q4hprn -c/w lisinopril 5mg daily; off imdur/norvasc -Bumex 2mg IV TID, prn; good urine output noted -IV heparin for Afib and new LLE DVT Resp- -remains intubated; on 40% fio2 -Changed ETT 11/05 sec to leak -SBT trail today -Might need tracheotomy if fails SBT, ENT on board -CXR 11/05 small effusions b/l; possible pulm congestion (unchanged) -no sig secretions from ETT -VAP bundle; asp prec; bronchodilators PRN -wean fio2 to keep sat>92% ID- Afebrile, leucocytosis + trending down -sputum cx neg 10/26, blood cx 10/22 neg, stool cultures neg 10/22. c.diff neg -IV abx off; no clear infectious etiology noted anywhere -Rpt septic w/u if spikes GI- -NGT with Promote w/o fiber ; tolerating -stool more formed now -rectal tube present -cont cholestyramine for bile acid binding -no further bleeding noted -GI proph Renal- MICHAEL resolved -making urine; goal neg balance -c/w bumex 2mg IV TID -Monitor lytes -reynolds+ Heme- anemia; hg around 7.9 to 8s; no bleeding noted; cont to monitor, MCV low suggestive of Iron def. Will start Fe -New Left LE DVT, Afib on IV heparin, PTT at goal - ASA 81mg daily for CVA Endo-Maintain BG<200, insulin dose increased, will monitor q 6 hrs Musculsk- pressure ulcer prophylaxis. Order silver cream for area of eschar in back. Wound care f/u noted. Bedrest. Wounds- Skin excoriation in sacrum, older Left AKA site Nutrition- Promote NGT feeds ongoing DVT prophylaxis: SCD and Heparin GI prophylaxis: PPI Central Line: Right PICC Arterial Line: no Reynolds Catheter: yes Disposition: Patient requires Critical Care/ICU for acute hypoxic respiratory failure Critical Care Time: 30 min
[2018-11-06] MEDS ORDERED: Magnesium Sulfate 2 GM IV* 2 GM/50 ML BAG IVPB ONE (10:45)
[2018-11-06] MEDS: Ferrous Sulfate LIQ* 300 MG/5 ML UDC PO SCH ×2 (11:50→22:47)
[2018-11-06] MEDS: Insulin GLARGINE(*) 1 UNITS UNIT SUBCUT SCH (18:30)
[2018-11-07] MEDS: Insulin LISPRO* 1 UNITS UNIT SUBCUT SCH ×4 (00:22→17:56)
[2018-11-07] MEDS: Metoprolol Tartrate TAB* 50 mg PO SCH ×3 (02:19→17:56)
[2018-11-07] MEDS: Chlorhexidine MOUTHWASH 0.12%* 15 ML UDC TOPICAL SCH ×6 (02:19→20:54)
[2018-11-07] MEDS: Metoprolol Tartrate IV* 1 MG/ML 5 ML VIAL IV PRN ×4 (05:13→23:00)
[2018-11-07] MEDS: Bumetanide IV* 0.25 MG/ML 4 ML VIAL SLOW PUSH SCH (05:13)
[2018-11-07] MEDS: Pantoprazole IV* 40 MG IV SCH (07:49)
[2018-11-07] MEDS: Cholestyramine Resin* 4 GM POWDER PO SCH ×2 (07:50→20:54)
[2018-11-07] MEDS: Aspirin 81 mg CHEW TAB* 81 MG TAB.CHEW PO SCH (07:50)
[2018-11-07] MEDS: Amiodarone TAB* 200 MG PO SCH (07:50)
[2018-11-07] MEDS ORDERED: Magnesium Sulfate 2 GM IV* 2 GM/50 ML BAG IVPB ONE (07:55)
[2018-11-07] MEDS ORDERED: QUEtiapine TAB* 25 MG PO ONE (08:00)
--- NOTE | 2018-11-07 08:47 | PN ---
Date of Service: 11/07/18 - [facility] note Critical Care Services: CAROL/ICU admission: 10/22/18 Reason for admission: Severe sepsis sec to GI source, DKA, devp resp failure and new onset A.fib in less than 24 hrs Intubation: 10/24 10/25,new LLE DVT, started on IV heparin. 10/26 Bronchoscopy for LLL atelectasis and plugging. Pt seen and examined at bedside. Plan of care reviewed with ICU team Overnight events noted Pt with low grade fever. Has not had any sleep last night. Is slow to respond, follows simple commands. Tolerated spontaneous breathing trial yesterday for 7 hrs, was on full support last night Having blood mixed with liquid stool in stool bag Having cloudy urine. Has been having episodes of tachycardia, HR is irregular Active Medications Generic Name Dose Route Start Last Admin Trade Name Freq PRN Reason Stop Dose Admin Albuterol/Ipratropium 1 neb 10/28/18 08:47 10/31/18 14:29 Duoneb (Albuterol 2.5 Mg/Ipratropium 0.5 Mg) INH 1 neb Q4H PRN Administration SOB/WHEEZING Amiodarone HCl 200 mg 11/08/18 07:30 Cordarone Tab* PO DAILY@0730 CATRACHITA Aspirin 81 mg 11/03/18 16:00 11/07/18 07:50 Aspirin 81 Mg Chew Tab* PO 81 mg DAILY CATRACHITA Administration Bumetanide 2 mg 11/07/18 09:00 Bumex* SLOW PUSH DAILY CATRACHITA Chlorhexidine Gluconate 15 ml 10/24/18 05:00 11/07/18 07:50 Peridex Mouth Wash 0.12%* TOPICAL 15 ml Q4H CATRACHITA Administration Cholestyramine Resin 4 gm 10/23/18 21:00 11/07/18 07:50 Questran* PO 4 gm BID CATRACHITA Administration Ferrous Sulfate 300 mg 11/06/18 12:00 11/06/18 22:47 Feosol Liq* PO 300 mg BID CATRACHITA Administration Heparin Sodium (Porcine) 0 units 10/25/18 12:00 11/03/18 15:07 Heparin Vial(*) IV 2,450 units .PER PROTOCOL CATRACHITA Administration Hydrocortisone 1 applic 10/23/18 11:28 11/03/18 00:10 Hytone Cream 1%* TOPICAL 1 applic TID PRN Administration RECTAL PAIN Heparin Sodium/Dextrose 25,000 units in 500 mls @ 0 mls/hr 10/25/18 11:15 09:54 Heparin Drip 25,000 Units(*) IV 36 mls/hr PER RATE CATRACHITA Administration Protocol Per Protocol Magnesium Sulfate 2 gm in 50 mls @ 50 mls/hr 11/07/18 07:55 Magnesium Sulfate 2 Gm Iv* IVPB 11/07/18 08:54 ONCE ONE Potassium Chloride 20 meq in 100 mls @ 50 mls/hr 11/07/18 08:00 Potassium Chloride 20 Meq/100 Ml Ivpremix* IV 11/07/18 11:59 Q2H CATRACHITA Insulin Glargine 20 units 11/07/18 08:00 Lantus(*) SUBCUT Q24H CATRACHITA Insulin Human Lispro 0 units 10/31/18 06:00 11/07/18 06:21 Humalog* SUBCUT 6 units FS Q6 ICU CATRACHITA Administration Protocol Lisinopril 5 mg 11/04/18 14:00 11/06/18 09:13 Prinivil Tab* PO 5 mg DAILY CATRACHITA Administration Metoprolol Tartrate 5 mg 10/23/18 12:31 11/07/18 07:50 Lopressor Iv* IV 5 mg Q4H PRN Administration HR>120 Metoprolol Tartrate 50 mg 11/02/18 10:00 11/07/18 02:19 Lopressor Tab* PO 50 mg Q8H CATRACHITA Administration Pantoprazole Sodium 40 mg 10/31/18 09:00 11/07/18 07:49 Protonix Iv* IV 40 mg DAILY CATRACHITA Administration Phenyleph/Shark Oil/Min Oil/Petrol 1 applic 10/23/18 11:27 10/27/18 14:29 Preparation H* TOPICAL 1 applic TID PRN Administration PAIN Quetiapine Fumarate 12.5 mg 11/07/18 21:00 Seroquel Tab* PO BEDTIME CATRACHITA Silver Sulfadiazine 1 applic 11/07/18 09:00 Silvadine 1%* TOPICAL BID CATRACHITA Vital Signs: Temp Pulse Resp BP SpO2 FiO2 99.7 F 115 28 119/78 95 45 11/07/18 06:01 11/07/18 06:01 11/07/18 06:00 11/07/18 06:01 11/07/18 06:01 11/07 07:49 Physical Exam: Gen: Pt is alert, awake HEENT: PERRLA, ETT+ Lungs: Diminished air entry at bases Cardiac: S1, S2+, irregular Abdomen: Soft, BS+, rectal bag with liquid blood mixed stool Extremities: Trace edema+ Neuro: Alert, awake, follows simple commands Fluid Balance (Past 24 Hours): I= 4288 O= 6560 Net -2272 Intake & Output 11/05/18 11/06/18 11/07/18 11/08/18 06:59 06:59 06:59 06:59 Intake Total 2503 1296 4288 Output Total 3275 3610 6560 Balance -578 -7352 -9135 Weight 205 lb 0.478 oz 202 lb 2.622 oz 195 lb 1.745 oz Intake: IV Fluids 362 80 194 NS (0.9%) 362 80 194 IVPB 284 NS (0.9%) 284 Medicated IV 846 590 813 Heparin 846 590 813 Heparin 114 186 197 Oral 0 0 Tube Feeding 1651 826 3099 Tube Feeding Flush Amount 180 170 NG Tube Irrigate Amount 0 0 Output: Urine 300 210 Reynolds 2975 3400 3660 Liquid Stool 2900 Tube Feeding Residual 0 0 Amount Wasted Other: Date of Last Bowel 11/05/18 Movement Estimated Stool Amount Medium Labs: Laboratory Results - last 24 hr 11/06/18 11/06/18 11/06/18 06:00 11:56 18:02 APTT Sodium 139 Potassium 3.2 L Chloride 103 Carbon Dioxide 29 Anion Gap 7 BUN 25 H Creatinine 0.61 Est GFR ( Amer) 118.7 Est GFR (Non-Af Amer) 98.1 BUN/Creatinine Ratio 41.0 H Glucose 193 H POC Glucose (mg/dL) 313 H 231 H Calcium 8.2 L Magnesium 1.7 L 11/07/18 11/07/18 11/07/18 00:04 05:40 06:12 APTT 65.9 H Sodium Potassium Chloride Carbon Dioxide Anion Gap BUN Creatinine Est GFR ( Amer) Est GFR (Non-Af Amer) BUN/Creatinine Ratio Glucose POC Glucose (mg/dL) 211 H 295 H Calcium Magnesium Studies: No new studies Nutrition: Tube feeds Impression: 1. Delirium 2. Acute resp failure s/p intubation 3. New onset A.fib 4. LLE DVT 5. Hyperglycemia/DM 6. Metabolic encephalopathy-Improving 7. Systolic CHF- Stable 8. Gastroenteritis-infectious with GI bleed, blood stained diarrhea 11/06 9. possible new left parietal infarct versus subacute/chronic CVA- improving 10. Septic shock resolved, off pressors 11. Electrolyte abnormalities 12. MICHAEL resolved Plan: Neuro- -Awake; alert, hypervigilant, concern for ICU delirium Will start Seroquel at night, minimize interruptions, non-pharmacologic management for delirium -CT brain - subacute/chronic left parietal infarct -Unable to obtain info on stents, MRI could not be performed -EEG- diffuse slowly; multifactorial from med effect or metabolic - Carotid duplex 50% stenosis on left side, for f/u as out pt with neuro regarding any need for intervention -neurochecks; asp prec -c/w ASA, heparin CVS- -BP stable, tachycardia intermittent -Afib; cont amio 200mg po daily; metoprolol 50mg q8h; IV Lopressor 5mg q4hprn -c/w lisinopril 5mg daily; off imdur/norvasc -Bumex 2mg IV daily, prn; good urine output noted -IV heparin for Afib and new LLE DVT Resp- -remains intubated; on 40% fio2 -Changed ETT 11/05 sec to leak -SBT trail today, tolerated for 7hrs yesterday -Might need tracheotomy if fails SBT, ENT on board -CXR 11/05 small effusions b/l -no sig secretions from ETT -VAP bundle; asp prec; bronchodilators PRN -wean fio2 to keep sat>92% ID- Low grade fever, leucocytosis + trending down -sputum cx neg 10/26, blood cx 10/22 neg, stool cultures neg 10/22. c.diff neg -Completed IV abx; no clear infectious etiology noted anywhere -Will obtain UA -Rpt septic w/u if spikes GI- -NGT with Promote w/o fiber ; tolerating -Still with liquid stool, mixed with small amounts of blood, has h/o hemorrhoids - Will c/w Heparin, will trend H&H closely and stop if bleeding continues -rectal tube present -cont cholestyramine for bile acid binding -GI proph Renal- MICHAEL resolved -making urine; neg balance -changed bumex 2mg IV daily -Monitor lytes -reynolds+ Heme- anemia; hg around 7.9; ? GI bleed; cont to monitor closely given pt on heparin, MCV low suggestive of Iron def. c/w Fe -New Left LE DVT, Afib on IV heparin, PTT at goal, will continue with heparin unless GI bleed is concerning - ASA 81mg daily for CVA Endo-Maintain BG<200, insulin dose increased, will monitor q 6 hrs Musculsk- pressure ulcer prophylaxis. a/w silver cream for area of eschar in back. Wound care f/u. Bedrest. Wounds- Skin excoriation in sacrum, older Left AKA site Nutrition- Promote OGT feeds ongoing DVT prophylaxis: SCD and Heparin GI prophylaxis: PPI Central Line: Right PICC Arterial Line: no Reynolds Catheter: yes Disposition: Patient requires Critical Care/ICU for acute hypoxic respiratory failure Critical Care Time: 30 min
[2018-11-07] MEDS ORDERED: Bumetanide IV* 0.25 MG/ML 4 ML VIAL SLOW PUSH SCH (09:00)
[2018-11-07] MEDS: KCL 20 MEQ/100 ML IVPREMIX* 20 MEQ/100 ML BAG IV SCH ×2 (09:13→11:51)
[2018-11-07] MEDS: Insulin GLARGINE(*) 1 UNITS UNIT SUBCUT SCH (09:13)
[2018-11-07] MEDS: Ferrous Sulfate LIQ* 300 MG/5 ML UDC PO SCH ×2 (09:14→20:54)
[2018-11-07] MEDS: Lisinopril TAB* 5 MG PO SCH (09:50)
[2018-11-07] MEDS: Silver Sulfadiazine 1%* 85 GM TOPICAL SCH ×2 (09:51→20:55)
[2018-11-07 11:08] LABS: Urine Appearance Cloudy; Urine Bacteria 3+ (Absent); Urine Bilirubin Negative (Negative); Urine Blood 1+ (Negative); Urine Color Yellow; Urine Glucose Negative (Negative); Urine Ketones Negative (Negative); Urine Nitrite Positive (Negative); Urine Protein Negative (Negative); Urine Red Blood Cell Absent (Absent); Urine Specific Gravity 1.011 (1.010-1.030); Urine Squamous Epithelial Cell Present (Absent); Urine Urobilinogen Negative (Negative); Urine White Blood Cell 3+(>20/hpf) (Absent)
[2018-11-07] MEDS: cefTRIAXone(*) 1 GM in NS 0.9% 50 ML* 50 ML IVPB SCH (11:58)
[2018-11-07] MEDS ORDERED: PHENobarbital SODIUM(*) 65 MG/ML VIAL IV ONE (12:12)
[2018-11-07] MEDS ORDERED: Acetaminophen ADULT LIQ* 650 MG/20.3 ML UDC PO PRN (13:55)
[2018-11-07] MEDS: Heparin DRIP 25,000 UNITS(*) 25,000 UNITS/500 ML BAG IV SCH (14:03)
[2018-11-07] MEDS ORDERED: Diltiazem IV* 5 MG/ML 5 ML VIAL (for loading dose/IV Push) (25 MG) IV SLOW PU ONE (15:01)
[2018-11-07 15:44] LABS: Hematocrit 29 % (33-41); Hemoglobin 8.5 g/dL (12.0-16.0); Mean Corpuscular HGB Conc 30 g/dL (31-36); Mean Corpuscular Hemoglobin 21 pg (27-31); Mean Corpuscular Volume 70 fL (80-97); Platelet Count 580 10^3/uL (150-450); Red Blood Count 4.14 10^6 /uL (3.70-4.87); Red Cell Distribution Width 35 % (10.5-15); White Blood Count 35.8 10^3/uL (3.5-10.8)
[2018-11-07 15:51] LABS: BUN/Creatinine Ratio 33.8 (8-20); Calcium 8.4 mg/dL (8.6-10.3); EGFR African American 90.8 (>60); Magnesium 2.5 mg/dL (1.9-2.7); Phosphorus 6.1 mg/dL (2.5-5.0); Potassium 4.3 mmol/L (3.5-5.0)
[2018-11-07] MEDS ORDERED: Diltiazem IV* 5 MG/ML 5 ML VIAL (for loading dose/IV Push) (25 MG) IV SLOW PU PRN (16:27)
[2018-11-07 16:44] LABS: Immature Granulocytes 6 % (0-9); Lymphocytes % 2 %; Monocytes % 2 %; Neutrophil % 90 %; Nucleated Red Blood Cells/100 2 (0-0)
[2018-11-07 16:47] LABS: Microcytosis 1+
[2018-11-07 16:50] LABS: Polychromasia 2+
[2018-11-07 16:58] LABS: ABS Neutrophils 34.34 10^3/ul (1.5-7.7)
[2018-11-07] MEDS: fentaNYL* 50 MCG/ML 2 ML VIAL (100 MCG VIAL) IV SLOW PU PRN ×2 (17:29→23:38)
[2018-11-07] MEDS ORDERED: NS 0.9% 1000 ML** 1,000 ML IV SCH (20:00)
[2018-11-07] MEDS ORDERED: QUEtiapine TAB* 25 MG PO SCH (21:00)
[2018-11-07] MEDS: QUEtiapine TAB* 25 MG PO SCH (22:24)
[2018-11-08] MEDS: Insulin LISPRO* 1 UNITS UNIT SUBCUT SCH ×4 (00:16→17:11)
[2018-11-08] MEDS: Chlorhexidine MOUTHWASH 0.12%* 15 ML UDC TOPICAL SCH ×6 (01:54→20:33)
[2018-11-08] MEDS: Metoprolol Tartrate TAB* 50 mg PO SCH ×3 (01:54→17:02)
[2018-11-08] MEDS: Heparin DRIP 25,000 UNITS(*) 25,000 UNITS/500 ML BAG IV SCH ×2 (03:36→20:48)
[2018-11-08] MEDS ORDERED: Magnesium Sulfate 2 GM IV* 2 GM/50 ML BAG IVPB ONE (03:46)
[2018-11-08] MEDS: Metoprolol Tartrate IV* 1 MG/ML 5 ML VIAL IV PRN (05:18)
[2018-11-08] MEDS ORDERED: Digoxin IV* 0.5 MG/2 ML AMP (0.25 MG/ML) IV SLOW PU ONE ×2 (06:57→16:30)
[2018-11-08] MEDS: Cholestyramine Resin* 4 GM POWDER PO SCH ×2 (07:33→20:33)
[2018-11-08] MEDS: Amiodarone TAB* 200 MG PO SCH (07:33)
[2018-11-08] MEDS: Ferrous Sulfate LIQ* 300 MG/5 ML UDC PO SCH ×2 (07:33→20:33)
[2018-11-08] MEDS: Lisinopril TAB* 5 MG PO SCH (07:33)
[2018-11-08] MEDS: Aspirin 81 mg CHEW TAB* 81 MG TAB.CHEW PO SCH (07:33)
[2018-11-08] MEDS: Pantoprazole IV* 40 MG IV SCH (07:34)
[2018-11-08] MEDS: Insulin GLARGINE(*) 1 UNITS UNIT SUBCUT SCH (07:34)
[2018-11-08] MEDS: Silver Sulfadiazine 1%* 85 GM TOPICAL SCH ×2 (07:34→20:26)
[2018-11-08] MEDS ORDERED: Diltiazem IV* 5 MG/ML 5 ML VIAL (for loading dose/IV Push) (25 MG) IV SLOW PU ONE (08:39)
[2018-11-08] MEDS: Diltiazem IV VIAL* 125 MG in NS 0.9% 100 ML* 100 ML IV SCH ×2 (09:13→18:10)
[2018-11-08] MEDS ORDERED: Ondansetron INJ* 2 MG/ML VIAL IV PRN (09:28)
--- NOTE | 2018-11-08 10:52 | PN ---
Date of Service: 11/08/18 - [facility] note Critical Care Services: Pt seen and examined at bedside. CAROL/ICU admission: 10/22/18 Reason for admission: Severe sepsis sec to GI source, DKA, devp resp failure and new onset A.fib in less than 24 hrs Intubation: 10/24 10/25,new LLE DVT, started on IV heparin. 10/26 Bronchoscopy for LLL atelectasis and plugging. Plan of care reviewed with ICU team Overnight events noted Continues to have low grade fever. Had slept for 2 hrs last night with Seroquel. Less response than before to verbal stimuli. Was on full support mostly due to worsening tachycardia No more blood noted in stool bag Having cloudy urine. UO dropped slightly last night. Has been having episodes of tachycardia, HR is irregular. Digoxin given this am, started on cardizem drip. Active Medications Generic Name Dose Route Start Last Admin Trade Name Freq PRN Reason Stop Dose Admin Acetaminophen 650 mg 11/07/18 13:55 Tylenol Adult Liq* PO Q6H PRN FEVER/PAIN Albuterol/Ipratropium 1 neb 10/28/18 08:47 10/31/18 14:29 Duoneb (Albuterol 2.5 Mg/Ipratropium 0.5 Mg) INH 1 neb Q4H PRN Administration SOB/WHEEZING Amiodarone HCl 200 mg 11/08/18 07:30 11/08/18 07:33 Cordarone Tab* PO 200 mg DAILY@0730 CATRACHITA Administration Aspirin 81 mg 11/03/18 16:00 11/08/18 07:33 Aspirin 81 Mg Chew Tab* PO 81 mg DAILY CATRACHITA Administration Bumetanide 1 mg 11/08/18 11:00 Bumex* SLOW PUSH BID CATRACHITA Chlorhexidine Gluconate 15 ml 10/24/18 05:00 11/08/18 07:34 Peridex Mouth Wash 0.12%* TOPICAL 15 ml Q4H CATRACHITA Administration Cholestyramine Resin 4 gm 10/23/18 21:00 11/08/18 07:33 Questran* PO 4 gm BID CATRACHITA Administration Diltiazem HCl 5 mg 11/07/18 16:27 11/07/18 20:50 Diltiazem Iv* IV SLOW PU 5 mg Q6H PRN Administration TACHYCARDIA Fentanyl Citrate 25 mcg 11/07/18 16:49 11/07/18 23:38 Fentanyl* IV SLOW PU 25 mcg Q4H PRN Administration PAIN - MILD TO MODERATE Ferrous Sulfate 300 mg 11/06/18 12:00 11/08/18 07:33 Feosol Liq* PO 300 mg BID CATRACHITA Administration Heparin Sodium (Porcine) 0 units 10/25/18 12:00 11/03/18 15:07 Heparin Vial(*) IV 2,450 units .PER PROTOCOL CATRACHITA Administration Hydrocortisone 1 applic 10/23/18 11:28 11/03/18 00:10 Hytone Cream 1%* TOPICAL 1 applic TID PRN Administration RECTAL PAIN Heparin Sodium/Dextrose 25,000 units in 500 mls @ 0 mls/hr 10/25/18 11:15 03:36 Heparin Drip 25,000 Units(*) IV 36 mls/hr PER RATE CATRACHITA Administration Protocol Per Protocol Ceftriaxone Sodium 1 gm/ 50 mls @ 200 mls/hr 11/07/18 12:00 11/07/18 11:58 Sodium Chloride IVPB 11/09/18 12:00 200 mls/hr Q24H CATRACHITA Administration Diltiazem HCl 125 mg/ Sodium 125 mls @ 5 mls/hr 11/08/18 09:00 11/08/18 09:13 Chloride IV 5 mls/hr Q24H CATRACHITA Administration Protocol Norepinephrine Bitartrate 4,000 mcg in 250 mls @ 18.75 mls/hr 11/08/18 09:00 Levophed 16 Mcg/Ml Premix Bag* IV .INITIAL RATE CATRACHITA 5 MCG/MIN Insulin Glargine 20 units 11/07/18 08:00 11/08/18 07:34 Lantus(*) SUBCUT 20 units Q24H CATRACHITA Administration Insulin Human Lispro 0 units 10/31/18 06:00 11/08/18 06:41 Humalog* SUBCUT 6 units FS Q6 ICU CATRACHITA Administration Protocol Lisinopril 5 mg 11/04/18 14:00 11/08/18 07:33 Prinivil Tab* PO 5 mg DAILY CATRACHITA Administration Metoprolol Tartrate 50 mg 11/02/18 10:00 11/08/18 10:30 Lopressor Tab* PO Not Given Q8H CATRACHITA Metoprolol Tartrate 5 mg 11/07/18 22:52 11/08/18 05:18 Lopressor Iv* IV 5 mg Q6H PRN Administration HEART RATE/PULSE Pantoprazole Sodium 40 mg 10/31/18 09:00 11/08/18 07:34 Protonix Iv* IV 40 mg DAILY CATRACHITA Administration Phenyleph/Shark Oil/Min Oil/Petrol 1 applic 10/23/18 11:27 10/27/18 14:29 Preparation H* TOPICAL 1 applic TID PRN Administration PAIN Quetiapine Fumarate 12.5 mg 11/07/18 22:00 11/07/18 22:24 Seroquel Tab* PO 12.5 mg 2200 CATRACHITA Administration Silver Sulfadiazine 1 applic 11/07/18 09:00 11/08/18 07:34 Silvadine 1%* TOPICAL 1 applic BID CATRACHITA Administration Vital Signs: Temp Pulse Resp BP SpO2 FiO2 100.8 F 170 24 97/57 97 50 11/08/18 07:16 11/08/18 07:27 11/08/18 08:00 11/08/18 07:00 11/08/18 07:16 11/08 08:38 Physical Exam: Gen: Pt in NAD, she is awake, blinks eyes to verbal stimuli HEENT: ETT+, Pupils reactive Lungs:Diminished at bases, crackles at bases Cardiac: S1, S2+, regular Abdomen: Soft, BS+ Extremities: Rt AKA Neuro: Slow response to stimuli, eyes open. Lt hemiparesis+ Skin: Excoriated areas on rt buttock Fluid Balance (Past 24 Hours): I= 3410 O= 3327 Net 83 Intake & Output 11/06/18 11/07/18 11/08/18 11/09/18 06:59 06:59 06:59 06:59 Intake Total 1296 4288 3410.7 Output Total 3610 6560 3327 Balance -2314 -6502 83.7 Weight 202 lb 2.622 oz 195 lb 1.745 oz 190 lb 14.725 oz Intake: IV Fluids 80 194 571.7 KCl 207 Mag 58.7 NS (0.9%) 80 194 306 IVPB 284 63 NS (0.9%) 284 63 Medicated IV 590 813 880 Heparin 590 813 880 Heparin 186 197 171 Oral 0 Tube Feeding 440 2630 1725 Tube Feeding Flush Amount 170 NG Tube Irrigate Amount 0 Output: Urine 210 Reynolds 3400 3660 677 Liquid Stool 2900 2650 Tube Feeding Residual 0 0 Amount Wasted Labs: Laboratory Results - last 24 hr 11/07/18 11/07/18 11/07/18 10:45 11:50 15:25 WBC RBC Hgb Hct MCV MCH MCHC RDW Plt Count MPV Neut % (Auto) Lymph % (Auto) [place] % (Auto) Eos % (Auto) Baso % (Auto) Absolute Neuts (auto) Absolute Lymphs (auto) Absolute Monos (auto) Absolute Eos (auto) Absolute Basos (auto) Absolute Nucleated RBC Immature Gran % Neutrophils % Band Neutrophils % Lymphocytes % Monocytes % Nucleated RBC % Abs Neuts (Manual) Abs Lymphs (Manual) Abs Monocytes (Manual) Nucleated RBCs/100 WBC Normal RBC Morphology Polychromasia Hypochromasia Anisocytosis Microcytosis APTT Patient Temperature ABG pH ABG pH (Temp Correct) ABG pCO2 ABG pCO2 (Temp Corrct ABG pO2 ABG pO2 (Temp Correct ABG HCO3 ABG O2 Saturation ABG Base Excess Respiration Rate O2 Delivery Device Ventilator Type Vent Mode FiO2 Inspiratory Time PEEP Pressure Support Pressure Control EPAP IPAP BiPAP Sodium 137 Potassium 4.3 Chloride 101 Carbon Dioxide 27 Anion Gap 9 BUN 26 H Creatinine 0.77 Est GFR ( Amer) 90.8 Est GFR (Non-Af Amer) 75.0 BUN/Creatinine Ratio 33.8 H Glucose 306 H POC Glucose (mg/dL) 281 H Calcium 8.4 L Phosphorus 6.1 H Magnesium 2.5 Urine Color Yellow Urine Appearance Cloudy Urine pH 5.0 Ur Specific [place] 1.011 Urine Protein Negative Urine Ketones Negative Urine Blood 1+ A Urine Nitrate Positive A Urine Bilirubin Negative Urine Urobilinogen Negative Ur Leukocyte Esterase 3+ A Urine WBC (Auto) 3+(>20/hpf) A Urine RBC (Auto) Absent Ur Squamous Epith Cells Present A Urine Bacteria 3+ A Urine Yeast Present A Urine Glucose Negative 11/07/18 11/07/18 11/08/18 15:25 17:33 00:08 WBC 35.8 H RBC 4.14 Hgb 8.5 L Hct 29 L MCV 70 L MCH 21 L MCHC 30 L RDW 35 H Plt Count 580 H D MPV 9.0 Neut % (Auto) Not Reportable Lymph % (Auto) Not Reportable [place] % (Auto) Not Reportable Eos % (Auto) Not Reportable Baso % (Auto) Not Reportable Absolute Neuts (auto) Not Reportable Absolute Lymphs (auto) Not Reportable Absolute Monos (auto) Not Reportable Absolute Eos (auto) Not Reportable Absolute Basos (auto) Not Reportable Absolute Nucleated RBC Not Reportable Immature Gran % 6 Neutrophils % 90 Band Neutrophils % 6 Lymphocytes % 2 Monocytes % 2 Nucleated RBC % Not Reportable Abs Neuts (Manual) 34.34 H Abs Lymphs (Manual) 0.72 L Abs Monocytes (Manual) 0.72 Nucleated RBCs/100 WBC 2 H Normal RBC Morphology Not Reportable Polychromasia 2+ Hypochromasia 1+ Anisocytosis 3+ Microcytosis 1+ APTT Patient Temperature ABG pH ABG pH (Temp Correct) ABG pCO2 ABG pCO2 (Temp Corrct ABG pO2 ABG pO2 (Temp Correct ABG HCO3 ABG O2 Saturation ABG Base Excess Respiration Rate O2 Delivery Device Ventilator Type Vent Mode FiO2 Inspiratory Time PEEP Pressure Support Pressure Control EPAP IPAP BiPAP Sodium Potassium Chloride Carbon Dioxide Anion Gap BUN Creatinine Est GFR ( Amer) Est GFR (Non-Af Amer) BUN/Creatinine Ratio Glucose POC Glucose (mg/dL) 239 H 219 H Calcium Phosphorus Magnesium Urine Color Urine Appearance Urine pH Ur Specific [place] Urine Protein Urine Ketones Urine Blood Urine Nitrate Urine Bilirubin Urine Urobilinogen Ur Leukocyte Esterase Urine WBC (Auto) Urine RBC (Auto) Ur Squamous Epith Cells Urine Bacteria Urine Yeast Urine Glucose 11/08/18 11/08/18 11/08/18 06:25 07:15 09:21 WBC RBC Hgb Hct MCV MCH MCHC RDW Plt Count MPV Neut % (Auto) Lymph % (Auto) [place] % (Auto) Eos % (Auto) Baso % (Auto) Absolute Neuts (auto) Absolute Lymphs (auto) Absolute Monos (auto) Absolute Eos (auto) Absolute Basos (auto) Absolute Nucleated RBC Immature Gran % Neutrophils % Band Neutrophils % Lymphocytes % Monocytes % Nucleated RBC % Abs Neuts (Manual) Abs Lymphs (Manual) Abs Monocytes (Manual) Nucleated RBCs/100 WBC Normal RBC Morphology Polychromasia Hypochromasia Anisocytosis Microcytosis APTT 98.3 H Patient Temperature Not Reportable ABG pH 7.48 H ABG pH (Temp Correct) Not Reportable ABG pCO2 30 L ABG pCO2 (Temp Corrct Not Reportable ABG pO2 67 L ABG pO2 (Temp Correct Not Reportable ABG HCO3 24.6 ABG O2 Saturation 94.6 ABG Base Excess -0.3 Respiration Rate Not Reportable O2 Delivery Device Ventilator Ventilator Type 450 Vent Mode Cmv FiO2 50 Inspiratory Time Not Reportable PEEP 5 Pressure Support Not Reportable Pressure Control Not Reportable EPAP Not Reportable IPAP Not Reportable BiPAP Not Reportable Sodium Potassium Chloride Carbon Dioxide Anion Gap BUN Creatinine Est GFR ( Amer) Est GFR (Non-Af Amer) BUN/Creatinine Ratio Glucose POC Glucose (mg/dL) 251 H Calcium Phosphorus Magnesium Urine Color Urine Appearance Urine pH Ur Specific [place] Urine Protein Urine Ketones Urine Blood Urine Nitrate Urine Bilirubin Urine Urobilinogen Ur Leukocyte Esterase Urine WBC (Auto) Urine RBC (Auto) Ur Squamous Epith Cells Urine Bacteria Urine Yeast Urine Glucose Impression: 1. Delirium 2. Acute resp failure s/p intubation 3. SVT/A.fib with RVR 4. LLE DVT 5. Hyperglycemia/DM 6. Metabolic encephalopathy-Improving 7. Systolic CHF- Stable 8. Gastroenteritis-infectious with GI bleed, blood stained diarrhea 11/06 9. possible new left parietal infarct versus subacute/chronic CVA- improving 10. Septic shock resolved, off pressors 11. New onset A.fib 12. Electrolyte abnormalities 13. MICHAEL resolved Plan: Neuro- -Awake; alert, less responsive to verbal commands than before Concern for ICU delirium and metabolicseptic encephalopathy than HAND FOLDER issue c/w Seroquel at night, minimize interruptions, non-pharmacologic management for delirium -CT brain - subacute/chronic left parietal infarct -Unable to obtain info on stents, MRI could not be performed -EEG- diffuse slowing; multifactorial from med effect or metabolic - Carotid duplex 50% stenosis on left side, for f/u as out pt with neuro regarding any need for intervention -neurochecks; asp prec -c/w ASA, heparin CVS- -BP stable, tachycardia intermittent -Afib; cont amio 200mg po daily; metoprolol 50mg q8h; IV Lopressor 5mg q4hprn, gave 1 dose of Digoxin this am and started on cardizem drip -c/w lisinopril 5mg daily; off imdur/norvasc -Bumex 2mg IV daily, prn; good urine output noted -IV heparin for Afib and new LLE DVT Resp- -remains intubated; on 50% fio2- Vent settings-CMV 15/450/15/5/50% -Changed ETT 11/05 sec to leak -SBT trail today, tolerated for 7hrs yesterday -Might need tracheotomy if fails SBT, ENT on board -CXR 11/05 small effusions b/l -no sig secretions from ETT -VAP bundle; asp prec; bronchodilators PRN -wean increase fio2 to 55% ID- Low grade fever, leucocytosis + trending down -sputum cx neg 10/26, blood cx 10/22 neg, stool cultures neg 10/22. c.diff neg -Completed IV abx; no clear infectious etiology noted anywhere - UA positive, restarted on abx. c/w Rocepin day#2, received 1 dose Vancomycin 11/07 -F/u rpt septic w/u GI- -OGT with glucerna ; tolerating at rate 60 -No blood in stool, still liquidy - Will c/w Heparin, will trend H&H closely and stop if bleeding continues -rectal tube present -cont cholestyramine for bile acid binding -GI proph Renal- MICHAEL resolved -making urine; neg balance -changed bumex 1mg IV bid -Monitor lytes -reynolds+ Heme- anemia; Iron def ? GI bleed; cont to monitor closely given pt on heparin, MCV low suggestive of Iron def. c/w Fe -New Left LE DVT, Afib on IV heparin, PTT at goal, will continue with heparin unless GI bleed is concerning - ASA 81mg daily for CVA Endo-Maintain BG<200, Lantus dose increased, will monitor q 6 hrs Musculsk- pressure ulcer prophylaxis. a/w silver cream for area of eschar in back. Wound care f/u. Bedrest. Wounds- Skin excoriation in sacrum, older Left AKA site Nutrition- Promote OGT feeds ongoing DVT prophylaxis: SCD and Heparin GI prophylaxis: PPI Central Line: Right PICC Arterial Line: no Reynolds Catheter: yes Disposition: Patient requires Critical Care/ICU for acute hypoxic respiratory failure, for trach placement on Thursday Critical Care Time: 30 min
[2018-11-08] MEDS: Bumetanide IV* 0.25 MG/ML 4 ML VIAL SLOW PUSH SCH ×2 (11:08→22:15)
[2018-11-08 11:37] LABS: Hematocrit 29 % (33-41); Hemoglobin 8.5 g/dL (12.0-16.0); Mean Corpuscular HGB Conc 29 g/dL (31-36); Mean Corpuscular Hemoglobin 20 pg (27-31); Mean Corpuscular Volume 70 fL (80-97); Mean Platelet Volume 9.1 fL (7.4-10.4); Platelet Count 531 10^3/uL (150-450); Red Blood Count 4.18 10^6 /uL (3.70-4.87); Red Cell Distribution Width 35 % (10.5-15); White Blood Count 32.9 10^3/uL (3.5-10.8)
[2018-11-08 11:49] LABS: BUN/Creatinine Ratio 35.2 (8-20); Calcium 8.8 mg/dL (8.6-10.3); EGFR African American 63.4 (>60); EGFR Non-African American 52.4 (>60); Magnesium 3.3 mg/dL (1.9-2.7); Phosphorus 5.7 mg/dL (2.5-5.0); Potassium 4.5 mmol/L (3.5-5.0)
[2018-11-08] MEDS: cefTRIAXone(*) 1 GM in NS 0.9% 50 ML* 50 ML IVPB SCH (12:07)
[2018-11-08] MEDS ORDERED: fentaNYL* 50 MCG/ML 2 ML VIAL (100 MCG VIAL) IV SLOW PU PRN (16:52)
[2018-11-08] MEDS: QUEtiapine TAB* 25 MG PO SCH (20:34)
[2018-11-09] MEDS ORDERED: NS 0.9% 1000 ML** 1,000 ML IV SCH ×2 (00:16→02:15)
[2018-11-09] MEDS: Insulin LISPRO* 1 UNITS UNIT SUBCUT SCH ×3 (01:45→13:28)
--- NOTE | 2018-11-09 02:22 | PN ---
Hospitalist Progress Note Date of Service: 11/09/18 Cross Cover Note Pt vomited ~200 cc of tube feeds around tube, placed to suction and ~1000CC of tube feed removed Pt desaturated with FiO2 uptitrated to 100%, PEEP at 8 already CXR ordered-no acute infiltrate remains fluffy Concern for aspiration PNA or pneumonitis Spoke with , Duane, who is health care proxy, we had a discussion about the event tonight and that I had my concerns if she were to get much worse I am not sure what I would offer her. He understands that she is sick, was hopeful that some of her infections were getting better, but does understand overall that she is in critical life or situation. We discussed that he and Ebenezer , his daughter had initally opeted for her to be FUll Code and that they would want us "to at least try" - on further discussion and in light of her tenous status he and I discuss that if her heart were to stop the likelihood of meaninful recovery may be low, knowing this, he elects to change code status to DNR He will update daughter Ebenezer Garcia at 5AM and ultimately reports its his decision and he feels at peace with it. Code status changed to DNR, RN as witness on phone conversation
[2018-11-09] MEDS: Norepinephrine 16MCG/ML IVPRE* 4,000 MCG/250 ML BAG IV SCH ×3 (02:58→11:30)
[2018-11-09] MEDS: Chlorhexidine MOUTHWASH 0.12%* 15 ML UDC TOPICAL SCH ×3 (02:58→08:37)
[2018-11-09] MEDS: Metoprolol Tartrate TAB* 50 mg PO SCH ×2 (02:58→08:38)
[2018-11-09] MEDS: Cholestyramine Resin* 4 GM POWDER PO SCH (08:37)
[2018-11-09] MEDS: Insulin GLARGINE(*) 1 UNITS UNIT SUBCUT SCH (08:37)
[2018-11-09] MEDS: Aspirin 81 mg CHEW TAB* 81 MG TAB.CHEW PO SCH (08:37)
[2018-11-09] MEDS: Bumetanide IV* 0.25 MG/ML 4 ML VIAL SLOW PUSH SCH (08:37)
[2018-11-09] MEDS: Pantoprazole IV* 40 MG IV SCH (08:38)
[2018-11-09] MEDS: Lisinopril TAB* 5 MG PO SCH (08:38)
[2018-11-09] MEDS: Amiodarone TAB* 200 MG PO SCH (08:38)
[2018-11-09] MEDS: Silver Sulfadiazine 1%* 85 GM TOPICAL SCH (08:38)
[2018-11-09] MEDS: Ferrous Sulfate LIQ* 300 MG/5 ML UDC PO SCH (08:39)
[2018-11-09] MEDS ORDERED: HYDROmorphone PCA* 20 MG/20 ML PCA.SYRING PCA SCH (10:00)
[2018-11-09] MEDS: Morphine 10 MG/ML VIAL (1 ml) IV SCH ×3 (10:09→12:05)
[2018-11-09 11:43] VITALS: BP 126/75
--- NOTE | 2018-11-09 13:04 | PN ---
Date of Service: 11/09/18 Vital Signs: Temp Pulse Resp BP SpO2 FiO2 101.1 F 119 16 126/75 96 95 11/09/18 11:30 11/09/18 11:30 11/09/18 12:05 11/09/18 11:16 11/09/18 11:30 11/09 11:45 Physical Exam: Gen: Intubated, unresponsive HEENT: Atraumatic, normocephalic, PEERLA Lungs: Crackles bilaterally, course throughout Cardiac: Tachycardia on tele, rate 160's Abdomen: Distended, absent BS : Landis with no urine output x24h Extremities: Cool RLE, LAKA Neuro: Eyes open, no appreciable response to stimuli noted today, does not track Fluid Balance (Past 24 Hours): I= O= Net Intake & Output 11/07/18 11/08/18 11/09/18 11/10/18 06:59 06:59 06:59 06:59 Intake Total 4288 3410.7 3613.1 0 Output Total 6560 3327 3217 0 Balance -2272 83.7 396.1 0 Weight 195 lb 1.745 oz 190 lb 14.725 oz 190 lb 11.198 oz Intake: IV Fluids 194 571.7 654 KCl 207 Mag 58.7 NS (0.9%) 194 306 654 IVPB 284 63 65 ABX - CEFTRIAXONE 65 NS (0.9%) 284 63 Medicated IV 813 880 776.1 GEN - Diltiazem/Cardizem 151.1 Heparin 813 880 481 Levophed 144 Heparin 197 171 Oral 0 0 Tube Feeding 2630 1725 2058 0 Tube Feeding Flush Amount 170 60 NG Tube Irrigate Amount 0 0 Output: Landis 3660 677 292 0 Liquid Stool 2900 2650 925 0 Tube Feeding Residual 0 0 2000 0 Amount Wasted Labs: Laboratory Results - last 24 hr 11/08/18 11/08/18 11/08/18 16:50 17:02 23:50 APTT 86.4 H 65.0 H POC Glucose (mg/dL) 150 H Digoxin 11/09/18 11/09/18 11/09/18 01:40 06:30 06:31 APTT POC Glucose (mg/dL) 231 H 164 H Digoxin 1.4 11/09/18 07:35 APTT 39.9 H POC Glucose (mg/dL) Digoxin Impression: 1. Delirium/Encephalopathy - Remains unresponsive off all sedation since 11/08, worsening course overnight per Dr Carlisle, code status changed to DNR 2. Acute resp failure s/p intubation - Remains vent-dependent with no breathing over the vent - Tube feeds stopped 2/2 emesis of feeds overnight, patient has lost bowel function and has large volume residual - Family agrees patient is too unstable to undergo tracheostomy 3. SVT/A.fib with RVR - No appreciable response to cardizem, digoxin, amiodarone and lopressor with rate in the 160-170 range 4. Hypotension - On levophed @10 with SBP in the low 80's 5. LLE DVT - On heparin drip Plan: Patient in multisystem organ failure, unresponsive to pressors, and unable to wean off vent. She has stopped making urine and is not tolerating tube feeds. At this time, family ( Duane and daughter Giulia) have elected to withdraw treatment and accept Comfort Care. They have both stated multiple times that Isaura would not want to live this way and wish for her not to suffer any more. MOLST updated by her with family at bedside. Dilaudid drip initiated with morphine IVP [id number]. Will stop all others drips and medications and DC tele. Will withdraw ETT tube and ventilator when and daughter can arrange for last of family to be present. Explained that after levophed and other medications are stopped, she may have cardiopulmonary arrest before ETT is withdrawn. Family states their understanding and appreciates continued pain control measures and supportive care. Plan: Critical Care Time: 75 minutes on patient care and family meeting regarding goals of care and end of life planning.
[2018-11-09] MEDS: Diltiazem IV VIAL* 125 MG in NS 0.9% 100 ML* 100 ML IV SCH (13:28)
[2018-11-09] MEDS: cefTRIAXone(*) 1 GM in NS 0.9% 50 ML* 50 ML IVPB SCH (13:28)
--- NOTE | 2018-11-09 19:01 | PN ---
Progress Note - Progress Note Date of Service: 11/09/18 Note: Expiration Note: Paged by RN at 18:47 that patient is in asystole. At bedside at 18:51, upon assessment, pupils are fixed and dilated, no heart beat auscultated apically for 1 full minute, no radial pulses. Time of 18:51. Family at bedside, condolences and support provided. Requested RN to call respiratory to remove ET tube and RN to provide post- mortem care.
--- NOTE | 2018-11-11 00:12 | DS ---
DISCHARGE SUMMARY / SUMMARY: DATE OF ADMISSION: 10/22/18 DATE OF : 11/09/18 TIME OF : 1850. REASON FOR ADMISSION: Severe sepsis, source unclear, attributed to GI source, DKA, respiratory failure, new onset AFib. 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 The patient was intubated for hypoxemic respiratory failure. She was started on insulin drip for DKA along with fluids. She was found to be in sepsis, source unknown. She has required pressors for a septic shock. She was started on broad spectrum antibiotics. C. diff was negative. Stool workup did not reveal any obvious etiology. She did have guaiac positive stool and it was attributed to infectious colitis. The patient continued to have fever spikes in spite of being on broad spectrum antibiotics. She had bronchoscopy on 10/26/18 and was found to have mucus plugging resulting in left lower lobe atelectasis. Her GI bleed stabilized and she was subsequently started on heparin for new onset left lower extremity DVT. The patient continued to have septic and hypovolemic shock requiring pressors which were later tapered off. She also had history of systolic dysfunction with acute failure and was initiated on diuresis. She was also treated for pulmonary edema and pneumonia. She presented with acute kidney injury, which improved subsequently. She also had significant metabolic acidosis that improved. She was noted to have bilateral renal masses that needed evaluation. She continued to be encephalopathic. She has history of prior CVA. CT brain was performed, which could not differentiate between new versus old CVA. However, given new onset AFib, she was treated with anticoagulation. The patient; however, continued to deteriorate. Her clinical condition was discussed in detail with the patient's and her daughter. She was noted to be having multiorgan system failure. Her encephalopathy worsened in spite of being off sedation for a few days. The patient was scheduled for tracheostomy given prolonged intubated status and no improvement, which was canceled after family realized her poor prognosis. The patient expressed her wishes to family that she did not want to be in persistent vegetative state and be machine dependent. She was terminally extubated at family's request after she was made comfortable with Dilaudid drip and morphine p.r.n. was also utilized. The patient subsequently in the ICU on 11/09/18 at 1851 with family at bedside. This is brief summary of her hospitalization, please refer to previously dictated admission note and also daily progress notes for further details of her prolonged and complicated hospitalization. [id number]/[facility] #: [id number] MTDD
== END 2018-11-09 18:51 | disposition expired | DRG 870 ==
LOC: ED 23:16 → ICU 10-22 03:31
PROVIDERS: ADMIT Internal Medicine; ATTEND Internal Medicine Critical Care Medicine
PROC: 30233N1 Transfusion of Nonautologous Red Blood Cells into Peripheral Vein, Percutaneous Approach (ICD-10-PCS; principal; 2018-10-22)
PROC: 02HV33Z Insertion of Infusion Device into Superior Vena Cava, Percutaneous Approach (ICD-10-PCS; 2018-10-22)
PROC: 3E033XZ Introduction of Vasopressor into Peripheral Vein, Percutaneous Approach (ICD-10-PCS; 2018-10-22)
PROC: 5A1955Z Respiratory Ventilation, Greater than 96 Consecutive Hours (ICD-10-PCS; 2018-10-24)
PROC: 0BH17EZ Insertion of Endotracheal Airway into Trachea, Via Natural or Artificial Opening (ICD-10-PCS; 2018-10-24)
PROC: 0B9J8ZX Drainage of Left Lower Lung Lobe, Via Natural or Artificial Opening Endoscopic, Diagnostic (ICD-10-PCS; 2018-10-26)
PROC: 4A10X4Z Monitoring of Central Nervous Electrical Activity, External Approach (ICD-10-PCS; 2018-11-02)
DX: A41.9 Sepsis, unspecified organism (principal); E11.10 Type 2 diabetes mellitus with ketoacidosis without coma; J96.91 Respiratory failure, unspecified with hypoxia; R65.21 Severe sepsis with septic shock; J18.9 Pneumonia, unspecified organism; G93.41 Metabolic encephalopathy; J98.11 Atelectasis; I82.402 Acute embolism and thrombosis of unspecified deep veins of left lower extremity; I50.20 Unspecified systolic (congestive) heart failure; N17.9 Acute kidney failure, unspecified; I47.1 Supraventricular tachycardia; I48.91 Unspecified atrial fibrillation; I11.0 Hypertensive heart disease with heart failure; J44.9 Chronic obstructive pulmonary disease, unspecified; E03.9 Hypothyroidism, unspecified; E06.9 Thyroiditis, unspecified; I25.10 Atherosclerotic heart disease of native coronary artery without angina pectoris; E78.00 Pure hypercholesterolemia, unspecified; E11.51 Type 2 diabetes mellitus with diabetic peripheral angiopathy without gangrene; E66.9 Obesity, unspecified; F17.210 Nicotine dependence, cigarettes, uncomplicated; E78.5 Hyperlipidemia, unspecified; E11.40 Type 2 diabetes mellitus with diabetic neuropathy, unspecified; N28.89 Other specified disorders of kidney and ureter; K76.0 Fatty (change of) liver, not elsewhere classified; D50.0 Iron deficiency anemia secondary to blood loss (chronic); K52.9 Noninfective gastroenteritis and colitis, unspecified; E11.65 Type 2 diabetes mellitus with hyperglycemia; R34 Anuria and oliguria; E87.6 Hypokalemia; E83.51 Hypocalcemia; E83.39 Other disorders of phosphorus metabolism; L89.109 Pressure ulcer of unspecified part of back, unspecified stage; Z51.5 Encounter for palliative care; Z86.718 Personal history of other venous thrombosis and embolism; Z82.49 Family history of ischemic heart disease and other diseases of the circulatory system; I25.2 Old myocardial infarction; Z95.5 Presence of coronary angioplasty implant and graft; Z89.512 Acquired absence of left leg below knee; Z83.3 Family history of diabetes mellitus; Z91.048 Other nonmedicinal substance allergy status; Z72.89 Other problems related to lifestyle; Z68.38 Body mass index [BMI] 38.0-38.9, adult; Z86.73 Personal history of transient ischemic attack (TIA), and cerebral infarction without residual deficits
CPT/HCPCS: 31624; 36415; 36600; 70450; 71045; 71260; 71275; 74177; 76705; 80048; 80053; 80162; 81003; 81015; 82140; 82270; 82330; 82530; 82565; 82570; 82607; 82728; 82746; 82803; 82947; 83540; 83550; 83605; 83630; 83690; 83735; 83880; 84100; 84145; 84300; 84443; 84484; 84520; 85025; 85027; 85060; 85730; 86140; 86850; 86900; 86901; 86922; 87040; 87045; 87046; 87070; 87077; 87086; 87186; 87205; 87493; 87641; 87899; 89190; 93005; 93306; 93880; 93970; 94002; 94003; 94640; 95816; 99285; A9270-GY; C1751; C8929; J0282; J0330; J0348; J0610; J0696; J1160; J1170; J1644; J1756; J1815; J1940; J2060; J2250; J2270; J2405; J2543; J2560; J2704; J2765; J3010; J3475; J3480; J3490; P9040; P9047; Q9967